=== PATIENT | female | born 2000 | race Two or more races ===

== ENCOUNTER 2022-12-13 16:10 | Emergency (ER) | payer MEDICAID, SELFPAY ==
--- NOTE | ~2022-12-13 | CT_ITS ---
EXAMINATION: CT HEAD WITHOUT CONTRAST CLINICAL INFORMATION: Head pain. COMPARISON: None available. TECHNIQUE: Contiguous axial imaging was performed from the skull base to vertex without intravenous administration of contrast. This CT examination was performed using dose optimization techniques as appropriate, variously including the following: *Automated exposure control. *Adjustment of mA and/or kV according to patient size (this includes techniques or standardized protocols for targeted exams where dose is matched to indication/reason for exam; i.e. extremities or head). *Use of iterative reconstruction technique. DLP: 581 mGy-cm FINDINGS: There is no evidence of acute intracranial hemorrhage or edematous territorial infarction. Blevins-white matter differentiation is preserved. There is no abnormal attenuation within the brain parenchyma. The ventricles are normal in morphology and size. No evidence for obstructive hydrocephalus. No abnormal mass effect or midline shift. The suprasellar cistern remains widely patent. Normal positioning of the cerebellar tonsils. No extra-axial fluid collections. No acute soft tissue or osseous abnormalities. Persistent metopic suture. Mild mucosal thickening of the paranasal sinuses. The mastoid air cells and middle ear cavities are clear. CT/CT head/brain wo IV con IMPRESSION: No evidence of acute intracranial hemorrhage or edematous territorial infarction.
[2022-12-13 16:17] VITALS: BP 109/83; PULSE 71; RESP 18; TEMP 36.4; O2SAT 100; BMI 31.6
--- NOTE | 2022-12-13 16:18 | ED.GENADULT ---
HPI - General Adult General Chief complaint: Headache Stated complaint: migraine Time Seen by Provider: 12/13/22 19:14 Related Data Previous Rx's Medication Instructions Recorded ibuprofen 400 mg tablet 400 mg PO Q6H PRN pain #20 tabs 12/13/22 ondansetron 4 mg disintegrating 4 mg PO TID PRN nausea and 12/13/22 tablet vomiting 5 days #10 tabs Allergies Allergy/AdvReac Type Severity Reaction Status Date / Time No Known Allergies Allergy Verified 12/13/22 16:17 [No Known Allergies*] [facility] Social History Social History Alcohol intake: never Substance Use Type: Marijuana Physical Exam ED Vital Signs: BMI result Body Mass Index 31.6 Course Course Course Narrative: 22-year-old female presents for evaluation of headache for last 5 days. Ports history of migraines. She states that she has never had any imaging of her brain. CT brain ordered. She has been taking Tylenol without any improvement in her symptoms Medications Administered Discontinued Medications Generic Name Dose Route Start Last Admin Trade Name Freq PRN Reason Stop Dose Admin Diphenhydramine HCl 25 mg 12/13/22 19:33 12/13/22 20:41 Diphenhydramine Hcl 50 Mg/Ml Vial IVPUSH 12/13/22 19:34 25 mg ONCE ONE Administration Sodium Chloride 1,000 mls @ 999 mls/hr 12/13/22 19:45 12/13/22 21:52 Ns IV 12/13/22 20:45 Infused .Q1H1M SIDNEY Infusion Ketorolac Tromethamine 15 mg 12/13/22 19:33 12/13/22 20:41 Ketorolac Tromethamine 15 Mg/Ml Vial IVPUSH 12/13/22 19:34 15 mg ONCE ONE Administration Prochlorperazine Edisylate 10 mg 12/13/22 19:33 12/13/22 20:41 Prochlorperazine Edisylate 10 Mg/2 Ml Vial IVPUSH 12/13/22 19:34 10 mg ONCE ONE Administration Medical Decision Making Lab Data Labs: Lab Results 12/13/22 Range/Units 21:38 Urine Test NEGATIVE (NEGATIVE) Discharge Plan Discharge Clinical Impression: Migraine Patient Disposition: Home, Self-Care Instructions: Migraine Headache (ED) Prescriptions: New ibuprofen 400 mg tablet 400 mg PO Q6H PRN (Reason: pain) Qty: 20 0RF ondansetron 4 mg tablet,disintegrating 4 mg PO TID PRN (Reason: nausea and vomiting) 5 Days Qty: 10 0RF Referrals: [facility] [Provider Group] - 12/15/22 Interventions: ED Discharge Assessment Last Done: 12/13/22 22:41 Discharge Date/Time: 12/13/22 22:41
--- NOTE | 2022-12-13 19:38 | ED_ITS ---
HPI - Headache General Chief Complaint: Headache Stated Complaint: migraine Time Seen by Provider: 12/13/22 19:14 History of Present Illness HPI Narrative: Patient is a 22-year-old female with a history of migraine headache. Presents today with having headache that is frontal in nature. Not associated with any focal weakness. No fever no chills. Headache similar to previous bouts of migraine. Patient questionably hit her head a few days ago. The headache was started just after that. Patient denies any diaphoresis. Does not think she is . She has a Norplant in place. No travel history. No fever no chills. No cough no congestion or upper respiratory symptoms. Related Data Previous Rx's Medication Instructions Recorded ibuprofen 400 mg tablet 400 mg PO Q6H PRN pain #20 tabs 12/13/22 ondansetron 4 mg disintegrating 4 mg PO TID PRN nausea and 12/13/22 tablet vomiting 5 days #10 tabs Allergies Allergy/AdvReac Type Severity Reaction Status Date / Time No Known Allergies Allergy Verified 12/13/22 16:17 [No Known Allergies*] Review of Systems Review of Systems: Positive headache Positive nausea Yes all other systems are reviewed and are negative [facility] Past Medical History Attestation statement: The following information was validated with the patient. Social History Social History Alcohol intake: never Smoked in Last 30 Days: Yes Use of substances other than those prescribed or required for medical reasons: Yes Substance Use Type: Marijuana Substance Use Frequency: Chronic Longstanding Advance Directives: No Advance Directives Information Provided: No Patient : No Physical Exam Vital Signs: Vital Signs: Last Vital Signs Temp 98.1 F 12/13/22 21:33 Pulse 85 12/13/22 21:33 Resp 18 12/13/22 21:33 BP 111/64 12/13/22 21:33 Pulse Ox 100 12/13/22 21:33 O2 Del Method Room Air 12/13/22 21:33 BMI result Body Mass Index 31.6 Appearance: Alert. Oriented X3. No acute distress. Eyes: Pupils equal, round and reactive to light. ENT: Pharynx normal. Neck: Normal inspection. Neck supple. No lymph nodes noted. No crepitus CVS: Normal heart rate and rhythm. Pulses normal. Normal S1 and S2 Respiratory: No respiratory distress. Breath sounds normal. No Wheezing. No rales Abdomen: Soft and nontender. No rigidity. No distention. good BS x4 Skin: Skin warm and dry. Normal skin color. Normal skin turgor. Extremities: No lower extremity edema. Neurovascular intact to all extremities. No Lacerations. No Rash Neuro: Oriented X 3. No motor deficit. No sensory deficit. Moving all extermities. No slurred speech Medications Administered Discontinued Medications Generic Name Dose Route Start Last Admin Trade Name Freq PRN Reason Stop Dose Admin Diphenhydramine HCl 25 mg 12/13/22 19:33 12/13/22 20:41 Diphenhydramine Hcl 50 Mg/Ml Vial IVPUSH 12/13/22 19:34 25 mg ONCE ONE Administration Sodium Chloride 1,000 mls @ 999 mls/hr 12/13/22 19:45 12/13/22 20:41 Ns IV 12/13/22 20:45 999 mls/hr .Q1H1M SIDNEY Administration Ketorolac Tromethamine 15 mg 12/13/22 19:33 12/13/22 20:41 Ketorolac Tromethamine 15 Mg/Ml Vial IVPUSH 12/13/22 19:34 15 mg ONCE ONE Administration Prochlorperazine Edisylate 10 mg 12/13/22 19:33 12/13/22 20:41 Prochlorperazine Edisylate 10 Mg/2 Ml Vial IVPUSH 12/13/22 19:34 10 mg ONCE ONE Administration Medical Decision Making Medical Decision Making [facility] Narrative: Patient's symptoms suggestive of migraine headache. History of similar bouts in the past. Patient history not consistent with intracranial bleeding. Not consistent with meningitis. Neurologically intact. Will discharge patient home as patient's symptom improved with migraine cocktail including Compazine, Benadryl, NSAIDs. IV fluids given hydration. Currently in stable condition. Differential Diagnosis Differential Diagnoses: The differential diagnosis associated with the pre sentation includes Intracranial bleed, migraine, meningitis, tension headache Lab Data [facility] Lab Attestation statement: I reviewed the patient's lab results. Social Determinants Patient?s care significantly limited by Social Determinants of Health including: Inadequate housing and Low income Discharge Plan Discharge Clinical Impression: Migraine Patient Disposition: Home, Self-Care Instructions: Migraine Headache (ED) Prescriptions: New ibuprofen 400 mg tablet 400 mg PO Q6H PRN (Reason: pain) Qty: 20 0RF ondansetron 4 mg tablet,disintegrating 4 mg PO TID PRN (Reason: nausea and vomiting) 5 Days Qty: 10 0RF Referrals: [facility] [Provider Group] - 12/15/22
[2022-12-13 20:11] VITALS: BP 115/72; PULSE 72; RESP 18; TEMP 36.8; O2SAT 98
[2022-12-13] MEDS: Prochlorperazine Edisylate 10 MG/2 ML VIAL IVPUSH (20:41)
[2022-12-13] MEDS: diphenhydrAMINE HCL 50 MG/ML VIAL 25 MG IVPUSH (20:41)
[2022-12-13] MEDS: 0.9 % Sodium Chloride 1,000 ML 999 ML IV (20:41)
[2022-12-13] MEDS: Ketorolac Tromethamine 15 MG/ML VIAL IVPUSH (20:41)
[2022-12-13 21:33] VITALS: BP 111/64; PULSE 85; RESP 18; TEMP 36.7; O2SAT 100
[2022-12-13 21:49] LABS: UPreg QC Valid YES; Urine Pregnancy NEGATIVE (NEGATIVE)
== END 2022-12-13 22:41 | disposition home or self-care (01) ==
PROVIDERS: Physician Assistant; Emergency Provider Emergency Medicine Emergency Medical Services
DX: G43.909 Migraine, unspecified, not intractable, without status migrainosus (principal)
CPT/HCPCS: 70450; 81025; 96361; 96374; 96375; 99284; 99285; J1200; J1885

== ENCOUNTER 2022-12-14 12:27 | Outpatient (REF) | payer MEDICAID, SELFPAY ==
[2022-12-14 16:07] LABS: MANUAL DIFF FLAG NO
[2022-12-14 16:19] LABS: Basophils Percent Auto 0.5 % (0-2); Eosinophils Absolute Auto 0.2 X10*3/uL (0.0-0.4); Eosinophils Percent Auto 2.9 % (0-4); Hematocrit 40.8 % (37.0-47.0); Hemoglobin 13.4 g/dl (12.0-16.0); Imm Gran Abs Auto 0.01 X10*3/uL (0.00-0.03); Imm Gran Pct Auto 0.1 % (0.0-0.4); Lymphocytes Absolute Auto 2.3 X10*3/uL (1.2-4.9); Lymphocytes Percent Auto 27.6 % (20-40); Mean Corpuscular HGB Conc 32.8 g/dl (31.0-35.0); Mean Corpuscular Volume 88.3 fL (80.0-98.0); Mean Platelet Volume 10.9 fL (9.4-12.3); Monocytes Absolute Auto 0.6 X10*3/uL (0.1-1.2); Monocytes Percent Auto 7.5 % (2-11); Neutrophils Absolute Auto 5.1 x10*3/uL (2.0-8.3); Neutrophils Percent Auto 61.4 % (45-73); Platelet Count 312 X10*3/uL (160-400); Red Blood Count 4.62 X10*6/uL (4.20-5.50); Red Cell Distribution Width 13.7 % (11.0-16.0); White Blood Count 8.3 X10*3/uL (4.8-10.8)
[2022-12-14 16:29] LABS: Estimated Average Glucose 91 mg/dL; Hemoglobin A1c % 4.8 %
[2022-12-14 17:12] LABS: Alanine Aminotransferase 10 U/L (0-31); Albumin Level 3.7 g/dL (3.5-5.0); Alkaline Phosphatase 80 U/L (39-117); Anion Gap 11 (12-20); Aspartate Amino Transferase 17 U/L (5-31); Bilirubin Total 0.4 mg/dL (0.0-1.0); Blood Urea Nitrogen 7 mg/dL (9-16); Calcium 8.8 mg/dL (8.4-10.2); Carbon Dioxide 24 mmol/L (22-29); Chloride 110 mmol/L (96-108); Cholesterol 138 mg/dL; Estimated Glomerular Filt Rate > 60; Glucose Random 75 mg/dL (60-115); HDL Cholesterol 43 mg/dL; Iron 113 mcg/dL (30-160); LDL Cholesterol Calculated 80 mg/dl; Percent Iron Saturation 45 % (15-50); Potassium 3.9 mmol/L (3.3-5.1); Sodium 141 mmol/L (135-145); Total Iron Binding Capacity 253 mcg/dL (228-428); Total Protein 6.3 g/dL (6.5-8.0); Triglycerides 77 mg/dL; Unsaturated Iron Binding 140 ug/dL
[2022-12-14 17:13] LABS: Ferritin 49 ng/mL (10-122); TSH reflex Free T4 0.25 uIU/mL (0.32-4.0)
[2022-12-15 08:49] LABS: HBS Num1 0.42 mIU/mL (0-7.99); HBc Num1 0.12 S/CO (0.00-0.79); HBsAGNum1 0.37 S/CO (0.00-0.99); HIV AB/AG Nonreactive (Nonreactive); HIV Num 1 0.05 S/CO (0.00-0.99); Hepatitis A Antibody IgM 0.17 Index (0-0.79); Hepatitis B Core Antibody Nonreactive (Nonreactive); Hepatitis B Surface Antigen Negative (Negative); ~HepC Num1 0.06 S/CO (0.00-0.79); ~Hepatitis A Antibody IgM Nonreactive (Nonreactive); ~Hepatitis B Surface Antibody NONREACTIVE (Nonreactive); ~Hepatitis C Antibody Nonreactive (Nonreactive)
[2022-12-15 08:53] LABS: Syphilis Screen Nonreactive (Nonreactive)
== END 2022-12-14 12:28 | disposition home or self-care (01) ==
LOC: HO.HHCL 12:27
PROVIDERS: Visit Provider Registered Nurse
DX: Z00.00 Encounter for general adult medical examination without abnormal findings (principal); Z11.4 Encounter for screening for human immunodeficiency virus [HIV]; R42 Dizziness and giddiness
CPT/HCPCS: 36415; 80053; 80061; 82728; 83036; 83540; 84439; 84443; 85025; 86704; 86706; 86709; 86780; 86803; 87340; 87389

== ENCOUNTER 2023-01-31 19:43 | Outpatient (REF) | payer MEDICAID, SELFPAY ==
[2023-02-08 04:33] LABS: C. trachomatis RNA TMA NOT DETECTED (NOT DETECTED); N. gonorrhoeae RNA TMA NOT DETECTED (NOT DETECTED); Trichomonas (NAAT) NOT DETECTED (NOT DETECTED)
== END 2023-01-31 19:44 | disposition home or self-care (01) ==
LOC: HO.HHCLNP 19:43
PROVIDERS: Visit Provider Advanced Practice Midwife
DX: Z12.4 Encounter for screening for malignant neoplasm of cervix (principal); Z11.3 Encounter for screening for infections with a predominantly sexual mode of transmission
CPT/HCPCS: 36415; 87491; 87591; 87661; 88142

== ENCOUNTER 2023-03-29 05:00 | Emergency (ER) | payer MEDICAID, SELFPAY ==
--- NOTE | ~2023-03-29 | XR_ITS ---
EXAMINATION: XR ANKLE, LEFT CLINICAL INFORMATION: Pain and swelling. COMPARISON: None available. TECHNIQUE: AP, lateral, and mortise views of the left ankle. FINDINGS: No fracture. Alignment is anatomic. No erosions. Joint spaces are maintained. There is mild lateral soft tissue swelling. XR/XR ankle LT min 3V IMPRESSION: Mild lateral soft tissue swelling. No acute osseous abnormality.
[2023-03-29 05:35] VITALS: BP 118/65; PULSE 83; RESP 18; TEMP 36.7; O2SAT 97; BMI 29.1
[2023-03-29 07:05] VITALS: BP 105/62; PULSE 70; RESP 20; TEMP 36.5; O2SAT 98
--- NOTE | 2023-03-29 07:19 | ED_ITS ---
HPI - Extremity Problem General Chief complaint: Extremity Problem Stated complaint: Fall/ Ankle pain Time Seen by Provider: 03/29/23 06:43 Source: patient Mode of arrival: ambulatory Limitations: no limitations History of Present Illness HPI Narrative: 23-year-old female presents with small laceration to her right heel and left ankle pain status post slipping down a few steps, patient reports she was wearing socks she slipped, patient went in words than hours, immediately started experiencing left ankle pain. Also she noticed that she sustained a laceration from this injury unclear how. Not up-to-date on tetanus shot. She did not hit her head, lose consciousness, not on blood thinners. Denies any other injuries from this fall. Denies preceding symptoms to fall such as chest pain, shortness of breath and dizziness. At this time denies numbness, tingling, fevers, chills, chest pain, shortness of breath, nausea, vomiting, headache, vision changes, dizziness and weakness. Related Data Previous Rx's Medication Instructions Recorded ibuprofen 400 mg tablet 400 mg PO Q6H PRN pain #20 tabs 12/13/22 ondansetron 4 mg disintegrating 4 mg PO TID PRN nausea and 12/13/22 tablet vomiting 5 days #10 tabs ketorolac 10 mg tablet 10 mg PO TID PRN pain 5 days #15 03/29/23 tabs Allergies Allergy/AdvReac Type Severity Reaction Status Date / Time No Known Allergies Allergy Verified 12/13/22 16:17 [No Known Allergies*] Review of Systems Review of Systems: Constitutional : No Weight loss, No Fever, No Chills, No Fatigue, No Malaise ENT/Mouth : + sore throat, No Rhinorrhea Eyes: No Eye Pain, No Swelling, No Redness Cardiovascular : No Chest Pain, No SOB, No Dyspnea on Exertion, No Orthopnea, No Edema, No Palpitations Respiratory : No Cough, No Sputum, No Wheezing Gastrointestinal : No Nausea, No Vomiting, No Diarrhea, No Constipation, No abdominal Pain, No Hematochezia, No Melena Genitourinary : No Dysuria, No Urinary Frequency, No Hematuria, Musculoskeletal : No joint pain, No Myalgias, No Joint Swelling Skin : No Skin Lesions, No rash Neuro : No Weakness, No Numbness, No Dizziness, No Headache Psych : No Anxiety/Panic, No Depression All other systems reviewed and are negative Yes all other systems are reviewed and are negative [facility] Past Medical History Attestation statement: The following information was validated with the patient. Source: old records reviewed and nursing notes reviewed Social History Social History Alcohol intake: never Smoked in Last 30 Days: Yes Use of substances other than those prescribed or required for medical reasons: No Substance Use Type: Marijuana Advance Directives: No Advance Directives Information Provided: Yes Patient : No Physical Exam Vital Signs: Vital Signs: Last Vital Signs Temp 97.7 F 03/29/23 07:05 Pulse 70 03/29/23 07:05 Resp 20 03/29/23 07:05 BP 105/62 03/29/23 07:05 Pulse Ox 98 03/29/23 07:05 O2 Del Method Room Air 03/29/23 07:05 BMI result Body Mass Index 29.1 vss Appearance: Alert.? Oriented X3.? No acute distress.? Head: Normocephalic, atraumatic, no step-offs or deformities Eyes: Pupils equal, round and reactive to light.? Neck: Normal inspection.? Neck supple.? CVS: Normal heart rate and rhythm.? Pulses normal.? Respiratory: No respiratory distress.? Breath sounds normal.? Abdomen: Soft and nontender.? Skin: Skin warm and dry.? Normal skin color.? Normal skin turgor.? Extremities: No lower extremity edema.? No calf ttp. 5/5 strength to bilateral upper and lower extremities + TTP to lateral aspect of left ankle. 2+ DP,AT,PT pulses equal and b/l. Full ROM to b/l ankles slight discomfort w/ rom of L ankle. + small laceration to right heel, appears to be healing w/o FB visualized. Back: No midline tenderness, no C-spine tenderness, full range of motion, no CVA tenderness bilaterally Neuro: Oriented X 3.? No motor deficit.? No sensory deficit. CN 2-12 intact Course Reevaluation(s) Reevaluation #1: X-ray of left ankle with mild lateral soft tissue swelling. No acute osseous abnormality. Likely sprain or strain will give Aircast, crutches. Will give orthopedic follow-up. Toradol for pain. Educated patient on diagnosis and treatment plan, answered all question, patient verbalizes understanding. At this time patient will be discharged home, advised to return with new or worse angel symptoms. Educated on worrisome signs and symptoms and when to return. At this time I feel comfortable discharge home. Time: 07:26 Medications Administered Discontinued Medications Generic Name Dose Route Start Last Admin Trade Name Clarisse PRN Reason Stop Dose Admin Diphtheria/Tetanus/Acell Pertussis 0.5 ml 03/29/23 07:16 03/29/23 07:59 Diphth,Pertus(Acell),Tet Adult 0.5 Ml Syringe IM 03/29/23 07:17 0.5 ml .ONCE ONE Administration Ketorolac Tromethamine 30 mg 03/29/23 07:16 03/29/23 07:58 Ketorolac Tromethamine 15 Mg/Ml Vial IM 03/29/23 07:17 30 mg ONCE ONE Administration Medical Decision Making Medical Decision Making [facility] Narrative: 723 23-year-old female presents with right ankle laceration on left ankle pain status post rolling her ankle yesterday while slipping down a few steps. No other injury sustained no head strike or loss of consciousness. Not on blood thinner Physical exam significant for No lower extremity edema.? No calf ttp. 5/5 strength to bilateral upper and lower extremities + TTP to lateral aspect of left ankle. 2+ DP,AT,PT pulses equal and b/l. Full ROM to b/l ankles slight discomfort w/ rom of L ankle. + small laceration to right heel, appears to be healing w/o FB visualized. Likely sprain or strain. Unlikely fracture dislocation. Unlikely threat to limber neurovascular compromise. Likely simple laceration. No signs of foreign body visualized. Laceration will not require repair. Already in secondary healing Plan at this time will give a Boostrix shot as patients tetanus status is unknown. Will also obtain imaging to rule out fracture dislocation Differential Diagnosis Differential Diagnoses: The differential diagnosis associated with the presenta tion includes Likely sprain or strain. Unlikely fracture dislocation. Unlikely threat to limber neurovascular compromise. Likely simple laceration. No signs of foreign body visualized. Admission/Observation Consideration of admission/observation: Escalation of care including admission/observation considered Unlikely Independent Interpretation I performed an independent interpretation of an: Plain X-Ray Radiology Impression Discussion of test interpretation with radiology: I have reviewed the radiologist's reading. Prescription Management I considered prescription management with: Pain Medication Critical Care Time Critical Care Time Critical Care Time: No Discharge Plan Discharge Clinical Impression: Ankle sprain, Laceration of foot Patient Disposition: Home, Self-Care Instructions: Ankle Sprain (ED), Crutch Instructions (ED), Laceration (DC), R.I.C.E. Treatment (ED), Laceration Without Closure (ED) Additional Instructions: Take your medications as prescribed. If you were prescribed antibiotics today, it is important that you take your medication to their entirety, do not skip any doses, do not finish them early. Follow-up with your primary care provider this week. Follow-up with the orthopedic Return to the emergency department with new or worsening symptoms. Such as fevers, chills, chest pain, shortness of breath, nausea, vomiting, dizziness, headache, vision changes, lethargy In case of emergency call 911 Toradol has been sent to your pharmacy, you tolerated this well in the department. Please take this as prescribed do not take this with ibuprofen, or other NSAIDs, do not mix this with alcohol. Side effects of this medication including increased risk for bleeding and possible kidney injury. XR/XR ankle LT min 3V IMPRESSION: Mild lateral soft tissue swelling. No acute osseous abnormality. Prescriptions: New ketorolac 10 mg tablet 10 mg PO TID PRN (Reason: pain) 5 Days Qty: 15 0RF No Action ibuprofen 400 mg tablet 400 mg PO Q6H PRN (Reason: pain) Qty: 20 0RF ondansetron 4 mg tablet,disintegrating 4 mg PO TID PRN (Reason: nausea and vomiting) 5 Days Qty: 10 0RF Referrals: [facility] [place] [facility] [Provider Group] - 3 days Physician,Unknown J [Primary Care Provider] - 2 days Stand Alone Forms: Work/School Release Interventions: ED Discharge Assessment Last Done: 03/29/23 08:12 Discharge Date/Time: 03/29/23 08:13
[2023-03-29] MEDS: Ketorolac Tromethamine 15 MG/ML VIAL 30 MG IM (07:58)
[2023-03-29] MEDS: Diphth,Pertus(ACell),Tet Adult 0.5 ML SYRINGE IM (07:59)
--- NOTE | 2023-03-29 08:09 | PC.NURSE ---
assumed care of pt at 0700. pt a&o x4, pleasant, calm, and cooperative. pt reports 10/10 L ankle pain. pt medicated per jul. pt provided with aircast and crutches with training. pt able to tolerate crutches well. rr even/unlabored. call butler within pt reach.
== END 2023-03-29 08:13 | disposition home or self-care (01) ==
PROVIDERS: Emergency Provider Student in an Organized Health Care Education/Training Program
DX: S93.402A Sprain of unspecified ligament of left ankle, initial encounter (principal); S91.311A Laceration without foreign body, right foot, initial encounter; W10.8XXA Fall (on) (from) other stairs and steps, initial encounter; Y93.89 Activity, other specified; Y92.9 Unspecified place or not applicable; Y99.9 Unspecified external cause status
CPT/HCPCS: 73610; 90471; 90715; 96372; 99284; J1885

== ENCOUNTER 2023-04-27 05:01 | Emergency (ER) | payer MEDICAID, SELFPAY ==
[2023-04-27 05:16] VITALS: BP 131/84; PULSE 98; RESP 16; TEMP 36.6; O2SAT 97; BMI 13.0
--- NOTE | 2023-04-27 05:24 | ED.BACK ---
HPI - Back Pain/Injury General Chief Complaint: Abdominal Pain Stated Complaint: Back pain Time Seen by Provider: 04/27/23 05:16 Source: patient Mode of arrival: ambulatory Limitations: no limitations History of Present Illness HPI Narrative: 23 yo female who denies PMH states she works at [employer] and has to do repetitive lifting at her job though it is not heavy. She has had lower back pain x 2 weeks worse with bending and moving. She denies IVDA, fevers, blood thinners, b/b incontinence, saddle anesthesia or any other concerns. She tried tylenol with little relief. She is requesting a test to be sure. MD elicited complaint: back pain Pertinent past history: other (repetitive movements at work) Onset (ago): week(s) (2) Timing: intermittent Severity: mild Similar Symptoms Previously: No Quality: dull and aching Location: lumbar spine Radiation: none Exacerbating factors: movement Relieving factors: immobilization Context: bending Associated symptoms: denies other symptoms Treatments prior to arrival: acetaminophen Work related injury: Yes Related Data Previous Rx's Medication Instructions Recorded ibuprofen 400 mg tablet 400 mg PO Q6H PRN pain #20 tabs 12/13/22 ondansetron 4 mg disintegrating 4 mg PO TID PRN nausea and 12/13/22 tablet vomiting 5 days #10 tabs ketorolac 10 mg tablet 10 mg PO TID PRN pain 5 days #15 03/29/23 tabs cyclobenzaprine 10 mg tablet 10 mg PO TID PRN muscle spasm #20 04/27/23 tabs ibuprofen 600 mg tablet 600 mg PO Q6H PRN pain #30 tabs 04/27/23 lidocaine 5 % topical patch 1 patch topical DAILY #30 ea 04/27/23 Allergies Allergy/AdvReac Type Severity Reaction Status Date / Time No Known Allergies Allergy Verified 12/13/22 16:17 [No Known Allergies*] Review of Systems Review of Systems: Constitutional : No Weight loss, No Fever, No Chills, ENT/Mouth : No Hearing loss, No Ear Pain, No Nasal Congestion, No Sinus Pain, No Hoarseness, No sore throat, No Rhinorrhea, No Swallowing Difficulty Cardiovascular : No Chest Pain, No SOB Respiratory : No Cough, No Dyspnea Gastrointestinal : No Nausea, No Vomiting, No Diarrhea, No abdominal Pain, No Hematochezia, No Melena Genitourinary : No Dysuria, No Urinary Frequency, No Hematuria, No Urinary Incontinence, Musculoskeletal : positive back pain Skin : No Skin Lesions, No rash Neuro : No Weakness, No Numbness, No Paresthesias, no loss of bowel or bladder incontinence, no saddle anesthesia All other systems reviewed and are negative [facility] Past Medical History Source: old records reviewed Medical History No pertinent past medical history Social History Social History (Updated 04/27/23 @ 05:27 by Linda Allen DO) Alcohol intake: never Patient Tobacco Use Status: Tobacco use Unknown Substance Use Type: Marijuana Advance Directives: No Physical Exam Vital Signs: Vital Signs: Last Vital Signs Temp 97.9 F 04/27/23 05:16 Pulse 98 04/27/23 05:16 Resp 16 04/27/23 05:16 BP 131/84 04/27/23 05:16 Pulse Ox 97 04/27/23 05:16 O2 Del Method Room Air 04/27/23 05:16 BMI result Body Mass Index 13.0 Appearance: Alert. Oriented X3. No acute distress. Eyes: Pupils equal, round and reactive to light. ENT: Pharynx normal. Neck: Normal inspection. Neck supple. CVS: Normal heart rate and rhythm. Pulses normal. Respiratory: No respiratory distress. Breath sounds normal. Abdomen: Soft and non-tender. Back: ttp along bilateral lumbar paraspinal muscles reproduces pain Skin: Skin warm and dry. Normal skin color. Normal skin turgor. Extremities: No lower extremity edema. No calf ttp Neuro: Oriented X 3. No motor deficit. No sensory deficit. Medical Decision Making Medical Decision Making [facility] Narrative: 23 yo female with no sig PMH here with low back pain likely due to repetitive lifting from her job no red flags with b/b incontinence and no saddle anesthesia. No IVDA. Has no abdominal pain on exam. She is asking for test. Will obtain UA and UPT - once resulted will start on NSAIDs, flexeril and lidocaine patches for strain. Differential Diagnosis Differential Diagnoses: The differential diagnosis associated with the presentation includes low back strain, lumbar strain Lab Data [facility] Lab Attestation statement: I reviewed the patient's lab results. Labs: Lab Results 04/27/23 Range/Units 05:45 Urine Color Dark Yellow Urine Appearance Clear Urine pH 5.5 (5.0-9.0) Ur Specific [place] >= 1.030 H (1.005-1.025) Urine Protein Negative (Neg-Trace) mg/dL Urine Glucose (UA) Negative (Negative) mg/dL Urine Ketones Trace (Negative) mg/dL Urine Blood Negative (Negative) Urine Nitrite Negative (Negative) Ur Leukocyte Esterase Negative (Negative) Urine RBC 0-2 (0-2) /HPF Urine WBC 0-5 (0-5) /HPF Ur Squamous Epith Cells 6-10 (0-2) /HPF Urine Bacteria None Seen (None Seen) Hyaline Casts 0-2 (0-2) /LPF Urine Test NEGATIVE (NEGATIVE) Independent Historian Clinical information obtained from an independent historian. History obtained from or confirmed by: Spouse External Record Review External record reviewed: Inpatient record Prescription Management I considered prescription management with: Pain Medication and Other Discharge Plan Discharge Clinical Impression: Lumbar strain Qualifiers: Encounter type: initial encounter Qualified Code(s): S39.012A - Strain of muscle, fascia and tendon of lower back, initial encounter Patient Disposition: Home, Self-Care Instructions: Low Back Strain (ED) Additional Instructions: return for numbness, weakness, loss of control of bowel or bladder or any other concerns. test negative Prescriptions: New cyclobenzaprine 10 mg tablet 10 mg PO TID PRN (Reason: muscle spasm) Qty: 20 0RF lidocaine 5 % adhesive patch,medicated 1 patch topical DAILY Qty: 30 0RF Rx Instructions: leave on most painful area for up to 12 hrs ibuprofen 600 mg tablet 600 mg PO Q6H PRN (Reason: pain) Qty: 30 0RF No Action ibuprofen 400 mg tablet 400 mg PO Q6H PRN (Reason: pain) Qty: 20 0RF ondansetron 4 mg tablet,disintegrating 4 mg PO TID PRN (Reason: nausea and vomiting) 5 Days Qty: 10 0RF ketorolac 10 mg tablet 10 mg PO TID PRN (Reason: pain) 5 Days Qty: 15 0RF Stand Alone Forms: Work/School Release
[2023-04-27 05:51] LABS: Appearance Urine Clear; Color Urine Dark Yellow; Glucose Urine UA Negative (Negative); Leukocyte Esterase Urine Negative (Negative); Nitrite Urine Negative (Negative); PH 5.5 (5.0-9.0); Specific Gravity - Urine >= 1.030 (1.005-1.025); Urine Blood Negative (Negative); Urine Ketones Trace mg/dL (Negative); Urine Protein Negative (Neg-Trace)
[2023-04-27 05:52] LABS: UPreg QC Valid YES; Urine Pregnancy NEGATIVE (NEGATIVE)
[2023-04-27 05:56] LABS: Bacteria Urine None Seen (None Seen); Hyaline Casts Urine 0-2 /LPF (0-2); RBC Urine 0-2 /HPF (0-2); WBC Urine 0-5 /HPF (0-5)
[2023-04-27 06:17] VITALS: BP 105/57; PULSE 56; RESP 16; TEMP 37.1; O2SAT 98
--- NOTE | 2023-04-27 06:23 | PC.NURSE ---
Reviewed discharge instructions with pt. 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 No sign of distress upon discharge.
== END 2023-04-27 06:24 | disposition home or self-care (01) ==
PROVIDERS: Emergency Provider Emergency Medicine
DX: S39.012A Strain of muscle, fascia and tendon of lower back, initial encounter (principal); X50.0XXA Overexertion from strenuous movement or load, initial encounter; Y93.89 Activity, other specified; Y92.59 Other trade areas as the place of occurrence of the external cause; Y99.0 Civilian activity done for income or pay
CPT/HCPCS: 81001; 81025; 99283; 99284

== ENCOUNTER 2023-06-12 10:47 | Emergency (ER) | payer MEDICAID, SELFPAY ==
--- NOTE | ~2023-06-12 | XR_ITS ---
EXAMINATION: XR LUMBOSACRAL SPINE CLINICAL INFORMATION: Back pain COMPARISON: None available. TECHNIQUE: Three views of the lumbosacral spine. FINDINGS: The vertebral bodies and posterior elements are normal. The disc spaces are preserved and the vertebral alignment is normal. The paraspinal soft tissues are normal. XR/XR lumbar spine 2-3V IMPRESSION: Unremarkable examination.
--- NOTE | ~2023-06-12 | XR_ITS ---
EXAMINATION:XR thoracic spine 2V CLINICAL INFORMATION: Pain COMPARISON: None TECHNIQUE: Frontal and lateral views FINDINGS: 7 cervical vertebrae identified maintaining normal height and alignments.. Intervertebral disc spaces are preserved.. No prevertebral soft tissue swelling. Surrounding soft tissue and included lung apices are clear. Included adjacent lungs are clear. XR/XR thoracic spine 2V IMPRESSION: No significant osseous changes to explain patient's dorsal spine pain.
[2023-06-12 10:58] VITALS: BP 120/77; PULSE 97; RESP 16; TEMP 37; O2SAT 103; BMI 28.6
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
[2023-06-12 11:38] LABS: Appearance Urine Cloudy; Color Urine Dark Yellow; Glucose Urine UA Negative (Negative); Leukocyte Esterase Urine Negative (Negative); Nitrite Urine Negative (Negative); PH 5.5 (5.0-9.0); Specific Gravity - Urine >= 1.030 (1.005-1.025); Urine Blood Negative (Negative); Urine Ketones Trace mg/dL (Negative); Urine Protein Trace mg/dL (Neg-Trace)
[2023-06-12 12:23] LABS: MANUAL DIFF FLAG NO
[2023-06-12 12:24] LABS: Basophils Absolute Auto 0.1 X10*3/uL (0.0-0.2); Basophils Percent Auto 0.5 % (0-2); Eosinophils Absolute Auto 0.1 X10*3/uL (0.0-0.4); Eosinophils Percent Auto 0.9 % (0-4); Hematocrit 43.3 % (37.0-47.0); Hemoglobin 14.6 g/dl (12.0-16.0); Imm Gran Abs Auto 0.04 X10*3/uL (0.00-0.03); Imm Gran Pct Auto 0.4 % (0.0-0.4); Lymphocytes Absolute Auto 2.6 X10*3/uL (1.2-4.9); Lymphocytes Percent Auto 28.2 % (20-40); Mean Corpuscular HGB Conc 33.7 g/dl (31.0-35.0); Mean Corpuscular Hemoglobin 30.2 pg (27.0-33.0); Mean Corpuscular Volume 89.6 fL (80.0-98.0); Mean Platelet Volume 9.9 fL (9.4-12.3); Monocytes Absolute Auto 0.7 X10*3/uL (0.1-1.2); Neutrophils Absolute Auto 5.8 x10*3/uL (2.0-8.3); Platelet Count 321 X10*3/uL (160-400); Red Blood Count 4.83 X10*6/uL (4.20-5.50); Red Cell Distribution Width 14.6 % (11.0-16.0); White Blood Count 9.3 X10*3/uL (4.8-10.8)
[2023-06-12 12:32] LABS: UPreg QC Valid YES; Urine Pregnancy NEGATIVE (NEGATIVE)
[2023-06-12 12:35] LABS: Ethanol < 10 mg/dL
[2023-06-12 12:36] LABS: Alanine Aminotransferase 12 U/L (0-31); Albumin Level 4.6 g/dL (3.5-5.0); Alkaline Phosphatase 77 U/L (39-117); Anion Gap 11 (12-20); Aspartate Amino Transferase 17 U/L (5-31); Bilirubin Total 0.3 mg/dL (0.0-1.0); Blood Urea Nitrogen 6 mg/dL (9-16); COVID-19 Test Negative (Negative); Calcium 9.9 mg/dL (8.4-10.2); Carbon Dioxide 28 mmol/L (22-29); Chloride 107 mmol/L (96-108); Creatinine Clr Calc Pharmacy 92.7; Estimated Glomerular Filt Rate > 60; Glucose Random 95 mg/dL (60-115); IDNOW Serial# 16C4AD1C; Lipase 19 U/L (8-78); Magnesium 2.1 mg/dL (1.6-2.6); Potassium 4.3 mmol/L (3.3-5.1); Sodium 142 mmol/L (135-145); Total Protein 7.9 g/dL (6.5-8.0)
[2023-06-12 12:38] LABS: IDNOW Serial# 55D5AD1C; Influenza A Negative (Negative); Influenza B2 Negative (Negative)
[2023-06-12] MEDS: Lidocaine 4 % Patch ADH..PATCH 1 PATCH TRANSDERMA (12:54)
[2023-06-12] MEDS: Acetaminophen 325 MG TABLET 650 MG PO (12:54)
[2023-06-12] MEDS: Cyclobenzaprine HCl 5 MG TABLET PO (13:36)
--- NOTE | 2023-06-12 15:22 | PC.NURSE ---
patient appeared to have left without completing treatment. left note on bed saying they left and to call with any news . provider aware
== END 2023-06-12 15:28 | disposition left against medical advice (07) ==
PROVIDERS: Physician Assistant Medical; Emergency Provider Emergency Medicine
DX: M54.50 Low back pain, unspecified (principal); M54.6 Pain in thoracic spine; Z79.899 Other long term (current) drug therapy; Z11.52 Encounter for screening for COVID-19
CPT/HCPCS: 72070; 72100; 80053; 80307; 81003; 81025; 83690; 83735; 85025; 87502; 87635; 99283

== ENCOUNTER 2023-07-14 06:13 | Emergency (ER) | payer MEDICAID, SELFPAY ==
--- NOTE | 2023-07-14 | ECG_ITS ---
Test Reason : CP Blood Pressure : / mmHG Vent. Rate : 109 BPM Atrial Rate : 109 BPM P-R Int : 126 ms QRS Dur : 086 ms QT Int : 374 ms P-R-T Axes : 070 074 -05 degrees QTc Int : 503 ms Sinus tachycardia T wave abnormality, consider inferior ischemia Abnormal ECG No previous ECGs available Referred By: Generic ED Physician Electronically Signed By:YASMINE FERNÁNDEZ MD
--- NOTE | ~2023-07-14 | XR_ITS ---
EXAMINATION: XR CHEST CLINICAL INFORMATION: Chest pain COMPARISON: None available. TECHNIQUE: 2 views of the chest were obtained. FINDINGS: No significant abnormality is noted involving the heart, lungs, mediastinum, bony thorax or soft tissues. XR/XR chest 2V IMPRESSION: Unremarkable examination.
[2023-07-14 06:21] VITALS: BP 135/80; PULSE 114; RESP 18; TEMP 36.9; O2SAT 99; BMI 28.2
[2023-07-14 06:31] VITALS: PULSE 111
[2023-07-14 06:33] LABS: MANUAL DIFF FLAG NO
[2023-07-14 06:34] LABS: Basophils Percent Auto 0.3 % (0-2); Eosinophils Absolute Auto 0.2 X10*3/uL (0.0-0.4); Hematocrit 43.1 % (37.0-47.0); Hemoglobin 14.7 g/dl (12.0-16.0); Imm Gran Abs Auto 0.07 X10*3/uL (0.00-0.03); Imm Gran Pct Auto 0.5 % (0.0-0.4); Lymphocytes Absolute Auto 3.4 X10*3/uL (1.2-4.9); Lymphocytes Percent Auto 23.6 % (20-40); Mean Corpuscular HGB Conc 34.1 g/dl (31.0-35.0); Mean Corpuscular Hemoglobin 29.5 pg (27.0-33.0); Mean Corpuscular Volume 86.4 fL (80.0-98.0); Mean Platelet Volume 9.6 fL (9.4-12.3); Monocytes Absolute Auto 1.2 X10*3/uL (0.1-1.2); Monocytes Percent Auto 8.3 % (2-11); Neutrophils Absolute Auto 9.6 x10*3/uL (2.0-8.3); Neutrophils Percent Auto 66.3 % (45-73); Platelet Count 322 X10*3/uL (160-400); Red Blood Count 4.99 X10*6/uL (4.20-5.50); Red Cell Distribution Width 14.1 % (11.0-16.0); White Blood Count 14.4 X10*3/uL (4.8-10.8)
--- NOTE | 2023-07-14 06:34 | PC.NURSE ---
iv established labs drawn ekg viewed by ed provider. boyfriend at bedside. nad. resp even and unlabored. call butler within reach.
[2023-07-14 06:51] LABS: Anion Gap 14 (12-20); Blood Urea Nitrogen 10 mg/dL (9-16); Calcium 9.5 mg/dL (8.4-10.2); Carbon Dioxide 23 mmol/L (22-29); Chloride 107 mmol/L (96-108); Creatinine Clr Calc Pharmacy 89.8; Estimated Glomerular Filt Rate > 60; Glucose Random 105 mg/dL (60-115); Potassium 3.2 mmol/L (3.3-5.1); Sodium 141 mmol/L (135-145)
[2023-07-14 07:01] LABS: Troponin-I High Sensitivity < 2.7 ng/L (<3.5-17.0)
[2023-07-14 07:11] VITALS: BP 121/83; PULSE 114; RESP 20; TEMP 36.9; O2SAT 100
--- NOTE | 2023-07-14 07:30 | PC.NURSE ---
PT IS A/O X 4 NO SOB/JOSE ALEJANDRO NOTED PT C/O LEFT CHEST DISC RADIATING TO L SHOULDER AND INTERMITTENTLY PAIN FROM R MID/LOWER BACK PAIN/DISC. PROVIDER MLP (JOSELIN) AT BEDSIDE. PT/BOYFRIEND AWARE OF PLAN OF CARE.
--- NOTE | 2023-07-14 07:40 | ED_ITS ---
HPI - Chest Pain General Chief Complaint: Chest Pain Stated Complaint: chest pain, left side tingling, vomiting Time Seen by Provider: 07/14/23 06:38 Source: patient and family (significant other) Mode of arrival: ambulatory Limitations: no limitations History of Present Illness HPI narrative: 23 year old female with pmhx significant for eoth abuse presents to the ED today for evaluation of chest pain x36 hours. Admits to fluctuations in HR, anywhere from 50-120s beginning yesterday. This has never happened to her before. Additionally endorses morning sickness over the last 4 weeks however denies chance of . Denies OCP use. Currently has Nexplanon implant. Reports history of etoh abuse. Significant other at bedside states that she has cut down drinking exponentially and now only consumes a glass of vodka 1-2 x/week. Endorses marijuana use however denies other illicit substance use or IVDU. Denies history of withdrawal seizures or DT. States she has never been in withdrawal before. Denies AH/VH. Denies SI/HI. Denies fever, chills, sore throat, cough, hemoptysis, abdominal pain, flank pain, dysuria, hematuria, increased urinary frequency, vaginal discharge, calf pain/swelling. Related Data Previous Rx's Medication Instructions Recorded ibuprofen 400 mg tablet 400 mg PO Q6H PRN pain #20 tabs 12/13/22 ondansetron 4 mg disintegrating 4 mg PO TID PRN nausea and 12/13/22 tablet vomiting 5 days #10 tabs ketorolac 10 mg tablet 10 mg PO TID PRN pain 5 days #15 03/29/23 tabs cyclobenzaprine 10 mg tablet 10 mg PO TID PRN muscle spasm #20 04/27/23 tabs ibuprofen 600 mg tablet 600 mg PO Q6H PRN pain #30 tabs 04/27/23 lidocaine 5 % topical patch 1 patch topical DAILY #30 ea 04/27/23 lidocaine 5 % topical patch 1 patch topical DAILY #15 ea 06/12/23 (Lidoderm) ondansetron 4 mg disintegrating 4 mg PO DAILY PRN nausea and 06/12/23 tablet vomiting 5 days #20 tabs Allergies Allergy/AdvReac Type Severity Reaction Status Date / Time No Known Allergies Allergy Verified 07/14/23 06:21 [No Known Allergies*] Review of Systems 2 Review of Systems: Constitutional: No fever, chills, fatigue, night sweats, weight changes ENT/Mouth: No ear pain, hearing loss, nasal congestion, sinus pain, rhinorrhea, sore throat Eyes: No eye pain, swelling, redness, vision changes, discharge Cardio: +chest pain, +palpitations, No SHANKAR, orthopnea, peripheral edema Pulm: No SOB, cough, sputum, wheezing, dyspnea, hemoptysis GI: No nausea, vomiting, hematemesis, abdominal pain, diarrhea, constipation, hematochezia, melena : No irregular bleeding, dysuria, frequency, urgency, hesitancy, hematuria, flank pain, urinary flow changes, urinary incontinence or retention MSK: No back pain, neck pain, joint pain, myalgias Skin: No lesions, rashes Neuro: No weakness, +numbness, No paresthesias, LOC, dizziness, headache Psych: No anxiety/panic, depression, SI/HI, AH/VH All other systems reviewed and are negative. [facility] Past Medical History Attestation statement: The following information was validated with the patient. Source: old records reviewed and nursing notes reviewed Medical History No pertinent past medical history Social History Social History Alcohol intake: never Patient Tobacco Use Status: Tobacco use Unknown Smoked in Last 30 Days: Yes Use of substances other than those prescribed or required for medical reasons: Yes Substance Use Type: Marijuana Advance Directives: No Physical Exam 2 Vital Signs: Vital Signs: Last Vital Signs Temp 98.2 F 07/14/23 11:41 Pulse 95 07/14/23 11:41 Resp 21 H 07/14/23 11:41 BP 130/75 07/14/23 11:41 Pulse Ox 100 07/14/23 11:41 O2 Del Method Room Air 07/14/23 11:41 BMI result Body Mass Index 28.2 Course Course Course Narrative: 1002-- CBC with leukocytosis to 14.4 without left shift > likely secondary to recent vomiting. D-dimer negative > low suspicion for PE. She is hypokalemic to 3.2 with normal magnesium levels > will replete. Lactic WNL. Normal renal function. Normal lipase. Initial troponin undetectable. She is receiving IV fluids and pain medication. She has tested negative for COVID, flu, RSV. 1032-- Patient continues to be tachycardic and tachypneic. Urine negative for nitrites, trace leukocyte esterase, 6-10 squamous epithelial cells > given patient is asymptomatic, I suspect contamination and not true urinary tract infection. No concern for sepsis. > On initial interview, patient deceptive with answers regarding ETOH consumption. Her significant other at bedside states that she typically drinks up to a bottle of vodka week. The last time she drank was on Tuesday when she had an entire bottle of vodka. Patient verbalizes agreement with this. I have concern for acute alcohol withdrawal. Patient denies history of withdrawal or withdrawal seizures/DT however given deceptive answers earlier, I consider patient is poor historian. > On exam mildly tremulous. No tongue fasciculation or asterixis. > will obtain CIWA score. 1050-- RN informs me that CIWA score is 0. Awaiting repeat troponin and calcium levels. 1246--delta troponin flat > no concern for acute ACS or arrhythmia at this time. potassium levels repleted to 4.8 > no longer hypokalemic. Patient endorses symptom improvement with GI cocktail. > patient no longer tachycardic. I have discussed this case along with all investigations with my attending physician, Dr. Juan, who agrees with unremarkable work up. Advise to follow up with PCP out patient for repeat potassium levels. Discussed all workup results and disposition with patient. She is currently declining detox at this time. I educated her on signs /symptoms of alcohol withdrawal and advised her to return to the ED if she feels like she is withdrawing. I also provided her with outpatient detox information. Patient has remained stable throughout ED visit today. Discussed worrisome signs and symptoms and when to return to the ED. All questions answered at this time. Patient is agreeable with disposition and stable for discharge. Medications Administered Discontinued Medications Generic Name Dose Route Start Last Admin Trade Name Freq PRN Reason Stop Dose Admin Al Hydroxide/Mg Hydroxide 30 ml 07/14/23 08:36 07/14/23 09:21 Magnesium Hydrox/Alum Hydrox 30 Ml Oral.Susp PO 07/14/23 08:37 30 ml ONCE ONE Administration Belladonna Alkaloids/Phenobarbital 10 ml 07/14/23 08:36 07/14/23 09:21 Phenobarb/Hyoscy/Atropine/Scop 10 Ml Elixir PO 07/14/23 08:37 10 ml ONCE ONE Administration Potassium Chloride 10 meq in 100 mls @ 100 mls/hr 07/14/23 07:58 07/14/23 09:40 Potassium Chloride/H20 IV 07/14/23 08:57 Infused ONCE ONE Infusion Sodium Chloride 1,000 mls @ 999 mls/hr 07/14/23 08:00 07/14/23 10:23 Ns IV 07/14/23 09:00 Infused .Q1H1M SIDNEY Infusion Ondansetron HCl 4 mg 07/14/23 08:36 07/14/23 10:10 Ondansetron Hcl 4 Mg/2 Ml Vial IVPUSH 07/14/23 08:37 4 mg ONCE ONE Administration Potassium Chloride 40 meq 07/14/23 07:58 07/14/23 08:36 Potassium Chloride Packet 20 Meq Packet PO 07/14/23 07:59 40 meq ONCE ONE Administration Medical Decision Making Medical Decision Making [facility] Narrative: 23 year old female with pmhx significant for eoth abuse presents to the ED today for evaluation of chest pain x36 hours. Vital signs notable for tachycardia. Otherwise WNL. Afebrile. She is nontoxic-appearing and in no acute distress. On initial exam she is mildly tremulous. No asterixis or tongue fasciculations. Lungs are CTA bilaterally. No calf tenderness. Ambulating with steady gait. Clinical concern for arrhythmia, electrolyte abnormality, anemia, ETOH withdrawal, ETOH intoxication, viral syndrome, pneumonia, UTI. Lower supsicion for ACS, dissection, pulmonary embolism/DVT. Plan for labs, ekg, trop, dimer, cxr, and re-evaluation. Differential Diagnosis Differential Diagnoses: The differential diagnosis associated with the presentation includes As above. Admission/Observation Consideration of admission/observation: Escalation of care including admission/observation considered In this patient with acute chest pain and hypokalemia, admission was considered. Lab Data [facility] Lab Attestation statement: I reviewed the patient's lab results. As above. 07/14/23 06:29 07/14/23 10:19 Labs: Lab Results 07/14/23 07/14/23 07/14/23 Range/Units 06:29 07:49 09:23 WBC 14.4 H (4.8-10.8) X10*3/uL RBC 4.99 (4.20-5.50) X10*6/uL Hgb 14.7 (12.0-16.0) g/dl Hct 43.1 (37.0-47.0) % MCV 86.4 (80.0-98.0) fL MCH 29.5 (27.0-33.0) pg MCHC 34.1 (31.0-35.0) g/dl RDW 14.1 (11.0-16.0) % Plt Count 322 (160-400) X10*3/uL MPV 9.6 (9.4-12.3) fL Immature Gran % (Auto) 0.5 H (0.0-0.4) % Neut % (Auto) 66.3 (45-73) % Lymph % (Auto) 23.6 (20-40) % [place] % (Auto) 8.3 (2-11) % Eos % (Auto) 1.0 (0-4) % Baso % (Auto) 0.3 (0-2) % Lymph # (Auto) 3.4 (1.2-4.9) X10*3/uL [place] # (Auto) 1.2 (0.1-1.2) X10*3/uL Eos # (Auto) 0.2 (0.0-0.4) X10*3/uL Baso # (Auto) 0.0 (0.0-0.2) X10*3/uL Abs Immat Gran (auto) 0.07 H (0.00-0.03) X10*3/uL Absolute Neuts (auto) 9.6 H (2.0-8.3) x10*3/uL Absolute Nucleated RBC 0.000 (0.0-0.012) X10*3/uL Nucleated RBC % (auto) 0.0 (0.0-0.2) /100WBC PT 11.7 (11.1-13.3) SEC INR 1.0 (0.9-1.1) D-Dimer High Sensitivty < 150 NG/ML Sodium 141 (135-145) mmol/L Potassium 3.2 L D (3.3-5.1) mmol/L Chloride 107 (96-108) mmol/L Carbon Dioxide 23 (22-29) mmol/L Anion Gap 14 (12-20) BUN 10 (9-16) mg/dL Creatinine 0.85 (0.5-1.4) mg/dL Estim Creat Clear Calc 89.8 Estimated GFR > 60 Random Glucose 105 (60-115) mg/dL Lactic Acid 1.1 (0.5-2.0) mmol/L Calcium 9.5 (8.4-10.2) mg/dL Magnesium 2.0 (1.6-2.6) mg/dL Troponin I High Sens < 2.7 (<3.5-17.0) ng/L Lipase 13 (8-78) U/L Beta HCG, Quant mIU/mL Urine Color Urine Appearance Urine pH (5.0-9.0) Ur Specific Jachin (1.005-1.025) Urine Protein (Neg-Trace) mg/dL Urine Glucose (UA) (Negative) mg/dL Urine Ketones (Negative) mg/dL Urine Blood (Negative) Urine Nitrite (Negative) Ur Leukocyte Esterase (Negative) Urine RBC (0-2) /HPF Urine WBC (0-5) /HPF Ur Squamous Epith Cells (0-2) /HPF Urine Bacteria (None Seen) Hyaline Casts (0-2) /LPF Urine Test (NEGATIVE) Ethyl Alcohol < 10 mg/dL Influenza Type A (PCR) NEGATIVE (Negative) Influenza Type B (PCR) NEGATIVE (Negative) RSV RNA Qual (PCR) NEGATIVE (Negative) SARS-CoV-2 RNA (RT-PCR) NEGATIVE (Negative) 07/14/23 07/14/23 Range/Units 09:54 10:19 WBC (4.8-10.8) X10*3/uL RBC (4.20-5.50) X10*6/uL Hgb (12.0-16.0) g/dl Hct (37.0-47.0) % MCV (80.0-98.0) fL MCH (27.0-33.0) pg MCHC (31.0-35.0) g/dl RDW (11.0-16.0) % Plt Count (160-400) X10*3/uL MPV (9.4-12.3) fL Immature Gran % (Auto) (0.0-0.4) % Neut % (Auto) (45-73) % Lymph % (Auto) (20-40) % [place] % (Auto) (2-11) % Eos % (Auto) (0-4) % Baso % (Auto) (0-2) % Lymph # (Auto) (1.2-4.9) X10*3/uL [place] # (Auto) (0.1-1.2) X10*3/uL Eos # (Auto) (0.0-0.4) X10*3/uL Baso # (Auto) (0.0-0.2) X10*3/uL Abs Immat Gran (auto) (0.00-0.03) X10*3/uL Absolute Neuts (auto) (2.0-8.3) x10*3/uL Absolute Nucleated RBC (0.0-0.012) X10*3/uL Nucleated RBC % (auto) (0.0-0.2) /100WBC PT (11.1-13.3) SEC INR (0.9-1.1) D-Dimer High Sensitivty NG/ML Sodium (135-145) mmol/L Potassium 4.8 D (3.3-5.1) mmol/L Chloride (96-108) mmol/L Carbon Dioxide (22-29) mmol/L Anion Gap (12-20) BUN (9-16) mg/dL Creatinine (0.5-1.4) mg/dL Estim Creat Clear Calc Estimated GFR Random Glucose (60-115) mg/dL Lactic Acid (0.5-2.0) mmol/L Calcium (8.4-10.2) mg/dL Magnesium (1.6-2.6) mg/dL Troponin I High Sens < 2.7 (<3.5-17.0) ng/L Lipase (8-78) U/L Beta HCG, Quant < 2 mIU/mL Urine Color Yellow Urine Appearance Clear Urine pH 8.5 (5.0-9.0) Ur Specific Jachin 1.010 (1.005-1.025) Urine Protein Negative (Neg-Trace) mg/dL Urine Glucose (UA) Negative (Negative) mg/dL Urine Ketones Negative (Negative) mg/dL Urine Blood Trace H (Negative) Urine Nitrite Negative (Negative) Ur Leukocyte Esterase Trace H (Negative) Urine RBC 0-2 (0-2) /HPF Urine WBC 0-5 (0-5) /HPF Ur Squamous Epith Cells 6-10 (0-2) /HPF Urine Bacteria Trace (None Seen) Hyaline Casts 0-2 (0-2) /LPF Urine Test NEGATIVE (NEGATIVE) Ethyl Alcohol mg/dL Influenza Type A (PCR) (Negative) Influenza Type B (PCR) (Negative) RSV RNA Qual (PCR) (Negative) SARS-CoV-2 RNA (RT-PCR) (Negative) Independent Interpretation I performed an independent interpretation of an: EKG and Plain X-Ray Interpretation: EKG showing sinus tachycardia at a rate of 109 beats per minute, QT 374, no acute ischemic changes or ST elevations. No flattened T-wave or U waves. I have personally reviewed chest x-ray and agree with radiologist's interpretation. Radiology Impression Discussion of test interpretation with radiology: I have reviewed the radiologist's reading. Radiologist Impression: XR chest 2V IMPRESSION: Unremarkable examination. Independent Historian Clinical information obtained from an independent historian. History obtained from or confirmed by: Other (significant other) External Record Review External record reviewed: Inpatient record, Office record, Outpatient record, Prior outpatient labs, Prior outpatient radiology, Primary care record and Outside ED record Prescription Management I considered prescription management with: Pain Medication and Other (antiemetic) Chronic Conditions Patient?s care impacted by: Other (etoh dependence) Social Determinants Patient?s care significantly limited by Social Determinants of Health including: Alcoholism and drug addiction in family and Other Social Determinant of Health Critical Care Time Critical Care Time Critical Care Time: Yes Total Critical Care Time: 35 Attestation: Critical care time in the amount of 35 minutes has been provided to the patient in terms of direct patient care, frequent reevaluation, review and interpretation of medical data and results, and management of potentially life- threatening conditions. This is all outside of any medical procedures. Discharge Plan Discharge Clinical Impression: Hypokalemia Patient Disposition: Home, Self-Care Instructions: Chest Pain (ED) Additional Instructions: You were noted to have low potassium. This was repleted in the ED. You need to follow-up with primary care provider in 1 week to have these levels rechecked to make sure there staying within normal limits. Your labs do not show evidence of acute clot. Your urine was negative for infection and . Your cardiac enzyme was within normal limits. You tested negative for COVID, flu, RSV. Your chest x-ray was normal. There is no clear etiology for your chest pain. This may have been attributable to low potassium levels. You have been provided with a referral to a primary care doctor. Please call them to establish care. They will not call you. Please return to the ED for new or worsening symptoms. Stop drinking. This is harmful to your health. You were educated on signs of alcohol withdrawal. Alcohol withdrawal is very dangerous. If you began to exhibit these signs or feel as though you are in withdrawal, please return to the ED. In the case of an emergency, call 911. Prescriptions: No Action ibuprofen 400 mg tablet 400 mg PO Q6H PRN (Reason: pain) Qty: 20 0RF ondansetron 4 mg tablet,disintegrating 4 mg PO TID PRN (Reason: nausea and vomiting) 5 Days Qty: 10 0RF cyclobenzaprine 10 mg tablet 10 mg PO TID PRN (Reason: muscle spasm) Qty: 20 0RF lidocaine 5 % adhesive patch,medicated 1 patch topical DAILY Qty: 30 0RF Rx Instructions: leave on most painful area for up to 12 hrs ibuprofen 600 mg tablet 600 mg PO Q6H PRN (Reason: pain) Qty: 30 0RF ketorolac 10 mg tablet 10 mg PO TID PRN (Reason: pain) 5 Days Qty: 15 0RF lidocaine [Lidoderm] 5 % adhesive patch,medicated 1 patch topical DAILY Qty: 15 0RF Rx Instructions: leave on most painful area for up to 12 hrs ondansetron 4 mg tablet,disintegrating 4 mg PO DAILY PRN (Reason: nausea and vomiting) 5 Days Qty: 20 0RF Referrals: [facility] [place] Family Medicine [Provider Group] [facility] [place] Primary CareBrett [Provider Group] [facility] [place] Primary CareJanet [Provider Group] Stand Alone Forms: Work/School Release Interventions: ED Discharge Assessment Last Done: 07/14/23 13:04 Discharge Date/Time: 07/14/23 13:04
[2023-07-14 08:04] LABS: Prothrombin Time 11.7 SEC (11.1-13.3)
[2023-07-14 08:08] LABS: D Dimer High Sensitivity < 150 NG/ML
[2023-07-14 08:16] LABS: Ethanol < 10 mg/dL; Lipase 13 U/L (8-78)
[2023-07-14] MEDS: Potassium Chloride Packet 20 MEQ PACKET 40 MEQ PO (08:36)
[2023-07-14 08:37] LABS: Influenza A PCR NEGATIVE (Negative); Influenza B PCR NEGATIVE (Negative); Resp Syncy Virus RNA Qual PCR NEGATIVE (Negative); SARS COV2 PCR INHOUSE NEGATIVE (Negative)
[2023-07-14] MEDS: 0.9 % Sodium Chloride 1,000 ML 999 ML IV (08:38)
[2023-07-14] MEDS: Potassium Chloride/H20 10 MEQ/100 ML PIGGYBACK 100 MEQ IV (08:39)
[2023-07-14 08:47] VITALS: BP 120/79; PULSE 91; RESP 19; O2SAT 97
[2023-07-14] MEDS: Magnesium Hydrox/Alum Hydrox 30 ML ORAL.SUSP PO (09:21)
[2023-07-14] MEDS: PHENobarb/Hyoscy/Atropine/Scop 10 ML ELIXIR PO (09:21)
[2023-07-14 09:41] LABS: Lactic Acid 1.1 mmol/L (0.5-2.0)
[2023-07-14 10:01] LABS: Appearance Urine Clear; Color Urine Yellow; Glucose Urine UA Negative (Negative); Leukocyte Esterase Urine Trace (Negative); Nitrite Urine Negative (Negative); PH 8.5 (5.0-9.0); UMIC TRIGGER UACC YES; Urine Blood Trace (Negative); Urine Ketones Negative (Negative); Urine Protein Negative (Neg-Trace)
[2023-07-14 10:03] LABS: Bacteria Urine Trace (None Seen); Hyaline Casts Urine 0-2 /LPF (0-2); RBC Urine 0-2 /HPF (0-2); WBC Urine 0-5 /HPF (0-5)
[2023-07-14] MEDS: ondansetron HCL 4 MG/2 ML VIAL IVPUSH (10:10)
[2023-07-14 10:14] VITALS: BP 131/87; PULSE 103; RESP 23; TEMP 36.7; O2SAT 100
[2023-07-14 11:08] LABS: Troponin-I High Sensitivity < 2.7 ng/L (<3.5-17.0)
[2023-07-14 11:23] LABS: UPreg QC Valid YES; Urine Pregnancy NEGATIVE (NEGATIVE)
[2023-07-14 11:41] VITALS: BP 130/75; PULSE 95; RESP 21; TEMP 36.8; O2SAT 100
[2023-07-14 12:44] LABS: Potassium 4.8 mmol/L (3.3-5.1)
[2023-07-14 12:55] LABS: HCG Quantitative < 2 mIU/mL
== END 2023-07-14 13:04 | disposition home or self-care (01) ==
PROVIDERS: Physician Assistant Medical; Emergency Provider Emergency Medicine
DX: R07.89 Other chest pain (principal); E87.6 Hypokalemia; R00.0 Tachycardia, unspecified; R11.2 Nausea with vomiting, unspecified; Z11.52 Encounter for screening for COVID-19; Z79.899 Other long term (current) drug therapy; Z20.828 Contact with and (suspected) exposure to other viral communicable diseases
CPT/HCPCS: 0241U; 36415; 71046; 80048; 80307; 81001; 81003; 81025; 83605; 83690; 83735; 84132; 84484; 84702; 85025; 85379; 85610; 93005; 96365; 96375; 99285; J2405; J3480

== ENCOUNTER → 2023-07-14 06:21 | Outpatient (BNV) | payer MEDICAID, SELFPAY | PROVIDERS: Emergency Provider Emergency Medicine; Visit Provider Internal Medicine Cardiovascular Disease | DX: R94.31 Abnormal electrocardiogram [ECG] [EKG] (principal) | CPT/HCPCS: 93010 ==

== ENCOUNTER 2023-07-15 03:53 | Emergency (ER) | payer MEDICAID, SELFPAY ==
--- NOTE | 2023-07-15 | ECG_ITS ---
Test Reason : CHEST PAIN Blood Pressure : / mmHG Vent. Rate : 105 BPM Atrial Rate : 105 BPM P-R Int : 132 ms QRS Dur : 082 ms QT Int : 378 ms P-R-T Axes : 077 073 004 degrees QTc Int : 499 ms Sinus tachycardia Nonspecific T wave abnormality Abnormal ECG When compared with ECG of 14-JUL-2023 06:21, No significant change was found Referred By: Generic ED Physician Electronically Signed By:YASMINE FERNÁNDEZ MD
[2023-07-15 04:04] VITALS: BP 137/94; PULSE 110; RESP 20; TEMP 36.6; O2SAT 98; BMI 28.3
[2023-07-15 04:19] VITALS: PULSE 100
--- NOTE | 2023-07-15 04:24 | ED_ITS ---
HPI - Chest Pain General Chief Complaint: Chest Pain Stated Complaint: chest pain, dizzy, confusion, seen yesterday, Time Seen by Provider: 07/15/23 04:22 Source: patient and other (Boyfriend) Mode of arrival: ambulatory Limitations: no limitations History of Present Illness HPI narrative: Patient comes to the emergency room complaining of chest pain since yesterday. However, the patient was discharged a few hours ago. Patient had a thorough workup, 2 sets of troponins, unchanged EKGs, Cardiology consult. The patient's boyfriend states that the reason that they returned to the hospital is because he noted that the patient walked outside of the room, went upstairs in the house into a room and started talking. Patient's boyfriend initially thought that the patient was talking to the boyfriend's mother. However no one was in the room. Also, the boyfriend states that the patient has been talking to him in Slovenian, and the patient is well aware that the boyfriend does not speak Slovenian. Related Data Home Medications Medication Instructions Recorded Confirmed No Known Home Meds 07/15/23 07/15/23 Allergies Allergy/AdvReac Type Severity Reaction Status Date / Time No Known Allergies Allergy Verified 07/14/23 06:21 [No Known Allergies*] Review of Systems Review of Systems: Constitutional : No Weight loss, No Fever, No Chills, No Night Sweats, No Fatigue, No Malaise ENT/Mouth : No Hearing loss, No Ear Pain, No Nasal Congestion, No Sinus Pain, No Hoarseness, No sore throat, No Rhinorrhea, No Swallowing Difficulty Eyes: No Eye Pain, No Swelling, No Redness, No Foreign Body, No Discharge, No Vision Changes Cardiovascular : No Chest Pain, No SOB, No Dyspnea on Exertion, No Orthopnea, No Edema, No Palpitations Respiratory : No Cough, No Sputum, No Wheezing, No Smoke Exposure, No Dyspnea Gastrointestinal : No Nausea, No Vomiting, No Diarrhea, No Constipation, No abdominal Pain, No Hematochezia, No Melena Genitourinary : no irregular bleeding, No Dysuria, No Urinary Frequency, No Hematuria, No Urinary Incontinence, No Urgency, No Flank Pain, No Urinary Flow Changes, No Hesitancy Musculoskeletal : No joint pain, No Myalgias, No Joint Swelling Skin : No Skin Lesions, No rash Neuro : No Weakness, No Numbness, No Paresthesias, No Loss of Consciousness, No Dizziness, No Headache Psych : No Anxiety/Panic, No Depression, No SI/HI/AH/VH, No Social Issues, complaining of confusion Heme/Lymph: No Bruising, No Bleeding,No Lymphadenopathy Endocrine : No Polyuria, No Polydipsia, No Temperature Intolerance PMF Past Medical History Medical History No pertinent past medical history Social History Social History Alcohol intake: never Patient Tobacco Use Status: Tobacco use Unknown Smoked in Last 30 Days: Yes Use of substances other than those prescribed or required for medical reasons: Yes Substance Use Type: Marijuana Patient : No Physical Exam Vital Signs: Vital Signs: Last Vital Signs Temp 98 F 07/15/23 04:04 Pulse 110 H 07/15/23 04:04 Resp 20 07/15/23 04:04 BP 137/94 H 07/15/23 04:04 Pulse Ox 98 07/15/23 04:04 O2 Del Method Room Air 07/15/23 04:04 BMI result Body Mass Index 28.3 Const: Other: Appearance: Alert. Oriented X3. No acute distress. Eyes: Pupils equal, round and reactive to light. ENT: Pharynx normal. Neck: Normal inspection. Neck supple. No lymph nodes noted. No crepitus CVS: Normal heart rate and rhythm. Pulses normal. Normal S1 and S2 Respiratory: No respiratory distress. Breath sounds normal. No Wheezing. No rales Abdomen: Soft and nontender. No rigidity. No distention. Skin: Skin warm and dry. Normal skin color. Normal skin turgor. Extremities: No lower extremity edema. No Lacerations. No Rash Neuro: Oriented X 3. No motor deficit. No sensory deficit. Moving all extremities. No slurred speech. CN 2 through 12 grossly intact Psych: calm, cooperative, normal affect Medical Decision Making Medical Decision Making MDM Narrative: -I reviewed the patient's labs from previous visit a few hours ago -patient was concerned that she may have RSV testing. -patient has no headache, normal range of motion of the neck, no stiffness, no fever , meningitis is not suspected -patient has no history of mental health. I discussed with the patient and her boyfriend that there is no were medical workup that we can offer. However, we can offer her a Behavioral Health consult due to this new bizarre behavior. Both agreeable with plan. -patient is not SI or HI, patient is not on a Section 12 -care team consult pending -physician observation started at 04:25 -I was informed by the patient's nurse that the patient was being taken to the Behavioral Health pot. She was informed that the boyfriend is not allowed to stay with her in the pot. Patient decided to go home and she will follow up with behavioral health Differential Diagnosis Differential Diagnoses: The differential diagnosis associated with the presentation includes (Psychosis, schizophrenia, drug abuse) Admission/Observation Consideration of admission/observation: Escalation of care including admission/observation considered (Patient is under physician observation waiting to be seen by the care team) Discharge Plan Discharge Clinical Impression: Hallucinations Patient Disposition: Home, Self-Care Instructions: Altered Mental Status (ED) Additional Instructions: Please follow-up with your primary care physician tomorrow. If you have any worsening or new symptoms, please return to the emergency room or call 911 Prescriptions: No Action No Known Home Meds
--- NOTE | 2023-07-15 04:43 | PC.NURSE ---
Spoke with pt and her boyfriend. Boyfriend was concerned about pt's dizziness and confusion, and that pt has been hearing voices and thinking that her boyfriend is speaking to her when he is not. Boyfriend has been speaking for the pt. When pt denied that she had been seeing or hearing things, boyfriend insistently told her she definitely heard voices in the other room. Boyfriend stated at 3 in the morning, pt was awake and trying to talk to him as if he was his mother. Dr Higgins cleared pt for psych pod but since pt is not SI or HI, she can leave if she wants to. I discussed the plan of sending pt to the pod but pt and her boyfriend decided that she will go to see [facility] in the morning, as boyfriend did not want pt to be alone. Dr Higgins is aware. Okay for discharge
== END 2023-07-15 05:12 | disposition home or self-care (01) ==
PROVIDERS: Emergency Provider Emergency Medicine
DX: R44.3 Hallucinations, unspecified (principal); R07.9 Chest pain, unspecified
CPT/HCPCS: 93005; 99283; 99284

== ENCOUNTER → 2023-07-15 04:01 | Outpatient (BNV) | payer MEDICAID, SELFPAY | PROVIDERS: Emergency Provider Emergency Medicine; Visit Provider Internal Medicine Cardiovascular Disease | DX: R94.31 Abnormal electrocardiogram [ECG] [EKG] (principal) | CPT/HCPCS: 93010 ==

== ENCOUNTER 2023-07-28 15:37 | Outpatient (REF) | payer MEDICAID, SELFPAY ==
[2023-07-29 11:25] LABS: D Dimer High Sensitivity < 150 NG/ML
== END 2023-07-28 15:38 | disposition home or self-care (01) ==
LOC: HO.HHCL 15:37
PROVIDERS: Visit Provider Emergency Medicine
DX: R07.9 Chest pain, unspecified (principal)
CPT/HCPCS: 36415; 85379

== ENCOUNTER 2023-10-25 09:20 | Outpatient (REF) | payer MEDICAID, SELFPAY ==
[2023-10-25 12:58] LABS: TSH reflex Free T4 0.36 uIU/mL (0.32-4.0)
[2023-10-26 18:13] LABS: Thyroglobulin Antibodies <1 IU/mL (< or = 1)
== END 2023-10-25 09:21 | disposition home or self-care (01) ==
LOC: HO.HHCL 09:20
PROVIDERS: Visit Provider Nurse Practitioner Primary Care
DX: R79.89 Other specified abnormal findings of blood chemistry (principal)
CPT/HCPCS: 36415; 84443; 86800

== ENCOUNTER 2023-12-26 12:09 | Outpatient (REF) | payer MEDICAID, SELFPAY ==
[2023-12-27 15:54] LABS: H Pylori Breath Test Negative (Negative)
== END 2023-12-26 12:10 | disposition home or self-care (01) ==
LOC: HO.HHCLNP 12:09
PROVIDERS: Visit Provider Nurse Practitioner Primary Care
DX: K29.50 Unspecified chronic gastritis without bleeding (principal)
CPT/HCPCS: 83013

== ENCOUNTER 2024-07-16 13:38 | Emergency (ER) | payer MEDICAID, SELFPAY ==
[2024-07-16 14:23] VITALS: BP 123/73; PULSE 80; RESP 16; TEMP 36.4; O2SAT 98
--- NOTE | 2024-07-16 14:30 | ED_ITS ---
HPI - General Adult General Chief complaint: Nausea/Vomiting/Diarrhea Stated complaint: vomiting Related Data Home Medications ?Medication ?Instructions ?Recorded ?Confirmed No Known Home Meds 07/15/23 07/15/23 Allergies Allergy/AdvReac Type Severity Reaction Status Date / Time No Known Allergies Allergy Verified 07/16/24 14:25 [No Known Allergies*] [facility] Past Medical History Medical History No pertinent past medical history Social History Social History Alcohol intake: never Patient Tobacco Use Status: Tobacco use Unknown Substance Use Type: Marijuana Advance Directives: No Advance Directives Information Provided: No Physical Exam ED Vital Signs: Vital Signs - 24 hr 07/16/24 14:23 Temperature 97.5 F Pulse Rate 80 Respiratory Rate 16 Blood Pressure 123/73 Pulse Oximetry 98 Oxygen Delivery Method Room Air BMI result Body Mass Index 0.4 Course Course Course Narrative: This is a Rapid Medical Examination (RME) performed by Christel Edmond PA-C in triage. Full HPI, ROS, assessment and treatment plan per primary provider in the Main ED. 24 yo female here for eval of N/V intermittently x6 weeks. seen at [facility] and prescribed zofran. no improvement in symptoms. admits to daily use of marijuana. no abd pain. Plan: labs, viral swabs Reevaluation(s) Reevaluation #1: Patient left the emergency department before myself or any of the other clinicians could review or explain physical exam findings, test results, need or lack there of for additional testing, treatment options, or a treatment plan. Medical Decision Making Lab Data 07/16/24 14:49 07/16/24 14:49 Labs: Lab Results 07/16/24 07/16/24 Range/Units 14:47 14:49 WBC 9.8 (4.8-10.8) X10*3/uL RBC 4.93 (4.20-5.50) X10*6/uL Hgb 14.0 (12.0-16.0) g/dl Hct 41.2 (37.0-47.0) % MCV 83.6 (80.0-98.0) fL MCH 28.4 (27.0-33.0) pg MCHC 34.0 (31.0-35.0) g/dl RDW 14.1 (11.0-16.0) % Plt Count 296 (160-400) X10*3/uL MPV 10.2 (9.4-12.3) fL Immature Gran % (Auto) 0.3 (0.0-0.4) % Neut % (Auto) 58.5 (45-73) % Lymph % (Auto) 31.2 (20-40) % Cross % (Auto) 8.1 (2-11) % Eos % (Auto) 1.4 (0-4) % Baso % (Auto) 0.5 (0-2) % Lymph # (Auto) 3.0 (1.2-4.9) X10*3/uL Cross # (Auto) 0.8 (0.1-1.2) X10*3/uL Eos # (Auto) 0.1 (0.0-0.4) X10*3/uL Baso # (Auto) 0.1 (0.0-0.2) X10*3/uL Abs Immat Gran (auto) 0.03 (0.00-0.03) X10*3/uL Absolute Neuts (auto) 5.7 (2.0-8.3) x10*3/uL Absolute Nucleated RBC 0.000 (0.0-0.012) X10*3/uL Nucleated RBC % (auto) 0.0 (0.0-0.2) /100WBC Sodium 141 (135-145) mmol/L Potassium 3.7 D (3.3-5.1) mmol/L Chloride 108 (96-108) mmol/L Carbon Dioxide 27 (22-29) mmol/L Anion Gap 10 L (12-20) BUN 8 L (9-16) mg/dL Creatinine 0.80 (0.5-1.4) mg/dL Estim Creat Clear Calc 144.2 Estimated GFR > 60 Random Glucose 77 (60-115) mg/dL Calcium 9.5 (8.4-10.2) mg/dL Magnesium 2.3 (1.6-2.6) mg/dL Total Bilirubin 0.4 (0.0-1.0) mg/dL AST 24 (5-31) U/L ALT 25 (0-31) U/L Alkaline Phosphatase 104 (39-117) U/L Total Protein 7.6 (6.5-8.0) g/dL Albumin 4.3 (3.5-5.0) g/dL Lipase 16 (8-78) U/L Influenza Type A (PCR) NEGATIVE (Negative) Influenza Type B (PCR) NEGATIVE (Negative) RSV RNA Qual (PCR) NEGATIVE (Negative) SARS-CoV-2 RNA (RT-PCR) NEGATIVE (Negative) Discharge Plan Discharge Clinical Impression: Vomiting Patient Disposition: Left W/O Completing Treatment Prescriptions: No Action No Known Home Meds Discharge Date/Time: 07/16/24 17:05
[2024-07-16 14:54] LABS: MANUAL DIFF FLAG NO
[2024-07-16 14:55] LABS: Basophils Absolute Auto 0.1 X10*3/uL (0.0-0.2); Basophils Percent Auto 0.5 % (0-2); Eosinophils Absolute Auto 0.1 X10*3/uL (0.0-0.4); Eosinophils Percent Auto 1.4 % (0-4); Hematocrit 41.2 % (37.0-47.0); Imm Gran Abs Auto 0.03 X10*3/uL (0.00-0.03); Imm Gran Pct Auto 0.3 % (0.0-0.4); Lymphocytes Percent Auto 31.2 % (20-40); Mean Corpuscular Hemoglobin 28.4 pg (27.0-33.0); Mean Corpuscular Volume 83.6 fL (80.0-98.0); Mean Platelet Volume 10.2 fL (9.4-12.3); Monocytes Absolute Auto 0.8 X10*3/uL (0.1-1.2); Monocytes Percent Auto 8.1 % (2-11); Neutrophils Absolute Auto 5.7 x10*3/uL (2.0-8.3); Neutrophils Percent Auto 58.5 % (45-73); Platelet Count 296 X10*3/uL (160-400); Red Blood Count 4.93 X10*6/uL (4.20-5.50); Red Cell Distribution Width 14.1 % (11.0-16.0); White Blood Count 9.8 X10*3/uL (4.8-10.8)
[2024-07-16 15:20] LABS: Alanine Aminotransferase 25 U/L (0-31); Albumin Level 4.3 g/dL (3.5-5.0); Alkaline Phosphatase 104 U/L (39-117); Anion Gap 10 (12-20); Aspartate Amino Transferase 24 U/L (5-31); Bilirubin Total 0.4 mg/dL (0.0-1.0); Blood Urea Nitrogen 8 mg/dL (9-16); Calcium 9.5 mg/dL (8.4-10.2); Carbon Dioxide 27 mmol/L (22-29); Chloride 108 mmol/L (96-108); Creatinine Clr Calc Pharmacy 144.2; Estimated Glomerular Filt Rate > 60; Glucose Random 77 mg/dL (60-115); Lipase 16 U/L (8-78); Magnesium 2.3 mg/dL (1.6-2.6); Potassium 3.7 mmol/L (3.3-5.1); Sodium 141 mmol/L (135-145); Total Protein 7.6 g/dL (6.5-8.0)
[2024-07-16 15:44] LABS: Influenza A PCR NEGATIVE (Negative); Influenza B PCR NEGATIVE (Negative); Resp Syncy Virus RNA Qual PCR NEGATIVE (Negative); SARS COV2 PCR INHOUSE NEGATIVE (Negative)
--- OUTSIDE RECORDS SUMMARY | 2024-07-16 17:56 | XMS_ITS | Clinical Summary ---
Author Organization [facility] Address [address] [place] [address] Phone Care Team Providers Care Greaser Operator Name Role Phone Marion Coates NP Primary Care Provider [phone] Allergies No known active allergies Medications methocarbamoL (ROBAXIN) 500 mg tablet Take 1 tablet (500 mg total) by mouth 2 (two) times a day for 10 days. 20 tablet 05/23/2024 Active Active Problems No known active problems Encounters Date Type Department Care Team Description 05/23/2024 12:58 PM EST - 05/23/2024 2:57 PM EST Emergency [facility] Emergency [address] [place] [address] Costochondritis (Primary Dx) Discharge Disposition: Home or Self Care from Last 3 Months Social History Tobacco Use Types Packs/Day Years Used Date Smoking Tobacco: Never Assessed Comments Unknown Sex and Gender Information Value Date Recorded Sex Assigned at Female 05/23/2024 12:32 PM EST Legal Sex Female 1:32 PM EDT Gender Identity Female 05/23/2024 12:32 PM EST Sexual Orientation Straight 05/23/2024 12 :32 PM EST Obstetrics History Last Filed Vital Signs Vital Sign Reading Time Taken Comments Blood Pressure 108/73 05/23/2024 11:38 AM EST Pulse 94 05/23/2024 11:38 AM EST Temperature 36.6 ??C (97.9 ??F) 05/23/2024 11:[address] Respiratory Rate 18 05/23/2024 11:38 AM EST Oxygen Saturation 97% 05/23/2024 11:38 AM EST Inhaled Oxygen Concentration - - Weight 76.2 kg (168 lb) 05/23/2024 11:36 AM EST Height 154.9 cm (5' 1 ) 05/23/2024 11:36 AM EST Body Mass Index 31.74 05/23/2024 11:36 AM EST Plan of Treatment Health Maintenance Due Date Last Done Comments Pneumococcal Vaccine: Pediatrics (0 to 5 Years) and At-Risk Patients (6 to 64 Years) (1 of 1 - PPSV23) 2005 05/23/2000, 01/22/2000 Cervical Cancer Screening: Pap Smear 01/25/2020 HIV Screening 12/23/2023 Hepatitis C Screening 12/23/2023 Social Influencers of Health Screening 12/23/2023 COVID-19 Vaccine ( season) 2024 Influenza Vaccine (#1) 2024 07/13/2016, 2010 Depression Screening 12/25/2024 12/26/2023 Cholesterol Screening (Lipid Panel) 12/15/2027 12/14/2022 DTaP,Tdap,and Td Vaccines (9 - Td or Tdap) 03/29/2033 03/29/2023, 01/06/2023, 10/25/2014, Additional history exists HIB Vaccines Completed 05/23/2000, 05/1999, 1999, Additional history exists Hepatitis B Vaccines Completed 05/23/2000, 01/22/2000, 1999 IPV Vaccines Completed 02/04/2003, 05/2000, 1999, Additional history exists MMR Vaccines Completed 02/04/2003, 01/22/2000 Varicella Vaccines Completed 02/02/2010, 01/22/2000 Hepatitis A Vaccines Completed 04/09/2014, 04/08/20 11 HPV Vaccines Completed 08/07/2014, 03/23, 04/08/2011 Meningococcal ACWY Vaccine Completed 07/13/2016, Meningococcal B Vacine Aged Out No lo nger eligible based on patient's age to complete this topic RSV Immunization Patients Under 20 months Aged Out No longer eligible based on patient's age to complete this topic Procedures Procedure Name Priority Date/Time Associated Diagnosis Comments XR CHEST 2 VIEWS STAT 05/23/2024 12:1 6 PM EST CBC WITH AUTO DIFFERENTIAL STAT 05/23/2024 12:05 PM EST B-TYPE NATRIURETIC PEPTIDE STAT 05/23/2024 12:05 PM EST MAGNESIUM STAT 05/23/2024 12:05 PM EST LIPASE STAT 05/23/2024 12:05 PM EST COMPREHENSIVE METABOLIC PANEL STAT 05/23/2024 12:05 PM EST CBC AND DIFFERENTIAL STAT 05/23/2024 12:05 PM EST TROPONIN I HIGH SENSITIVITY STAT 05/23/2024 12:05 PM EST ECG 12-LEAD STAT 05/23/2024 12:01 PM EST ECG ANNOTATED 05/23/2024 from Last 3 Months Results * XR Chest 2 Views (05/23/2024 12:16 PM EST) Anatomical Region Laterality Modality Body Radiographic Pauline ging 05/23/2024 12:3 4 PM EST Impressions 05/23/2024 12:39 PM EST Unremarkable chest exam -------- FINAL REPORT -------- Dictated By: Sal Sheth Dictated Date: 05/23/2024 12:34 ET Assigned Physician: Sal Sheth Reviewed and Electronically Signed By: Sal Sheth Signed Date: 05/23/2024 12:39 ET Workstation ID: [id number] Transcribed By: Self Edit Transcribed Date: 05/23/2024 12:34 ET Narrative 05/23/2024 12:39 PM EST EXAMINATION: Chest 2 views. CLINICAL INDICATION: Chest pain for 3 weeks. Marker. COMPARISON: None. FINDINGS: The lungs are well-expanded and clear of acute process. The heart size and pulmonary vascularity is normal. No gross bony abnormality seen. Procedure Note Sal Sheth MD - 05/23/2024 EXAMINATION: Chest 2 views. CLINICAL INDICATION: Chest pain for 3 weeks. Marker. COMPARISON: None. FINDINGS: The lungs are well-expanded and clear of acute process. Theheart size and pulmonary vascularity is normal. No gross bony abnormalityseen. IMPRESSION: Unremarkable chest exam -------- FINAL REPORT -------- Dictated By: Sal Sheth Dictated Date: 05/23/2024 12:34 ET Assigned Physician: Sal Sheth Reviewed and Electronically Signed By: Sal Sheth Signed Date: 05/23/2024 12:39 ET Workstation ID: [id number] Transcribed By: Self Edit Transcribed Date: 05/23/2024 12:34 ET us Dk Obrien DO IMG XR PROCEDURES Final Res ult * Troponin I high sensitivity (05/23/2024 12:05 PM EST) [facility] High Sensitivity Troponin I <3 <=54 ng/L LAB CHEMISTRY METHOD 05/23/2024 1:47 PM EST [facility] Blood Venous blood specimen / Unknown Venipuncture / Unknown 05/23/2024 12:05 PM EST 05/23/2024 1:06 PM EST Narrative [facility] - 05/23/2024 1:47 PM EST High levels of biotin in samples may falsely decrease hsTroponin values. ??Use caution when interpreting hsTroponin results in patients taking biotin who exhibit renal impairment (eGFR <60) or in patients taking more than 20 mg/day of biotin. us Dk Obrien DO LAB BLOOD ORDERABLES Final Result [facility] [address] [place] [address], [place] [phone] * (ABNORMAL) CBC auto differential (05/23/2024 12:05 PM EST) [facility] WBC 8.4 4.8 - 10.8 K/mcL LAB HEMETOLOGY METHOD 05/23/2024 1:25 PM [facility] RBC 5.00(H) 3.80 - 4.80 M/mcL LAB HEMETOLOGY METHOD 05/23/2024 1:25 PM [facility] Hemoglobin 14.0 11.5 - 16.0 g/dL LAB HEMETOLOGY METHOD 05/23/2024 1:25 PM [facility] Hematocrit 42.4 35.0 - 47.0 % LAB HEMETOLOGY METHOD 05/23/2024 1:25 PM [facility] MCV 85.7 79.0 - 98.0 FL LAB HEMETOLOGY METHOD 05/23/2024 1:25 PM [facility] MCH 28.3 27.0 - 32.0 pcg LAB HEMETOLOGY METHOD 05/23/2024 1:25 PM [facility] MCHC 33.0 32.0 - 37.0 g/dL LAB HEMETOLOGY METHOD 05/23/2024 1:25 PM [facility] RDW 14.0 11.0 - 15.0 % LAB HEMETOLOGY METHOD 05/23/2024 1:25 PM [facility] Platelets 325 130 - 400 K/mcL LAB HEMETOLOGY METHOD 05/23/2024 1:25 PM [facility] MPV 10.7 7.0 - 11.0 FL LAB HEMETOLOGY METHOD 05/23/2024 1:25 PM [facility] NRBC 0.0 <1.0 % LAB HEMETOLOGY METHOD 05/23/2024 1:25 PM [facility] NRBC Absolute 0.00 <0.10 K/mcL LAB HEMETOLOGY METHOD 05/23/2024 1:25 PM [facility] Neutrophils Relative 52.5 % LAB HEMETOLOGY METHOD 05/23/2024 1:25 PM [facility] Lymphocytes Relative 36.3 % LAB HEMETOLOGY METHOD 05/23/2024 1:25 PM [facility] Monocytes Relative 8.6 % LAB HEMETOLOGY METHOD 05/23/2024 1:25 PM [facility] Eosinophils Relative 1.6 % LAB HEMETOLOGY METHOD 05/23/2024 1:25 PM [facility] Basophils Relative 0.6 % LAB HEMETOLOGY METHOD 05/23/2024 1:25 PM [facility] Immature Granulocytes Relative 0.4 % LAB HEMETOLOGY METHOD 05/23/2024 1:25 PM [facility] Neutrophils Absolute 4.40 1.50 - 7.00 K/mcL LAB HEMETOLOGY METHOD 05/23/2024 1:25 PM [facility] Lymphocytes Absolute 3.04 1.00 - 5.00 K/mcL LAB HEMETOLOGY METHOD 05/23/2024 1:25 PM [facility] Monocytes Absolute 0.72 0.20 - 1.00 K/mcL LAB HEMETOLOGY METHOD 05/23/2024 1:25 PM [facility] Eosinophils Absolute 0.13 0.00 - 0.50 K/mcL LAB HEMETOLOGY METHOD 05/23/2024 1:25 PM [facility] Basophils Absolute 0.05 0.00 - 0.20 K/mcL LAB HEMETOLOGY METHOD 05/23/2024 1:25 PM [facility] Immature Granulocytes Absolute 0.03 0.00 - 0.03 K/mcL LAB HEMETOLOGY METHOD 05/23/2024 1:25 PM [facility] Blood Venous blood specimen / Unknown Venipuncture / Unknown 05/23/2024 12:05 PM EST 05/23/2024 1:06 PM EST Dk C Cauchon DO LAB BLOOD ORDERABLES Final Result Performing Organization Address [facility] Co de Phone Number [facility] [address] [place] [address], * B-type natriuretic peptide (05/23/2024 12:05 PM EST) BNP 4 <=100 pcg/mL LAB CHEMISTRY METHOD 05/23/2024 1:54 PM EST [facility] Blood Venous blood specimen / Unknown Venipuncture / Unknown 05/23/2024 12:05 PM EST 05/23/2024 1:06 PM EST us Dk Obrien DO LAB BLOOD ORDERABLES Final Result Performing Organization Address [facility] de Phone Number [facility] [address] [place] [address], * Magnesium (05/23/2024 12:05 PM EST) [facility] Magnesium 2.0 1.9 - 2.6 mg/dL LAB CHEMISTRY METHOD 05/23/2024 1:41 PM EST [facility] Blood Venous blood specimen / Unknown Venipuncture / Unknown 05/23/2024 12:05 PM EST 05/23/2024 1:06 PM EST us Dk Obrien DO LAB BLOOD ORDERABLES Final Result Performing Organization Address [facility]/ZIP Co de Phone Number [facility] [address] [place] [address], [place] [phone] * Lipase (05/23/2024 12:05 PM EST) Lipase 20 13 - 75 unit/L LAB CHEMISTRY METHOD 05/23/2024 1:41 PM EST [facility] Blood Venous blood specimen / Unknown Venipuncture / Unknown 05/23/2024 12:05 PM EST 05/23/2024 1:06 PM EST us Dk Obrien DO LAB BLOOD ORDERABLES Final Result [facility] [address] [place] [address], [place] [phone] * (ABNORMAL) Comprehensive metabolic panel (05/23/2024 12:05 PM EST) Sodium 137 133 - 145 mmol/L LAB CHEMISTRY METHOD 05/23/2024 1:44 PM [facility] Potassium 4.5 3.5 - 5.5 mmol/L LAB CHEMISTRY METHOD 05/23/2024 1:44 PM [facility] Chloride 108 96 - 110 mmol/L LAB CHEMISTRY METHOD 05/23/2024 1:44 PM [facility] CO2 26 21 - 32 mmol/L LAB CHEMISTRY METHOD 05/23/2024 1:44 PM [facility] Anion Gap 3 3 - 11 LAB CHEMISTRY METHOD 05/23/2024 1:44 PM [facility] Glucose 70 70 - 100 mg/dL LAB CHEMISTRY METHOD 05/23/2024 1:44 PM [facility] BUN 9 5 - 25 mg/dL LAB CHEMISTRY METHOD 05/23/2024 1:44 PM [facility] Creatinine 0.82 0.50 - 1.10 mg/dL LAB CHEMISTRY METHOD 05/23/2024 1:44 PM [facility] eGFR 102 >=60 mL/min/1. 73m2 LAB CHEMISTRY METHOD 05/23/2024 1:44 PM [facility] Comment:Calculation based on the??Chronic Kidney Disease Epidemiology Collaboration (CKD-EPI) equation refit??without adjustment for race. BUN/Creatinine Ratio 11.0 LAB CHEMISTRY METHOD 05/23/2024 1:44 PM [facility] Calcium 8.9 8.5 - 10.5 mg/dL LAB CHEMISTRY METHOD 05/23/2024 1:44 PM [facility] AST (SGOT) 20 10 - 42 unit/L LAB CHEMISTRY METHOD 05/23/2024 1:44 PM [facility] ALT (SGPT) 28 10 - 60 unit/L LAB CHEMISTRY METHOD 05/23/2024 1:44 PM [facility] Alkaline Phosphatase 125(H) 42 - 121 unit/L LAB CHEMISTRY METHOD 05/23/2024 1:44 PM [facility] Total Protein 6.9 6.0 - 8.0 g/dL LAB CHEMISTRY METHOD 05/23/2024 1:44 PM [facility] Albumin 3.8 3.2 - 5.0 g/dL LAB CHEMISTRY METHOD 05/23/2024 1:44 PM [facility] Total Bilirubin 0.3 0.0 - 1.4 mg/dL LAB CHEMISTRY METHOD 05/23/2024 1:44 PM [facility] Blood Venous blood specimen / Unknown Venipuncture / Unknown 05/23/2024 12:05 PM EST 05/23/2024 1:06 PM EST Dk Obrien DO LAB BLOOD ORDERABLES Final Result [facility] [address] [place] [address], * ECG 12 lead (05/23/2024 12:01 PM EST) Ventricular Rate ECG 67 BPM GEMUSE Atrial Rate 67 BPM GEMUSE P-R Interval 128 ms GEMUSE QRS Duration 82 ms GEMUSE Q-T Interval 384 ms GEMUSE QTc 405 ms GEMUSE P Wave [place] 59 degrees GEMUSE R [place] 71 degrees GEMUSE T [place] 38 degrees GEMUSE ECG Interpretation Normal sinus rhythm with sinus arrhythmia Normal ECG No previous ECGs available Confirmed by BYRON SILVERIO ([id number]) on 05/24/2024 5:05:35 PM GEMUSE 05/23/2024 12:0 1 PM EST 05/24/2024 5:05 PM EST Dk Obrien DO ECG ORDERABLES Final Resul t GEMUSE * ECG-Annotated (05/23/2024) Provider Onbase MD ECG ORDERABLES Final Result from Last 3 Months Insurance MEDICAID - [place] Care Teams Greaser Operator Relationship Specialty Start Date End Date Marion Coates NP [address] [place] [phone] PCP - General 05/23/24
--- OUTSIDE RECORDS SUMMARY | 2024-07-16 17:57 | XMS_ITS | Encounter Summary ---
Author Organization [facility] Address [address] [place] [address] Care Team Providers Care Contract Manager Name Role Phone Marion Coates Primary Care Provider [phone] Encounter Details Date Type Department Care Team (Late st Contact Info) Description 07/16/2024 Orders Only GENERIC EXTERNAL DATA DEPARTMENT Provider, Generic External Data Social History Tobacco Use Types Packs/Day Years Used Date Smoking Tobacco: Every Day Cigarettes 0.5 1.1 Started: 2023 Smokeless Tobacco: Never Alcohol Use Standard Drinks/Week Comments Not Currently 0 (1 standard drink = 0.6 oz pur e alcohol) rarely Depression Answer Date Recorded Patient Health Questionnaire-9 Score 26 12/26/2023 Patient Health Questionnaire-9 Score 26 12/26/2023 Last PHQ-9: Questionnaire Data Not on file 0 12/26/2023 Housing Stability Answer Date Recorded What is your housing situation today? I have veto francis 03/22/[address] you li ve. Do you have problems with any of the following? None of the above 03/22/2023 Food Insecurity Answer Date Recorded Within the past 12 months, y ou worried that your food would run out before you got money to buy more: Never True 03/22/2023 Within the past 12 months,th e food you bought just didn't last and you didn't have enough money to get more: Never True Transportation Answer Date Recorded In the past 12 months, has l ack of transportation kept you from medical appts, meetings, work or from getting things needed for daily living? No 03/22/2023 Utilities Answer Date Recorded In the past 12 months, has t he electric, gas, oil or water company threatened to shut off services in your home? No 03/22/2023 Depression Answer Date Recorded Patient Health Questionnaire-2 Score 6 12/26/2023 Comments No Sex and Gender Information Value Date Recorded Sex Assigned at Female 06/29/2022 9:46 AM EST Legal Sex Female 9:43 AM EST Gender Identity Female 06/29/2022 9:46 AM EST Sexual Orientation Don't know 06/29/2022 9: 48 AM EST documented as of this encounter Plan of Treatment Not on file documented as of this encounter Procedures Procedure Name Priority Date/Time Associated Diagnosis Comments CBC WITH AUTO DIFFERENTIAL Routine 07/16/2024 2:49 PM EST MAGNESIUM Routine 07/16/2024 2:49 PM EST LIPASE Routine 07/16/2024 2:49 PM EST COMPREHENSIVE METABOLIC PANEL Routine 07/16/2024 2:49 PM EST SARS COV2/INFLUENZA A/B AND RSV RNA QL NAAT Routine 07/16/2024 2:47 PM EST documented in this encounter Results * Lipase (07/16/2024 2:49 PM EST) Lipase 16 8 - 78 U/L [facility] 07/16/2024 2:49 PM EST 07/16/2024 2:52 PM EST us Generic External Data Provider LAB BLOOD ORDERAB LES Final Result Performing Organization Address [facility] Co de Phone Number [facility] [address] [place] [phone] * Magnesium (07/16/2024 2:49 PM EST) Magnesium 2.3 1.6 - 2.6 mg/dL [facility] 07/16/2024 2:49 PM EST 07/16/2024 2:52 PM EST Generic External Data Provider LAB BLOOD ORDERAB LES Final Result Performing Organization Address [facility]/ZIP Co de Phone Number [facility] [address] [place] [phone] * (ABNORMAL) Comprehensive Metabolic Panel (07/16/2024 2:49 PM EST) Sodium 141 135 - 145 mmol/L [facility] Potassium 3.7 3.3 - 5.1 mmol/L [facility] Chloride 108 96 - 108 mmol/L [facility] Carbon Dioxide 27 22 - 29 mmol/L [facility] Anion Gap 10(L) 12 - 20 [facility] Urea Nitrogen (BUN) 8(L) 9 - 16 mg/dL [facility] Creatinine, Serum 0.80 0.5 - 1.4 mg/dL [facility] Creatinine Clr Calc Pharmacy 144.2 [facility] Comment:Provided height and weight: 1554.48 cm,85 kg.eGFR (calculated from the MDRD study equation) and eCrCl(calculated from the Cockcroft-Gault equation) are based ondifferent parameters and may not yield comparable results.If eCrCl result is absurd, please check patient'sheight/weight. Estimated Glomerular Filt Rate >60 [facility] Comment:Chronic Kidney Disea se: Estimated GFR < 60 mL/min/1.01s1Rhshtj Kidney Disease: Estimated GFR < 15 mL/min/1.73m2 Glucose 77 60 - 115 mg/dL [facility] Calcium 9.5 8.4 - 10.2 mg/dL [facility] Bilirubin, Total 0.4 0.0 - 1.0 mg/dL [facility] Aspartate Amino Transferase 24 5 - 31 U/L [facility] Alanine Aminotransferase 25 0 - 31 U/L [facility] Total Protein 7.6 6.5 - 8.0 g/dL [facility] Albumin Level 4.3 3.5 - 5.0 g/dL [facility] Alkaline Phosphatase 104 39 - 117 U/L [facility] 07/16/2024 2:49 PM EST 07/16/2024 2:52 PM EST us Generic External Data Provider LAB BLOOD ORDERAB LES Final Result [facility] [address], [place] [phone] * CBC auto differential (07/16/2024 2:49 PM EST) White Blood Count 9.8 4.8 - 10.8 X10*3/uL [facility] Red Blood Count 4.93 4.20 - 5.50 X10*6/uL [facility] Hemoglobin 14.0 12.0 - 16.0 g/dl [facility] Hematocrit 41.2 37.0 - 47.0 % [facility] Mean Corpuscular Volume 83.6 80.0 - 98.0 fL [facility] Mean Corpuscular Hemoglobin 28.4 27.0 - 33.0 pg [facility] Mean Corpuscular HGB Conc 34.0 31.0 - 35.0 g/dl [facility] Red Cell Distribution Width 14.1 11.0 - 16.0 % [facility] Platelet Count 296 160 - 400 X10*3/uL [facility] Mean Platelet Volume 10.2 9.4 - 12.3 fL [facility] Neutrophils Percent Auto 58.5 45 - 73 % [facility] Imm Gran Pct Auto 0.3 0.0 - 0.4 % [facility] Lymphocytes Percent Auto 31.2 20 - 40 % [facility] Monocytes Percent Auto 8.1 2 - 11 % [facility] Eosinophils Percent Auto 1.4 0 - 4 % [facility] Basophils Percent Auto 0.5 0 - 2 % [facility] NRBC Pct Auto 0.0 0.0 - 0.2 /100WBC [facility] Neutrophils Absolute Auto 5.7 2.0 - 8.3 x10*3/uL [facility] Imm Gran Abs Auto 0.03 0.00 - 0.03 X10*3/uL [facility] Lymphocytes Absolute Auto 3.0 1.2 - 4.9 X10*3/uL [facility] Monocytes Absolute Auto 0.8 0.1 - 1.2 X10*3/uL [facility] Eosinophils Absolute Auto 0.1 0.0 - 0.4 X10*3/uL [facility] Basophils Absolute Auto 0.1 0.0 - 0.2 X10*3/uL [facility] NRBC Abs Auto 0.000 0.0 - 0.012 X10*3/uL [facility] 07/16/2024 2:49 PM EST 07/16/2024 2:52 PM EST us Generic External Data Provider LAB BLOOD ORDERAB LES Final Result Performing Organization Address [facility]/ZIP Co de Phone Number [facility] [address] [place] [phone] * SARS-CoV-2 RNA, Influenza A/B, and RSV RNA, Ql NAAT (07/16/2024 2:47 PM EST) Influenza A PCR NEGATIVE Negative [facility] Influenza B PCR NEGATIVE Negative [facility] Resp Syncy Virus RNA Qual PCR NEGATIVE Negative [facility] SARS COV2 PCR NEGATIVE Negative [facility] Comment:All test results mus t be correlated with clinical findings.Negative results do not preclude SARS-CoV2, influenza Avirus, influenza B virus and/or RSV infectionand should not be used as the sole basis for treatment orother patient management decisions. Negative results must becombined with clinical observations, patient history, andepidemiological information.This test has not been evaluated for monitoring treatment ofinfection.This test has been authorized by the FDA under an EmergencyUse Authorization (EUA) for use by authorized laboratories.Testing performed on the [employer] GeneXpert utilizingreal-time RT-PCR.All SARS CoV2 and positive influenza A/B results arereported to [facility]. 07/16/2024 2:47 PM EST 07/16/2024 2:52 PM EST us Generic External Data Provider LAB MICROBIOLOGY - GENERAL ORDERABLES Final Result Performing Organization Address [facility]/ZIP Co de Phone Number [facility] [address] [place] [phone] documented in this encounter Visit Diagnoses Not on filedocumented in this encounter Additional Health Concerns Assessment Noted Time PHQ-9 Depression Total Score: 26 024 3:24 PM EDT documented as of this encounter Care Teams Contract Manager Relationship Specialty Start Date End Date Marion Coates ANP [address] [place] [address] PCP - General Family Medicine 01/06/23 documented as of this encounter
--- OUTSIDE RECORDS SUMMARY | 2024-07-16 17:57 | XMS_ITS | Clinical Summary ---
Author Organization [employer] Address [address] [facility] [address] [place] [address] Care Team Providers Care Sexual Assault Counsellor Name Role Phone Marion Coates Primary Care Provider [phone] Allergies No known active allergies Medications * This document contains information received from the source organization and may not represent a complete record from that organization. Spacer/Aero-Hold ing Chambers (OptiChamber Jazlyn) misc 1 each every 4 (four) hours if needed (asthma). 1 each 4 Active albuterol (2.5 MG/3ML) 0.083% nebulizer solution Take 3 mL (2.5 mg) by nebulization every 6 (six) hours if needed for wheezing. 75 mL 11 4 025 Active lidocaine (Lidoderm) 5 % patch PLACE 1 PATCH TOPICALLY DAILY LEAVE ON MOST PAINFUL AREA FOR UP TO 12 HRS 4 Active OLANZapine (ZyPREXA) 10 MG tablet Take 1 tablet by mouth at bedtime. 4 Active amitriptyline (Elavil) 10 MG tabletIndication s:Intractable migraine with aura without status migrainosus Take 1 tablet (10 mg) by mouth at bedtime. 30 tablet 2 4 Active SUMAtriptan (Imitrex) 25 MG tabletIndication s:Intractable migraine with aura without status migrainosus Take 1 tablet (25 mg) by mouth 1 (one) time if needed for migraine for up to 9 doses. May repeat dose once in 2 hours if no relief. Do not exceed 2 doses in 24 hours. 9 tablet 4 Active omeprazole (PriLOSEC) [address] capsuleIndicatio ns:Chronic gastritis without bleeding, unspecified gastritis type Take 1 capsule (20 mg) by mouth before breakfast and before evening meal. Do not crush or chew. 60 capsule 2 4 Active albuterol 108 (90 Base) MCG/ACT inhalerIndicatio ns:Wheezing 2 puffs every 4-6 hours prn SOB or wheezing. If using regularly more than twice/wk, call clinic 18 g 1 4 Active senna-docusate sodium (Senokot-S) 8.6-50 MG tabletIndication s:Constipation, unspecified constipation type 1-2 tabs once daily as needed for constipation 60 tablet 1 4 Active Active Problems Problem Noted Date Diagnosed Date Irregular menses 10/04/2023 Assessment & Plan (10/04/2023 1:48 PM EDT): -POCT hcg negative today -patient has nexplanon in place since 12/2022 -assured patient that this is a normal occurrence with nexplanon implant -provided option to switch method if bothered by the lack of menses Back pain 10/04/2023 Assessment & Plan (10/04/2023 1:49 PM EDT): -follow-up with PCP Mild intermittent asthma with acute exacerbation 07/28/2023 Suicidal ideation 01/06/2023 Cannabis use disorder 01/06/2023 Migraine with aura 06/30/2022 Assessment & Plan (08/18/2023 3:42 PM EDT): Would likely benefit from prophylactic med if headache frequency increases, otherwise deserves a trial of abortive therapies such as triptans Followup up with PCP Assessment & Plan (03/24/2023 11:00 AM EDT): I advise to avoid migraine triggers like red wine, chocolate, cheese, strong perfumes I will start patient on amitriptyline 10mg at bed time Patient reports she never got sumatriptan prescription I will renew it today F/u with PCP 2-3 weeks televisit Severe episode of recurrent major depressive disorder, with psychotic features 06/30/2022 Assessment & Plan (01/07/2023 8:48 AM EDT): Assessment: ?? Patient with anhedonia, depressed mood, sleep disturbance, lack of motivation, poor appetite, difficulties with focus, low self-esteem, auditory and visual hallucinations, self-harming behaviors, and passive SI with plan but no intent. Presentation in the context of complex trauma. Patient will benefit from OP therapy referral. She was provided with [facility] information and was highly encouraged to utilize service. ?? At this time Evonne Ladd meets criteria for Visit Diagnoses: Problem List Items Addressed This Visit ? Other ?? Severe episode of recurrent major depressive disorder, with psychotic features (CMS/HCC) ?? Anxiety ?? Suicidal ideation ?? Cannabis use disorder ?? Patient ready to address current needs Yes ?? Strengths include motivation to seek help for BH needs ?? PLAN: 1. Follow up with C: Not recommended for follow-up 2. Patient goal is to improve mental health and decrease SI 3. Behavioral Recommendations a. Patient will utilize [facility] or [facility], if symptoms worsen b. Patient will engage in OP therapy once established c. Patient may reach out to [facility] during next PCP visit or as needed Anxiety 06/30/2022 Insomnia 06/30/2022 Tobacco dependence 06/30/2022 Encounters Date Type Department Care Team Description 07/16/2024 Orders Only GENERIC EXTERNAL DATA DEPARTMENT Provider, Generic External Data from Last 3 Months Immunizations Name Administration Dates Next Due DTP 10/21/2000, 0,1999,03/23 DTaP / HiB / IPV 05/23/2000, 0,1999,03/23 HPV, Quadrivalent 08/07/2014,04/09/2014,04/08/20 11 Hep A, ped/adol, 2 dose 04/09/2014,04/08/2011 Hep B, Adolescent or Pediatric 05/23/2000,1999,1999 IPV 02/04/2003, 0,1999,03/23 Influenza, IIV3, injectable 04/08/2011 Influenza, seasonal, injecta ble, preservative free 07/13/2016 MMR 02/04/2003,01/22/2000 Meningococcal MCV4P ACYW-135 07/13/2016,04/08/20 11 Pneumococcal Conjugate PCV 7 05/23/2000,01/22/20 00 Td (adult), 5 Lf tetanus tox oid, preservative free, adsorbed 10/25/2014 Tdap 03/29/2023,01/06/2023,02/02/2010 Varicella 02/02/2010,01/22/2000 Family History Medical History Relation Name Comments Thyroid cancer Father's Sister 1 Breast cancer Father's Sister 2 Thyroid cancer Paternal Cousin Colon cancer Paternal Grandfather Thyroid cancer Paternal Grandmother Relation Name Status Comments Father's Sister 1 Father's Sister 2 Paternal Cousin Other Paternal Grandfather Paternal Grandmother Social History Tobacco Use Types Packs/Day Years Used Date Smoking Tobacco: Every Day Cigarettes 0.5 1.1 Started: 2023 Smokeless Tobacco: Never Tobacco Cessation:Ready to Q uit: Not Asked; Counseling Given: Not Answered Alcohol Use Standard Drinks/Week Comments Not Currently 0 (1 standard drink = 0.6 oz pur e alcohol) rarely Depression Answer Date Recorded Patient Health Questionnaire-9 Score 26 12/26/2023 Patient Health Questionnaire-9 Score 26 12/26/2023 Last PHQ-9: Questionnaire Data Not on file 0 12/26/2023 Housing Stability Answer Date Recorded What is your housing situation today? I have vetolilli francis 03/22/[address] you [...] Don't know 06/29/2022 9: 48 AM EST Last Filed Vital Signs Vital Sign Reading Time Taken Comments Blood Pressure 117/75 12/26/2023 3:19 PM EDT Pulse 94 12/26/2023 3:19 PM EDT Temperature 36.1 ??C (97 ??F) 12/26/2023 3:19 PM EDT Respiratory Rate 18 12/26/2023 3:19 PM EDT Oxygen Saturation 99% 12/26/2023 3:19 PM EDT Inhaled Oxygen Concentration - - Weight 85.5 kg (188 lb 9.6 oz) 12/26/2023 3:19 P M EDT Height 154.9 cm (5' 1 ) 12/26/2023 3:19 PM EDT Body Mass Index 35.64 12/26/2023 3:19 PM EDT Plan of Treatment Health Maintenance Due Date Last Done Comments Alcohol/Substance Use Screening 2011 Pneumococcal Vaccine: Pediatrics (0 to 5 Years) and At-Risk Patients (6 to 49) Years) (1 of 2 - PCV) 2018 05/23/2000, 01/22/2000 SDOH Screening 01/07/2024 01/06/2023 COVID-19 Vaccine ( - season) 2024 Influenza Vaccine (#1) 2024 07/13/2016, 2010 Depression Monitoring (PHQ-9) 06/27/2024 12/26/2023, 12/26/2023 Family Planning (PISQ) 10/03/2024 10/04/2023 Depression Screening 12/25/2024 12/26/2023, 12/26/19 24 Tobacco Screening 01/23/2025 2024 Pap Smear 01/31/2026 01/31/2023, 01/31/2023 Lipid Panel 12/15/2027 12/14/2022 DTaP/Tdap/Td Vaccines (9 - Td or Tdap) 03/29/2033 03/29/2023, 01/06/2023, 10/25/2014, Additional history exists Zoster Vaccines (1 of 2) 2049 RSV Patients and Patients Aged 60 years or older (1 - 1-dose 75+ series) 2074 HIB Vaccines Completed 05/23/2000, 05/1999, 1999, Additional history exists Hepatitis B Vaccines Completed 05/23/2000, 01/22/2000, 1999 IPV Vaccines Completed 02/04/2003, 05/2000, 1999, Additional history exists Hepatitis A Vaccines Completed 04/09/2014, 04/08/20 11 HPV Vaccines Completed 08/07/2014, 03/23, 04/08/2011 Meningococcal Vaccine Completed 07/13/2016, 011 HIV Screening Completed 12/14/2022 Hepatitis C Screening Completed 12/14/2022 RSV under 20 months Aged Out No longe r eligible based on patient's age to complete this topic Rotavirus Vaccines Aged Out No longer eligible based on patient's age to complete this topic Procedures Procedure Name Priority Date/Time Associated Diagnosis Comments LIPASE Routine 07/16/2024 2:49 PM EST MAGNESIUM Routine 07/16/2024 2:49 PM EST COMPREHENSIVE METABOLIC PANEL Routine 07/16/2024 2:49 PM EST CBC WITH AUTO DIFFERENTIAL Routine 07/16/2024 2:49 PM EST SARS COV2/INFLUENZA A/B AND RSV RNA QL NAAT Routine 07/16/2024 2:47 PM EST IMAGE-GUIDED PAP W/AGE BASED SCR,W/CT/NG/TRICH Routine 01/31/2023 9:46 AM EDT Cervical cancer screening Encntr screen for infections w sexl mode of transmiss HEPATITIS PANEL, GENERAL Routine 12/14/2022 12:31 PM EDT Health care maintenance HIV ANTIBODY/ANTIGEN ([facility]) Routine 12/14/2022 12:31 PM EDT LIPID PANEL, STANDARD Routine 12/14/2022 12:31 PM EDT Health care maintenance from Last 3 Months or Most Recently Relevant to Health Maintenance Results * CBC auto differential (07/16/2024 2:49 PM EST) White Blood Count 9.8 4.8 - 10.8 X10*3/uL [facility] Red Blood Count 4.93 4.20 - 5.50 X10*6/uL [facility] Hemoglobin 14.0 12.0 - 16.0 g/dl [facility] Hematocrit 41.2 37.0 - 47.0 % [facility] Mean Corpuscular Volume 83.6 80.0 - 98.0 fL [facility] Mean Corpuscular Hemoglobin 28.4 27.0 - 33.0 pg [facility] Mean Corpuscular HGB Conc 34.0 31.0 - 35.0 g/dl [facility] Red Cell Distribution Width 14.1 11.0 - 16.0 % [facility] Platelet Count 296 160 - 400 X10*3/uL [facility] Mean Platelet Volume 10.2 9.4 - 12.3 fL [facility] Neutrophils Percent Auto 58.5 45 - 73 % [facility] Imm Gran Pct Auto 0.3 0.0 - 0.4 % [facility] Lymphocytes Percent Auto 31.2 20 - 40 % [facility] Monocytes Percent Auto 8.1 2 - 11 % [facility] Eosinophils Percent Auto 1.4 0 - 4 % [facility] Basophils Percent Auto 0.5 0 - 2 % [facility] NRBC Pct Auto 0.0 0.0 - 0.2 /100WBC [facility] Neutrophils Absolute Auto 5.7 2.0 - 8.3 x10*3/uL [facility] Imm Gran Abs Auto 0.03 0.00 - 0.03 X10*3/uL [facility] Lymphocytes Absolute Auto 3.0 1.2 - 4.9 X10*3/uL [facility] Monocytes Absolute Auto 0.8 0.1 - 1.2 X10*3/uL [facility] Eosinophils Absolute Auto 0.1 0.0 - 0.4 X10*3/uL [facility] Basophils Absolute Auto 0.1 0.0 - 0.2 X10*3/uL [facility] NRBC Abs Auto 0.000 0.0 - 0.012 X10*3/uL [facility] 07/16/2024 2:49 PM EST 07/16/2024 2:52 PM EST Generic External Data Provider LAB BLOOD ORDERAB LES Final Result Performing Organization Address [facility] Co de Phone Number [facility] [address] [place] [phone] * Magnesium (07/16/2024 2:49 PM EST) Pathologist [facility] Magnesium 2.3 1.6 - 2.6 mg/dL [facility] 07/16/2024 2:49 PM EST 07/16/2024 2:52 PM EST Generic External Data Provider LAB BLOOD ORDERAB LES Final Result Performing Organization Address [facility] Co de Phone Number [facility] [address] [place] [phone] * Lipase (07/16/2024 2:49 PM EST) Pathologist [facility] Lipase 16 8 - 78 U/L [facility] 07/16/2024 2:49 PM EST 07/16/2024 2:52 PM EST Generic External Data Provider LAB BLOOD ORDERAB LES Final Result Performing Organization Address [facility] Co de Phone Number [facility] [address] [place] [phone] * (ABNORMAL) Comprehensive Metabolic Panel (07/16/2024 2:49 PM EST) Pathologist [facility] Sodium 141 135 - 145 mmol/L [facility] Potassium 3.7 3.3 - 5.1 mmol/L [facility] Chloride 108 96 - 108 mmol/L [facility] Carbon Dioxide 27 22 - 29 mmol/L [facility] Anion Gap 10(L) 12 - 20 [facility] Urea Nitrogen (BUN) 8(L) 9 - 16 mg/dL [facility] Creatinine, Serum 0.80 0.5 - 1.4 mg/dL [facility] Creatinine Clr Calc Pharmacy 144.2 [facility] Comment:Provided height and weight: 1554.48 cm,85 kg.eGFR (calculated from the MDRD study equation) and eCrCl(calculated from the Cockcroft-Gault equation) are based ondifferent parameters and may not yield comparable results.If eCrCl result is absurd, please check patient'sheight/weight. Estimated Glomerular Filt Rate >60 [facility] Comment:Chronic Kidney Disea se: Estimated GFR < 60 mL/min/[id number] Kidney Disease: Estimated GFR < 15 mL/min/1.73m2 Glucose 77 60 - 115 mg/dL [facility] Calcium 9.5 8.4 - 10.2 mg/dL [facility] Bilirubin, Total 0.4 0.0 - 1.0 mg/dL [facility] Aspartate Amino Transferase 24 5 - 31 U/L [facility] Alanine Aminotransferase 25 0 - 31 U/L [facility] Total Protein 7.6 6.5 - 8.0 g/dL [facility] Albumin Level 4.3 3.5 - 5.0 g/dL [facility] Alkaline Phosphatase 104 39 - 117 U/L [facility] 07/16/2024 2:49 PM EST 07/16/2024 2:52 PM EST us Generic External Data Provider LAB BLOOD ORDERAB LES Final Result [facility] [address] [place] [address] [phone] * SARS-CoV-2 RNA, Influenza A/B, and RSV RNA, Ql NAAT (07/16/2024 2:47 PM EST) Influenza A PCR NEGATIVE Negative [facility] Influenza B PCR NEGATIVE Negative [facility] Resp Syncy Virus RNA Qual PCR NEGATIVE Negative [facility] SARS COV2 PCR NEGATIVE Negative [facility] Comment:All test results mus t [...] use by authorized laboratories.Testing performed on the [employer] GeneXpert utilizingreal-time RT-PCR.All SARS CoV2 and positive influenza A/B results arereported to [facility]. 07/16/2024 2:47 PM EST 07/16/2024 2:52 PM EST us Generic External Data Provider LAB MICROBIOLOGY - GENERAL ORDERABLES Final Result [facility] [address] [place] [phone] * Image-Guided Pap with Age-Based Screening??with CT/NG,??Trichomonas (01/31/2023 9:46 AM EDT) Trichomonas (NAAT) NOT DETECTED NOT DETECTED [facility] Comment:The analytical perfo rmance characteristics of thisassay have been determined by [employer]. Themodifications have not been cleared or approved bythe FDA. This assay has been validated pursuant to theCLIA regulations and is used for clinical purposes.For additional information, please refer [email or web address]/faq/Trichomonastma(This link is being provided for information/educational purposes only.)THIS TEST WAS PERFORMED AT:[facility] [address] [phone] SANDOVAL MD CTNG Ref Lab NOT DETECTED NOT DETECTED [facility] NG Ref Lab NOT DETECTED NOT DETECTED [facility] 01/31/2023 9:46 AM EDT 02/01/2023 8:40 AM EDT us Vero Nieves CNM LAB CYTOLOGY ORDERABLES F inal Result Performing Organization Address [facility]/ZIP Co de Phone Number [facility] [address] [place] [phone] * HIV Ab/Ag (TINY REBOLLEDO) (12/14/2022 12:31 PM EDT) [facility] HIV AB/AG Nonreactive Nonreactive [facility] Comment:HIV-1 p24 Ag and/or HIV-1/HIV-2 Ab not detected.A test result that is nonreactive does not exclude thepossibility of exposure to or infection with HIV-1 and/orHIV-2. Nonreactive results in this assay for individualswith prior exposure to HIV-1 and/or HIV-2 may be due toantigen and antibody levels that are below the limit ofdetection of this assay.The [employer]ader HIV Ag/Ab Combo assay result andsupplemental assay results should be interpreted inconjunction with the patient's clinical presentation,history and other laboratory results. If the results areinconsistent with clinical evidence, additional testing issuggested to confirm the result. 12/14/2022 12:3 1 PM EDT 12/14/2022 4:02 PM EDT us Venessa Poe SYNOPTIC METEOROLOGIST LAB BLOOD ORDERABLES Final Result Performing Organization Address [facility] Co de Phone Number [facility] [address] [place] [address] [phone] * Hepatitis Panel, General (12/14/2022 12:31 PM EDT) Pathologist [facility] Hepatitis A IgM Nonreactive Nonreactive [facility] Comment:IgM antibodies to QUEEN V not detected; does not exclude earlyacute or recovered HAV infection. ~Hepatitis B Surface Antibody NONREACTIVE Nonreactive [facility] Comment:Nonreactive: < 8.00 mIU/mL Hepatitis B Core Antibody Nonreactive Nonreactive [facility] Hepatitis C Antibody Nonreactive Nonreactive [facility] Comment:Antibodies to HCV no t detected; does not exclude early acuteHCV infection. Hepatitis B Surface Ag Negative Negative [facility] Blood 12/14/2022 12:3 1 PM EDT 12/14/2022 4:02 PM EDT us Venessa Poe SYNOPTIC METEOROLOGIST LAB BLOOD ORDERABLES Final Result [facility] [address] [place] [phone] * Lipid Panel, Standard (12/14/2022 12:31 PM EDT) Triglycerides 77 mg/dL [facility] Comment:Desirable Triglyceri de: less than 150 mg/dLBorderline High Triglyceride 150-199 mg/dLHigh Triglyceride: 200-499 mg/dLVery High Triglyceride: greater than or equal to 5OO mg/dL Cholesterol 138 mg/dL [facility] Comment:Desirable Cholestero l: less than 200 mg/dLBorderline High Cholesterol: 200-239 mg/dLHigh Cholesterol: greater than 239 mg/dL LDL Cholesterol Calculated 80 mg/dl [facility] Comment:Desirable LDL: less than 100 mg/dLNear Optimal/Above Optimal LDL: 110- 129 mg/dLBorderline High LDL: 130-159 mg/dLHigh LDL: 160-189 mg/dLVery High LDL: greater than or equal to 190 mg/dL HDL Cholesterol 43 mg/dL [facility] Comment:Desirable HDL: great er than 40 mg/dL Note: This HDL assay may give artificially low results in patients with liver disease. Blood Venous blood specimen / Unknown 12/14/2022 12:31 PM EDT 12/14/2022 4:02 PM EDT Venessa Poe SYNOPTIC METEOROLOGIST LAB BLOOD ORDERABLES Final Result [facility] [address] [place] [phone] from Last 3 Months or Most Recently Relevant to Health Maintenance Insurance [facility] C3 HSN FULL Care Teams Sexual Assault Counsellor Relationship Specialty Start Date End Date Marion Coates ANP [address] [place] [phone] PCP - General Family Medicine 01/06/23
== END 2024-07-16 17:05 | disposition left against medical advice (07) ==
PROVIDERS: Physician Assistant Medical; Emergency Provider Emergency Medicine; PCP Nurse Practitioner Primary Care
DX: R11.2 Nausea with vomiting, unspecified (principal); Z03.818 Encounter for observation for suspected exposure to other biological agents ruled out; Z79.899 Other long term (current) drug therapy
CPT/HCPCS: 0241U; 80053; 83690; 83735; 85025; 99281; 99283

== ENCOUNTER 2024-12-03 11:40 | Emergency (ER) | payer MEDICAID, SELFPAY ==
[2024-12-03] VITALS (9 sets, daily range): BP systolic 99–125; BP diastolic 57–74; PULSE 61–83; RESP 16–20; TEMP 36–36.9; O2SAT 96–97; BMI 28.7
--- NOTE | ~2024-12-03 | CT_ITS ---
EXAMINATION: CT ABDOMEN AND PELVIS WITH CONTRAST CLINICAL INFORMATION: Left upper quadrant pain, emesis, constipation DLP: 551 mGY*cm COMPARISON: None available. TECHNIQUE: Multidetector volumetric images were obtained from the superior aspect of the liver through the pubic symphysis following administration 85 mL of Omnipaque 350 intravenous contrast. Sagittal and coronal reformatted images were obtained on the technologist's workstation. Oral contrast: No This CT examination was performed using dose optimization techniques as appropriate, variously including the following: *Automated exposure control *Adjustment of mA and/or kV according to patient size (this includes techniques or standardized protocols for targeted exams where dose is matched to indication/reason for exam; i.e. extremities or head) *Use of iterative reconstruction technique FINDINGS: LUNG BASES: The visualized lung bases are unremarkable. LIVER, GALLBLADDER, AND BILIARY TREE: The liver is normal in size, shape, and attenuation. No focal hepatic lesion or biliary ductal dilatation is present. The gallbladder is unremarkable with no evidence of radiopaque gallstones, gallbladder wall thickening, or obvious pericholecystic inflammatory changes. PANCREAS: Unremarkable. SPLEEN: Unremarkable. ADRENAL GLANDS: There is a 4 x 8 mm left gland nodule that is too small to characterize. Right adrenal gland is unremarkable. KIDNEYS AND URETERS: The kidneys are normal in size, shape, and attenuation. No hydronephrosis, hydroureter, or calculi seen. No perinephric stranding. BLADDER: Unremarkable. GASTROINTESTINAL TRACT: The small and large bowel are unremarkable. The appendix is unremarkable. ABDOMINAL WALL: No significant hernia is appreciated. LYMPH NODES: Normal. VASCULAR: Unremarkable. PELVIC VISCERA: Simple right ovarian cyst measures 3.1 cm long axis and it requires no further follow-up. Left ovary is unremarkable. Uterus is unremarkable OSSEOUS STRUCTURES: Unremarkable. CT/CT abdomen pelvis w IV con IMPRESSION: Essentially unremarkable examination. There is an indeterminate small left adrenal nodule, likely an adenoma, measuring 4 x 8 mm. Given the small size and if there is no prior history of malignancy, it is probably benign, consider 12 month follow-up adrenal CT. If there is a history of malignancy, consider short interval follow-up CT adrenal within 3 months Fleischner guidelines were followed. Electronically signed by: Richi Mo MD 12/03/2024 04:48 PM EDT
--- NOTE | ~2024-12-03 | XR_ITS ---
EXAMINATION: XR ABDOMEN KUB CLINICAL INDICATION: ?constipation COMPARISON: None available. TECHNIQUE: AP view of the abdomen. FINDINGS: Gas throughout nondilated intestine. Questionable wall thickening in the splenic colonic flexure. No air-fluid levels. No gross pneumatosis intestinalis. No calcifications overlapping the kidney shadows. Osseous structures are intact. No metallic or radiopaque foreign body. XR/XR KUB IMPRESSION: No intestinal obstruction pattern. Colitis cannot be excluded.. Electronically signed by: Felton Roman MD 12/03/2024 12:26 PM EDT
--- NOTE | 2024-12-03 12:46 | ED.ABDPAIN ---
HPI - Abdominal Pain General Chief Complaint: Abdominal Pain Stated Complaint: vomiting Time Seen by Provider: 12/03/24 15:16 Source: patient, RN notes reviewed and old records reviewed Mode of arrival: ambulatory Limitations: no limitations History of Present Illness ED Provider: Nacho HPI narrative: Patient is a 24 y/o female with pmhx of migraine, gastritis, polycythemia, and smoking (tobacco and cannabis)? who appears older than stated age presents to the ED with chronic constipation, chronic vomiting, and syncopal feelings. Pt reports she feels like she is going to faint any time she is active; this is a daily occurrence. Pt reports she has not been able to ?keep food down for 6 months?. Every time she tries to eat she vomits 10-15 minutes after. Pt is only able to keep lemon water and milk down. She has chronic constipation not relieved with miralax or colace. She has been taking potassium supplements after being seen at [facility] a week and a half ago and being told her potassium was low.? No fever, chills, recent sickness, no new exposures to food. Has not seen GI for symptoms. Related Data Previous Rx's ?Medication ?Instructions ?Recorded ondansetron 4 mg disintegrating 4 mg PO Q8H PRN nausea and 12/03/24 tablet vomiting #10 tabs potassium chloride 10 mEq 20 meq (2 x 10 mEq) PO DAILY #4 12/03/24 tablet,extended release (Klor-Con) tabs Allergies Allergy/AdvReac Type Severity Reaction Status Date / Time No Known Allergies (No Known Allergy Verified 12/03/24 11:50 Allergies*) Review of Systems Review of Systems As per HPI Yes all other systems are reviewed and are negative Constitutional: Reports as per HPI [facility] Past Medical History Medical History No pertinent past medical history Social History Social History Alcohol intake: never Patient Tobacco Use Status: Tobacco use Unknown Smoked in Last 30 Days: Yes Use of substances other than those prescribed or required for medical reasons: Yes Substance Use Type: Marijuana Advance Directives: No Advance Directives Information Provided: Yes Do you have a plan to hurt others: No Plan Patient : No Physical Exam ED Vital Signs: Vital Signs - 24 hr 07/14/25 11:48 12/03/24 15:27 12/03/24 17:24 Temperature 96.8 F 97.8 F 98.4 F Pulse Rate 79 64 61 Respiratory Rate 16 16 20 Blood Pressure 99/65 114/74 125/63 Pulse Oximetry 97 97 97 Oxygen Delivery Method Room Air Room Air Room Air 12/03/24 18:33 12/03/24 20:40 12/03/24 20:41 Temperature 98.4 F Pulse Rate 61 81 83 Respiratory Rate 20 Blood Pressure 125/63 111/57 L 106/68 Pulse Oximetry 97 Oxygen Delivery Method Room Air 12/03/24 20:44 12/03/24 20:46 Temperature 98.5 F Pulse Rate 81 82 Respiratory Rate 17 Blood Pressure 111/69 111/69 Pulse Oximetry 96 Oxygen Delivery Method Room Air BMI result Body Mass Index 28.7 Vital signs have been reviewed and appear to be correct. Blood pressure normal. Heart rate normal. Respiratory rate normal. Temperature normal. Oxygen saturation normal. Const General: cooperative, healthy appearing and no acute distress Orientation/consciousness: oriented to person, oriented to place, oriented to time and patient oriented x3 Limitations: no limitations HENMT Head: Yes normocephalic and Yes atraumatic Ears: external ears normal General nose exam: Normal external nose present Face and sinus: Yes face symmetric Mouth: oropharynx normal and moist mucous membranes Throat: Yes uvula midline Eyes Pupils: Equal, round and reactive pupils present Neck Neck: Yes normal visual inspection and Yes supple Resp Effort & Inspection: normal respiratory effort and able to speak in complete sentences Auscultation: clear to auscultation bilaterally Cardio Rate: regular rate Rhythm: regular rhythm Heart sounds: S1 normal heart sound present and S2 normal heart sound present GI Palpation (GI): Soft to palpation and Tenderness to palpation present (GI) in the LUQ Auscultation: normoactive bowel sounds General: Yes no CVA tenderness Back/Spine/Pelvis Back: no CVA tenderness Skin General skin exam: elasticity normal and turgor normal Neuro General: oriented to person, oriented to place, oriented to time, patient oriented x3, moves all extremities, no focal motor deficits and CN's II-XI intact bilaterally Cranial nerves: Yes Equal, round and reactive pupils present Cognition (Neuro): normal cognition Extrem General: Yes full ROM, Yes no pedal edema and Yes no calf tenderness Psych Mental Status: mental status grossly normal Affect: normal affect Thought process: Normal thought process present Course Course Course Narrative: This is a Rapid Medical Examination (RME) performed by Christel Edmond PA-C in triage. Full HPI, ROS, assessment and treatment plan per primary provider in the Main ED. Hx: 24 yo F here for eval of abd pain, N/V. Unable to tolerate p.o.. Reports constipation. Using [id number] laxatives without improvement. Unsure of last bowel movement. Plan: Labs, UA, KUB. Reevaluation(s) Reevaluation #1: Josephine Browning NP 12/03/2024 21:13 Completed supplemental potassium IV and orally. Repeat potassium 3.0. I have sent additional potassium supplementation to the pharmacy for potassium chloride 20 mEq daily for the next 2 days and advised outpatient follow-up with PCP. All questions answered. Stable for discharge. Reports feeling much improved, no further abdominal pain nausea or vomiting. Tolerating oral intake. Medical Decision Making Medical Decision Making [facility] Narrative: Patient is a 24 y/o female with pmhx of migraine, gastritis, polycythemia, and smoking (tobacco and cannabis)? who presents to the ED with chronic constipation, chronic vomiting, and syncopal feelings. On exam patient is awake, A+Ox3, VS WNL, afebrile, normal neurological exam without focal deficits, physical exam findings as above. Given reported symptoms and physical exam findings, initial differential includes but is not limited to constipation, obstruction, IBD. Labs notable for hypokalemia, normal magnesium, no leukocytosis, normal transaminases, no evidence of LEIA. KUB notable for no obstruction pattent, colitis cannot be excluded. CT A/P is without acute abnormalities. My interpretation is in agreement with the radiologist's interpretation. She reports improvement in symptoms after medications given in the ED. Will plan for discharge with referral to GI if repeat BMP shows normal K+. Patient signed out to SHEREE Burton pending repeat labs. Prescription for zofran sent to pharmacy. Differential Diagnosis Differential Diagnoses: The differential diagnosis associated with the presentation includes As per [facility] Admission/Observation Consideration of admission/observation: Escalation of care including admission/observation considered Patient would have been admitted to the hospital had their clinical presentation warranted hospital admission. Lab Data [facility] Lab Attestation statement: I reviewed the patient's lab results. as per mdm 12/03/24 14:13 12/03/24 20:07 Labs: Lab Results 12/03/24 12/03/24 12/03/24 Range/Units 14:13 14:27 20:07 WBC 10.5 (4.8-10.8) X10*3/uL RBC 4.95 (4.20-5.50) X10*6/uL Hgb 14.6 (12.0-16.0) g/dl Hct 40.1 (37.0-47.0) % MCV 81.0 (80.0-98.0) fL MCH 29.5 (27.0-33.0) pg MCHC 36.4 H (31.0-35.0) g/dl RDW 13.5 (11.0-16.0) % Plt Count 282 (160-400) X10*3/uL MPV 11.0 (9.4-12.3) fL Immature Gran % (Auto) 0.4 (0.0-0.4) % Neut % (Auto) 65.0 (45-73) % Lymph % (Auto) 25.9 (20-40) % [place] % (Auto) 7.3 (2-11) % Eos % (Auto) 0.9 (0-4) % Baso % (Auto) 0.5 (0-2) % Lymph # (Auto) 2.7 (1.2-4.9) X10*3/uL [place] # (Auto) 0.8 (0.1-1.2) X10*3/uL Eos # (Auto) 0.1 (0.0-0.4) X10*3/uL Baso # (Auto) 0.1 (0.0-0.2) X10*3/uL Abs Immat Gran (auto) 0.04 H (0.00-0.03) X10*3/uL Absolute Neuts (auto) 6.8 (2.0-8.3) x10*3/uL Absolute Nucleated RBC 0.000 (0.0-0.012) X10*3/uL Nucleated RBC % (auto) 0.0 (0.0-0.2) /100WBC Sodium 138 141 (135-145) mmol/L Potassium 2.7 L* D 3.0 L (3.3-5.1) mmol/L Chloride 97 108 (96-108) mmol/L Carbon Dioxide 32 H 27 (22-29) mmol/L Anion Gap 12 9 L (12-20) BUN 9 6 L (9-16) mg/dL Creatinine 0.89 0.71 (0.5-1.4) mg/dL Estim Creat Clear Calc 85.8 107.5 Estimated GFR > 60 > 60 Random Glucose 125 H 118 H (60-115) mg/dL Calcium 9.5 7.9 L D (8.4-10.2) mg/dL Magnesium 2.0 (1.6-2.6) mg/dL Total Bilirubin 0.4 (0.0-1.0) mg/dL AST 24 (5-31) U/L ALT 20 (0-31) U/L Alkaline Phosphatase 81 (39-117) U/L Total Protein 7.3 (6.5-8.0) g/dL Albumin 4.6 (3.5-5.0) g/dL Lipase 20 (8-78) U/L Beta HCG, Quant < 2 mIU/mL Urine Color Yellow Urine Appearance Clear Urine pH 6.5 (5.0-9.0) Ur Specific [place] 1.015 (1.005-1.025) Urine Protein Negative (Neg-Trace) mg/dL Urine Glucose (UA) Negative (Negative) mg/dL Urine Ketones Negative (Negative) mg/dL Urine Blood Negative (Negative) Urine Nitrite Negative (Negative) Ur Leukocyte Esterase Negative (Negative) Independent Interpretation I performed an independent interpretation of an: Plain X-Ray and CT Scan Interpretation: No evidence of obstruction on KUB, colitis cannot be excluded. No acute abnormalities on CT A/P Radiology Impression Discussion of test interpretation with radiology: I have reviewed the radiologist's reading. Radiologist Impression: XR/XR KUB IMPRESSION: No intestinal obstruction pattern. Colitis cannot be excluded.. CT/CT abdomen pelvis w IV con IMPRESSION: Essentially unremarkable examination. There is an indeterminate small left adrenal nodule, likely an adenoma, measuring 4 x 8 mm. Given the small size and if there is no prior history of malignancy, it is probably benign, consider 12 month follow-up adrenal CT. If there is a history of malignancy, consider short interval follow-up CT adrenal within 3 months Fleischner guidelines were followed. Independent Historian Clinical information obtained from an independent historian. History obtained from or confirmed by: Spouse External Record Review External record reviewed: Inpatient record, Office record and Outpatient record Prescription Management I considered prescription management with: Other Medications Administered Discontinued Medications Generic Name Dose Route Start Last Admin Trade Name Freq PRN Reason Stop Dose Admin Diphenhydramine HCl 25 mg 12/03/24 15:32 12/03/24 16:30 Diphenhydramine Hcl 50 Mg/Ml Vial IVPUSH 12/03/24 15:33 25 mg ONCE ONE Administration Magnesium Sulfate 2 gm in 50 mls @ 25 mls/hr 12/03/24 15:17 12/03/24 18:47 Magnesium Sulfate/H2o IV 12/03/24 17:16 Infused ONCE ONE Infusion Sodium Chloride 1,000 mls @ 999 mls/hr 12/03/24 15:45 12/03/24 18:51 Ns IV 12/03/24 16:45 Infused .Q1H1M SIDNEY Infusion Potassium Chloride 10 meq in 100 mls @ 100 mls/hr 12/03/24 16:00 12/03/24 20:56 Potassium Chloride/H20 IV 12/03/24 19:59 Infused Q1H SIDNEY Infusion Iohexol 100 ml 12/03/24 16:17 12/03/24 16:18 Iohexol 350 Mg/Ml 100 Ml Infus..Btl IV 12/03/24 16:18 85 ml ONCE ONE Administration Ketorolac Tromethamine 15 mg 12/03/24 15:36 12/03/24 16:30 Ketorolac Tromethamine 15 Mg/Ml Vial IVPUSH 12/03/24 15:37 15 mg ONCE ONE Administration Metoclopramide HCl 10 mg 12/03/24 15:32 12/03/24 16:30 Metoclopramide Hcl 10 Mg/2 Ml Vial IVPUSH 12/03/24 15:33 10 mg ONCE ONE Administration Potassium Chloride 20 meq 12/03/24 15:46 12/03/24 16:37 Potassium Chloride Er 20 Meq Tab.Er.Prt PO 12/03/24 15:47 20 meq ONCE ONE Administration Discharge Plan Discharge Clinical Impression: Nausea & vomiting, Hypokalemia Abdominal pain Qualifiers: Abdominal location: generalized Qualified Code(s): R10.84 - Generalized abdominal pain Patient Disposition: Home, Self-Care Instructions: Hypokalemia (ED), Abdominal Pain (ED) Additional Instructions: You have been evaluated in the emergency department today for abdominal pain, nausea and vomiting. Your evaluation did not show evidence of medical conditions requiring emergent intervention at this time. Please schedule an appointment with your primary care physician. You are also being referred to gastroenterology for further evaluation of your symptoms. Return to the emergency department if you experience worsening or uncontrolled pain, fevers 100.4? F or greater, recurrent vomiting, inability to tolerate food or fluids by mouth, bloody stools or vomit, black or tarry stools, or any other concerning symptoms. Follow up with your PCP regarding the finding of a small adrenal nodule. Take supplemental potassium 20 mEq daily for the next 2 days. Have your primary care provider follow-up regarding your potassium level within the next [address]/CT abdomen pelvis w IV con IMPRESSION: Essentially unremarkable examination. There is an indeterminate small left adrenal nodule, likely an adenoma, measuring 4 x 8 mm. Given the small size and if there is no prior history of malignancy, it is probably benign, consider 12 month follow-up adrenal CT. If there is a history of malignancy, consider short interval follow-up CT adrenal within 3 months Fleischner guidelines were followed. Prescriptions: New ondansetron 4 mg tablet,disintegrating 4 mg PO Q8H PRN (Reason: nausea and vomiting) Qty: 10 0RF potassium chloride [Klor-Con 10] 10 mEq tablet extended release 20 meq PO DAILY Qty: 4 0RF Referrals: [facility] [Provider Group, Gastroenterology] Referral Note: Symptoms x months Clinical Impression: Nausea & vomiting Stand Alone Forms: Work/School Release Print Language: Estonian
[2024-12-03 14:18] LABS: MANUAL DIFF FLAG NO
[2024-12-03 14:22] LABS: Hematocrit 40.1 % (37.0-47.0); Hemoglobin 14.6 g/dl (12.0-16.0); Imm Gran Abs Auto 0.04 X10*3/uL (0.00-0.03); Imm Gran Pct Auto 0.4 % (0.0-0.4); Lymphocytes Absolute Auto 2.7 X10*3/uL (1.2-4.9); Mean Corpuscular HGB Conc 36.4 g/dl (31.0-35.0); Mean Corpuscular Hemoglobin 29.5 pg (27.0-33.0); Mean Corpuscular Volume 81.0 fL (80.0-98.0); NRBC Abs Auto 0.000 X10*3/uL (0.0-0.012); NRBC Pct Auto 0.0 /100WBC (0.0-0.2); Platelet Count 282 X10*3/uL (160-400); Red Blood Count 4.95 X10*6/uL (4.20-5.50); White Blood Count 10.5 X10*3/uL (4.8-10.8)
[2024-12-03 14:42] LABS: Appearance Urine Clear; Glucose Urine UA Negative (Negative); PH 6.5 (5.0-9.0); Specific Gravity - Urine 1.015 (1.005-1.025)
[2024-12-03 14:56] LABS: Alanine Aminotransferase 20 U/L (0-31); Albumin Level 4.6 g/dL (3.5-5.0); Alkaline Phosphatase 81 U/L (39-117); Anion Gap 12 (12-20); Aspartate Amino Transferase 24 U/L (5-31); Blood Urea Nitrogen 9 mg/dL (9-16); Calcium 9.5 mg/dL (8.4-10.2); Carbon Dioxide 32 mmol/L (22-29); Chloride 97 mmol/L (96-108); Creatinine Clr Calc Pharmacy 85.8; Estimated Glomerular Filt Rate > 60; Lipase 20 U/L (8-78); Potassium 2.7 mmol/L (3.3-5.1); Sodium 138 mmol/L (135-145); Total Protein 7.3 g/dL (6.5-8.0)
--- NOTE | 2024-12-03 15:01 | ECG_ITS ---
Test Reason : Hypokalemia Blood Pressure : */* mmHG Vent. Rate : 71 BPM Atrial Rate : 71 BPM P-R Int : 132 ms QRS Dur : 88 ms QT Int : 410 ms P-R-T Axes : 39 59 14 degrees QTcB Int : 445 ms Normal sinus rhythm with sinus arrhythmia Normal ECG When compared with ECG of 15-Jul-2023 04:01, QT has shortened Referred By: Neli Edmond Electronically Signed By: PAUL HENRY
--- NOTE | 2024-12-03 15:33 | PC.NURSE ---
Patient presents to ED c/o abdominal pain rated 4/10. Symptoms have been persisitant for about 3 weeks. Patient experiencing n/v no blood noted. Patient unable to keep food down, unintensional weight loss of about 12 pounds. Hx gastritis and migraines. Patient c/o blurred vision denies injury eyes PERRLA. KUB = no intestinal obstruction. EKG = NSR with arrhythmia VSS and up to date. Provider in to see patient.
[2024-12-03 15:37] LABS: Magnesium 2.0 mg/dL (1.6-2.6)
[2024-12-03] MEDS: iohexoL 350 MG/ML 100 ML INFUS..BTL IV (16:18)
[2024-12-03] MEDS: Magnesium Sulfate/H2O 2 GM/50 ML PIGGYBACK IV (16:28)
[2024-12-03] MEDS: Potassium Chloride/H20 10 MEQ/100 ML PIGGYBACK 100 MEQ IV ×4 (16:28→19:50)
[2024-12-03] MEDS: Potassium Chloride ER 20 MEQ TAB.ER.PRT PO (16:37)
--- OUTSIDE RECORDS SUMMARY | 2024-12-03 16:55 | XMS_ITS | Clinical Summary ---
Author Organization [facility] Address [address] [place] [address] Phone Care Team Providers Care Risk Assessment Consultant Name Role Phone Marion Coates NP Primary Care Provider [phone] Allergies No known active allergies Medications methocarbamoL (ROBAXIN) 500 mg tablet Take 1 tablet (500 mg total) by mouth 2 (two) times a day for 10 days. 20 tablet 05/23/2024 Active Active Problems Problem Noted Date Diagnosed Date Cannabis hyperemesis syndrom e concurrent with and due to cannabis abuse (CMS/[facility] V24, [facility] V28) 10/31/2024 Encounters Date Type Department Care Team Description 10/31/2024 2:34 PM EDT - 10/31/2024 9:41 PM EDT Hospital Encounter [facility] Emergency [address] [place] [address] Socrates Oakley MD Flores, Carlos M, MD Intractable nausea and vomiting (Primary Dx); Hypokalemia; Dehydration Discharge Disposition: Left Against Medical Advice from Last 3 Months Social History Tobacco [...] Sign Reading Time Taken Comments Blood Pressure 112/78 10/31/2024 3:12 PM EDT Pulse 63 10/31/2024 3:12 PM EDT Temperature 36.3 C (97.4 F) 10/31/2024 3:12 PM EDT Respiratory Rate 18 10/31/2024 3:12 PM EDT Oxygen Saturation 96% 10/31/2024 3:12 PM EDT Inhaled Oxygen Concentration - - Weight 76.2 kg (168 lb) 10/31/2024 11:23 AM EDT Height 160 cm (5' 3 ) 10/31/2024 11:23 AM EDT Body Mass Index 29.76 10/31/2024 11:23 AM EDT Plan of Treatment Health Maintenance Due Date Last Done Comments Pneumococcal Vaccine: Pediatrics (0 to 5 Years) and At-Risk Patients (6 to 49 Years) (1 of 1 - PPSV23) 2005 05/23/2000, 01/22/2000 Cervical Cancer Screening: Pap Smear 01/25/2020 HIV Screening 12/23/2023 Hepatitis C Screening 12/23/2023 Social Influencers of Health Screening 12/23/2023 COVID-19 Vaccine ( season) 2024 Depression Screening 12/25/2024 12/26/2023 Influenza Vaccine (#1) 2025 07/13/2016, 2010 Cholesterol Screening (Lipid Panel) 12/15/2027 12/14/2022 DTaP,Tdap,and [...] Meningococcal ACWY Vaccine Completed 07/13/2016, Meningococcal B Vaccine Aged Out No l onger eligible based on patient's age to complete this topic RSV Immunization Patients Under 20 months Aged Out No longer eligible based on patient's age to complete this topic Procedures Procedure Name Priority Date/Time Associated Diagnosis Comments ECG ANNOTATED 11/02/2024 CT ABDOMEN PELVIS W CONTRAST STAT 10/31/2024 5:[address] HEAD WO CONTRAST STAT 10/31/2024 5 :06 PM EDT ECG 12-LEAD STAT 10/31/2024 4:24 PM EDT POC , URINE DIAGNOSTIC STAT 10/31/2024 4:12 PM EDT DRUG ABUSE SCREEN 8A PANEL, URINE STAT 10/31/2024 4:08 PM EDT BLEVINS URINE CULTURE TUBE STAT 10/31/2024 3:00 PM EDT URINALYSIS WITH REFLEX MICROSCOPIC AND CULTURE STAT 10/31/2024 3:00 PM EDT URINALYSIS WITH REFLEX MICROSCOPIC AND CULTURE STAT 10/31/2024 3:00 PM EDT CULTURE URINE STAT 10/31/2024 3:00 PM EDT CBC WITH AUTO DIFFERENTIAL STAT 10/31/2024 11:34 AM EDT MAGNESIUM STAT 10/31/2024 11:34 AM EDT COMPREHENSIVE METABOLIC PANEL STAT 10/31/2024 11:34 AM EDT CBC AND DIFFERENTIAL STAT 10/31/2024 11:34 AM EDT from Last 3 Months Results * ECG-Annotated (11/02/2024) us Provider Onbase MD ECG ORDERABLES Final Result * CT Abdomen Pelvis w Contrast (10/31/2024 5:06 PM EDT) Anatomical Region Laterality Modality Body Computed Tomogra phy 10/31/2024 5:27 PM EDT Impressions 10/31/2024 5:27 PM EDT 1. No acute process. 2. Byoq-kgyptgp-upon-right ovarian cysts. This document has been electronically signed by: Christiane Bernal MD on 10/31/2024 17:27:44 Narrative 10/31/2024 5:27 PM EDT INDICATION: Abdominal pain, acute, nonlocalized CT abdomen and pelvis with contrast Comparison: None Findings: The lung bases are clear. The gallbladder and solid organs are within normal limits. No renal stones. No bowel obstruction, pneumoperitoneum, or pneumatosis. 46 mm left and 25 mm right ovarian cysts are present. Normal appendix. The bones are intact. Procedure Note Christiane Bernal MD - 10/31/2024 INDICATION: Abdominal pain, acute, nonlocalized CT abdomen and pelvis with contrast Comparison: None Findings: The lung bases are clear. The gallbladder and solid organs are within normal limits. No renal stones. No bowel obstruction, pneumoperitoneum, or pneumatosis. 46 mm left and 25 mm right ovarian cysts are present. Normal appendix. The bones are intact. IMPRESSION: 1. No acute process. 2. Zvac-uoiotvq-gcwe-right ovarian cysts. This document has been electronically signed by: Christiane Bernal MD on 10/31/2024 17:27:44 [facility] Ozzy Oakley MD IM CT PROCEDURES Final Result * CT Head wo Contrast (10/31/2024 5:06 PM EDT) Anatomical Region Laterality Modality Head and Neck Computed Tomogra phy 10/31/2024 5:22 PM EDT Impressions 10/31/2024 5:22 PM EDT 1. No acute intracranial findings. This document has been electronically signed by: Christiane Bernal MD on 10/31/2024 17:22:00 Narrative 10/31/2024 5:22 PM EDT INDICATION: Headache, classic migraine CT head without contrast Comparison: None Findings: No intra-axial mass, midline shift, hydrocephalus, or acute hemorrhage. No significant atrophy-like change or white matter disease. The visualized paranasal sinuses and mastoid air cells are normal. The orbits are unremarkable. No skull fracture. Procedure Note Christiane Bernal MD - 10/31/2024 INDICATION: Headache, classic migraine CT head without contrast Comparison: None Findings: No intra-axial mass, midline shift, hydrocephalus, or acute hemorrhage. No significant atrophy-like change or white matter disease. The visualized paranasal sinuses and mastoid air cells are normal. The orbits are unremarkable. No skull fracture. IMPRESSION: 1. No acute intracranial findings. This document has been electronically signed by: Christiane Bernal MD on 10/31/2024 17:22:00 Socrates B Adin [place] IMG CT PROCEDURES Final Result * ECG 12 lead (10/31/2024 4:24 PM EDT) Ventricular Rate ECG 64 BPM GEMUSE Atrial Rate 64 BPM GEMUSE P-R Interval 120 ms GEMUSE QRS Duration 88 ms GEMUSE Q-T Interval 482 ms GEMUSE QTc 497 ms GEMUSE P Wave Emory 76 degrees GEMUSE R Emory 67 degrees GEMUSE T Emory 19 degrees GEMUSE ECG Interpretation Normal sinus rhythm T wave abnormality, consider anterior ischemia Prolongation of QT interval Abnormal ECG When compared with ECG of 23-MAY-2024 12:01, Minimal criteria for Inferior infarct are now Present QT has lengthened Confirmed by Abdirahman FINK JOHN ([id number]) on 10/31/2024 9:25:44 PM GEMUSE 10/31/2024 4:24 PM EDT 10/31/2024 9:25 PM EDT Socratesnicole Oakley MD ECG ORDERABLES Final Result GEMUSE * POC , urine manually resulted (10/31/2024 4:12 PM EDT) HCG, Ur POC Negative Negative POC hCG Int QC Pass? Yes Yes Urine Urine specimen obtained by clean catch procedure / Unknown 10/31/2024 4:12 PM EDT us Colt Norris MD POINT OF CARE TEST ENTER/EDIT O RDERABLES Final Result * (ABNORMAL) Drug abuse screen 8a panel, urine (10/31/2024 4:08 PM EDT) Amphetamine Screen, Ur Negative Negative LAB CHEMISTRY METHOD 5 5:32 PM EDT [facility] Comment:Certain OTC medicati ons containing ephedrine, phenylephrine, pseudoephedrine and phenylpropanolamine can cause false positive results. Barbiturate Screen, Ur Negative Negative LAB CHEMISTRY METHOD 5 5:32 PM EDT [facility] Benzodiazepine Screen, Ur Negative Negative LAB CHEMISTRY METHOD 5 5:32 PM EDT [facility] Cocaine Screen, Ur Negative Negative LAB CHEMISTRY METHOD 5 5:32 PM EDT [facility] Opiate Screen, Ur Negative Negative LAB CHEMISTRY METHOD 5 5:32 PM EDT [facility] Cannabinoid (THC) Screen, Ur Positive(A ) Negative LAB CHEMISTRY METHOD 5 5:32 PM EDT [facility] Comment:Specimens from patie nts taking pantoprazole sodium (Protonix) have been shown to produce false positive results. Oxycodone Screen, Ur Negative Negative LAB CHEMISTRY METHOD 5 5:32 PM EDT [facility] Fentanyl, Ur Negative Negative LAB CHEMISTRY METHOD 5 5:32 PM EDT [facility] Urine Urine specimen obtained by clean catch procedure / Unknown Non-blood Collection / Unknown 10/31/2024 4:08 PM EDT 10/31/2024 4:30 PM EDT Narrative [facility] - 10/31/2024 5:32 PM EDT Assay cutoffs: Amphetamines 1000 ng/mL Barbiturates 200 ng/mL Benzodiazepines 200 ng/mL Cocaine 300 ng/mL Fentanyl 1 ng/mL Opiates 300 ng/mL Oxycodone 100 ng/mL THC 50 ng/mL Semi-quantitative assay for screening purposes only. Unconfirmed screening result should not be used for non-medical purposes. *ALTERNATE METHOD CONFIRMATION DONE UPON REQUEST ONLY* us Socrates B Adin [place] LAB URINE ORDERABLES Final Resu lt [facility] [address] [place] [address], [place] [phone] * (ABNORMAL) Urinalysis with reflex microscopic and culture (10/31/2024 3:00 PM EDT) Specific [place] Urine 1.033(H) 1.003 - 1.030 LAB URINALYSIS - AUTOMATED METHOD 10/31/2024 3:45 PM [facility] pH, Urine 5.5 5.0 - 8.0 pH LAB URINALYSIS - AUTOMATED METHOD 10/31/2024 3:45 PM [facility] Leukocytes, Urine Trace(A) Negative LAB URINALYSIS - AUTOMATED METHOD 10/31/2024 3:45 PM [facility] Nitrite, Urine Negative Negative LAB URINALYSIS - AUTOMATED METHOD 10/31/2024 3:45 PM [facility] Protein, Urine 30(A) <=Trace mg/dL LAB URINALYSIS - AUTOMATED METHOD 10/31/2024 3:45 PM [facility] Glucose, Urine Negative Negative mg/dL LAB URINALYSIS - AUTOMATED METHOD 10/31/2024 3:45 PM [facility] Ketones, Urine 15(A) Negative mg/dL LAB URINALYSIS - AUTOMATED METHOD 10/31/2024 3:45 PM [facility] Urobilinogen , Urine 1.0 0.2 - 1.0 mg/dL LAB URINALYSIS - AUTOMATED METHOD 10/31/2024 3:45 PM EDT [facility] Bilirubin, Urine Negative Negative LAB URINALYSIS - AUTOMATED METHOD 10/31/2024 3:45 PM EDT [facility] Blood, Urine Moderate(A) Negative LAB URINALYSIS - AUTOMATED METHOD 10/31/2024 3:45 PM EDT [facility] RBC, Urine 66.6(H) 0 - 4 /HPF LAB URINALYSIS - AUTOMATED METHOD 10/31/2024 3:45 PM EDT [facility] WBC, Urine 4.2(H) 0 - 4 /HPF LAB URINALYSIS - AUTOMATED METHOD 10/31/2024 3:45 PM EDT [facility] Squamous Epithelial, Urine 90(H) 0 - 60 /LPF LAB URINALYSIS - AUTOMATED METHOD 10/31/2024 3:[facility] Bacteria, Urine Negative Negative /HPF LAB URINALYSIS - AUTOMATED METHOD 10/31/2024 3:45 PM [facility] Hyaline Casts, Urine 11.2(H) 0 - 3 /LPF LAB URINALYSIS - AUTOMATED METHOD 10/31/2024 3:45 PM EDT [facility] Urine Urine specimen obtained by clean catch procedure / Unknown Non-blood Collection / Unknown 10/31/2024 3:00 PM EDT 10/31/2024 3:25 PM EDT us Colt Norris MD LAB URINE ORDERABLES Final Resu lt [facility] [address] [place] [address], * Blevins urine culture tube (10/31/2024 3:00 PM EDT) Extra Tube Hold for add-ons. 10/31/2024 5:01 PM EDT [facility] Comment:Auto resulted. Urine Urine specimen obtained by clean catch procedure / Unknown Non-blood Collection / Unknown 10/31/2024 3:00 PM EDT 10/31/2024 3:25 PM EDT us Colt Norris MD LAB URINE ORDERABLES Final Resu lt Performing Organization Address [facility]/ZIP Co de Phone Number [facility] [address] [place] [address], [place] [phone] * Culture urine (10/31/2024 3:00 PM EDT) Culture, Urine 50,000-99,000 CFU/mL Mixed urogenital renny, no uropathogens present. Suggest repeat specimen if clinically indicated. 11/01/2024 8:37 AM EDT [facility] Urine Urine specimen obtained by clean catch procedure / Unknown Non-blood Collection / Unknown 10/31/2024 3:00 PM EDT 10/31/2024 3:45 PM EDT us Colt Norris MD LAB MICROBIOLOGY - GENERAL ORDE RABLES Final Result Performing Organization Address [facility] Co de Phone Number [facility] [address] [place] [address], [place] [phone] * (ABNORMAL) CBC auto differential (10/31/2024 11:34 AM EDT) WBC 9.4 4.8 - 10.8 K/[facility] HEMETOLOGY METHOD 10/31/2024 11:57 AM EDT [facility] RBC 5.50(H) 3.80 - 4.80 M/[facility] LAB HEMETOLOGY METHOD 10/31/2024 11:57 AM EDT [facility] Hemoglobin 15.8 11.5 - 16.0 g/dL LAB HEMETOLOGY METHOD 10/31/2024 11:57 AM EDT [facility] Hematocrit 45.0 35.0 - 47.0 % LAB HEMETOLOGY METHOD 10/31/2024 11:57 AM [facility] MCV 81.4 79.0 - 98.0 FL LAB HEMETOLOGY METHOD 10/31/2024 11:57 AM [facility] MCH 28.6 27.0 - 32.0 pcg LAB HEMETOLOGY METHOD 10/31/2024 11:57 AM [facility] MCHC 35.1 32.0 - 37.0 g/dL LAB HEMETOLOGY METHOD 10/31/2024 11:57 AM [facility] RDW 12.9 11.0 - 15.0 % LAB HEMETOLOGY METHOD 10/31/2024 11:57 AM [facility] Platelets 293 130 - 400 K/mcL LAB HEMETOLOGY METHOD 10/31/2024 11:57 AM [facility] MPV 11.4(H) 7.0 - 11.0 FL LAB HEMETOLOGY METHOD 10/31/2024 11:57 AM [facility] NRBC 0.0 <1.0 % LAB HEMETOLOGY METHOD 10/31/2024 11:57 AM [facility] NRBC Absolute 0.00 <0.10 K/mcL LAB HEMETOLOGY METHOD 10/31/2024 11:57 AM [facility] Neutrophils Relative 59.1 % LAB HEMETOLOGY METHOD 10/31/2024 11:57 AM [facility] Lymphocytes Relative 29.9 % LAB HEMETOLOGY METHOD 10/31/2024 11:57 AM [facility] Monocytes Relative 9.3 % LAB HEMETOLOGY METHOD 10/31/2024 11:57 AM [facility] Eosinophils Relative 1.0 % LAB HEMETOLOGY METHOD 10/31/2024 11:57 AM [facility] Basophils Relative 0.4 % LAB HEMETOLOGY METHOD 10/31/2024 11:57 AM EDT [facility] Immature Granulocytes Relative 0.3 % LAB HEMETOLOGY METHOD 10/31/2024 11:57 AM EDT [facility] Neutrophils Absolute 5.57 1.50 - 7.00 K/mcL LAB HEMETOLOGY METHOD 10/31/2024 11:57 AM EDT [facility] Lymphocytes Absolute 2.82 1.00 - 5.00 K/mcL LAB HEMETOLOGY METHOD 10/31/2024 11:57 AM EDT [facility] Monocytes Absolute 0.88 0.20 - 1.00 K/mcL LAB HEMETOLOGY METHOD 10/31/2024 11:57 AM EDT [facility] Eosinophils Absolute 0.09 0.00 - 0.50 K/mcL LAB HEMETOLOGY METHOD 10/31/2024 11:57 AM EDT [facility] Basophils Absolute 0.04 0.00 - 0.20 K/mcL LAB HEMETOLOGY METHOD 10/31/2024 11:57 AM EDT [facility] Immature Granulocytes Absolute 0.03 0.00 - 0.03 K/mcL LAB HEMETOLOGY METHOD 10/31/2024 11:57 AM EDT [facility] Blood Venous blood specimen / Unknown Venipuncture / Unknown 10/31/2024 11:34 AM EDT 10/31/2024 11:49 AM EDT us Colt Norris MD LAB BLOOD ORDERABLES Final Resu lt [facility] [address] [place] [address], * Magnesium (10/31/2024 11:34 AM EDT) Magnesium 2.3 1.9 - 2.6 mg/dL LAB CHEMISTRY METHOD 10/31/2024 12:29 PM [facility] Blood Venous blood specimen / Unknown Venipuncture / Unknown 10/31/2024 11:34 AM EDT 10/31/2024 11:49 AM EDT us Colt Norris MD LAB BLOOD ORDERABLES Final Resu lt [facility] [address] [place] [address], * (ABNORMAL) Comprehensive metabolic panel (10/31/2024 11:34 AM EDT) Sodium 135 133 - 145 mmol/L LAB CHEMISTRY METHOD 10/31/2024 1:02 PM [facility] Potassium 2.8(LL) 3.5 - 5.5 mmol/L LAB CHEMISTRY METHOD 10/31/2024 1:02 PM [facility] Chloride 91(L) 96 - 110 mmol/L LAB CHEMISTRY METHOD 10/31/2024 1:02 PM [facility] CO2 35(H) 21 - 32 mmol/L LAB CHEMISTRY METHOD 10/31/2024 1:02 PM [facility] Anion Gap 9 3 - 11 LAB CHEMISTRY METHOD 10/31/2024 1:02 PM [facility] Glucose 119(H) 70 - 100 mg/dL LAB CHEMISTRY METHOD 10/31/2024 1:02 PM [facility] BUN 11 5 - 25 mg/dL LAB CHEMISTRY METHOD 10/31/2024 1:02 PM [facility] Creatinine 1.14(H) 0.50 - 1.10 mg/dL LAB CHEMISTRY METHOD 10/31/2024 1:02 PM [facility] eGFR 69 >=60 mL/min/1. 73m2 LAB CHEMISTRY METHOD 10/31/2024 1:02 PM [facility] Comment:Calculation based on the Chronic Kidney Disease Epidemiology Collaboration (CKD-EPI) equation refit without adjustment for race. BUN/Creatinine Ratio 9.6 LAB CHEMISTRY METHOD 10/31/2024 1:02 PM [facility] Calcium 9.8 8.5 - 10.5 mg/dL LAB CHEMISTRY METHOD 10/31/2024 1:02 PM [facility] AST (SGOT) 29 10 - 42 unit/L LAB CHEMISTRY METHOD 10/31/2024 1:02 PM [facility] ALT (SGPT) 36 10 - 60 unit/L LAB CHEMISTRY METHOD 10/31/2024 1:02 PM [facility] Alkaline Phosphatase 113 42 - 121 unit/L LAB CHEMISTRY METHOD 10/31/2024 1:02 PM [facility] Total Protein 8.0 6.0 - 8.0 g/dL LAB CHEMISTRY METHOD 10/31/2024 1:02 PM [facility] Albumin 4.5 3.2 - 5.0 g/dL LAB CHEMISTRY METHOD 10/31/2024 1:02 PM [facility] Total Bilirubin 0.8 0.0 - 1.4 mg/dL LAB CHEMISTRY METHOD 10/31/2024 1:02 PM [facility] Blood Venous blood specimen / Unknown Venipuncture / Unknown 10/31/2024 11:34 AM EDT 10/31/2024 11:49 AM EDT us Colt Norris MD LAB BLOOD ORDERABLES Final Resu lt [facility] [address] [place] [address], from Last 3 Months Insurance MEDICAID - [place] Advance Directives * Full Code - Default (Latest Code Status on File) Date Activated Date Inactivated Comments 10/31/2024 6:39 PM 10/31/2024 11:46 PM This is ord er is used when code status has not been discussed with the patient, or code status is otherwise unknown/unconfirmed To update the patient's code status, place a code status order. Do not modify or discontinue any currently active code status orders. Care Teams Risk Assessment Consultant Relationship Specialty Start Date End Date Marion Coates NP [address] [place] [phone] PCP - General 05/23/24
--- NOTE | 2024-12-03 17:35 | PC.NURSE ---
PAtient potassium 2.7 Patient currently receiving bag 2 of 4 and received PO potassium. PAtient denies pain at this time. VSS and up to date
--- NOTE | 2024-12-03 19:19 | PC.NURSE ---
This RN assumed pt care @ 1900. Pt a&ox4, no signs of distress. Pts family at bedside Plan of care ongoing.
--- NOTE | 2024-12-03 20:01 | PC.NURSE ---
Pt medicated per jul Pt denies pain aside from IV placed in left hand. Pt requested and 2nd IV line in left hand removed Pts family at bedside Plan of care ongoing.
[2024-12-03 20:28] LABS: Anion Gap 9 (12-20); Blood Urea Nitrogen 6 mg/dL (9-16); Calcium 7.9 mg/dL (8.4-10.2); Carbon Dioxide 27 mmol/L (22-29); Chloride 108 mmol/L (96-108); Creatinine Clr Calc Pharmacy 107.5; Estimated Glomerular Filt Rate > 60; Potassium 3.0 mmol/L (3.3-5.1); Sodium 141 mmol/L (135-145)
== END 2024-12-03 21:21 | disposition home or self-care (01) ==
PROVIDERS: Nurse Practitioner Family; Physician Assistant Medical; Emergency Provider Emergency Medicine; PCP Nurse Practitioner Primary Care
DX: R10.12 Left upper quadrant pain (principal); R11.2 Nausea with vomiting, unspecified; E87.6 Hypokalemia; K59.00 Constipation, unspecified; R55 Syncope and collapse
CPT/HCPCS: 36415; 74018; 74177; 80048; 80053; 81003; 83690; 83735; 84702; 85025; 93005; 96365; 96366; 96367; 96375; 99285; J1200; J1885; J2765; J3475; J3480; Q9967

== ENCOUNTER → 2024-12-03 12:00 | Outpatient (BNV) | payer MEDICAID, SELFPAY | PROVIDERS: PCP Nurse Practitioner Primary Care; Visit Provider Radiology Diagnostic Radiology | DX: K59.00 Constipation, unspecified (principal); R11.10 Vomiting, unspecified; R55 Syncope and collapse | CPT/HCPCS: 74018; 74177 ==

== ENCOUNTER → 2024-12-03 15:01 | Outpatient (BNV) | payer MEDICAID, SELFPAY | PROVIDERS: Emergency Provider Emergency Medicine; PCP Nurse Practitioner Primary Care; Visit Provider Internal Medicine | DX: E87.6 Hypokalemia (principal) | CPT/HCPCS: 93010 ==

== ENCOUNTER 2024-12-05 08:56 | Outpatient (REF) | payer MEDICAID, SELFPAY ==
--- OUTSIDE RECORDS SUMMARY | 2024-12-05 09:10 | XMS_ITS | Encounter Summary ---
Author Organization [employer] Address [address] [facility] [address] [place] [address] Care Team Providers Care Prefinish Operator Name Role Phone Marion Coates Primary Care Provider [phone] Regan Dallas RN Unavailable [phone] Mable Kim Unavailable Reason for Visit * Reason Onset Date Comments ER Follow-up 12/04/2024 Encounter Details Date Type Department Care Team ([facility] st Contact Info) Description 12/04/2024 Telephone [facility] [address] [place], [place] [id number] Marion Coates ANP [address] [place], [place] [phone] ER Follow-up Social History Tobacco Use Types Packs/Day Years Used Date Smoking Tobacco: Every Day Cigarettes 0.5 1.5 Started: 2023 Smokeless Tobacco: Never Alcohol Use Standard Drinks/Week Comments Not Currently 0 (1 standard drink = 0.6 oz pur e alcohol) rarely Depression Answer Date Recorded Patient Health Questionnaire-9 Score 27 12/04/2024 Patient Health Questionnaire-9 Score 27 12/04/2024 Last PHQ-9: Questionnaire Data Not on file 0 12/04/2024 Housing Stability Answer Date Recorded What is your housing situation today? I have veto francis 08/17/[address] you li ve. Do you have problems with any of the following? None of the above 08/17/2024 Food Insecurity Answer Date Recorded Within the past 12 months, y ou worried that your food would run out before you got money to buy more: Never True 08/17/2024 Within the past 12 months,th e food you bought just didn't last and you didn't have enough money to get more: Never True Transportation Answer Date Recorded In the past 12 months, has l ack of transportation kept you from medical appts, meetings, work or from getting things needed for daily living? No 08/17/2024 Utilities Answer Date Recorded In the past 12 months, has t he electric, gas, oil or water company threatened to shut off services in your home? No 08/17/2024 Depression Answer Date Recorded Patient Health Questionnaire-2 Score 6 12/04/2024 Internet Access Answer Date Recorded Internet Access Q1 Yes 08/17/2024 Internet Access Q2 Not on file 08/17/2024 Comments No Sex and Gender Information Value Date Recorded Sex Assigned at Female 06/29/2022 9:46 AM EST Legal Sex Female 9:43 AM EST Gender Identity Female 06/29/2022 9:46 AM EST Sexual Orientation Don't know 06/29/2022 9: 48 AM EST documented as of this encounter Functional Status * Over the past 2 weeks, how often have you been bothered by any of the following problems? Question Answer Date of Assessment Author Patient Health Questionnaire -2 Score 6 12/04/2024 10:13 AM Aletha Otoole [place] * Little interest or pleasure in doing things Answer Date of Assessment Author Nearly every day 12/04/2024 10:13 AM lAetha Otoole MA * Feeling down, depressed, or hopeless Answer Date of Assessment Author Nearly every day 12/04/2024 10:13 AM Aletha Otoole MA * Trouble falling or staying asleep, or sleeping too much Answer Date of Assessment Author Nearly every day 12/04/2024 10:13 AM Aletha Otoole MA * Feeling tired or having little energy Answer Date of Assessment Author Nearly every day 12/04/2024 10:13 AM Aletha Otoole MA * Poor appetite or overeating Answer Date of Assessment Author Nearly every day 12/04/2024 10:13 AM Aletha Otoole MA * Feeling bad about yourself - or that you are a failure or have let yourself or your family down Answer Date of Assessment Author Nearly every day 12/04/2024 10:13 AM Aletha Otoole MA * Trouble concentrating on things, such as reading the newspaper or watching television Answer Date of Assessment Author Nearly every day 12/04/2024 10:13 AM Aletha Otoole MA * Moving or speaking so slowly that other people could have noticed? Or the opposite - being so fidgety or restless that you have been moving around a lot more than usual. Answer Date of Assessment Author Nearly every day 12/04/2024 10:13 AM Aletha Otoole MA * Thoughts that you would be better off or hurting yourself in some way Answer Date of Assessment Author Nearly every day 12/04/2024 10:13 AM Aletha Otoole MA * Patient Health Questionnaire-9 Score Answer Date of Assessment Author 12/04/2024 10:13 AM Aletha Otoole MA * How difficult have these problems made it for you to do your work, take care of things at home, or get along with other people? Answer Date of Assessment Author Not difficult at all 12/04/2024 10:13 AM Aletha Bah MA * Over the last 2 weeks, how often have you been bothered by any of the following problems? Question Answer Date of Assessment Author Feeling nervous, anxious, or on edge 3 12/04/2024 10:14 AM Aletha Otoole MA Not being able to stop or co ntrol worrying 3 12/04/2024 10:14 AM Aletha Otoole MA Worrying too much about diff erent things 12/04/2024 10:14 AM Aletha Otoole MA Trouble relaxing 3 12/04/2024 10:14 AM Aletha Otoole MA Being so restless that it is hard to sit still 3 12/04/2024 10:14 AM Aletha Otoole MA Becoming easily annoyed or irritable 3 12/04/2024 10:14 AM Aletha Otoole MA Feeling afraid as if somethi ng awful might happen 12/04/2024 10:14 AM Aletha Otoole MA BERNA-7 Total Score 21 12/04/2024 10:14 AM EDT Aletha Rutherford MA documented as of this encounter Miscellaneous Notes * Telephone Encounter - Josephine Carl RN - 12/04/2024 11:42 AM EDT Pt saw Dr Wagner today for sick on site ED follow up. * Telephone Encounter - Josephine Carl RN - 12/04/2024 11:42 AM EDT ----- Message from Nurse Daneila Vallecillo sent at 12/04/2024 9:43 AM EDT ----- Regarding: [employer] TE[employer]ICIAN TELEHEALTH FOLLOW UP Transition of Care Note Evonne Ladd is going through a recent transition of care. Emergency Room Visit Date: 12/03/2024 @ 3:55pm Facility: [facility] Diagnosis: vomiting Disposition: Discharged home Discharge summary in the chart: No Please contact for a telehealth RN visit documented in this encounter Plan of Treatment Upcoming Encounters Date Type Department Care Team (Late st Contact Info) Description 12/20/2024 11:30 AM EDT Office Visit [facility] [address] [place] [address] Marion Coates ANP [address] [place] [address] documented as of this encounter Visit Diagnoses Not on filedocumented in this encounter Additional Health Concerns Assessment Noted Time PHQ-9 Depression Total Score: 27 025 10:13 AM EDT documented as of this encounter Care Teams Prefinish Operator Relationship Specialty Start Date End Date Marion Coates ANP [address] [place] [address] PCP - General Family Medicine 01/06/23 Regan Dallas RN [address] [place] [id number] Registered Nurse Family Medicine 12/03/24 Mable Kim 12/03/24 documented as of this encounter
--- OUTSIDE RECORDS SUMMARY | 2024-12-05 09:10 | XMS_ITS | Clinical Summary ---
Author Organization [facility] Address [address] [place] [address] Phone Care Team Providers Care Securities And Real Estate Director Name Role Phone Marion Coates NP Primary Care Provider [phone] Allergies No known active allergies Medications methocarbamoL (ROBAXIN) 500 mg tablet Take 1 tablet (500 mg total) by mouth 2 (two) times a day for 10 days. 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 No acute process. 2. Wnsv-afxehhl-byng-right ovarian cysts. This document has been electronically [...] intact. IMPRESSION: 1. No acute process. 2. Dbvl-kbsrmso-djar-right ovarian cysts. This document has been electronically signed by: Christiane Bernal MD on 10/31/2024 17:27:44 [facility] Ozzy Oakley MD IM CT PROCEDURES Final [...] GEMUSE QTc 497 ms GEMUSE P Wave Rochelle 76 degrees GEMUSE R Rochelle 67 degrees GEMUSE T Rochelle 19 degrees GEMUSE ECG Interpretation Normal sinus [...] LAB CHEMISTRY METHOD 5 5:32 PM EDT [facility] Comment:Certain OTC medicati ons containing ephedrine, phenylephrine, pseudoephedrine and phenylpropanolamine can cause false positive results. Barbiturate Screen, Ur Negative Negative LAB CHEMISTRY METHOD 5 5:32 PM EDT [facility] Benzodiazepine Screen, Ur Negative Negative LAB CHEMISTRY METHOD 5 5:32 PM EDT [facility] Cocaine Screen, Ur Negative Negative LAB CHEMISTRY METHOD 5 5:32 PM EDT [facility] Opiate Screen, Ur Negative Negative LAB CHEMISTRY METHOD 5 5:32 PM EDT [facility] Cannabinoid (THC) Screen, Ur Positive(A ) Negative LAB CHEMISTRY METHOD 5 5:32 PM EDT [facility] Comment:Specimens from patie nts taking pantoprazole sodium (Protonix) have been shown to produce false positive results. Oxycodone Screen, Ur Negative Negative LAB CHEMISTRY METHOD 5 5:32 PM EDT [facility] Fentanyl, Ur Negative Negative LAB CHEMISTRY METHOD 5 5:32 PM EDT [facility] Urine Urine specimen obtained by clean catch procedure / Unknown Non-blood Collection / Unknown 10/31/2024 4:08 PM EDT 10/31/2024 4:30 PM EDT Narrative [facility] - 10/31/2024 5:32 PM EDT Assay [...] ISRAEL LAB URINE ORDERABLES Final Resu lt [facility] [address] [place] [address], [place] [phone] * (ABNORMAL) Urinalysis with reflex microscopic and culture (10/31/2024 3:00 PM EDT) Specific [place] Urine 1.033(H) 1.003 - 1.030 LAB URINALYSIS - AUTOMATED METHOD 10/31/2024 3:[address] [facility] pH, Urine 5.5 5.0 - 8.0 pH LAB URINALYSIS - AUTOMATED METHOD 10/31/2024 3:[address] [facility] Leukocytes, Urine Trace(A) Negative LAB URINALYSIS - AUTOMATED METHOD 10/31/2024 3:[address] [facility] Nitrite, Urine Negative Negative LAB URINALYSIS - AUTOMATED METHOD 10/31/2024 3:[address] [facility] Protein, Urine 30(A) <=Trace mg/dL LAB URINALYSIS - AUTOMATED METHOD 10/31/2024 3:[address] [facility] Glucose, Urine Negative Negative mg/dL LAB URINALYSIS - AUTOMATED METHOD 10/31/2024 3:[address] [facility] Ketones, Urine 15(A) Negative mg/dL LAB URINALYSIS - AUTOMATED METHOD 10/31/2024 3:[address] [facility] Urobilinogen , Urine 1.0 0.2 - 1.0 mg/dL LAB URINALYSIS - AUTOMATED METHOD 10/31/2024 3:45 PM EDT [facility] Bilirubin, Urine Negative Negative LAB URINALYSIS - AUTOMATED METHOD 10/31/2024 3:45 PM EDT [facility] Blood, Urine Moderate(A) Negative LAB URINALYSIS - AUTOMATED METHOD 10/31/2024 3:45 PM EDT [facility] RBC, Urine 66.6(H) 0 - 4 /HPF LAB URINALYSIS - AUTOMATED METHOD 10/31/2024 3:45 PM EDT [facility] WBC, Urine 4.2(H) 0 - 4 /HPF LAB URINALYSIS - AUTOMATED METHOD 10/31/2024 3:45 PM EDT [facility] Squamous Epithelial, Urine 90(H) 0 - 60 /LPF LAB URINALYSIS - AUTOMATED METHOD [facility]2024 [facility] Bacteria, Urine Negative Negative /HPF LAB URINALYSIS - AUTOMATED METHOD 10/31/2024 3:[address] [facility] Hyaline Casts, Urine 11.2(H) 0 - 3 /LPF LAB URINALYSIS - AUTOMATED METHOD 10/31/2024 3:45 PM EDT [facility] Urine Urine specimen obtained by clean catch procedure / Unknown Non-blood Collection / Unknown 10/31/2024 3:00 PM EDT 10/31/2024 3:25 PM EDT us Colt Norris MD LAB URINE ORDERABLES Final Resu lt [facility] [address] [place] [address], * [place]ins urine culture tube (10/31/2024 3:00 PM EDT) Extra Tube Hold for add-ons. 10/31/2024 5:01 PM EDT [facility] Comment:Auto resulted. Urine Urine specimen obtained by clean catch procedure / Unknown Non-blood Collection / Unknown 10/31/2024 3:00 PM EDT 10/31/2024 3:25 PM EDT us Colt Norris MD LAB URINE ORDERABLES Final Resu lt Performing Organization Address [facility]/ZIP Co de Phone Number [facility] [address] [place] [address], [place] [phone] * Culture urine (10/31/2024 3:00 PM EDT) Culture, Urine 50,000-99,000 CFU/mL Mixed urogenital renny, no uropathogens present. Suggest repeat specimen if clinically indicated. 11/01/2024 8:37 AM EDT [facility] Urine Urine specimen obtained by clean catch procedure / Unknown Non-blood Collection / Unknown 10/31/2024 3:00 PM EDT 10/31/2024 3:45 PM EDT us Colt oNrris MD LAB MICROBIOLOGY - GENERAL ORDE RABLES Final Result Performing Organization Address [facility] Co de Phone Number [facility] [address] [place] [address], [place] [phone] * (ABNORMAL) CBC auto differential (10/31/2024 11:34 AM EDT) WBC 9.4 4.8 - 10.8 K/[facility] LAB HEMETOLOGY METHOD 10/31/2024 11:57 AM EDT [facility] RBC 5.50(H) 3.80 - 4.80 M/[facility] LAB HEMETOLOGY METHOD 10/31/2024 11:57 AM EDT [facility] Hemoglobin 15.8 11.5 - 16.0 g/dL LAB HEMETOLOGY METHOD 10/31/2024 11:57 AM EDT [facility] Hematocrit 45.0 35.0 - 47.0 % LAB HEMETOLOGY METHOD 10/31/2024 11:[address] [facility] MCV 81.4 79.0 - 98.0 FL LAB HEMETOLOGY METHOD 10/31/2024 11:[address] [facility] MCH 28.6 27.0 - 32.0 pcg LAB HEMETOLOGY METHOD 10/31/2024 11:[address] [facility] MCHC 35.1 32.0 - 37.0 g/dL LAB HEMETOLOGY METHOD 10/31/2024 11:[address] [facility] RDW 12.9 11.0 - 15.0 % LAB HEMETOLOGY METHOD 10/31/2024 11:[address] [facility] Platelets 293 130 - 400 K/mcL LAB HEMETOLOGY METHOD 10/31/2024 11:[address] [facility] MPV 11.4(H) 7.0 - 11.0 FL LAB HEMETOLOGY METHOD 10/31/2024 11:[address] [facility] NRBC 0.0 <1.0 % LAB HEMETOLOGY METHOD 10/31/2024 11:[address] [facility] NRBC Absolute 0.00 <0.10 K/mcL LAB HEMETOLOGY METHOD 10/31/2024 11:[address] [facility] Neutrophils Relative 59.1 % LAB HEMETOLOGY METHOD 10/31/2024 11:[address] [facility] Lymphocytes Relative 29.9 % LAB HEMETOLOGY METHOD 10/31/2024 11:[address] [facility] Monocytes Relative 9.3 % LAB HEMETOLOGY METHOD 10/31/2024 11:[address] [facility] Eosinophils Relative 1.0 % LAB HEMETOLOGY METHOD 10/31/2024 11:[address] [facility] Basophils Relative 0.4 % LAB HEMETOLOGY METHOD 10/31/2024 11:57 AM EDT [facility] Immature Granulocytes Relative 0.3 % LAB HEMETOLOGY METHOD 10/31/2024 11:57 AM EDT [facility] Neutrophils Absolute 5.57 1.50 - 7.00 K/mcL LAB HEMETOLOGY METHOD 10/31/2024 11:57 AM EDT [facility] Lymphocytes Absolute 2.82 1.00 - 5.00 K/mcL LAB HEMETOLOGY METHOD 10/31/2024 11:57 AM EDT [facility] Monocytes Absolute 0.88 0.20 - 1.00 K/mcL LAB HEMETOLOGY METHOD 10/31/2024 11:57 AM EDT [facility] Eosinophils Absolute 0.09 0.00 - 0.50 K/mcL LAB HEMETOLOGY METHOD 10/31/2024 11:57 AM EDT [facility] Basophils Absolute 0.04 0.00 - 0.20 K/mcL LAB HEMETOLOGY METHOD 10/31/2024 11:57 AM EDT [facility] Immature Granulocytes Absolute 0.03 0.00 - 0.03 K/mcL LAB HEMETOLOGY METHOD 10/31/2024 11:57 AM EDT [facility] Blood Venous blood specimen / Unknown Venipuncture / Unknown 10/31/2024 11:34 AM EDT 10/31/2024 11:49 AM EDT us Colt Norris MD LAB BLOOD ORDERABLES Final Resu lt [facility] [address] [place] [address], * Magnesium (10/31/2024 11:34 AM EDT) Magnesium 2.3 1.9 - 2.6 mg/dL LAB CHEMISTRY METHOD 10/31/2024 12:[address] [facility] Blood Venous blood specimen / Unknown Venipuncture / Unknown 10/31/2024 11:34 AM EDT 10/31/2024 11:49 AM EDT us Colt Norris MD LAB BLOOD ORDERABLES Final Resu lt [facility] [address] [place] [address], * (ABNORMAL) Comprehensive metabolic panel (10/31/2024 11:34 AM EDT) Sodium 135 133 - 145 mmol/L LAB CHEMISTRY METHOD 10/31/2024 1:[address] [facility] Potassium 2.8(LL) 3.5 - 5.5 mmol/L LAB CHEMISTRY METHOD 10/31/2024 1:[address] [facility] Chloride 91(L) 96 - 110 mmol/L LAB CHEMISTRY METHOD 10/31/2024 1:[address] [facility] CO2 35(H) 21 - 32 mmol/L LAB CHEMISTRY METHOD 10/31/2024 1:[address] [facility] Anion Gap 9 3 - 11 LAB CHEMISTRY METHOD 10/31/2024 1:[address] [facility] Glucose 119(H) 70 - 100 mg/dL LAB CHEMISTRY METHOD 10/31/2024 1:[address] [facility] BUN 11 5 - 25 mg/dL LAB CHEMISTRY METHOD 10/31/2024 1:[address] [facility] Creatinine 1.14(H) 0.50 - 1.10 mg/dL LAB CHEMISTRY METHOD 10/31/2024 1:[address] [facility] eGFR 69 >=60 mL/min/1. 73m2 LAB CHEMISTRY METHOD 10/31/2024 1:[address] [facility] Comment:Calculation based on the Chronic Kidney Disease Epidemiology Collaboration (CKD-EPI) equation refit without adjustment for race. BUN/Creatinine Ratio 9.6 LAB CHEMISTRY METHOD 10/31/2024 1:[address] [facility] Calcium 9.8 8.5 - 10.5 mg/dL LAB CHEMISTRY METHOD 10/31/2024 1:[address] [facility] AST (SGOT) 29 10 - 42 unit/L LAB CHEMISTRY METHOD 10/31/2024 1:[address] [facility] ALT (SGPT) 36 10 - 60 unit/L LAB CHEMISTRY METHOD 10/31/2024 1:[address] [facility] Alkaline Phosphatase 113 42 - 121 unit/L LAB CHEMISTRY METHOD 10/31/2024 1:[address] [facility] Total Protein 8.0 6.0 - 8.0 g/dL LAB CHEMISTRY METHOD 10/31/2024 1:[address] [facility] Albumin 4.5 3.2 - 5.0 g/dL LAB CHEMISTRY METHOD 10/31/2024 1:[address] [facility] Total Bilirubin 0.8 0.0 - 1.4 mg/dL LAB CHEMISTRY METHOD 10/31/2024 1:[address] [facility] Blood Venous blood specimen / Unknown Venipuncture / Unknown 10/31/2024 11:34 AM EDT 10/31/2024 11:49 AM EDT us Colt Norris MD LAB BLOOD ORDERABLES Final Resu lt [facility] [address] [place] [address], from Last 3 Months Insurance MEDICAID - [place] Advance Directives * Full Code - Default [...] currently active code status orders. Care Teams Securities And Real Estate Director Relationship Specialty Start Date End Date Marion Coates NP [address] [place] [phone] PCP - General 05/23/24
[2024-12-05 11:17] LABS: Hematocrit 37.5 % (37.0-47.0); Hemoglobin 13.3 g/dl (12.0-16.0); Mean Corpuscular HGB Conc 35.5 g/dl (31.0-35.0); Mean Corpuscular Hemoglobin 29.4 pg (27.0-33.0); Mean Corpuscular Volume 82.8 fL (80.0-98.0); NRBC Abs Auto 0.000 X10*3/uL (0.0-0.012); NRBC Pct Auto 0.0 /100WBC (0.0-0.2); Platelet Count 270 X10*3/uL (160-400); Red Blood Count 4.53 X10*6/uL (4.20-5.50); White Blood Count 8.7 X10*3/uL (4.8-10.8)
[2024-12-05 11:24] LABS: Hemoglobin A1C 108.6985 umol/L; Total Hemoglobin (HGBA1C) 3511.7489 umol/L
[2024-12-05 11:48] LABS: Alanine Aminotransferase 15 U/L (0-31); Albumin Level 4.0 g/dL (3.5-5.0); Alkaline Phosphatase 65 U/L (39-117); Anion Gap 9 (12-20); Aspartate Amino Transferase 24 U/L (5-31); Blood Urea Nitrogen 5 mg/dL (9-16); Calcium 8.9 mg/dL (8.4-10.2); Carbon Dioxide 24 mmol/L (22-29); Chloride 112 mmol/L (96-108); Estimated Glomerular Filt Rate > 60; Magnesium 2.0 mg/dL (1.6-2.6); Potassium 3.6 mmol/L (3.3-5.1); Sodium 141 mmol/L (135-145); Total Protein 6.2 g/dL (6.5-8.0)
[2024-12-05 12:14] LABS: HBsAGNum1 0.37 S/CO (0.00-0.99); HIV Num 1 0.07 S/CO (0.00-0.99); Hepatitis B Surface Antigen Negative (Negative); ~HepC Num1 0.11 S/CO (0.00-0.79); ~Hepatitis C Antibody Nonreactive (Nonreactive)
[2024-12-05 12:19] LABS: Syphilis Screen Nonreactive (Nonreactive)
[2024-12-05 12:41] LABS: Free T4 (Free Thyroxine) 1.04 ng/dL (0.71-1.85)
[2024-12-10 14:34] LABS: Plasma Renin Activity 0.37 ng/mL/h (0.25-5.82)
== END 2024-12-05 08:57 | disposition home or self-care (01) ==
LOC: HO.HHCL 08:56
PROVIDERS: PCP Nurse Practitioner Primary Care; Visit Provider Student in an Organized Health Care Education/Training Program
DX: E87.6 Hypokalemia (principal)
CPT/HCPCS: 36415; 80053; 82088; 82533; 83036; 83735; 84439; 84443; 85027; 86780; 86803; 87340; 87389

== ENCOUNTER 2024-12-24 09:21 | Outpatient (REF) | payer MEDICAID, SELFPAY ==
--- OUTSIDE RECORDS SUMMARY | 2024-12-24 09:49 | XMS_ITS | Clinical Summary ---
Author Organization [facility] Address [address] [place] [address] Phone Care Team Providers Care Mud Worker Name Role Phone Marion Coates NP Primary Care Provider [phone] Allergies No known active allergies Medications methocarbamoL (ROBAXIN) 500 mg tablet Take 1 tablet (500 mg total) by mouth 2 (two) times a day for 10 days. 20 tablet 05/23/2024 Active Active Problems Problem Noted Date Diagnosed Date Cannabis hyperemesis syndrom e concurrent with and due to cannabis abuse (CMS/[facility] V24, [facility] V28) 10/31/2024 Encounters Date Type Department Care Team Description 10/31/2024 2:34 PM EDT - 10/31/2024 9:41 PM EDT Hospital Encounter [facility] Emergency [address] [place] [address] Socrates Oakley MD Flores, Carlos [...] Influencers of Health Screening 12/23/2023 COVID-19 Vaccine () 01/22/2024 Depression Screening 05/23/2024 Influenza Vaccine (#1) 2025 07/13/2016, 2010 Cholesterol [...] PM EDT 1. No acute process. 2. Tkvo-begfwuk-fjnd-right ovarian cysts. This document has been electronically [...] intact. IMPRESSION: 1. No acute process. 2. Zksc-rjqyenw-xslz-right ovarian cysts. This document has been electronically signed by: Christiane Bernal MD on 10/31/2024 17:27:44 [facility] Ozzy Oakley MD [facility] CT PROCEDURES Final Result * CT Head [...] Christiane Bernal MD on 10/31/2024 17:22:00 Socrates Ozzy Oakley MD IMG CT PROCEDURES Final Result * ECG 12 lead (10/31/2024 4:24 PM EDT) Ventricular Rate ECG 64 BPM GEMUSE Atrial Rate 64 BPM GEMUSE P-R Interval 120 ms GEMUSE QRS Duration 88 ms GEMUSE Q-T Interval 482 ms GEMUSE QTc 497 ms GEMUSE P Wave [place] 76 degrees GEMUSE R [place] 67 degrees GEMUSE T [place] 19 degrees GEMUSE ECG Interpretation Normal sinus [...] LAB CHEMISTRY METHOD 5 5:32 PM EDT [facility] Comment:Certain OTC medicati ons containing ephedrine, phenylephrine, pseudoephedrine and phenylpropanolamine can cause false positive results. Barbiturate Screen, Ur Negative Negative LAB CHEMISTRY METHOD 5 5:32 PM EDT [facility] Benzodiazepine Screen, Ur Negative Negative LAB CHEMISTRY METHOD 5 5:32 PM EDT [facility] Cocaine Screen, Ur Negative Negative LAB CHEMISTRY METHOD 5 5:32 PM EDT [facility] Opiate Screen, Ur Negative Negative LAB CHEMISTRY METHOD 5 5:32 PM T [facility] Cannabinoid (THC) Screen, Ur Positive(A ) Negative LAB CHEMISTRY METHOD 5 5:32 PM T [facility] Comment:Specimens from patie nts taking pantoprazole sodium (Protonix) have been shown to produce false positive results. Oxycodone Screen, Ur Negative Negative LAB CHEMISTRY METHOD 5 5:32 PM EDT [facility] Fentanyl, Ur Negative Negative LAB CHEMISTRY METHOD 5 5:32 PM T [facility] Urine Urine specimen obtained by clean catch procedure / Unknown Non-blood Collection / Unknown 10/31/2024 4:08 PM EDT 10/31/2024 4:30 PM EDT Narrative [facility] - 10/31/2024 5:32 PM EDT [...] ISRAEL LAB URINE ORDERABLES Final Resu lt [facility] [address] [place] [address], [place] [phone] * (ABNORMAL) Urinalysis with reflex microscopic and culture (10/31/2024 3:00 PM EDT) Specific [place] Urine 1.033(H) 1.003 - 1.030 LAB URINALYSIS - AUTOMATED METHOD 10/31/2024 3:45 PM EDT [facility] pH, Urine 5.5 5.0 - 8.0 pH LAB URINALYSIS - AUTOMATED METHOD 10/31/2024 3:45 PM EDT [facility] Leukocytes, Urine Trace(A) Negative LAB URINALYSIS - AUTOMATED METHOD 10/31/2024 3:45 PM EDT [facility] Nitrite, Urine Negative Negative LAB URINALYSIS - AUTOMATED METHOD 10/31/2024 3:45 PM EDT [facility] Protein, Urine 30(A) <=Trace mg/dL LAB URINALYSIS - AUTOMATED METHOD 10/31/2024 3:45 PM EDT [facility] Glucose, Urine Negative Negative mg/dL LAB URINALYSIS - AUTOMATED METHOD 10/31/2024 3:45 PM EDT [facility] Ketones, Urine 15(A) Negative mg/dL LAB URINALYSIS - AUTOMATED METHOD [facility]24 [facility] Urobilinogen , Urine 1.0 0.2 - 1.0 mg/dL LAB URINALYSIS - AUTOMATED METHOD 10/31/2024 3:45 PM EDT [facility] Bilirubin, Urine Negative Negative LAB URINALYSIS - AUTOMATED METHOD 10/31/2024 3:45 PM EDT [facility] Blood, Urine Moderate(A) Negative LAB URINALYSIS - AUTOMATED METHOD 10/31/2024 3:45 PM EDT [facility] RBC, Urine 66.6(H) 0 - 4 /HPF LAB URINALYSIS - AUTOMATED METHOD 10/31/2024 3:45 PM EDT [facility] WBC, Urine 4.2(H) 0 - 4 /HPF LAB URINALYSIS - AUTOMATED METHOD 10/31/2024 3:45 PM EDT [facility] Squamous Epithelial, Urine 90(H) 0 - 60 /LPF LAB URINALYSIS - AUTOMATED METHOD 10/31/2024 3:45 PM [facility] Bacteria, Urine Negative Negative /HPF LAB URINALYSIS - AUTOMATED METHOD 10/31/2024 3:45 PM [facility] Hyaline Casts, Urine 11.2(H) 0 - 3 /LPF LAB URINALYSIS - AUTOMATED METHOD 10/31/2024 3:45 PM [facility] Urine Urine specimen obtained by clean catch procedure / Unknown Non-blood Collection / Unknown 10/31/2024 3:00 PM EDT 10/31/2024 3:25 PM EDT us Colt Norris MD LAB URINE ORDERABLES Final Resu lt [facility] [address] [place] [address], * Blevins urine culture tube (10/31/2024 3:00 PM EDT) Extra Tube Hold for add-ons. 10/31/2024 5:01 PM EDT [facility] Comment:Auto resulted. Urine Urine specimen obtained by clean catch procedure / Unknown Non-blood Collection / Unknown 10/31/2024 3:00 PM EDT 10/31/2024 3:25 PM EDT us Colt Norris MD LAB URINE ORDERABLES Final Resu lt Performing Organization Address [facility]/ZIP Co de Phone Number [facility] [address] [place] [address], [place] [phone] * Culture urine (10/31/2024 3:00 PM EDT) Pathologist [facility] Culture, Urine 50,000-99,000 CFU/mL Mixed urogenital renny, no uropathogens present. Suggest repeat specimen if clinically indicated. 11/01/2024 8:37 AM EDT [facility] Urine Urine specimen obtained by clean catch procedure / Unknown Non-blood Collection / Unknown 10/31/2024 3:00 PM EDT 10/31/2024 3:45 PM EDT us Colt Norris MD LAB MICROBIOLOGY - GENERAL ORDE RABLES Final Result Performing Organization Address [facility]/ZIP Co de Phone Number [facility] [address] [place] [address], [place] [phone] * (ABNORMAL) CBC auto differential (10/31/2024 11:34 AM EDT) WBC 9.4 4.8 - 10.8 K/mcL LAB HEMETOLOGY METHOD 10/31/2024 11:57 AM EDT [facility] RBC 5.50(H) 3.80 - 4.80 M/mcL LAB HEMETOLOGY METHOD 10/31/2024 11:57 AM EDT [facility] Hemoglobin 15.8 11.5 - 16.0 g/dL LAB HEMETOLOGY METHOD 10/31/2024 11:57 AM EDT [facility] Hematocrit 45.0 35.0 - 47.0 % LAB HEMETOLOGY METHOD 10/31/2024 11:57 AM [facility] MCV 81.4 79.0 - 98.0 FL LAB HEMETOLOGY METHOD 10/31/2024 11:57 AM [facility] MCH 28.6 27.0 - 32.0 pcg LAB HEMETOLOGY METHOD 10/31/2024 11:57 AM [facility] MCHC 35.1 32.0 - 37.0 g/dL LAB HEMETOLOGY METHOD 10/31/2024 11:57 AM [facility] RDW 12.9 11.0 - 15.0 % LAB HEMETOLOGY METHOD 10/31/2024 11:57 AM [facility] Platelets 293 130 - 400 K/mcL LAB HEMETOLOGY METHOD 10/31/2024 11:57 AM [facility] MPV 11.4(H) 7.0 - 11.0 FL LAB HEMETOLOGY METHOD 10/31/2024 11:57 AM [facility] NRBC 0.0 <1.0 % LAB HEMETOLOGY METHOD 10/31/2024 11:57 AM [facility] NRBC Absolute 0.00 <0.10 K/mcL LAB HEMETOLOGY METHOD 10/31/2024 11:57 AM [facility] Neutrophils Relative 59.1 % LAB HEMETOLOGY METHOD 10/31/2024 11:57 AM [facility] Lymphocytes Relative 29.9 % LAB HEMETOLOGY METHOD 10/31/2024 11:57 AM [facility] Monocytes Relative 9.3 % LAB HEMETOLOGY METHOD 10/31/2024 11:57 AM [facility] Eosinophils Relative 1.0 % LAB HEMETOLOGY METHOD 10/31/2024 11:57 AM [facility] Basophils Relative 0.4 % LAB HEMETOLOGY METHOD 10/31/2024 11:57 AM EDT [facility] Immature Granulocytes Relative 0.3 % LAB HEMETOLOGY METHOD 10/31/2024 11:57 AM EDT [facility] Neutrophils Absolute 5.57 1.50 - 7.00 K/mcL LAB HEMETOLOGY METHOD 10/31/2024 11:57 AM EDT [facility] Lymphocytes Absolute 2.82 1.00 - 5.00 K/mcL LAB HEMETOLOGY METHOD 10/31/2024 11:57 AM EDT [facility] Monocytes Absolute 0.88 0.20 - 1.00 K/mcL LAB HEMETOLOGY METHOD 10/31/2024 11:57 AM EDT [facility] Eosinophils Absolute 0.09 0.00 - 0.50 K/mcL LAB HEMETOLOGY METHOD 10/31/2024 11:57 AM EDT [facility] Basophils Absolute 0.04 0.00 - 0.20 K/mcL LAB HEMETOLOGY METHOD 10/31/2024 11:57 AM EDT [facility] Immature Granulocytes Absolute 0.03 0.00 - 0.03 K/mcL LAB HEMETOLOGY METHOD 10/31/2024 11:57 [facility] Blood Venous blood specimen / Unknown Venipuncture / Unknown 10/31/2024 11:34 AM EDT 10/31/2024 11:49 AM EDT us Colt Norris MD LAB BLOOD ORDERABLES Final Resu lt [facility] [address] [place] [address], * Magnesium (10/31/2024 11:34 AM EDT) Magnesium 2.3 1.9 - 2.6 mg/dL LAB CHEMISTRY METHOD 10/31/2024 12:29 PM [facility] Blood Venous blood specimen / Unknown Venipuncture / Unknown 10/31/2024 11:34 AM EDT 10/31/2024 11:49 AM EDT us Colt Norris MD LAB BLOOD ORDERABLES Final Resu lt [facility] [address] [place] [address], * (ABNORMAL) Comprehensive metabolic panel (10/31/2024 11:34 AM EDT) Sodium 135 133 - 145 mmol/L LAB CHEMISTRY METHOD 10/31/2024 1:02 PM [facility] Potassium 2.8(LL) 3.5 - 5.5 mmol/L LAB CHEMISTRY METHOD 10/31/2024 1:02 PM [facility] Chloride 91(L) 96 - 110 mmol/L LAB CHEMISTRY METHOD 10/31/2024 1:02 PM [facility] CO2 35(H) 21 - 32 mmol/L LAB CHEMISTRY METHOD 10/31/2024 1:02 PM [facility] Anion Gap 9 3 - 11 LAB CHEMISTRY METHOD 10/31/2024 1:02 PM [facility] Glucose 119(H) 70 - 100 mg/dL LAB CHEMISTRY METHOD 10/31/2024 1:02 PM [facility] BUN 11 5 - 25 mg/dL LAB CHEMISTRY METHOD 10/31/2024 1:02 PM [facility] Creatinine 1.14(H) 0.50 - 1.10 mg/dL LAB CHEMISTRY METHOD 10/31/2024 1:02 PM [facility] eGFR 69 >=60 mL/min/1. 73m2 LAB CHEMISTRY METHOD 10/31/2024 1:02 PM [facility] Comment:Calculation based on the Chronic Kidney Disease Epidemiology Collaboration (CKD-EPI) equation refit without adjustment for race. BUN/Creatinine Ratio 9.6 LAB CHEMISTRY METHOD 10/31/2024 1:02 PM [facility] Calcium 9.8 8.5 - 10.5 mg/dL LAB CHEMISTRY METHOD 10/31/2024 1:02 PM [facility] AST (SGOT) 29 10 - 42 unit/L LAB CHEMISTRY METHOD 10/31/2024 1:02 PM [facility] ALT (SGPT) 36 10 - 60 unit/L LAB CHEMISTRY METHOD 10/31/2024 1:02 PM [facility] Alkaline Phosphatase 113 42 - 121 unit/L LAB CHEMISTRY METHOD 10/31/2024 1:02 PM [facility] Total Protein 8.0 6.0 - 8.0 g/dL LAB CHEMISTRY METHOD 10/31/2024 1:02 PM [facility] Albumin 4.5 3.2 - 5.0 g/dL LAB CHEMISTRY METHOD 10/31/2024 1:02 PM [facility] Total Bilirubin 0.8 0.0 - 1.4 mg/dL LAB CHEMISTRY METHOD 10/31/2024 1:02 PM [facility] Blood Venous blood specimen / Unknown Venipuncture / Unknown 10/31/2024 11:34 AM EDT 10/31/2024 11:49 AM EDT us Colt Norris MD LAB BLOOD ORDERABLES Final Resu lt [facility] [address] [place] [address], [place] [phone] from Last 3 Months Insurance MEDICAID - [place] Advance Directives * Full Code - Default [...] currently active code status orders. Care Teams Mud Worker Relationship Specialty Start Date End Date Marion Coates NP [address] [place] [phone] PCP - General 05/23/24
--- OUTSIDE RECORDS SUMMARY | 2024-12-24 09:49 | XMS_ITS ---
Author Organization [employer] Address [address] [place] [address] Care Team Providers Care Bow Making Machine Operator Name Role Phone Marion Coates Primary Care Provider [phone] Regan Dallas RN Unavailable [phone] Mable Kim Unavailable CHW Complex Status:Outreach In Progress (Enrolling) Start date:12/03/2024 Enrollment reason:ADT Feed Overview ADT-[facility] ED 11/30/24 . Please outreach for enrollment. Case Team Name Relationship Phone Mable Kim(Responsible Staff) [phone] Continued Care and Services Coordination
[2024-12-24 11:39] LABS: Appearance Urine Clear; Glucose Urine UA Negative (Negative); PH 8.0 (5.0-9.0); Specific Gravity - Urine 1.020 (1.005-1.025)
[2024-12-24 12:00] LABS: Anion Gap 9 (12-20); Blood Urea Nitrogen 9 mg/dL (9-16); Calcium 9.1 mg/dL (8.4-10.2); Carbon Dioxide 28 mmol/L (22-29); Chloride 111 mmol/L (96-108); Estimated Glomerular Filt Rate > 60; Potassium 4.1 mmol/L (3.3-5.1); Sodium 144 mmol/L (135-145)
[2024-12-24 13:03] LABS: CT PCR Urine NOT DETECTED (Not Detect.); NG PCR Urine NOT DETECTED (Not Detect.)
== END 2024-12-24 09:22 | disposition home or self-care (01) ==
LOC: HO.HHCL 09:21
PROVIDERS: PCP Nurse Practitioner Primary Care; Visit Provider Nurse Practitioner Primary Care
DX: Z11.8 Encounter for screening for other infectious and parasitic diseases (principal); Z11.3 Encounter for screening for infections with a predominantly sexual mode of transmission; N92.6 Irregular menstruation, unspecified; E87.6 Hypokalemia; R39.9 Unspecified symptoms and signs involving the genitourinary system; R79.89 Other specified abnormal findings of blood chemistry
CPT/HCPCS: 36415; 80048; 81001; 84443; 86376; 87491; 87591

== ENCOUNTER 2025-01-29 12:52 | Outpatient (AMB) | payer MEDICAID, SELFPAY ==
--- NOTE | 2025-01-29 12:53 | A.OFFVIS_ITS ---
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 Concerns for adrenal insufficiency left adrenal gland nodule In November 2024 patient was noted to have hypokalemia, and she has been complaining of ongoing nausea, vomiting, abdominal pain. CT abdomen November 2024 showed 0.4 X 0.8 cm left adrenal gland nodule, no further characterization done. right adrenal gland per report was unremarkable. Labs 12/05/2024 showed 09:00 cortisol of 7 mcg/dL. Renin activity 0.37, aldosterone 2. Potassium was 3.6 on the sample. Nausea and vomiting since 1 year. last episode of vomiting today Reports stress. Intermittent abd pain epigastric, burning and sharp, self resolves . Waiting for GI referral Per patient lost 30 lbs over last year. Reports lightheadedness, everyday , after waking up, started december 2024 reports chronic migraines no history of high BP, DM no fractures denies hirsutism,severe acne, denies any hx of proximal muscle weakness, easy bruisability ,no abdominal striae -Denies skin infection or hyperpigmentation. no recent vertebra or fragility fracture -No truncal obesity,facial plethora or recent mood change. has hx of depressio and anxiety - no episodic palpitaions, pallor, abdominal pain, diaphoresis . no recent history of head trauma no steroid use smokes 2 cigarettes / day since 17 years of age smokes marijuana daily at night No other drug use Alcohol use: 4 months ago last drink, none recently Abnormal TSH Labs from 12/05/2024 showed a TSH of low 0.21, with normal free T4 of 1.04, labs repeated 12/24/2024 showed normal TSH of 0.35 with a undetectable TPO antibodies. reports constipation, low energy Patient currently denies heat or cold intolerance, hair loss, palpitation, anxiety, mood changes, changes in appearance of eyes or vision changes, tremors, increased diaphoresis or dry skin. ? Patient denies any difficulty swallowing, pain on swallowing or voice changes or difficulty breathing. Patient denies any history of childhood neck radiation. Denies having ever used lithium, amiodarone or biotin supplements. Reports family history of thyroid cancer in paternal grandmother. Works at [employer] Lives with boyfriend pharmacy : [facility] Physical exam General: sitting comfortably in no acute distress HEENT: normocephalic/atraumatic, Neck: supple, symmetrical, no thyromegaly , no dorsocervical or supraclavicular fat pads Cardiac: normal heart sounds Pulm: normal breath sounds B/L, no added breath sounds Abd: not distended, no tenderness, no purple striae, does have vitiligo patches on the abdomen Extremities: no edema, no signs of myxedema Neuro: AAO x3, Speech: normal, no facial droop, moving all 4 extremities PFSH Medical History (Updated 01/29/25 @ 13:31 by Ghislaine Rehman MD) Low TSH level Adrenal incidentaloma No pertinent past medical history Surgical History (Updated 01/29/25 @ 13:01 by MINDY Maza) Hx of eye surgery Family History (Updated 01/29/25 @ 13:03 by MINDY Maza) Father No problems noted. Paternal Grandmother Thyroid cancer Hx of thyroidectomy HTN (hypertension) Paternal Grandfather History of diabetes mellitus Cancer, colon Heart disease HTN (hypertension) Social History Alcohol intake: never Patient Tobacco Use Status: Tobacco use Unknown Substance Use Type: Marijuana Physical Exam Vital Signs: Last Vital Signs Pulse 100 01/29/25 12:58 BP 100/60 01/29/25 12:58 Pulse Ox 98 01/29/25 12:58 Oxygen Delivery Method Room Air 01/29/25 12:58 BMI result Body Mass Index 29.2 Assessment & Plan Assessment & Plan (1) Adrenal incidentaloma: Code(s): E27.8 - Other specified disorders of adrenal gland Category: Medical Plan: 25-year-old female who was referred to me for evaluation for concerns of adrenal insufficiency. This is because of her ongoing symptoms of nausea, vomiting, and that she was hypokalemic and November 2024. However at that time she was having vomiting episodes, likely the hypokalemia was related to that. She is pending a GI referral for further evaluation of her GI symptoms. She has lost 30 lb per patient in the past year since her symptoms have been happening. Her symptoms are nonspecific, even though she does have the weight loss, some intermittent lightheadedness, nausea and vomiting, she has never had any steroid use in the past, no opioid use, but we will check her a.m. cortisol, acth, DHEA-S levels. She does have history of vitiligo so we should keep autoimmune polyglandular syndrome in mind if she does get diagnosed with adrenal insufficiency. CT scan from November 2024 also reported a left adrenal gland nodule 0.4 X 0.8 cm, indeterminate,. She had blood work done in November 2024 which showed renin activity of 0.37, however aldosterone was also low at 2. No concern for primary hyperaldosteronism. The hypokalemia was likely in the setting of nausea and vomiting previously. She does not have any history of high blood pressure. We will check plasma metanephrine and normetanephrine levels, though the lesion is less than 1 cm, unlikely to be a pheochromocytoma. Based on her baseline cortisol acth levels, and whether we are more concerned about adrenal insufficiency versus hypercortisolism evaluation in adrenal incidentaloma, we will see you if we have to proceed with cosyntropin stimulation test versus dexamethasone suppression test. She does not have any cushingoid features though, no facial plethora, no skin thinning, no easy bruising, no proximal muscle weakness., no abdominal striae. no diabetes mellitus, no hypertension, no history of fragility fracture, For her adrenal gland nodule, she would need repeat CT scan in 1 year from the last 1 which would be November 2025. Plan: -plan to repeat CT adrenal November 2025 -ordered plasma metanephrine, normetanephrine, baseline ACTH, cortisol, DHEA-S levels to be done, we will reach out with the results -follow up in 8 weeks (2) Low TSH level: Code(s): R79.89 - Other specified abnormal findings of blood chemistry Category: Medical Plan: 25-year-old female with a paternal grandmother with a history of thyroid cancer, with the 1 abnormal TSH level from November 2024 when TSH was 0.21 with normal free T4 1.04. Labs repeated December 2024 showed normal TSH of 0.35, normal free T4. At this point we will just repeat labs. TPO antibodies were undetectable. Likely when she has a labs done in November 2024 she was acutely sick which can result in low TSH levels. Plan: -ordered TSH and free T4 Plan I spent 45 minutes in reviewing the record, seeing the patient and documenting in the medical record. Orders: Orders 2 Adrenocorticotropic Hormone Today E27.8 - Other specified disorders of adrenal gland, R79.89 - Other specified abnormal findings of blood chemistry Cortisol Random Today E27.8 - Other specified disorders of adrenal gland, R79.89 - Other specified abnormal findings of blood chemistry Thyroid Stimulating Hormone Today E27.8 - Other specified disorders of adrenal gland, R79.89 - Other specified abnormal findings of blood chemistry DHEA Sulfate Today E27.8 - Other specified disorders of adrenal gland, R79.89 - Other specified abnormal findings of blood chemistry Metanephrines, Plasma Today E27.8 - Other specified disorders of adrenal gland, R79.89 - Other specified abnormal findings of blood chemistry Free T4 (Free Thyroxine) Today E27.8 - Other specified disorders of adrenal gland, R79.89 - Other specified abnormal findings of blood chemistry Medications: Discontinued 2 ondansetron Discontinued Reason: Patient Completed Course 4 mg PO Q8H PRN 10 tabs 0RF nausea and vomiting potassium chloride ER (Klor-Con) Discontinued Reason: Patient Completed Course 20 mEq (2 x 10 mEq) PO DAILY 4 tabs 0RF Coding Level of Care Code New Pt Level 4 (87136) Diagnoses Adrenal incidentaloma E27.8 Low TSH level R79.89 Time Spent (min) 45
[2025-01-29 12:58] VITALS: BP 100/60; PULSE 100; O2SAT 98; BMI 29.2
--- OUTSIDE RECORDS SUMMARY | 2025-01-29 15:13 | XMS_ITS ---
Author Organization [employer] [facility] Address [address] [place] [address] Care Team Providers Care Laborer/Grade Check Name Role Phone Marion Coates Primary Care Provider [phone] Regan Dallas RN Unavailable [phone] Mable Kim Unavailable CM Complex Status:Outreach In Progress (Enrolling) Start date:12/03/2024 Enrollment reason:ADT Feed Overview ADT-[facility] ED 11/30/24 Case Team Name Relationship Phone Regan Dallas RN(Responsible Staff) Registered Nurse [phone] Continued Care and Services Coordination
--- OUTSIDE RECORDS SUMMARY | 2025-01-29 15:13 | XMS_ITS | Encounter Summary ---
Author Organization [employer] Address [address] [place] [address] Care Team Providers Care Install Technician Name Role Phone Marion Coates KHADRA Primary Care Provider [phone] Regan Dallas RN Unavailable [phone] Mable Kim Unavailable Encounter Details Date Type Department Care Team (Latest Contact Info) Description 12/05/2024 Results Follow-Up [facility] [address] [place] [address] [phone] Deedee Batres MD [address] [place] [address] Cortisol Random, Comprehensive Metabolic Panel, Magnesium, Additional followed-up results: 8 Social History Tobacco Use Types Packs/Day Years Used Date Smoking Tobacco: Every Day Cigarettes 0.5 1.7 Started: 2023 Smokeless Tobacco: Never Alcohol Use [...] AM EST documented as of this encounter Miscellaneous Notes * Result Encounter Note - Deedee Arnold MD - 12/10/2024 3:23 PM EDT Please advise pt to make sure to follow up w PCP at upcoming apt ,hormone test was normal but if ongoing symptoms and abnormalities may need to be referred to [facility]. Pt to f w her PCP Thanks * Result Encounter Note - Deedee Arnold MD - 12/05/2024 1:49 PM EDT TSH low w normal T4-pt will f w PCP -will need to be monitor ,currently K wnl, labs wnl, Cortisol wnl Pd aldosterone ,renin ratio are pending -will inform pt when all results are back documented in this encounter Plan of Treatment Upcoming Encounters Date Type Department Care Team (Late st Contact Info) Description 02/28/2025 1:30 PM EDT Office Visit [facility] [address] [place] [address] Marion Coates ANP [address] [place], [place] [phone] documented as of this encounter Visit Diagnoses Not on filedocumented in this encounter Additional Health Concerns Assessment Noted Time PHQ-9 Depression Total Score: 27 025 10:13 AM EDT documented as of this encounter Care Teams Install Technician Relationship Specialty Start Date End Date Marion Coates ANP [address] [place] [address] PCP - General Family Medicine 01/06/23 Regan Dallas, AIME [address] [place] [id number] Registered Nurse Family Medicine 12/03/24 Mable Kim 12/03/24 documented as of this encounter
--- OUTSIDE RECORDS SUMMARY | 2025-01-29 15:13 | XMS_ITS ---
Author Organization [employer] Address [address] [facility] [address] [place] [address] Care Team Providers Care Golf Ball Cover Treater Name Role Phone Marion Coates Primary Care Provider [phone] Regan Dallas RN Unavailable [phone] Mable Kim Unavailable [facility] Complex Status:Outreach In Progress (Enrolling) Start date:12/03/2024 Enrollment reason:ADT Feed Overview [facility] ED 11/30/24 . Please outreach for enrollment. Case Team Name Relationship Phone Mable Kim(Responsible Staff) [phone] Continued Care and Services Coordination
--- OUTSIDE RECORDS SUMMARY | 2025-01-29 15:14 | XMS_ITS | Encounter Summary ---
Author Organization [employer] Address [address] [facility] [address] [place] [address] Care Team Providers Care Mgmt Consultant Name Role Phone Marion Coates Primary Care Provider [phone] Regan Dallas RN Unavailable [phone] Mable Kim Unavailable Encounter Details Date Type Department Care Team (Late st Contact Info) Description 12/24/2024 Results Follow-Up [facility] [address] [place], [place] [phone] Marion Coates ANP [address] [place] [address] Basic Metabolic Panel, TSH W/Reflex to FT4, Thyroid Peroxidase Antibodies Social History Tobacco Use Types Packs/Day Years Used Date Smoking Tobacco: Former Cigarettes 0.5 1.7 S tarted: 2023 Smokeless Tobacco: Never Alcohol Use Standard [...] as of this encounter Plan of Treatment Upcoming Encounters Date Type Department Care Team (Late st Contact Info) Description 02/28/2025 1:30 PM EDT Office Visit [facility] [address] [place] [address] Marion Coates ANP [address] [place] [address] documented as of this encounter Visit Diagnoses Not on filedocumented in this encounter Additional Health Concerns Assessment Noted Time PHQ-9 Depression Total Score: 27 025 10:13 AM EDT documented as of this encounter Care Teams Mgmt Consultant Relationship Specialty Start Date End Date Marion Coates ANP [address] [place] [address] PCP - General Family Medicine 01/06/23 Regan Dallas, AIME [address] [place] [address] Registered Nurse Family Medicine 12/03/24 Mable Kim 12/03/24 documented as of this encounter
--- OUTSIDE RECORDS SUMMARY | 2025-01-29 15:14 | XMS_ITS | Clinical Summary ---
Author Organization [facility] Address [address] [place] [address] Phone Care Team Providers Care Professional Application Designer Name Role Phone Marion Coates NP Primary Care Provider [phone] Allergies No known active allergies Medications methocarbamoL (ROBAXIN) 500 mg tablet Take 1 tablet (500 mg total) by mouth 2 (two) times a day for 10 days. 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 No acute process. 2. Jghr-wpeemjn-aovl-right ovarian cysts. This document has been electronically [...] intact. IMPRESSION: 1. No acute process. 2. Srwm-wazqcby-xubf-right ovarian cysts. This document has been electronically signed by: Christiane Bernal MD on 10/31/2024 17:27:44 [facility] Ozzy Oakley MD [facility] CT PROCEDURES Final Result * CT Head [...] GEMUSE QTc 497 ms GEMUSE P Wave [place] 76 degrees GEMUSE R [place] 67 degrees GEMUSE T [place] 19 degrees GEMUSE ECG Interpretation Normal sinus [...] LAB CHEMISTRY METHOD 5 5:32 PM EDT [facility] Comment:Certain OTC medicati ons containing ephedrine, phenylephrine, pseudoephedrine and phenylpropanolamine can cause false positive results. Barbiturate Screen, Ur Negative Negative LAB CHEMISTRY METHOD 5 5:32 PM EDT [facility] Benzodiazepine Screen, Ur Negative Negative LAB CHEMISTRY METHOD 5 5:32 PM EDT [facility] Cocaine Screen, Ur Negative Negative LAB CHEMISTRY METHOD 5 5:32 PM EDT [facility] Opiate Screen, Ur Negative Negative LAB CHEMISTRY METHOD 5 5:32 PM T [facility] Cannabinoid (THC) Screen, Ur Positive(A ) Negative LAB CHEMISTRY METHOD 5 5:32 PM T [facility] Comment:Specimens from patie nts taking pantoprazole sodium (Protonix) have been shown to produce false positive results. Oxycodone Screen, Ur Negative Negative LAB CHEMISTRY METHOD 5 5:32 PM EDT [facility] Fentanyl, Ur Negative Negative LAB CHEMISTRY METHOD 5 5:32 PM T [facility] Urine Urine specimen obtained by clean catch procedure / Unknown Non-blood Collection / Unknown 10/31/2024 4:08 PM EDT 10/31/2024 4:30 PM EDT Narrative [facility] - 10/31/2024 5:32 PM EDT [...] ISRAEL LAB URINE ORDERABLES Final Resu lt [facility] [address] [place] [address], [place] [phone] * (ABNORMAL) Urinalysis with reflex microscopic and culture (10/31/2024 3:00 PM EDT) Specific [place] Urine 1.033(H) 1.003 - 1.030 LAB URINALYSIS - AUTOMATED METHOD 10/31/2024 3:45 PM EDT [facility] pH, Urine 5.5 5.0 - 8.0 pH LAB URINALYSIS - AUTOMATED METHOD 10/31/2024 3:45 PM EDT [facility] Leukocytes, Urine Trace(A) Negative LAB URINALYSIS - AUTOMATED METHOD 10/31/2024 3:45 PM EDT [facility] Nitrite, Urine Negative Negative LAB URINALYSIS - AUTOMATED METHOD 10/31/2024 3:45 PM EDT [facility] Protein, Urine 30(A) <=Trace mg/dL LAB URINALYSIS - AUTOMATED METHOD 10/31/2024 3:45 PM EDT [facility] Glucose, Urine Negative Negative mg/dL LAB URINALYSIS - AUTOMATED METHOD 10/31/2024 3:45 PM EDT [facility] Ketones, Urine 15(A) Negative mg/dL LAB [facility]INALYSIS - AUTOMATED METHOD [facility] U[facility] , Urine 1.0 0.2 - 1.0 mg/dL LAB URINALYSIS - AUTOMATED METHOD 10/31/2024 3:45 PM EDT [facility] Bilirubin, Urine Negative Negative LAB URINALYSIS - AUTOMATED METHOD 10/31/2024 3:45 PM EDT [facility] Blood, Urine Moderate(A) Negative LAB URINALYSIS - AUTOMATED METHOD 10/31/2024 3:45 PM EDT [facility] RBC, Urine 66.6(H) 0 - 4 /HPF LAB URINALYSIS - AUTOMATED METHOD 10/31/2024 3:45 PM EDT [facility] WBC, Urine 4.2(H) 0 - 4 /HPF LAB URINALYSIS - AUTOMATED METHOD 10/31/2024 3:45 PM EDT [facility] Squamous Epithelial, Urine 90(H) 0 - 60 /LPF LAB URINALYSIS - AUTOMATED METHOD 10/31/2024 3:45 PM [facility] Bacteria, Urine Negative Negative /HPF LAB URINALYSIS - AUTOMATED METHOD 10/31/2024 3:45 PM [facility] Hyaline Casts, Urine 11.2(H) 0 - 3 /LPF LAB URINALYSIS - AUTOMATED METHOD 10/31/2024 3:45 PM [facility] Urine Urine specimen obtained by clean catch procedure / Unknown Non-blood Collection / Unknown 10/31/2024 3:00 PM EDT 10/31/2024 3:25 PM EDT us Colt Norris MD LAB URINE ORDERABLES Final Resu lt [facility] [address] [place] [address], * Blevins urine culture tube (10/31/2024 3:00 PM EDT) Extra Tube Hold for add-ons. 10/31/2024 5:01 PM EDT [facility] Comment:Auto resulted. Urine Urine specimen obtained by clean catch procedure / Unknown Non-blood Collection / Unknown 10/31/2024 3:00 PM EDT 10/31/2024 3:25 PM EDT us Colt Norris MD LAB URINE ORDERABLES Final Resu lt Performing Organization Address [facility]/ZIP Co de Phone Number [facility] [address] [place] [address], [place] [phone] * Culture urine (10/31/2024 3:00 PM EDT) Pathologist [facility] Culture, Urine 50,000-99,000 CFU/mL Mixed urogenital renny, no uropathogens present. Suggest repeat specimen if clinically indicated. 11/01/2024 8:37 AM EDT [facility] Urine Urine specimen obtained by clean catch procedure / Unknown Non-blood Collection / Unknown 10/31/2024 3:00 PM EDT 10/31/2024 3:45 PM EDT us Colt Norris MD LAB MICROBIOLOGY - GENERAL ORDE RABLES Final Result Performing Organization Address [facility]/ZIP Co de Phone Number [facility] [address] [place] [address], [place] [phone] * (ABNORMAL) CBC auto differential (10/31/2024 11:34 AM EDT) WBC 9.4 4.8 - 10.8 K/mcL LAB HEMETOLOGY METHOD 10/31/2024 11:57 AM EDT [facility] RBC 5.50(H) 3.80 - 4.80 M/mcL LAB HEMETOLOGY METHOD 10/31/2024 11:57 AM EDT [facility] Hemoglobin 15.8 11.5 - 16.0 g/dL LAB HEMETOLOGY METHOD 10/31/2024 11:57 AM EDT [facility] Hematocrit 45.0 35.0 - 47.0 % LAB HEMETOLOGY METHOD 10/31/2024 11:57 AM [facility] MCV 81.4 79.0 - 98.0 FL LAB HEMETOLOGY METHOD 10/31/2024 11:57 AM [facility] MCH 28.6 27.0 - 32.0 pcg LAB HEMETOLOGY METHOD 10/31/2024 11:57 AM [facility] MCHC 35.1 32.0 - 37.0 g/dL LAB HEMETOLOGY METHOD 10/31/2024 11:57 AM [facility] RDW 12.9 11.0 - 15.0 % LAB HEMETOLOGY METHOD 10/31/2024 11:57 AM [facility] Platelets 293 130 - 400 K/mcL LAB HEMETOLOGY METHOD 10/31/2024 11:57 AM [facility] MPV 11.4(H) 7.0 - 11.0 FL LAB HEMETOLOGY METHOD 10/31/2024 11:57 AM [facility] NRBC 0.0 <1.0 % LAB HEMETOLOGY METHOD 10/31/2024 11:57 AM [facility] NRBC Absolute 0.00 <0.10 K/mcL LAB HEMETOLOGY METHOD 10/31/2024 11:57 AM [facility] Neutrophils Relative 59.1 % LAB HEMETOLOGY METHOD 10/31/2024 11:57 AM [facility] Lymphocytes Relative 29.9 % LAB HEMETOLOGY METHOD 10/31/2024 11:57 AM [facility] Monocytes Relative 9.3 % LAB HEMETOLOGY METHOD 10/31/2024 11:57 AM [facility] Eosinophils Relative 1.0 % LAB HEMETOLOGY METHOD 10/31/2024 11:57 AM [facility] Basophils Relative 0.4 % LAB HEMETOLOGY METHOD 10/31/2024 11:57 AM EDT [facility] Immature Granulocytes Relative 0.3 % LAB HEMETOLOGY METHOD 10/31/2024 11:57 AM EDT [facility] Neutrophils Absolute 5.57 1.50 - 7.00 K/mcL LAB HEMETOLOGY METHOD 10/31/2024 11:57 AM EDT [facility] Lymphocytes Absolute 2.82 1.00 - 5.00 K/mcL LAB HEMETOLOGY METHOD 10/31/2024 11:57 AM EDT [facility] Monocytes Absolute 0.88 0.20 - 1.00 K/mcL LAB HEMETOLOGY METHOD 10/31/2024 11:57 AM EDT [facility] Eosinophils Absolute 0.09 0.00 - 0.50 K/mcL LAB HEMETOLOGY METHOD 10/31/2024 11:57 AM EDT [facility] Basophils Absolute 0.04 0.00 - 0.20 K/mcL LAB HEMETOLOGY METHOD 10/31/2024 11:57 AM EDT [facility] Immature Granulocytes Absolute 0.03 0.00 - 0.03 K/mcL LAB HEMETOLOGY METHOD [facility]24 [facility] Blood Venous blood specimen / Unknown Venipuncture / Unknown 10/31/2024 11:34 AM EDT 10/31/2024 11:49 AM EDT us Colt Norris MD LAB BLOOD ORDERABLES Final Resu lt [facility] [address] [place] [address], * Magnesium (10/31/2024 11:34 AM EDT) Magnesium 2.3 1.9 - 2.6 mg/dL LAB CHEMISTRY METHOD 10/31/2024 12:29 PM [facility] Blood Venous blood specimen / Unknown Venipuncture / Unknown 10/31/2024 11:34 AM EDT 10/31/2024 11:49 AM EDT us Colt Norris MD LAB BLOOD ORDERABLES Final Resu lt [facility] [address] [place] [address], * (ABNORMAL) Comprehensive metabolic panel (10/31/2024 11:34 AM EDT) Sodium 135 133 - 145 mmol/L LAB CHEMISTRY METHOD 10/31/2024 1:02 PM [facility] Potassium 2.8(LL) 3.5 - 5.5 mmol/L LAB CHEMISTRY METHOD 10/31/2024 1:02 PM [facility] Chloride 91(L) 96 - 110 mmol/L LAB CHEMISTRY METHOD 10/31/2024 1:02 PM [facility] CO2 35(H) 21 - 32 mmol/L LAB CHEMISTRY METHOD 10/31/2024 1:02 PM [facility] Anion Gap 9 3 - 11 LAB CHEMISTRY METHOD 10/31/2024 1:02 PM [facility] Glucose 119(H) 70 - 100 mg/dL LAB CHEMISTRY METHOD 10/31/2024 1:02 PM [facility] BUN 11 5 - 25 mg/dL LAB CHEMISTRY METHOD 10/31/2024 1:02 PM [facility] Creatinine 1.14(H) 0.50 - 1.10 mg/dL LAB CHEMISTRY METHOD 10/31/2024 1:02 PM [facility] eGFR 69 >=60 mL/min/1. 73m2 LAB CHEMISTRY METHOD 10/31/2024 1:02 PM [facility] Comment:Calculation based on the Chronic Kidney Disease Epidemiology Collaboration (CKD-EPI) equation refit without adjustment for race. BUN/Creatinine Ratio 9.6 LAB CHEMISTRY METHOD 10/31/2024 1:02 PM [facility] Calcium 9.8 8.5 - 10.5 mg/dL LAB CHEMISTRY METHOD 10/31/2024 1:02 PM [facility] AST (SGOT) 29 10 - 42 unit/L LAB CHEMISTRY METHOD 10/31/2024 1:02 PM [facility] ALT (SGPT) 36 10 - 60 unit/L LAB CHEMISTRY METHOD 10/31/2024 1:02 PM [facility] Alkaline Phosphatase 113 42 - 121 unit/L LAB CHEMISTRY METHOD 10/31/2024 1:02 PM [facility] Total Protein 8.0 6.0 - 8.0 g/dL LAB CHEMISTRY METHOD 10/31/2024 1:02 PM [facility] Albumin 4.5 3.2 - 5.0 g/dL LAB CHEMISTRY METHOD 10/31/2024 1:02 PM [facility] Total Bilirubin 0.8 0.0 - 1.4 mg/dL LAB CHEMISTRY METHOD 10/31/2024 1:02 PM [facility] Blood Venous blood specimen / Unknown Venipuncture / Unknown 10/31/2024 11:34 AM EDT 10/31/2024 11:49 AM EDT us Colt Norris MD LAB BLOOD ORDERABLES Final Resu lt [facility] [address] [place] [address], [place] [phone] from Last 3 Months Insurance MEDICAID - [...] currently active code status orders. Care Teams Professional Application Designer Relationship Specialty Start Date End Date Marion Coates NP [address] [place] [phone] PCP - General 05/23/24
--- OUTSIDE RECORDS SUMMARY | 2025-01-29 15:14 | XMS_ITS | Clinical Summary ---
Author Organization [employer] Address [address] [facility] [address] [place] [address] Care Team Providers Care Terra Cotta Mason Name Role Phone Dayton Harris KHADRA Primary Care Provider [phone] Regan Dallas RN Unavailable [phone] Mable Kim Unavailable Allergies No known active allergies Medications * [...] needed for wheezing. 75 mL 11 4 Active Additional Information Patient not taking.Reported on 12/04/2024 lidocaine (Lidoderm) 5 % patch PLACE 1 PATCH TOPICALLY DAILY LEAVE ON MOST PAINFUL AREA FOR UP TO 12 HRS 4 Active SUMAtriptan (Imitrex) 25 MG tabletIndication s:Intractable migraine with aura without status migrainosus Take 1 tablet (25 mg) by mouth 1 (one) time if needed for migraine for up to 9 doses. May repeat dose once in 2 hours if no relief. Do not exceed 2 doses in 24 hours. 9 tablet 4 Active senna-docusate sodium (Senokot-S) 8.6-50 MG tabletIndication s:Constipation, unspecified constipation type 1-2 tabs once daily as needed for constipation 60 tablet 1 4 Active albuterol 108 (90 Base) MCG/ACT inhalerIndicatio ns:Wheezing 2 puffs every 4-6 hours prn SOB or wheezing. If using regularly more than twice/wk, call clinic 18 g 1 5 Active omeprazole (PriLOSEC) [address] capsuleShengicakwameo ns:Chronic gastritis without bleeding, unspecified gastritis type Take 1 capsule (20 mg) by mouth before breakfast and before evening meal. Do not crush or chew. 60 capsule 2 5 025 Active OLANZapine (ZyPREXA) 10 MG tabletIndication s:Severe episode of recurrent major depressive disorder, with psychotic features (CMS/HCC) Take 1 tablet (10 mg) by mouth at bedtime. 30 tablet 1 5 Active Active Problems Problem Noted Date Diagnosed Date Class 1 obesity 12/04/2024 BERNA (generalized anxiety disorder) 12/04/2024 Assessment & Plan (12/04/2024 1:30 PM EDT): During IBH Consult Evonne presenting with depressed mood, Tearful, crying spells , hopelessness, irritable mood, loss of interests/pleasure , sense of isolation/loneliness , isolating, change in appetite or weight reduce appetite, changes in sleep difficulty falling asleep, worthlessness, inappropriate/excessive guilt , difficulty concentrating, indecisiveness and excessive worry/anxiety, difficulty controlling worry, anxiety/worry associated to restlessness and/or feeling keyed-up/On edge , easily fatigued , difficulty concentrating and/or mind going blank , irritability, muscle tension , and sleep disturbance difficulty falling asleep, Fear , and sense of dread ; for a period of 18+ mo, for most or all symptoms in the context of unable to identify significant stressors. Pt with on-going hx of mental health challenges since youth. Today, she presented with hopelessness, severe anxiety, severe lack of motivation to do anything, anhedonia and low energy. Pt reported having hallucinations visual and auditory. Denied any SI/HI thoughts. Currently sees a therapist from [facility] and has no psychiatry services. She used to enjoy life in the past. Her favorite activities were playing sports and taking long walks. Pt feels frustrated due to having his grandfather severe ill and not being able to be with him. Anticipatory grief 12/04/2024 Nausea & vomiting 12/04/2024 Assessment & Plan (12/04/2024 10:41 PM EDT): -12/03/2024 k+ 3 <--2.7<-- 3.7 AG 9 ,Cr, LFTs wnl, Ca+ 7.9,UA wnl,preg test neg ,lipase wnl, CBC wnl -CT abdomen pelvis w IV con 12/04/2024 The liver is normal in size, shape, and attenuation. No focal hepatic lesion or biliary ductal dilatation is present. The gallbladder is unremarkable with no evidence of radiopaque gallstones, gallbladder wall thickening, or obvious pericholecystic inflammatory changes. There is a 4 x 8 mm left gland nodule that is too small to characterize. Right adrenal gland is unremarkable. Simple right ovarian cyst measures 3.1 cm long axis and it requires no further follow-up. Left ovary is unremarkable. Uterus is unremarkable There is an indeterminate small left adrenal nodule, likely an adenoma, measuring 4 x 8 mm. Given the small size and if there is no prior history of malignancy, it is probably benign, consider 12 month follow-up adrenal CT. If there is a history of malignancy, consider short interval follow-up CT adrenal within 3 months -KUB 12/04/2204 No intestinal obstruction pattern. Colitis cannot be excluded. -12/2023 h P UBT neg Pt 's presentation is relevant for ongoing chronic N/V/abd pain , hypokalemia, weakness reported as well , noted on exam vitiligo and reported episode of hypotension Joey's disease is in the differential except that in this disorder hyperkalemia is expected but given rest of clinical findings can be explained for abnormal hormonal deficiency will evaluate for it ,also w indeterminate small left adrenal nodule in recent CT scan , likely an adenoma, measuring 4 x 8 mm will also tx for symptoms and w PPIs as for possible gastritis w chronic nausea and vomit Cyclic vomit syndrome seems less likely given pt reports only small amount of use of marijuana mainly at night but still a possibility -Will do aldosterone,cortisol am ,chem,cbc,STI, TSH,mag -explain pt to do test early in am -Zofran PRN and start PPIs -start K+20 MEq daily for 14 days -Hydration advised -explained pt to change carefully from positions -F w PCP in 2 weeks -will need to have chem monitored then to f potassium level -if abnormal hormonal results will need referral to [facility] -Change position slowly -Explained to use albuterol for asthma carefully given this may drive to decrease even further her potassium-states rarely use and request refill today -if above workup is negative will need to f w PCP and consider GI referral Weight loss 12/04/2024 Vitiligo 12/04/2024 Irregular menses 10/04/2023 Assessment & Plan (10/04/2023 [...] with psychotic features 06/30/2022 Assessment & Plan (12/04/2024 10:32 PM EDT): Depression PHQ9 24, BERNA 24, Denies SI -pt already follows w therapist -has apt today -BH evaluated today and pt agreed for psychiatrist evaluation Assessment & Plan (12/04/2024 1:30 PM EDT): During IBH Consult Evonne presenting with depressed mood, Tearful, crying spells , hopelessness, irritable mood, loss of interests/pleasure , sense of isolation/loneliness , isolating, change in appetite or weight reduce appetite, changes in sleep difficulty falling asleep, worthlessness, inappropriate/excessive guilt , difficulty concentrating, indecisiveness and excessive worry/anxiety, difficulty controlling worry, anxiety/worry associated to restlessness and/or feeling keyed-up/On edge , easily fatigued , difficulty concentrating and/or mind going blank , irritability, muscle tension , and sleep disturbance difficulty falling asleep, Fear , and sense of dread ; for a period of 18+ mo, for most or all symptoms in the context of unable to identify significant stressors. Pt with on-going hx of mental health challenges since youth. Today, she presented with hopelessness, severe anxiety, severe lack of motivation to do anything, anhedonia and low energy. Pt reported having hallucinations visual and auditory. Denied any SI/HI thoughts. Currently sees a therapist from [facility] and has no psychiatry services. She used to enjoy life in the past. Her favorite activities were playing sports and taking long walks. Pt feels frustrated due to having his grandfather severe ill and not being able to be with him. Assessment & Plan (01/07/2023 8:48 AM EDT): Assessment: Patient with anhedonia, depressed mood, sleep disturbance, lack of motivation, poor appetite, difficulties with focus, low self-esteem, auditory and visual hallucinations, self-harming behaviors, and passive SI with plan but no intent. Presentation in the context of complex trauma. Patient will benefit from OP therapy referral. She was provided with [facility] information and was highly encouraged to utilize service. At this time Evonne Ladd meets criteria for Visit Diagnoses: Problem List Items Addressed This Visit Other Severe episode of recurrent major depressive disorder, with psychotic features (CMS/HCC) Anxiety Suicidal ideation Cannabis use disorder Patient ready to address current needs Yes Strengths include motivation to seek help for BH needs PLAN: 1. Follow up with [facility]: Not recommended for follow-up 2. Patient goal is to improve mental health and decrease SI 3. Behavioral Recommendations a. Patient will utilize [facility] or [facility]IC, if symptoms worsen b. Patient will engage in OP therapy once established c. Patient may reach out to [facility] during next PCP visit or as needed Anxiety 06/30/2022 Insomnia 06/30/2022 Tobacco dependence 06/30/2022 Encounters * This document contains information received from the source organization and may not represent a complete record from that organization. Date Type Department Care Team Description 01/16/2025 Telephone [facility] [place] [address] Na Clifford RN Referral; Lab Orders 12/24/2024 Results Follow-Up [facility] [place] [address] Dayton Harris ANP Basic Metabolic Panel, TSH W/Reflex to FT4, Thyroid Peroxidase Antibodies 12/20/2024 11:30 AM EDT Office Visit [facility] [place] [address] Dayton Harris ANP Hypokalemia (Primary Dx); Abnormal TSH; Palpitations; Heat intolerance; Severe episode of recurrent major depressive disorder, with psychotic features (CMS/HCC); Irregular menses; Urinary symptom or sign; Nausea and vomiting, unspecified vomiting type; Vitiligo 12/20/2024 Telephone [facility] [place] [address] Dayton Harris ANP 12/20/2024 Telephone [facility] [place] [address] Dayton Harris ANP 12/20/2024 Travel 12/19/2024 Telephone [facility] [place] [address] Dayton Harris ANP chart prep 12/18/2024 Telephone [facility] [place] [address] Dayton Harris ANP Insurance 12/10/2024 Patient Outreach [facility] [place] [address] Dayton Harris ANP 12/07/2024 Patient Outreach [facility] [place] [address] Dayton Harris ANP Care Coordination (CM/CHW outreach) 12/05/2024 Results Follow-Up [facility] [place] [address] Deedee Batres MD Cortisol Random, Comprehensive Metabolic Panel, Magnesium, Additional followed-up results: 8 12/05/2024 Orders Only [facility] [place] [address] Deedee Batres MD 12/04/2024 10:00 AM EDT Office Visit [address] [address] Deedee Batres MD Hypokalemia (Primary Dx); Wheezing; Chronic gastritis without bleeding, unspecified gastritis type; BERNA (generalized anxiety disorder); Severe episode of recurrent major depressive disorder, with psychotic features (CMS/HCC); Nausea and vomiting, unspecified vomiting type; Weight loss; Vitiligo 12/04/2024 Patient Outreach [address] [address] Dayton Harris ANP 12/04/[address] [address] Dayton Harris ANP ER Follow-up 12/04/2024 Patient Outreach [address] [address] Dayton Harris ANP Care Coordination (CM/CHW outreach) 12/04/2024 Travel 12/03/[address] [address] Deedee Batres MD chart prep 12/03/2024 Orders Only [facility] External Provider, [facility] 12/03/2024 Patient Outreach [address] [address] Dayton Harris ANP Care Coordination (Chw chart review) 12/03/[address] [address] Dayton Harris ANP Nurse Triage 12/03/2024 Patient Outreach [address] [address] Dayton Harris ANP Care Management (C3CM- chart review) 12/03/2024 Patient Outreach [address] [address] Dayton Harris ANP 11/05/2024 Telephone [facility] [address] [place] [phone] Dayton Harris ANP ER Follow-up from Last 3 Months Immunizations Immunization Administration Dates Next Due DTP 10/21/2000, 0,1999,03/23 DTaP / HiB / IPV 05/23/2000, 0,1999,03/23 HPV, Quadrivalent 08/07/2014,04/09/2014,04/08/20 11 Hep A, ped/adol, 2 dose 04/09/2014,04/08/2011 Hep B, Adolescent or Pediatric 05/23/2000,1999,1999 IPV 02/04/2003, 0,1999,03/23 Influenza, IIV3, injectable 04/08/2011 Influenza, seasonal, injecta ble, preservative free 07/13/2016 MMR 02/04/2003,01/22/2000 Meningococcal MCV4P ACYW-135 07/13/2016,04/08/20 11 Pneumococcal Conjugate PCV 20 12/20/2024 Pneumococcal Conjugate PCV 7 05/23/2000,01/22/20 00 Td [...] Sign Reading Time Taken Comments Blood Pressure 111/67 12/20/2024 11:47 AM EDT Pulse 76 12/20/2024 11:47 AM EDT Temperature 36.3 C (97.3 F) 12/04/2024 10:12 AM EDT Respiratory Rate 16 12/20/2024 11:47 AM EDT Oxygen Saturation 99% 12/04/2024 10:12 AM EDT Inhaled Oxygen Concentration - - Weight 71.2 kg (157 lb) 12/20/2024 11:47 AM EDT Height 154.9 cm (5' 1 ) 12/20/2024 11:47 AM EDT Body Mass Index 29.66 12/20/2024 11:47 AM EDT Plan of Treatment Upcoming Encounters Date Type Department Care Team ([facility] st Contact Info) Description 02/28/2025 1:30 PM EDT Office Visit [facility] [address], [place] [phone] Dayton Harris ANP [address] [place] [address] Health Maintenance Due Date Last Done Comments Family Planning (PISQ) 2014 COVID-19 Vaccine ( season) 2025 Influenza Vaccine (#1) 2025 07/13/2016, 2010 Depression Monitoring 06/06/2025 12/04/2024, 025 SDOH Screening 08/17/2025 08/17/2024 Alcohol/Substance Use Screening 12/04/2025 12/04/2024 Disability Screening 12/04/2025 12/04/2024 Tobacco Screening 12/20/2025 12/20/2024 Pap Smear 01/31/2026 01/31/2023, 01/31/2023 DTaP/Tdap/Td Vaccines (9 - Td or Tdap) [...] Vaccine Completed 07/13/2016, 011 HIV Screening Completed 12/05/2024, 12/14/2022 Hepatitis C Screening Completed 12/05/2024, 023 Pneumococcal Vaccine: Pediatrics (0 to 5 Years) and At-Risk Patients (6 to 49) Years Completed 12/20/2024, 05/23/2000, 01/22/2000 Meningococcal B Vaccine Aged Out No l onger eligible based on patient's age to complete this topic RSV under 20 months Aged Out No longe r eligible based on patient's age to complete this topic Rotavirus Vaccines Aged Out No longer eligible based on patient's age to complete this topic Procedures Procedure Name Priority Date/Time Associated Diagnosis Comments URINALYSIS, COMPLETE, WITH REFLEX TO CULTURE Routine 12/24/2024 9:27 AM EDT Urinary symptom or sign CHLAMYDIA/TRICHOMONAS/ NEISSERIA GONORRHOEAE, PCR, URINE Routine 12/24/2024 9:27 AM EDT Irregular menses Urinary symptom or sign THYROID PEROXIDASE ANTIBODIES Routine 12/24/2024 9:27 AM EDT Abnormal TSH TSH W/REFLEX TO FT4 Routine 12/24/2024 9 :27 AM EDT Abnormal TSH BASIC METABOLIC PANEL Routine 12/24/2024 9:27 AM EDT Hypokalemia T4, FREE Routine 12/05/2024 8:59 AM EDT TSH W/REFLEX TO FT4 Routine 12/05/2024 8 :59 AM EDT Hypokalemia SYPHILIS SCREEN Routine 12/05/2024 8:59 AM EDT Hypokalemia HIV 1/2 ANTIGEN/ANTIBODY, FOURTH GENERATION W/RFL Routine 12/05/2024 8:59 AM EDT Hypokalemia HEPATITIS C AB W/REFL TO HCV RNA, QN, PCR Routine 12/05/2024 8:59 AM EDT Hypokalemia HEPATITIS B SURFACE ANTIGEN, EIA Routine 12/05/2024 8:59 AM EDT Hypokalemia HEMOGLOBIN A1C Routine 12/05/2024 8:59 AM EDT Hypokalemia CBC Routine 12/05/2024 8:59 AM EDT Hypokalemia MAGNESIUM Routine 12/05/2024 8:59 AM EDT Hypokalemia COMPREHENSIVE METABOLIC PANEL Routine 12/05/2024 8:59 AM EDT Hypokalemia CORTISOL RANDOM Routine 12/05/2024 8:59 AM EDT Hypokalemia ALDOSTERONE/PLASMA RENIN ACTIVITY RATIO, LC/MS/MS Routine 12/05/2024 8:59 AM EDT Hypokalemia BASIC METABOLIC PANEL Routine 12/03/2024 8:[address] ABDOMEN PELVIS W CONTRAST Routine 12/03/2024 4:02 PM EDT URINALYSIS WITH REFLEX MICROSCOPIC Routine 12/03/2024 2:27 PM EDT HCG, TOTAL, QN Routine 12/03/2024 2:13 PM EDT LIPASE Routine 12/03/2024 2:13 PM EDT COMPREHENSIVE METABOLIC PANEL Routine 12/03/2024 2:13 PM EDT CBC WITH AUTO DIFFERENTIAL Routine 12/03/2024 2:13 PM EDT XR KUB AND UPRIGHT 2 VIEWS Routine 12/03/2024 12:00 PM EDT IMAGE-GUIDED PAP W/AGE BASED SCR,W/CT/NG/TRICH Routine 01/31/2023 9:46 AM EDT Cervical cancer screening Encntr screen for infections w sexl mode of transmiss from Last 3 Months or Most Recently Relevant to Health Maintenance Results * Chlamydia/N. Gonorrhoeae, PCR, Urine (12/24/2024 9:27 AM EDT) CT PCR, Urine NOT DETECTED Not Detect. [facility] Comment:A not detected test result does not exclude the possibilityof infection because test results can be affected byimproper specimen collection, concurrent antibiotic therapy,or the number of organisms in the specimen which may bebelow the sensitivity of the test. As with many diagnostictests, results from the Xpert CT/NG assay should beinterpreted in conjunction with other laboratory andclinical data available to the clinician.The Xpert CT/NG assay should not be used for the evaluationof suspected sexual abuse or for other medico-legalindications. Additional testing is recommended in anycircumstance when false positive or false negative resultscould lead to adverse medical, social or psychologicalconsequences. NG PCR, Urine NOT DETECTED Not Detect. [facility] Comment:A not detected test result does not exclude the possibilityof infection because test results can be affected byimproper specimen collection, concurrent antibiotic therapy,or the number of organisms in the specimen which may bebelow the sensitivity of the test. As with many diagnostictests, results from the Xpert CT/NG assay should beinterpreted in conjunction with other laboratory andclinical data available to the clinician.The Xpert CT/NG assay should not be used for the evaluationof suspected sexual abuse or for other medico-legalindications. Additional testing is recommended in anycircumstance when false positive or false negative resultscould lead to adverse medical, social or psychologicalconsequences. Urine (Urine, Random) 12/24/2024 9:27 AM EDT 12/24/2024 11:22 AM EDT [facility] URINE ORDERABLES Final Resul t [facility] [address] [place] [phone] * Urinalysis, Complete, with Reflex to Culture (12/24/2024 9:27 AM EDT) Color Urine Yellow [facility] Appearance Urine Clear [facility] PH 8.0 5.0 - 9.0 [facility] Glucose Urine UA Negative Negative mg/dL [facility] Urine Blood Negative Negative [facility] Specific [place] - Urine 1.020 1.005 - 1.025 [facility] Urine Protein Negative Neg-Trace mg/dL [facility] Urine Ketones Trace Negative mg/dL [facility] Nitrite Urine Negative Negative [facility] Leukocyte Esterase Urine Negative Negative [facility] RBC Urine 0-2 0 - 2 /HPF [facility] Urine WBC 0-5 0 - 5 /HPF [facility] Urine Squamous Epithelial Cell 3-5 0 - 2 /HPF [facility] Urine Bacteria None Seen None Seen [facility] Hyaline Casts, Urine 0-2 0 - 2 /LPF [facility] Urine 12/24/2024 9:27 AM EDT 12/24/2024 11:22 AM EDT Narrative [facility] - 12/24/2024 11:46 AM EDT Urine, Clean Catch Dayton Harris ANP LAB URINE ORDERABLES Final Resul t Performing Organization Address [facility]/ZIP Co de Phone Number [facility] [address] [place] [phone] * TSH W/Reflex to FT4 (12/24/2024 9:27 AM EDT) Only the most recent of2 resultswithin the time period is included. TSH reflex Free T4 0.35 0.32 - 4.0 uIU/mL [facility] Blood Venous blood specimen / Unknown 12/24/2024 9:27 AM EDT 12/24/2024 11:16 AM EDT Dayton Harris ANP LAB BLOOD ORDERABLES Final Resul t Performing Organization Address City/[facility]/ZIP Co de Phone Number [facility] [address] [place] [address] [phone] * Thyroid Peroxidase Antibodies (12/24/2024 9:27 AM EDT) Thyroid Peroxidase Antibodies <1 <9 IU/mL [facility] Comment:THIS TEST WAS PERFOR MED AT:[facility] [place] [id number] SANDOVAL MD Blood Venous blood specimen / Unknown 12/24/2024 9:27 AM EDT 12/24/2024 11:16 AM EDT Datyon aHrris ANP LAB BLOOD ORDERABLES Final Resul t [facility] [address] [place] [phone] * (ABNORMAL) Basic Metabolic Panel (12/24/2024 9:27 AM EDT) Only the most recent of2 resultswithin the time period is included. Pathologist [facility] Sodium 144 135 - 145 mmol/L [facility] Potassium 4.1 3.3 - 5.1 mmol/L [facility] Chloride 111(H) 96 - 108 mmol/L [facility] Carbon Dioxide 28 22 - 29 mmol/L [facility] Anion Gap 9(L) 12 - 20 [facility] Urea Nitrogen (BUN) 9 9 - 16 mg/dL [facility] Creatinine, Serum 0.78 0.5 - 1.4 mg/dL [facility] Estimated Glomerular Filt Rate >60 [facility] Comment:Chronic Kidney Disea se: Estimated GFR < 60 mL/min/1.75p3Ehozib Kidney Disease: Estimated GFR < 15 mL/min/1.73m2 Glucose 66 60 - 115 mg/dL [facility] Calcium 9.1 8.4 - 10.2 mg/dL [facility] Blood Venous blood specimen / Unknown 12/24/2024 9:27 AM EDT 12/24/2024 11:16 AM EDT Dayton Harris ANP LAB BLOOD ORDERABLES Final Resul t Performing Organization Address [facility] Co de Phone Number [facility] [address] [place] [phone] * Cortisol Random (12/05/2024 8:59 AM EDT) [facility] Cortisol Random 7.0 ug/dL [facility] Comment:Reference Range*: Be fore 10 am 6.2-19.4 ug/dL After 5 pm 2.3-11.9 ug/dL*Please interpret above results accordingly.This test was performed using the [employer] chemiluminescentmethod. Values obtained from different assay methods cannotbe used interchangeably.Patients receiving fludrocortisone, prednisolone orprednisone may show artificially elevated cortisol valuesdue to cross-reactivity. 12/05/2024 8:59 AM EDT 12/05/2024 11:14 AM EDT Deedee Arnold MD LAB BLOOD ORDERAB LES Final Result Performing Organization Address [facility] Co de Phone Number [facility] [address] [place] [phone] * Syphilis Screen (12/05/2024 8:59 AM EDT) [facility] Syphilis Screen Nonreactive Nonreactive [facility] Blood 12/05/2024 8:59 AM EDT 12/05/2024 11:09 AM EDT Deedee Arnold MD LAB BLOOD ORDERAB LES Final Result Performing Organization Address [facility] Co de Phone Number [facility] [address] [place] [phone] * Aldosterone/Plasma Renin Activity Ratio, LC/MS/MS (12/05/2024 8:59 AM EDT) [facility] Aldosterone 2 see note ng/dL [facility] Comment:Unable to flag abnor mal result(s), please refer to reference range(s) below:Adult Reference Ranges for Aldosterone, LC/MS/MS: Upright 8:00 - 10:00 am < or = 28 ng/dL Upright 4:00 - 6:00 pm < or = 21 ng/dL Supine 8:00 - 10:00 am 3 - 16 ng/dLTHIS TEST WAS PERFORMED AT:[employer] [id number] [place] [phone] BRENNAN MD,PHD Plasma Renin Activity 0.37 0.25 - 5.82 ng/mL/h [facility] Aldosterone/Renin Ratio 5.4 0.9 - 28.9 Ratio [facility] Comment:This test was develo ped and its analytical performancecharacteristics have been determined by [employer] [place], [place]. It hasnot been cleared or approved by the U.S. Food and DrugAdministration. This assay has been validated pursuantto the CLIA regulations and is used for clinicalpurposes.THIS TEST WAS PERFORMED AT:[employer] [id number] [place], [place] [id number] BRENNAN MD,PHD Blood Venous blood specimen / Unknown 12/05/2024 8:59 AM EDT 12/05/2024 11:09 AM EDT us Deedee Arnold MD LAB BLOOD ORDERAB LES Final Result [facility] [address] [place] [phone] * Hepatitis C Antibody with Reflex to HCV, RNA, Quantitative, Real-Time PCR (12/05/2024 8:59 AM EDT) Hepatitis C Antibody Nonreactive Nonreactive [facility] Comment:Antibodies to HCV no t detected; does not exclude early acuteHCV infection. Blood Venous blood specimen / Unknown 12/05/2024 8:59 AM EDT 12/05/2024 11:09 AM EDT us Deedee Arnold MD LAB BLOOD ORDERAB LES Final Result Performing Organization Address City/[facility]/ZIP Co de Phone Number [facility] [address] [place] [phone] * Hepatitis B surface antigen, EIA (12/05/2024 8:59 AM EDT) Hepatitis B Surface Ag Negative Negative [facility] Blood Venous blood specimen / Unknown 12/05/2024 8:59 AM EDT 12/05/2024 11:09 AM EDT Deedee Arnold MD LAB BLOOD ORDERAB LES Final Result Performing Organization Address [facility] de Phone Number [facility] [address] [place] [phone] * HIV-1/2 Antigen and Antibodies, Fourth Generation, with Reflexes (12/05/2024 8:59 AM EDT) Pathologist [facility] HIV AB/AG Nonreactive Nonreactive [facility] Comment:HIV-1 p24 Ag and/or HIV-1/HIV-2 Ab not detected.A test result that is nonreactive does not exclude thepossibility of exposure to or infection with HIV-1 and/orHIV-2. Nonreactive results in this assay for individualswith prior exposure to HIV-1 and/or HIV-2 may be due toantigen and antibody levels that are below the limit ofdetection of this assay.The Scaled AgileniAdvasense HIV Ag/Ab Combo assay result andsupplemental assay results should be interpreted inconjunction with the patient's clinical presentation,history and other laboratory results. If the results areinconsistent with clinical evidence, additional testing issuggested to confirm the result. Blood Venous blood specimen / Unknown 12/05/2024 8:59 AM EDT 12/05/2024 11:09 AM EDT Deedee Arnold MD LAB BLOOD ORDERAB LES Final Result Performing Organization Address City/[facility] Co de Phone Number [facility] [address] [place] [phone] * (ABNORMAL) CBC (12/05/2024 8:59 AM EDT) Pathologist [facility] White Blood Count 8.7 4.8 - 10.8 X10*3/uL [facility] Red Blood Count 4.53 4.20 - 5.50 X10*6/uL [facility] Hemoglobin 13.3 12.0 - 16.0 g/dl [facility] Hematocrit 37.5 37.0 - 47.0 % [facility] Mean Corpuscular Volume 82.8 80.0 - 98.0 fL [facility] Mean Corpuscular Hemoglobin 29.4 27.0 - 33.0 pg [facility] Mean Corpuscular HGB Conc 35.5(H) 31.0 - 35.0 g/dl [facility] Red Cell Distribution Width 14.1 11.0 - 16.0 % [facility] Platelet Count 270 160 - 400 X10*3/uL [facility] Mean Platelet Volume 11.5 9.4 - 12.3 fL [facility] NRBC Pct Auto 0.0 0.0 - 0.2 /100WBC [facility] NRBC Abs Auto 0.000 0.0 - 0.012 X10*3/uL [facility] Blood Venous blood specimen / Unknown 12/05/2024 8:59 AM EDT 12/05/2024 11:09 AM EDT us Deedee Arnold MD LAB BLOOD ORDERAB LES Final Result [facility] [address] [place] [phone] * T4, Free (12/05/2024 8:59 AM EDT) Free T4 (Free Thyroxine) 1.04 0.71 - 1.85 ng/dL [facility] 12/05/2024 8:59 AM EDT 12/05/2024 11:09 AM EDT Deedee Arnold MD LAB BLOOD ORDERAB LES Final Result Performing Organization Address [facility] Co de Phone Number [facility] [address] [place] [phone] * Magnesium (12/05/2024 8:59 AM EDT) Magnesium 2.0 1.6 - 2.6 mg/dL [facility] Blood Venous blood specimen / Unknown 12/05/2024 8:59 AM EDT 12/05/2024 11:09 AM EDT Deedee Arnold MD LAB BLOOD ORDERAB LES Final Result Performing Organization Address [facility] de Phone Number [facility] [address] [place] [phone] * Hemoglobin A1c (12/05/2024 8:59 AM EDT) Hemoglobin A1c 5.0 <6.0 % [facility] Comment:Hemoglobin A1C Refer ence Range Adults: 4.8 - 6.0 % Non diabetic: < 6.0 % Goal: < 7.0 %Additional Action Suggested: > 8.0 %Note: Hemoglobin A1c results are invalid for patients with abnormal amounts of HbF. Blood transfusions may impact the HbA1c concentration in the patient sample. Estimated Average Glucose 97 mg/dL [facility] Comment:eAG = Estimated ave rage glucose which is %A1C expressed asaverage glucose, using the formula of the I0O-EzfaabrDiggvjh Glucose study (ADAG), Diabetes Care, Vol.31,#8,2007 Blood Venous blood specimen / Unknown 12/05/2024 8:59 AM EDT 12/05/2024 11:09 AM EDT Deedee Arnold MD LAB BLOOD ORDERAB LES Final Result [facility] [address] [place] [phone] * (ABNORMAL) Comprehensive Metabolic Panel (12/05/2024 8:59 AM EDT) Only the most recent of2 resultswithin the time period is included. Sodium 141 135 - 145 mmol/L [facility] Potassium 3.6 3.3 - 5.1 mmol/L [facility] Chloride 112(H) 96 - 108 mmol/L [facility] Carbon Dioxide 24 22 - 29 mmol/L [facility] Anion Gap 9(L) 12 - 20 [facility] Urea Nitrogen (BUN) 5(L) 9 - 16 mg/dL [facility] Creatinine, Serum 0.68 0.5 - 1.4 mg/dL [facility] Estimated Glomerular Filt Rate >60 [facility] Comment:Chronic Kidney Disea se: Estimated GFR < 60 mL/min/1.74p9Qiuqce Kidney Disease: Estimated GFR < 15 mL/min/1.73m2 Glucose 86 60 - 115 mg/dL [facility] Calcium 8.9 8.4 - 10.2 mg/dL [facility] Bilirubin, Total 0.3 0.0 - 1.0 mg/dL [facility] Aspartate Amino Transferase 24 5 - 31 U/L [facility] Alanine Aminotransferase 15 0 - 31 U/L [facility] Total Protein 6.2(L) 6.5 - 8.0 g/dL [facility] Albumin Level 4.0 3.5 - 5.0 g/dL [facility] Alkaline Phosphatase 65 39 - 117 U/L [facility] Blood Venous blood specimen / Unknown 12/05/2024 8:59 AM EDT 12/05/2024 11:09 AM EDT us Deedee Arnold MD LAB BLOOD ORDERAB LES Final Result [facility] [address] [place] [phone] * CT Abdomen Pelvis w/ Contrast (12/03/2024 4:02 PM EDT) Anatomical Region Laterality Modality Body, Pelvis, Abdomen Computed T omography 12/03/2024 4:02 PM EDT Narrative 12/03/2024 4:51 PM EDT [address] [address] [address] Scan Report Signed Patient: Evonne Ladd MR#: [id number] [birth year] : 2000 Acct:[id number] Age/Sex: 24 / F ADM Date: 12/03/24 Loc: HO.ED Attending Dr: Ordering Physician: Maria Eugenia Griffith NP Date of Service: 12/03/24 Procedure(s): CT abdomen pelvis w IV con Accession Number(s): [id number] cc: DAYTON HARRIS REFRIGERATING ENGINEER HEAD; Maria Eugenia Griffith NP Report Number: [id number]: Total DLP = 551.00 mGy-cm EXAMINATION: CT ABDOMEN AND PELVIS WITH CONTRAST CLINICAL INFORMATION: Left upper quadrant pain, emesis, constipation DLP: 551 mGY*cm COMPARISON: None available. TECHNIQUE: Multidetector volumetric images were obtained from the superior aspect of the liver through the pubic symphysis following administration 85 mL of Omnipaque 350 intravenous contrast. Sagittal and coronal reformatted images were obtained on the technologist's workstation. Oral contrast: No This CT examination was performed using dose optimization techniques as appropriate, variously including the following: *Automated exposure control *Adjustment of mA and/or kV according to patient size (this includes techniques or standardized protocols for targeted exams where dose is matched to indication/reason for exam; i.e. extremities or head) *Use of iterative reconstruction technique FINDINGS: LUNG BASES: The visualized lung bases are unremarkable. LIVER, GALLBLADDER, AND BILIARY TREE: The liver is normal in size, shape, and attenuation. No focal hepatic lesion or biliary ductal dilatation is present. The gallbladder is unremarkable with no evidence of radiopaque gallstones, gallbladder wall thickening, or obvious pericholecystic inflammatory changes. PANCREAS: Unremarkable. SPLEEN: Unremarkable. ADRENAL GLANDS: There is a 4 x 8 mm left gland nodule that is too small to characterize. Right adrenal gland is unremarkable. KIDNEYS AND URETERS: The kidneys are normal in size, shape, and attenuation. No hydronephrosis, hydroureter, or calculi seen. No perinephric stranding. BLADDER: Unremarkable. GASTROINTESTINAL TRACT: The small and large bowel are unremarkable. The appendix is unremarkable. ABDOMINAL WALL: No significant hernia is appreciated. LYMPH NODES: Normal. VASCULAR: Unremarkable. PELVIC VISCERA: Simple right ovarian cyst measures 3.1 cm long axis and it requires no further follow-up. Left ovary is unremarkable. Uterus is unremarkable OSSEOUS STRUCTURES: Unremarkable. CT/CT abdomen pelvis w IV con IMPRESSION: Essentially unremarkable examination. There is an indeterminate small left adrenal nodule, likely an adenoma, measuring 4 x 8 mm. Given the small size and if there is no prior history of malignancy, it is probably benign, consider 12 month follow-up adrenal CT. If there is a history of malignancy, consider short interval follow-up CT adrenal within 3 months Fleischner guidelines were followed. Electronically signed by: Richi Mo MD 12/03/2024 04:48 PM EDT Dictated By: Richi Mo MD Signed By: <Electronically signed by Richi Mo MD in OV> 12/03/24 1648 DD/ 1602 TD/TT: 12/03/24 1636 Mail Officer: Procedure Note Donotuseinterpreter, Image - 12/03/[address] [address] [address] Scan Report Signed Patient: Young Ladd#: [id number] [birth year] : 2000Acct:[id number] Age/Sex: 24 / FADM Date: 12/03/24 Loc: .ED Attending Dr: Ordering Physician: Maria Eugenia Griffith NP Date of Service: 12/03/24 Procedure(s): CT abdomen pelvis w IV con Accession Number(s): [id number] cc: DAYTON HARRIS REFRIGERATING ENGINEER HEAD; Maria Eugenia Griffith NP Report Number: [id number]: Total DLP = 551.00 mGy-cm EXAMINATION: CT ABDOMEN AND PELVIS WITH CONTRAST CLINICAL INFORMATION: Left upper quadrant pain, emesis, constipation DLP: 551 mGY*cm COMPARISON: None available. TECHNIQUE: Multidetector volumetric images were obtained from the superior aspect of the liver through the pubic symphysis following administration 85 mL of Omnipaque 350 intravenous contrast. Sagittal and coronal reformatted images were obtained on the technologist's workstation. Oral contrast: No This CT examination was performed using dose optimization techniques as appropriate, variously including the following: *Automated exposure control *Adjustment of mA and/or kV according to patient size (this includes techniques or standardized protocols for targeted exams where dose is matched to indication/reason for exam; i.e. extremities or head) *Use of iterative reconstruction technique FINDINGS: LUNG BASES: The visualized lung bases are unremarkable. LIVER, GALLBLADDER, AND BILIARY TREE: The liver is normal in size, shape, and attenuation. No focal hepatic lesion or biliary ductal dilatation is present. The gallbladder is unremarkable with no evidence of radiopaque gallstones, gallbladder wall thickening, or obvious pericholecystic inflammatory changes. PANCREAS: Unremarkable. SPLEEN: Unremarkable. ADRENAL GLANDS: There is a 4 x 8 mm left gland nodule that is too small to characterize. Right adrenal gland is unremarkable. KIDNEYS AND URETERS: The kidneys are normal in size, shape, and attenuation. No hydronephrosis, hydroureter, or calculi seen. No perinephric stranding. BLADDER: Unremarkable. GASTROINTESTINAL TRACT: The small and large bowel are unremarkable. The appendix is unremarkable. ABDOMINAL WALL: No significant hernia is appreciated. LYMPH NODES: Normal. VASCULAR: Unremarkable. PELVIC VISCERA: Simple right ovarian cyst measures 3.1 cm long axis and it requires no further follow-up. Left ovary is unremarkable. Uterus is unremarkable OSSEOUS STRUCTURES: Unremarkable. CT/CT abdomen pelvis w IV con IMPRESSION: Essentially unremarkable examination. There is an indeterminate small left adrenal nodule, likely an adenoma, measuring 4 x 8 mm. Given the small size and if there is no prior history of malignancy, it is probably benign, consider 12 month follow-up adrenal CT. If there is a history of malignancy, consider short interval follow-up CT adrenal within 3 months Fleischner guidelines were followed. Electronically signed by: Richi Mo MD 12/03/2024 04:48 PM EDT RP Dictated By: Richi Mo MD Signed By: <Electronically signed by Richi Mo MD in OV> 12/03/24 1648 DD/ 1602 TD/TT: 12/03/24 1636 Mail Officer: [facility] External Provider IMG CT PROCEDURES Final Result * Urinalysis w/reflex microscopic (12/03/2024 2:27 PM EDT) Color Urine Yellow [facility] Appearance Urine Clear [facility] PH 6.5 5.0 - 9.0 [facility] Glucose Urine UA Negative Negative mg/dL [facility] Urine Blood Negative Negative [facility] Specific [place] - Urine 1.015 1.005 - 1.025 [facility] Urine Protein Negative Neg-Trace mg/dL [facility] Urine Ketones Negative Negative mg/dL [facility] Nitrite Urine Negative Negative [facility] Leukocyte Esterase Urine Negative Negative [facility] 12/03/2024 2:27 PM EDT 12/03/2024 2:37 PM EDT Narrative [facility] - 12/03/2024 2:42 PM EDT [id number], Clean Catch Generic External Data Provider LAB URINE ORDERAB LES Final Result [facility] [address] [place] [phone] * (ABNORMAL) CBC auto differential (12/03/2024 2:13 PM EDT) White Blood Count 10.5 4.8 - 10.8 X10*3/uL [facility] Red Blood Count 4.95 4.20 - 5.50 X10*6/uL [facility] Hemoglobin 14.6 12.0 - 16.0 g/dl [facility] Hematocrit 40.1 37.0 - 47.0 % [facility] Mean Corpuscular Volume 81.0 80.0 - 98.0 fL [facility] Mean Corpuscular Hemoglobin 29.5 27.0 - 33.0 pg [facility] Mean Corpuscular HGB Conc 36.4(H) 31.0 - 35.0 g/dl [facility] Red Cell Distribution Width 13.5 11.0 - 16.0 % [facility] Platelet Count 282 160 - 400 X10*3/uL [facility] Mean Platelet Volume 11.0 9.4 - 12.3 fL [facility] Neutrophils Percent Auto 65.0 45 - 73 % [facility] Imm Gran Pct Auto 0.4 0.0 - 0.4 % [facility] Lymphocytes Percent Auto 25.9 20 - 40 % [facility] Monocytes Percent Auto 7.3 2 - 11 % [facility] Eosinophils Percent Auto 0.9 0 - 4 % [facility] Basophils Percent Auto 0.5 0 - 2 % [facility] NRBC Pct Auto 0.0 0.0 - 0.2 /100WBC [facility] Neutrophils Absolute Auto 6.8 2.0 - 8.3 x10*3/uL [facility] Imm Gran Abs Auto 0.04(H) 0.00 - 0.03 X10*3/uL [facility] Lymphocytes Absolute Auto 2.7 1.2 - 4.9 X10*3/uL [facility] Monocytes Absolute Auto 0.8 0.1 - 1.2 X10*3/uL [facility] Eosinophils Absolute Auto 0.1 0.0 - 0.4 X10*3/uL [facility] Basophils Absolute Auto 0.1 0.0 - 0.2 X10*3/uL [facility] NRBC Abs Auto 0.000 0.0 - 0.012 X10*3/uL [facility] 12/03/2024 2:13 PM EDT 12/03/2024 2:17 PM EDT us Generic External Data Provider LAB BLOOD ORDERAB LES Final Result Performing Organization Address City/[facility]/ZIP Co de Phone Number [facility] [address] [place] [phone] * hCG, Total, Quantitative (12/03/2024 2:13 PM EDT) HCG Quantitative <2 mIU/mL [facility] Comment:Weeks post LMP Appro ximate hCG(Last Menstrual Period) Range (mIU/ml)3 - 4 weeks 9 - 1304 - 5 weeks 75 - 2,6005 - 6 weeks 850 - 20,8006 - 7 weeks 4000 - 100,2007 - 12 weeks 11,500 - 289,02849 - 16 weeks 18,300 - 137,10434 - 29 weeks (2nd trimester) 1,400 - 53,44870 - 41 weeks (3rd trimester) 940 - 60,000The Rodriguez B- hCG assay is used for the early detection ofpregnancy; it cannot be used to diagnose any conditionunrelated to . If a B-hCG level is not supportedby the clinical evidence, results should be confirmed by analternative method (qualitative urine hCG, for example). 12/03/2024 2:13 PM EDT 12/03/2024 2:17 PM EDT Generic External Data Provider LAB BLOOD ORDERAB LES Final Result Performing Organization Address [facility]/ZIP Co de Phone Number [facility] [address] [place] [phone] * Lipase (12/03/2024 2:13 PM EDT) Lipase 20 8 - 78 U/L [facility] 12/03/2024 2:13 PM EDT 12/03/2024 2:17 PM EDT Generic External Data Provider LAB BLOOD ORDERAB LES Final Result Performing Organization Address City/[facility]/ZIP Co de Phone Number [facility] [address] [place] [phone] * XR KUB and Upright 2 Views (12/03/2024 12:00 PM EDT) Anatomical Region Laterality Modality Radiographic Pauline ging 12/03/2024 12:0 0 PM EDT Narrative 12/03/2024 12:28 PM EDT [address] [address] XRay Report Signed Patient: Evonne Ladd MR#: [id number] [birth year] : 2000 Acct:[id number] Age/Sex: 24 / F ADM Date: 12/03/24 Loc: HO.ED Attending Dr: Ordering Physician: Generic ED Physician Date of Service: 12/03/24 Procedure(s): XR KUB Accession Number(s): [id number] cc: Generic ED Physician; DAYTON HARRIS NP EXAMINATION: XR ABDOMEN KUB CLINICAL INDICATION: ?constipation COMPARISON: None available. TECHNIQUE: AP view of the abdomen. FINDINGS: Gas throughout nondilated intestine. Questionable wall thickening in the splenic colonic flexure. No air-fluid levels. No gross pneumatosis intestinalis. No calcifications overlapping the kidney shadows. Osseous structures are intact. No metallic or radiopaque foreign body. XR/XR KUB IMPRESSION: No intestinal obstruction pattern. Colitis cannot be excluded.. Electronically signed by: Felton Roman MD 12/03/2024 12:26 PM EDT Dictated By: Felton Felix MD Signed By: <Electronically signed by Felton Clifford MD in OV> 12/03/24 1226 DD/ 1200 TD/TT: 12/03/24 1207 Mail Officer: Procedure Note Donotuseinterpreter, Image - 12/03/[address] [address] XRay Report Signed Patient: Shawn LaddR#: [id number] 29 : 2000Acct:[id number] Age/Sex: 24 / FADM Date: 12/03/24 Loc: HO.ED Attending Dr: Ordering Physician: Generic ED Physician Date of Service: 12/03/24 Procedure(s): XR KUB Accession Number(s): [id number] cc: Generic ED Physician; DAYTON HARRIS NP EXAMINATION: XR ABDOMEN KUB CLINICAL INDICATION: ?constipation COMPARISON: None available. TECHNIQUE: AP view of the abdomen. FINDINGS: Gas throughout nondilated intestine. Questionable wall thickening in the splenic colonic flexure. No air-fluid levels. No gross pneumatosis intestinalis. No calcifications overlapping the kidney shadows. Osseous structures are intact. No metallic or radiopaque foreign body. XR/XR KUB IMPRESSION: No intestinal obstruction pattern. Colitis cannot be excluded.. Electronically signed by: Felton Roman MD 12/03/2024 12:26 PM EDT RP Dictated By: Felton Felix MD Signed By: <Electronically signed by Felton Clifford MDin OV> 12/03/24 1226 DD/ 1200 TD/TT: 12/03/24 1207 Mail Officer: [facility] External Provider IMG XR PROCEDURES Final Result * Image-Guided Pap with Age-Based Screening??with CT/NG,??Trichomonas (01/31/2023 9:46 AM EDT) Trichomonas (NAAT) NOT DETECTED NOT DETECTED [facility] Comment:The analytical perfo rmance characteristics of thisassay have been determined by [employer]. Themodifications have not been cleared or approved bythe FDA. This assay has been validated pursuant to theCLIA regulations and is used for clinical purposes.For additional information, please refer tohttp://education.[employer]/faq/Trichomonastma(This link is being provided for information/educational purposes only.)THIS TEST WAS PERFORMED AT:[facility] [place] [phone] SANDOVAL MD CTNG Ref Lab NOT DETECTED NOT DETECTED [facility] NG Ref Lab NOT DETECTED NOT DETECTED [facility] 01/31/2023 9:46 AM EDT 02/01/2023 8:40 AM EDT Vero Lizbeth CNM LAB CYTOLOGY ORDERABLES F inal Result [facility] [address] [place] [phone] from Last 3 Months or Most Recently Relevant to Health Maintenance Insurance [facility] C3 Care Teams [place] Mason Relationship Specialty Start Date End Date Dayton Harris ANP [address] [place] [address] PCP - General Family Medicine 01/06/23 Regan Dallas, AIME [address] [place] [phone] Registered Nurse Family Medicine 12/03/24 Mable Kim 12/03/24
== END 2025-01-29 13:42 | disposition home or self-care (01) ==
LOC: HO.ENCR 12:52
PROVIDERS: PCP Nurse Practitioner Primary Care; Visit Provider Student in an Organized Health Care Education/Training Program
DX: E27.8 Other specified disorders of adrenal gland (principal); R79.89 Other specified abnormal findings of blood chemistry
CPT/HCPCS: 99204

== ENCOUNTER → 2025-01-29 12:52 | Outpatient (BNVA) | payer MEDICAID, SELFPAY | PROVIDERS: PCP Nurse Practitioner Primary Care; Visit Provider Student in an Organized Health Care Education/Training Program | DX: E27.8 Other specified disorders of adrenal gland (principal); R79.89 Other specified abnormal findings of blood chemistry; R42 Dizziness and giddiness; R11.2 Nausea with vomiting, unspecified; F17.210 Nicotine dependence, cigarettes, uncomplicated; K59.00 Constipation, unspecified | CPT/HCPCS: 99202 ==

== ENCOUNTER 2025-01-30 09:16 | Outpatient (REF) | payer MEDICAID, SELFPAY ==
[2025-01-30 10:24] LABS: Free T4 (Free Thyroxine) 0.96 ng/dL (0.71-1.85); Thyroid Stimulating Hormone 0.18 uIU/mL (0.32-4.0)
--- OUTSIDE RECORDS SUMMARY | 2025-01-30 11:01 | XMS_ITS ---
Author Organization [employer] Address [address] [place] [address] Care Team Providers Care Seasonal Delivery Driver Name Role Phone Marion Coates Primary Care Provider [phone] Regan Dallas RN Unavailable [phone] Mable Kim Unavailable CHW Complex Status:Outreach In Progress (Enrolling) Start date:12/03/2024 Enrollment reason:ADT Feed Overview ADT-[facility] ED 11/30/24 . Please outreach for enrollment. Case Team Name Relationship Phone Mable Kim(Responsible Staff) [phone] Continued Care and Services Coordination
--- OUTSIDE RECORDS SUMMARY | 2025-01-30 11:02 | XMS_ITS ---
Author Organization [employer] [facility] Address [address] [facility] [address] [place] [address] Care Team Providers Care Workforce Management Coordinator Name Role Phone Marion Coates Primary Care Provider [phone] Regan Dallas RN Unavailable [phone] Mable Kim Unavailable CM Complex Status:Outreach In Progress (Enrolling) Start date:12/03/2024 Enrollment reason:ADT Feed Overview ADT-[facility] ED 11/30/24 Case Team Name Relationship Phone Regan Dallas RN(Responsible Staff) Registered Nurse [phone] Continued Care and Services Coordination
--- OUTSIDE RECORDS SUMMARY | 2025-01-30 11:02 | XMS_ITS | Clinical Summary ---
Author Organization [employer] Address [address] [facility] [address] [place] [address] Care Team Providers Care Order Dispatcher Name Role Phone Dayton Harris KHADRA Primary Care Provider [phone] Regan Dallas RN Unavailable [phone] Mable Kim Unavailable Allergies No known [...] SI/HI thoughts. Currently sees a therapist from [facility] and has no psychiatry services. She used [...] exam vitiligo and reported episode of hypotension Yadkin's disease is in the differential except that [...] abnormal hormonal results will need referral to [employer] -Change position slowly -Explained to use albuterol [...] SI/HI thoughts. Currently sees a therapist from [facility] and has no psychiatry services. She used [...] OP therapy referral. She was provided with [facility] information and was highly encouraged to utilize service. At this time Evonne Ladd meets criteria for Visit Diagnoses: Problem List Items Addressed This Visit Other Severe episode of recurrent major depressive disorder, with psychotic features (CMS/HCC) Anxiety Suicidal ideation Cannabis use disorder Patient ready to address current needs Yes Strengths include motivation to seek help for BH needs PLAN: 1. Follow up with [facility] [place]: Not recommended for follow-up 2. Patient goal [...] Type Department Care Team Description 01/16/2025 Telephone [facility] [place] [address] Na Clifford RN Referral; Lab Orders 12/24/2024 Results Follow-Up [facility] [place] [address] Dayton Harris ANP Basic Metabolic Panel, TSH W/Reflex to FT4, Thyroid Peroxidase Antibodies 12/20/2024 11:30 AM EDT Office Visit [facility] [place] [address] Dayton Harris ANP Hypokalemia (Primary Dx); Abnormal TSH; Palpitations; Heat intolerance; Severe episode of recurrent major depressive disorder, with psychotic features (CMS/HCC); Irregular menses; Urinary symptom or sign; Nausea and vomiting, unspecified vomiting type; Vitiligo 12/20/2024 Telephone [facility] [place] [address] Dayton Harris ANP 12/20/2024 Telephone [facility] [place] [address] Dayton Harris ANP 12/20/2024 Travel 12/19/2024 Telephone [facility] [place] [address] Dayton Harris ANP chart prep 12/18/2024 Telephone [facility] [place] [address] Dayton Harris ANP Insurance 12/10/2024 Patient Outreach [facility] [place] [address] Dayton Harris ANP 12/07/2024 Patient Outreach [facility] [place] [address] Dayton Harris ANP Care Coordination (CM/CHW outreach) 12/05/2024 Results Follow-Up [facility] [place] [address] Deedee Batres MD Cortisol Random, Comprehensive Metabolic Panel, Magnesium, Additional followed-up results: 8 12/05/2024 Orders Only [facility] [place] [address] Deedee Batres MD 12/04/2024 10:00 AM EDT Office Visit [address] [address] Deedee Batres MD Hypokalemia (Primary Dx); Wheezing; Chronic gastritis without bleeding, unspecified gastritis type; BERNA (generalized anxiety disorder); Severe episode of recurrent major depressive disorder, with psychotic features (CMS/HCC); Nausea and vomiting, unspecified vomiting type; Weight loss; Vitiligo 12/04/2024 Patient Outreach [address] [address] Dayton Harris ANP 12/04/[address] [address] Dayton Harris ANP ER Follow-up 12/04/2024 Patient Outreach [address] [address] Dayton Harris ANP Care Coordination (CM/CHW outreach) 12/04/2024 Travel 12/03/[address] [address] Deedee Batres MD chart prep 12/03/2024 Orders Only [facility] External Provider, [facility] 12/03/2024 Patient Outreach [address] [address] Dayton Harris ANP Care Coordination (Chw chart review) 12/03/[address] [address] Dayton Harris ANP Nurse Triage 12/03/2024 Patient Outreach [address] [address] Dayton Harris ANP Care Management (C3CM- chart review) 12/03/2024 Patient Outreach [address] [address] Dayton Harris ANP 11/05/2024 Telephone [facility] [address] [place] [address] Dayton Harris ANP ER Follow-up from Last [...] Upcoming Encounters Date Type Department Care Team ([facility] st Contact Info) Description 02/28/2025 1:30 PM EDT Office Visit [facility] [address], [place] [phone] Dayton Harris ANP [address] [place] [address] Health Maintenance Due Date Last Done Comments [...] CT PCR, Urine NOT DETECTED Not Detect. [facility] Comment:A not detected test result does [...] NG PCR, Urine NOT DETECTED Not Detect. [facility] Comment:A not detected test result does [...] 9:27 AM EDT 12/24/2024 11:22 AM EDT [facility] LAB URINE ORDERABLES Final Resul t [facility] [address] [place] [phone] * Urinalysis, Complete, with Reflex to Culture (12/24/2024 9:27 AM EDT) Color Urine Yellow [facility] Appearance Urine Clear [facility] PH 8.0 5.0 - 9.0 [facility] Glucose Urine UA Negative Negative mg/dL [facility] Urine Blood Negative Negative [facility] Specific Omar - Urine 1.020 1.005 - 1.025 [facility] Urine Protein Negative Neg-Trace mg/dL [facility] Urine Ketones Trace Negative mg/dL [facility] Nitrite Urine Negative Negative [facility] Leukocyte Esterase Urine Negative Negative [facility] RBC Urine 0-2 0 - 2 /HPF [facility] Urine WBC 0-5 0 - 5 /HPF [facility] Urine Squamous Epithelial Cell 3-5 0 - 2 /HPF [facility] Urine Bacteria None Seen None Seen [facility] Hyaline Casts, Urine 0-2 0 - 2 /LPF [facility] Urine 12/24/2024 9:27 AM EDT 12/24/2024 11:22 AM EDT Narrative [facility] - 12/24/2024 11:46 AM EDT Urine, Clean Catch Dayton Harris ANP LAB URINE ORDERABLES Final Resul t Performing Organization Address [facility]/ZIP Co de Phone Number [facility] [address] [place] [address] [phone] * TSH W/Reflex to FT4 (12/24/2024 9:27 AM EDT) Only the most recent of2 resultswithin the time period is included. TSH reflex Free T4 0.35 0.32 - 4.0 uIU/mL [facility] Blood Venous blood specimen / Unknown 12/24/2024 9:27 AM EDT 12/24/2024 11:16 AM EDT Dayton Harris ANP LAB BLOOD ORDERABLES Final Resul t Performing Organization Address City/[facility]/ZIP Co de Phone Number [facility] [address] [place] [address] [phone] * Thyroid Peroxidase Antibodies (12/24/2024 9:27 AM EDT) Thyroid Peroxidase Antibodies <1 <9 IU/mL [facility] Comment:THIS TEST WAS PERFOR MED AT:[address] [place] [phone] SANDOVAL MD Blood Venous blood specimen / Unknown 12/24/2024 9:27 AM EDT 12/24/2024 11:16 AM EDT Dayton Harris ANP LAB BLOOD ORDERABLES Final Resul t [facility] [address] [place] [phone] * (ABNORMAL) Basic Metabolic Panel (12/24/2024 9:27 AM EDT) Only the most recent of2 resultswithin the time period is included. Pathologist [facility] Sodium 144 135 - 145 mmol/L [facility] Potassium 4.1 3.3 - 5.1 mmol/L [facility] Chloride 111(H) 96 - 108 mmol/L [facility] Carbon Dioxide 28 22 - 29 mmol/L [facility] Anion Gap 9(L) 12 - 20 [facility] Urea Nitrogen (BUN) 9 9 - 16 mg/dL [facility] Creatinine, Serum 0.78 0.5 - 1.4 mg/dL [facility] Estimated Glomerular Filt Rate >60 [facility] Comment:Chronic Kidney Disea se: Estimated GFR < 60 mL/min/1.09o5Hezxhd Kidney Disease: Estimated GFR < 15 mL/min/1.73m2 Glucose 66 60 - 115 mg/dL [facility] Calcium 9.1 8.4 - 10.2 mg/dL [facility] Blood Venous blood specimen / Unknown 12/24/2024 9:27 AM EDT 12/24/2024 11:16 AM EDT Dayton Harris ANP LAB BLOOD ORDERABLES Final Resul t Performing Organization Address [facility] Co de Phone Number [facility] [address] [place] [phone] * Cortisol Random (12/05/2024 8:59 AM EDT) [facility] Cortisol Random 7.0 ug/dL [facility] Comment:Reference Range*: Be fore 10 am 6.2-19.4 ug/dL After 5 pm 2.3-11.9 ug/dL*Please interpret above results accordingly.This test was performed using the [employer] chemiluminescentmethod. Values obtained from different assay methods cannotbe used interchangeably.Patients receiving fludrocortisone, prednisolone orprednisone may show artificially elevated cortisol valuesdue to cross-reactivity. 12/05/2024 8:59 AM EDT 12/05/2024 11:14 AM EDT Deedee Arnold MD LAB BLOOD ORDERAB LES Final Result Performing Organization Address [facility] Co de Phone Number [facility] [address] [place] [phone] * Syphilis Screen (12/05/2024 8:59 AM EDT) [facility] Syphilis Screen Nonreactive Nonreactive [facility] Blood 12/05/2024 8:59 AM EDT 12/05/2024 11:09 AM EDT Deedee Arnold MD LAB BLOOD ORDERAB LES Final Result Performing Organization Address [facility] Co de Phone Number [facility] [address] [place] [phone] * Aldosterone/Plasma Renin Activity Ratio, LC/MS/MS (12/05/2024 8:59 AM EDT) [facility] Aldosterone 2 see note ng/dL [facility] Comment:Unable to flag abnor mal result(s), please refer to reference range(s) below:Adult Reference Ranges for Aldosterone, LC/MS/MS: Upright 8:00 - 10:00 am < or = 28 ng/dL Upright 4:00 - 6:00 pm < or = 21 ng/dL Supine 8:00 - 10:00 am 3 - 16 ng/dLTHIS TEST WAS PERFORMED AT:[employer] [id number] [place] [id number] BRENNAN MD,PHD Plasma Renin Activity 0.37 0.25 - 5.82 ng/mL/h [facility] Aldosterone/Renin Ratio 5.4 0.9 - 28.9 Ratio [facility] Comment:This test was develo ped and its analytical performancecharacteristics have been determined by [employer] [place], [place]. It hasnot been cleared or approved by the U.S. Food and DrugAdministration. This assay has been validated pursuantto the CLIA regulations and is used for clinicalpurposes.THIS TEST WAS PERFORMED AT:[employer] [id number] [place] [address]RAHOUSMYEMI BRENNAN MD,PHD Blood Venous blood specimen / Unknown 12/05/2024 8:59 AM EDT 12/05/2024 11:09 AM EDT us Deedee Arnold MD LAB BLOOD ORDERAB LES Final Result [facility] [address] [place] [phone] * Hepatitis C Antibody with Reflex to HCV, RNA, Quantitative, Real-Time PCR (12/05/2024 8:59 AM EDT) Hepatitis C Antibody Nonreactive Nonreactive [facility] Comment:Antibodies to HCV no t detected; does not exclude early acuteHCV infection. Blood Venous blood specimen / Unknown 12/05/2024 8:59 AM EDT 12/05/2024 11:09 AM EDT us Deedee Arnold MD LAB BLOOD ORDERAB LES Final Result Performing Organization Address City/[facility]/ZIP Co de Phone Number [facility] [address] [place] [phone] * Hepatitis B surface antigen, EIA (12/05/2024 8:59 AM EDT) Hepatitis B Surface Ag Negative Negative [facility] Blood Venous blood specimen / Unknown 12/05/2024 8:59 AM EDT 12/05/2024 11:09 AM EDT Deedee Arnold MD LAB BLOOD ORDERAB LES Final Result Performing Organization Address [facility] de Phone Number [facility] [address] [place] [phone] * HIV-1/2 Antigen and Antibodies, Fourth Generation, with Reflexes (12/05/2024 8:59 AM EDT) Pathologist [facility] HIV AB/AG Nonreactive Nonreactive [facility] Comment:HIV-1 p24 Ag and/or HIV-1/HIV-2 Ab not detected.A test result that is nonreactive does not exclude thepossibility of exposure to or infection with HIV-1 and/orHIV-2. Nonreactive results in this assay for individualswith prior exposure to HIV-1 and/or HIV-2 may be due toantigen and antibody levels that are below the limit ofdetection of this assay.The [employer] It - Smartphone RFID HIV Ag/Ab Combo assay result andsupplemental assay results should be interpreted inconjunction with the patient's clinical presentation,history and other laboratory results. If the results areinconsistent with clinical evidence, additional testing issuggested to confirm the result. Blood Venous blood specimen / Unknown 12/05/2024 8:59 AM EDT 12/05/2024 11:09 AM EDT Deedee Arnold MD LAB BLOOD ORDERAB LES Final Result Performing Organization Address City/[facility] Co de Phone Number [facility] [address] [place] [phone] * (ABNORMAL) CBC (12/05/2024 8:59 AM EDT) Pathologist [facility] White Blood Count 8.7 4.8 - 10.8 X10*3/uL [facility] Red Blood Count 4.53 4.20 - 5.50 X10*6/uL [facility] Hemoglobin 13.3 12.0 - 16.0 g/dl [facility] Hematocrit 37.5 37.0 - 47.0 % [facility] Mean Corpuscular Volume 82.8 80.0 - 98.0 fL [facility] Mean Corpuscular Hemoglobin 29.4 27.0 - 33.0 pg [facility] Mean Corpuscular HGB Conc 35.5(H) 31.0 - 35.0 g/dl [facility] Red Cell Distribution Width 14.1 11.0 - 16.0 % [facility] Platelet Count 270 160 - 400 X10*3/uL [facility] Mean Platelet Volume 11.5 9.4 - 12.3 fL [facility] NRBC Pct Auto 0.0 0.0 - 0.2 /100WBC [facility] NRBC Abs Auto 0.000 0.0 - 0.012 X10*3/uL [facility] Blood Venous blood specimen / Unknown 12/05/2024 8:59 AM EDT 12/05/2024 11:09 AM EDT us Deedee Arnold MD LAB BLOOD ORDERAB LES Final Result [facility] [address] [place] [phone] * T4, Free (12/05/2024 8:59 AM EDT) Free T4 (Free Thyroxine) 1.04 0.71 - 1.85 ng/dL [facility] 12/05/2024 8:59 AM EDT 12/05/2024 11:09 AM EDT Deedee Arnold MD LAB BLOOD ORDERAB LES Final Result Performing Organization Address [facility] Co de Phone Number [facility] [address] [place] [phone] * Magnesium (12/05/2024 8:59 AM EDT) Magnesium 2.0 1.6 - 2.6 mg/dL [facility] Blood Venous blood specimen / Unknown 12/05/2024 8:59 AM EDT 12/05/2024 11:09 AM EDT Deedee Arnold MD LAB BLOOD ORDERAB LES Final Result Performing Organization Address [facility] de Phone Number [facility] [address] [place] [phone] * Hemoglobin A1c (12/05/2024 8:59 AM EDT) Hemoglobin A1c 5.0 <6.0 % [facility] Comment:Hemoglobin A1C Refer ence Range Adults: 4.8 - 6.0 % Non diabetic: < 6.0 % Goal: < 7.0 %Additional Action Suggested: > 8.0 %Note: Hemoglobin A1c results are invalid for patients with abnormal amounts of HbF. Blood transfusions may impact the HbA1c concentration in the patient sample. Estimated Average Glucose 97 mg/dL [facility] Comment:eAG = Estimated ave rage glucose which is %A1C expressed asaverage glucose, using the formula of the Q0B-TazxhcaJteasec Glucose study (ADAG), Diabetes Care, Vol.31,#8,2007 Blood Venous blood specimen / Unknown 12/05/2024 8:59 AM EDT 12/05/2024 11:09 AM EDT Deedee Arnold MD LAB BLOOD ORDERAB LES Final Result [facility] [address] [place] [phone] * (ABNORMAL) Comprehensive Metabolic Panel (12/05/2024 8:59 AM EDT) Only the most recent of2 resultswithin the time period is included. Sodium 141 135 - 145 mmol/L [facility] Potassium 3.6 3.3 - 5.1 mmol/L [facility] Chloride 112(H) 96 - 108 mmol/L [facility] Carbon Dioxide 24 22 - 29 mmol/L [facility] Anion Gap 9(L) 12 - 20 [facility] Urea Nitrogen (BUN) 5(L) 9 - 16 mg/dL [facility] Creatinine, Serum 0.68 0.5 - 1.4 mg/dL [facility] Estimated Glomerular Filt Rate >60 [facility] Comment:Chronic Kidney Disea se: Estimated GFR < 60 mL/min/1.44c1Ieoopa Kidney Disease: Estimated GFR < 15 mL/min/1.73m2 Glucose 86 60 - 115 mg/dL [facility] Calcium 8.9 8.4 - 10.2 mg/dL [facility] Bilirubin, Total 0.3 0.0 - 1.0 mg/dL [facility] Aspartate Amino Transferase 24 5 - 31 U/L [facility] Alanine Aminotransferase 15 0 - 31 U/L [facility] Total Protein 6.2(L) 6.5 - 8.0 g/dL [facility] Albumin Level 4.0 3.5 - 5.0 g/dL [facility] Alkaline Phosphatase 65 39 - 117 U/L [facility] Blood Venous blood specimen / Unknown 12/05/2024 8:59 AM EDT 12/05/2024 11:09 AM EDT us Deedee Arnold MD LAB BLOOD ORDERAB LES Final Result [facility] [address] [place] [phone] * CT Abdomen Pelvis w/ Contrast (12/03/2024 4:02 PM EDT) Anatomical Region Laterality Modality Body, Pelvis, Abdomen Computed T omography 12/03/2024 4:02 PM EDT Narrative 12/03/2024 4:51 PM EDT [address] [address] [address] Scan Report Signed Patient: Evonne Ladd MR#: [id number] 29 : 2000 Acct:[id number] Age/Sex: 24 / F ADM Date: 12/03/24 Loc: HO.ED Attending Dr: Ordering Physician: Maria Eugenia Griffith NP Date of Service: 12/03/24 Procedure(s): CT abdomen pelvis w IV con Accession Number(s): [id number] cc: DAYTON HARRIS GEAR MACHINE OPERATOR GENERAL; Maria Eugenia Griffith NP Report Number: [id number]: Total DLP = 551.00 mGy-cm EXAMINATION: CT [...] 12/03/24 1648 DD/ 1602 TD/TT: 12/03/24 1636 Freight Associate: Procedure Note Donotuseinterpreter, Image - 12/03/[address] [address] [address] Scan Report Signed Patient: Young Ladd#: [id number] [birth year] : 2000Acct:[id number] Age/Sex: 24 / FADM Date: 12/03/24 Loc: .ED Attending Dr: Ordering Physician: Maria Eugenia Griffith NP Date of Service: 12/03/24 Procedure(s): CT abdomen pelvis w IV con Accession Number(s): [id number] cc: DAYTON HARRIS GEAR MACHINE OPERATOR GENERAL; Maria Eugenia Griffith NP Report Number: [id number]: Total DLP = 551.00 mGy-cm EXAMINATION: CT [...] 12/03/24 1648 DD/ 1602 TD/TT: 12/03/24 1636 Freight Associate: [facility] External Provider IMG CT PROCEDURES Final Result * Urinalysis w/reflex microscopic (12/03/2024 2:27 PM EDT) Color Urine Yellow [facility] Appearance Urine Clear [facility] PH 6.5 5.0 - 9.0 [facility] Glucose Urine UA Negative Negative mg/dL [facility] Urine Blood Negative Negative [facility] Specific Omar - Urine 1.015 1.005 - 1.025 [facility] Urine Protein Negative Neg-Trace mg/dL [facility] Urine Ketones Negative Negative mg/dL [facility] Nitrite Urine Negative Negative [facility] Leukocyte Esterase Urine Negative Negative [facility] 12/03/2024 2:27 PM EDT 12/03/2024 2:37 PM EDT Narrative [facility] - 12/03/2024 2:42 PM EDT [id number], Clean Catch Generic External Data Provider LAB URINE ORDERAB LES Final Result [facility] [address] [place] [phone] * (ABNORMAL) CBC auto differential (12/03/2024 2:13 PM EDT) White Blood Count 10.5 4.8 - 10.8 X10*3/uL [facility] Red Blood Count 4.95 4.20 - 5.50 X10*6/uL [facility] Hemoglobin 14.6 12.0 - 16.0 g/dl [facility] Hematocrit 40.1 37.0 - 47.0 % [facility] Mean Corpuscular Volume 81.0 80.0 - 98.0 fL [facility] Mean Corpuscular Hemoglobin 29.5 27.0 - 33.0 pg [facility] Mean Corpuscular HGB Conc 36.4(H) 31.0 - 35.0 g/dl [facility] Red Cell Distribution Width 13.5 11.0 - 16.0 % [facility] Platelet Count 282 160 - 400 X10*3/uL [facility] Mean Platelet Volume 11.0 9.4 - 12.3 fL [facility] Neutrophils Percent Auto 65.0 45 - 73 % [facility] Imm Gran Pct Auto 0.4 0.0 - 0.4 % [facility] Lymphocytes Percent Auto 25.9 20 - 40 % [facility] Monocytes Percent Auto 7.3 2 - 11 % [facility] Eosinophils Percent Auto 0.9 0 - 4 % [facility] Basophils Percent Auto 0.5 0 - 2 % [facility] NRBC Pct Auto 0.0 0.0 - 0.2 /100WBC [facility] Neutrophils Absolute Auto 6.8 2.0 - 8.3 x10*3/uL [facility] Imm Gran Abs Auto 0.04(H) 0.00 - 0.03 X10*3/uL [facility] Lymphocytes Absolute Auto 2.7 1.2 - 4.9 X10*3/uL [facility] Monocytes Absolute Auto 0.8 0.1 - 1.2 X10*3/uL [facility] Eosinophils Absolute Auto 0.1 0.0 - 0.4 X10*3/uL [facility] Basophils Absolute Auto 0.1 0.0 - 0.2 X10*3/uL [facility] NRBC Abs Auto 0.000 0.0 - 0.012 X10*3/uL [facility] 12/03/2024 2:13 PM EDT 12/03/2024 2:17 PM EDT us Generic External Data Provider LAB BLOOD ORDERAB LES Final Result Performing Organization Address City/[facility]/ZIP Co de Phone Number [facility] [address] [place] [phone] * hCG, Total, Quantitative (12/03/2024 2:13 PM EDT) HCG Quantitative <2 mIU/mL [facility] Comment:Weeks post LMP Appro ximate hCG(Last Menstrual Period) Range (mIU/ml)3 - 4 weeks 9 - 1304 - 5 weeks 75 - 2,6005 - 6 weeks 850 - 20,8006 - 7 weeks 4000 - 100,2007 - 12 weeks 11,500 - 289,98227 - 16 weeks 18,300 - 137,84175 - 29 weeks (2nd trimester) 1,400 - 53,11586 - 41 weeks (3rd trimester) 940 - [...] ORDERAB LES Final Result Performing Organization Address [facility]/ZIP Co de Phone Number [facility] [address] [place] [phone] * Lipase (12/03/2024 2:13 PM EDT) Lipase 20 8 - 78 U/L [facility] 12/03/2024 2:13 PM EDT 12/03/2024 2:17 PM EDT Generic External Data Provider LAB BLOOD ORDERAB LES Final Result Performing Organization Address City/[facility]/ZIP Co de Phone Number [facility] [address] [place] [phone] * XR KUB and Upright 2 Views (12/03/2024 12:00 PM EDT) Anatomical Region Laterality Modality Radiographic Pauline ging 12/03/2024 12:0 0 PM EDT Narrative 12/03/2024 12:28 PM EDT [address] [address] XRay Report Signed Patient: Evonne Ladd MR#: [id number] 29 : 2000 Acct:[id number] Age/Sex: 24 / F ADM Date: 12/03/24 Loc: HO.ED Attending Dr: Ordering Physician: Generic ED Physician Date of Service: 12/03/24 Procedure(s): XR KUB Accession Number(s): [id number] cc: Generic ED Physician; DAYTON HARRIS NP [...] 12/03/24 1226 DD/ 1200 TD/TT: 12/03/24 1207 Freight Associate: Procedure Note Donotuseinterpreter, Image - 12/03/[address] [address] XRay Report Signed Patient: Shawn LaddR#: [id number] 28 : 2000Acct:[id number] Age/Sex: 24 / FADM Date: 12/03/24 Loc: HO.ED Attending Dr: Ordering Physician: Generic ED Physician Date of Service: 12/03/24 Procedure(s): XR KUB Accession Number(s): [id number] cc: Generic ED Physician; DAYTON HARRIS NP [...] 12/03/24 1226 DD/ 1200 TD/TT: 12/03/24 1207 Freight Associate: [facility] External Provider IMG XR PROCEDURES Final Result * Image-Guided Pap with Age-Based Screening??with CT/NG,??Trichomonas (01/31/2023 9:46 AM EDT) Trichomonas (NAAT) NOT DETECTED NOT DETECTED [facility] Comment:The analytical perfo rmance characteristics of thisassay have been determined by [email or web address]. Themodifications have not been cleared or approved bythe FDA. This assay has been validated pursuant to theCLIA regulations and is used for clinical purposes.For additional information, please refer tohttp://education.Helicomm/faq/Trichomonastma(This link is being provided for information/educational purposes only.)THIS TEST WAS PERFORMED AT:[facility] [place] [id number] SANDOVAL MD CTNG Ref Lab NOT DETECTED NOT DETECTED [facility] NG Ref Lab NOT DETECTED NOT DETECTED [facility] 01/31/2023 9:46 AM EDT 02/01/2023 8:40 AM EDT Vero Lizbeth CNM LAB CYTOLOGY ORDERABLES F inal Result [facility] [address] [place] [address] [phone] from Last 3 Months or Most Recently Relevant to Health Maintenance Insurance [facility] C3 Care Teams Order Dispatcher Relationship Specialty Start Date End Date Dayton Harris ANP [address] [place] [address] PCP - General Family Medicine 01/06/23 Regan Dallas, AIME [address] [place] [phone] Registered Nurse Family Medicine 12/03/24 Mable Kim 12/03/24
--- OUTSIDE RECORDS SUMMARY | 2025-01-30 11:02 | XMS_ITS | Encounter Summary ---
Author Organization [employer] Address [address] [facility] 7t [place] [address] Care Team Providers Care Publishing Editor Name Role Phone Marion Coates KHADRA Primary Care Provider [phone] Regan Dallas RN Unavailable [phone] Mable Kim Unavailable Encounter Details Date Type Department Care Team (Latest Contact Info) Description 12/05/2024 Results Follow-Up [facility] MEDICINE [address] [place] [address] [phone] Deedee Batres MD [address] [place] [address] Cortisol Random, Comprehensive Metabolic Panel, Magnesium, Additional [...] abnormalities may need to be referred to Food Production Machine Operator. Pt to f w her PCP Thanks [...] Description 02/28/2025 1:30 PM EDT Office Visit [facility] [address] [place] [address] Marion Coates ANP [address] [place], [place] [phone] documented as of this encounter Visit Diagnoses Not on filedocumented in this encounter Additional Health Concerns Assessment Noted Time PHQ-9 Depression Total Score: 27 025 10:13 AM EDT documented as of this encounter Care Teams Publishing Editor Relationship Specialty Start Date End Date Marion Coates ANP [address] [place] [address] PCP - General Family Medicine 01/06/23 Regan Dallas, AIME [address] [place] [phone] Registered Nurse Family Medicine 12/03/24 Mable Kim 12/03/24 documented as of this encounter
--- OUTSIDE RECORDS SUMMARY | 2025-01-30 11:02 | XMS_ITS | Clinical Summary ---
Author Organization [facility] Address [address] [place] [address] Phone Care Team Providers Care Clinical Information Systems Director Name Role Phone Marion Coates NP Primary Care Provider [phone] Allergies No known active allergies Medications methocarbamoL (ROBAXIN) 500 mg tablet Take 1 tablet (500 mg total) by mouth 2 (two) times a day for 10 days. 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 No acute process. 2. Kvjm-azmyhnc-tetb-right ovarian cysts. This document has been electronically [...] intact. IMPRESSION: 1. No acute process. 2. Xsxn-mwwphsk-hyfy-right ovarian cysts. This document has been electronically signed by: Christiane Bernal MD on 10/31/2024 17:27:44 [facility] Ozzy Oakley MD [facility] CT PROCEDURES Final Result * CT Head [...] GEMUSE QTc 497 ms GEMUSE P Wave [place] 76 degrees GEMUSE R [place] 67 degrees GEMUSE T [place] 19 degrees GEMUSE ECG Interpretation Normal sinus [...] LAB CHEMISTRY METHOD 5 5:32 PM EDT [facility] Comment:Certain OTC medicati ons containing ephedrine, phenylephrine, pseudoephedrine and phenylpropanolamine can cause false positive results. Barbiturate Screen, Ur Negative Negative LAB CHEMISTRY METHOD 5 5:32 PM EDT [facility] Benzodiazepine Screen, Ur Negative Negative LAB CHEMISTRY METHOD 5 5:32 PM EDT [facility] Cocaine Screen, Ur Negative Negative LAB CHEMISTRY METHOD 5 5:32 PM EDT [facility] Opiate Screen, Ur Negative Negative LAB CHEMISTRY METHOD 5 5:32 PM T [facility] Cannabinoid (THC) Screen, Ur Positive(A ) Negative LAB CHEMISTRY METHOD 5 5:32 PM T [facility] Comment:Specimens from patie nts taking pantoprazole sodium (Protonix) have been shown to produce false positive results. Oxycodone Screen, Ur Negative Negative LAB CHEMISTRY METHOD 5 5:32 PM EDT [facility] Fentanyl, Ur Negative Negative LAB CHEMISTRY METHOD 5 5:32 PM T [facility] Urine Urine specimen obtained by clean catch procedure / Unknown Non-blood Collection / Unknown 10/31/2024 4:08 PM EDT 10/31/2024 4:30 PM EDT Narrative [facility] - 10/31/2024 5:32 PM [...] ISRAEL LAB URINE ORDERABLES Final Resu lt [facility] [address] [place] [address], [place] [phone] * (ABNORMAL) Urinalysis with reflex microscopic and culture (10/31/2024 3:00 PM EDT) Specific [place] Urine 1.033(H) 1.003 - 1.030 LAB URINALYSIS - AUTOMATED METHOD 10/31/2024 3:45 PM EDT [facility] pH, Urine 5.5 5.0 - 8.0 pH LAB URINALYSIS - AUTOMATED METHOD 10/31/2024 3:45 PM EDT [facility] Leukocytes, Urine Trace(A) Negative LAB URINALYSIS - AUTOMATED METHOD 10/31/2024 3:45 PM EDT [facility] Nitrite, Urine Negative Negative LAB URINALYSIS - AUTOMATED METHOD 10/31/2024 3:45 PM EDT [facility] Protein, Urine 30(A) <=Trace mg/dL LAB URINALYSIS - AUTOMATED METHOD 10/31/2024 3:45 PM EDT [facility] Glucose, Urine Negative Negative mg/dL LAB URINALYSIS - AUTOMATED METHOD 10/31/2024 3:45 PM EDT [facility] Ketones, Urine 15(A) Negative mg/dL LAB URINALYSIS - AUTOMATED METHOD [facility] Urobilinogen , Urine 1.0 0.2 - 1.0 mg/dL LAB URINALYSIS - AUTOMATED METHOD 10/31/2024 3:45 PM EDT [facility] Bilirubin, Urine Negative Negative LAB URINALYSIS - AUTOMATED METHOD 10/31/2024 3:45 PM EDT [facility] Blood, Urine Moderate(A) Negative LAB URINALYSIS - AUTOMATED METHOD 10/31/2024 3:45 PM EDT [facility] RBC, Urine 66.6(H) 0 - 4 /HPF LAB URINALYSIS - AUTOMATED METHOD 10/31/2024 3:45 PM EDT [facility] WBC, Urine 4.2(H) 0 - 4 /HPF LAB URINALYSIS - AUTOMATED METHOD 10/31/2024 3:45 PM EDT [facility] Squamous Epithelial, Urine 90(H) 0 - 60 /LPF LAB URINALYSIS - AUTOMATED METHOD 10/31/2024 3:45 PM [facility] Bacteria, Urine Negative Negative /HPF LAB URINALYSIS - AUTOMATED METHOD 10/31/2024 3:45 PM [facility] Hyaline Casts, Urine 11.2(H) 0 - 3 /LPF LAB URINALYSIS - AUTOMATED METHOD 10/31/2024 3:45 PM [facility] Urine Urine specimen obtained by clean catch procedure / Unknown Non-blood Collection / Unknown 10/31/2024 3:00 PM EDT 10/31/2024 3:25 PM EDT us Colt Norris MD LAB URINE ORDERABLES Final Resu lt [facility] [address] [place] [address], * Blevins urine culture tube (10/31/2024 3:00 PM EDT) Extra Tube Hold for add-ons. 10/31/2024 5:01 PM EDT [facility] Comment:Auto resulted. Urine Urine specimen obtained by clean catch procedure / Unknown Non-blood Collection / Unknown 10/31/2024 3:00 PM EDT 10/31/2024 3:25 PM EDT us Colt Norris MD LAB URINE ORDERABLES Final Resu lt Performing Organization Address [facility]/ZIP Co de Phone Number [facility] [address] [place] [address], [place] [phone] * Culture urine (10/31/2024 3:00 PM EDT) Pathologist [facility] Culture, Urine 50,000-99,000 CFU/mL Mixed urogenital renny, no uropathogens present. Suggest repeat specimen if clinically indicated. 11/01/2024 8:37 AM EDT [facility] Urine Urine specimen obtained by clean catch procedure / Unknown Non-blood Collection / Unknown 10/31/2024 3:00 PM EDT 10/31/2024 3:45 PM EDT us Colt Norris MD LAB MICROBIOLOGY - GENERAL ORDE RABLES Final Result Performing Organization Address [facility]/ZIP Co de Phone Number [facility] [address] [place] [address], [place] [phone] * (ABNORMAL) CBC auto differential (10/31/2024 11:34 AM EDT) WBC 9.4 4.8 - 10.8 K/mcL LAB HEMETOLOGY METHOD 10/31/2024 11:57 AM EDT [facility] RBC 5.50(H) 3.80 - 4.80 M/mcL LAB HEMETOLOGY METHOD 10/31/2024 11:57 AM EDT [facility] Hemoglobin 15.8 11.5 - 16.0 g/dL LAB HEMETOLOGY METHOD 10/31/2024 11:57 AM EDT [facility] Hematocrit 45.0 35.0 - 47.0 % LAB HEMETOLOGY METHOD 10/31/2024 11:57 AM [facility] MCV 81.4 79.0 - 98.0 FL LAB HEMETOLOGY METHOD 10/31/2024 11:57 AM [facility] MCH 28.6 27.0 - 32.0 pcg LAB HEMETOLOGY METHOD 10/31/2024 11:57 AM [facility] MCHC 35.1 32.0 - 37.0 g/dL LAB HEMETOLOGY METHOD 10/31/2024 11:57 AM [facility] RDW 12.9 11.0 - 15.0 % LAB HEMETOLOGY METHOD 10/31/2024 11:57 AM [facility] Platelets 293 130 - 400 K/mcL LAB HEMETOLOGY METHOD 10/31/2024 11:57 AM [facility] MPV 11.4(H) 7.0 - 11.0 FL LAB HEMETOLOGY METHOD 10/31/2024 11:57 AM [facility] NRBC 0.0 <1.0 % LAB HEMETOLOGY METHOD 10/31/2024 11:57 AM [facility] NRBC Absolute 0.00 <0.10 K/mcL LAB HEMETOLOGY METHOD 10/31/2024 11:57 AM [facility] Neutrophils Relative 59.1 % LAB HEMETOLOGY METHOD 10/31/2024 11:57 AM [facility] Lymphocytes Relative 29.9 % LAB HEMETOLOGY METHOD 10/31/2024 11:57 AM [facility] Monocytes Relative 9.3 % LAB HEMETOLOGY METHOD 10/31/2024 11:57 AM [facility] Eosinophils Relative 1.0 % LAB HEMETOLOGY METHOD 10/31/2024 11:57 AM [facility] Basophils Relative 0.4 % LAB HEMETOLOGY METHOD 10/31/2024 11:57 AM EDT [facility] Immature Granulocytes Relative 0.3 % LAB HEMETOLOGY METHOD 10/31/2024 11:57 AM EDT [facility] Neutrophils Absolute 5.57 1.50 - 7.00 K/mcL LAB HEMETOLOGY METHOD 10/31/2024 11:57 AM EDT [facility] Lymphocytes Absolute 2.82 1.00 - 5.00 K/mcL LAB HEMETOLOGY METHOD 10/31/2024 11:57 AM EDT [facility] Monocytes Absolute 0.88 0.20 - 1.00 K/mcL LAB HEMETOLOGY METHOD 10/31/2024 11:57 AM EDT [facility] Eosinophils Absolute 0.09 0.00 - 0.50 K/mcL LAB HEMETOLOGY METHOD 10/31/2024 11:57 AM EDT [facility] Basophils Absolute 0.04 0.00 - 0.20 K/mcL LAB HEMETOLOGY METHOD 10/31/2024 11:57 AM EDT [facility] Immature Granulocytes Absolute 0.03 0.00 - 0.03 K/mcL LAB HEMETOLOGY METHOD 10/31/2024 [facility] Blood Venous blood specimen / Unknown Venipuncture / Unknown 10/31/2024 11:34 AM EDT 10/31/2024 11:49 AM EDT us Colt Norris MD LAB BLOOD ORDERABLES Final Resu lt [facility] [address] [place] [address], * Magnesium (10/31/2024 11:34 AM EDT) Magnesium 2.3 1.9 - 2.6 mg/dL LAB CHEMISTRY METHOD 10/31/2024 12:29 PM [facility] Blood Venous blood specimen / Unknown Venipuncture / Unknown 10/31/2024 11:34 AM EDT 10/31/2024 11:49 AM EDT us Colt Norris MD LAB BLOOD ORDERABLES Final Resu lt [facility] [address] [place] [address], * (ABNORMAL) Comprehensive metabolic panel (10/31/2024 11:34 AM EDT) Sodium 135 133 - 145 mmol/L LAB CHEMISTRY METHOD 10/31/2024 1:02 PM [facility] Potassium 2.8(LL) 3.5 - 5.5 mmol/L LAB CHEMISTRY METHOD 10/31/2024 1:02 PM [facility] Chloride 91(L) 96 - 110 mmol/L LAB CHEMISTRY METHOD 10/31/2024 1:02 PM [facility] CO2 35(H) 21 - 32 mmol/L LAB CHEMISTRY METHOD 10/31/2024 1:02 PM [facility] Anion Gap 9 3 - 11 LAB CHEMISTRY METHOD 10/31/2024 1:02 PM [facility] Glucose 119(H) 70 - 100 mg/dL LAB CHEMISTRY METHOD 10/31/2024 1:02 PM [facility] BUN 11 5 - 25 mg/dL LAB CHEMISTRY METHOD 10/31/2024 1:02 PM [facility] Creatinine 1.14(H) 0.50 - 1.10 mg/dL LAB CHEMISTRY METHOD 10/31/2024 1:02 PM [facility] eGFR 69 >=60 mL/min/1. 73m2 LAB CHEMISTRY METHOD 10/31/2024 1:02 PM [facility] Comment:Calculation based on the Chronic Kidney Disease Epidemiology Collaboration (CKD-EPI) equation refit without adjustment for race. BUN/Creatinine Ratio 9.6 LAB CHEMISTRY METHOD 10/31/2024 1:02 PM [facility] Calcium 9.8 8.5 - 10.5 mg/dL LAB CHEMISTRY METHOD 10/31/2024 1:02 PM [facility] AST (SGOT) 29 10 - 42 unit/L LAB CHEMISTRY METHOD 10/31/2024 1:02 PM [facility] ALT (SGPT) 36 10 - 60 unit/L LAB CHEMISTRY METHOD 10/31/2024 1:02 PM [facility] Alkaline Phosphatase 113 42 - 121 unit/L LAB CHEMISTRY METHOD 10/31/2024 1:02 PM [facility] Total Protein 8.0 6.0 - 8.0 g/dL LAB CHEMISTRY METHOD 10/31/2024 1:02 PM [facility] Albumin 4.5 3.2 - 5.0 g/dL LAB CHEMISTRY METHOD 10/31/2024 1:02 PM [facility] Total Bilirubin 0.8 0.0 - 1.4 mg/dL LAB CHEMISTRY METHOD 10/31/2024 1:02 PM [facility] Blood Venous blood specimen / Unknown Venipuncture / Unknown 10/31/2024 11:34 AM EDT 10/31/2024 11:49 AM EDT us Colt Norris MD LAB BLOOD ORDERABLES Final Resu lt [facility] [address] [place] [address], [place] [phone] from Last 3 Months Insurance MEDICAID - [...] currently active code status orders. Care Teams Clinical Information Systems Director Relationship Specialty Start Date End Date Marion Coates NP [address] [place] [phone] PCP - General 05/23/24
--- OUTSIDE RECORDS SUMMARY | 2025-01-30 11:02 | XMS_ITS | Encounter Summary ---
Author Organization [employer] Address [address] [facility] 7t [place] [address] Care Team Providers Care Syrup Machine Laborer Name Role Phone Marion Coates Primary Care Provider [phone] Rgean Dallas RN Unavailable [phone] Mable Kim Unavailable Encounter Details Date Type Department Care Team (Late st Contact Info) Description 12/24/2024 Results Follow-Up [facility] MEDICINE [address] [place], [place] [phone] Marion Coates ANP [address] [place] [address] Basic Metabolic Panel, TSH W/Reflex to FT4, [...] Description 02/28/2025 1:30 PM EDT Office Visit [facility] [address] [place] [address] Marion Coates ANP [address] [place] [address] documented as of this encounter Visit Diagnoses Not on filedocumented in this encounter Additional Health Concerns Assessment Noted Time PHQ-9 Depression Total Score: 27 025 10:13 AM EDT documented as of this encounter Care Teams Syrup Machine Laborer Relationship Specialty Start Date End Date Marion Coates ANP [address] [place] [address] PCP - General Family Medicine 01/06/23 Regan Dallas, AIME [address] [place] [address] Registered Nurse Family Medicine 12/03/24 Mable Kim 12/03/24 documented as of this encounter
[2025-02-05 13:23] LABS: Metanephrine, Free 42 pg/mL (<=57); Normetanephrines, Free 88 pg/mL (<=148); Total Metanephrine, Free 130 pg/mL (<=205)
== END 2025-01-30 09:17 | disposition home or self-care (01) ==
LOC: HO.10HDL 09:16
PROVIDERS: Visit Provider Student in an Organized Health Care Education/Training Program
DX: E27.8 Other specified disorders of adrenal gland (principal); R79.89 Other specified abnormal findings of blood chemistry
CPT/HCPCS: 36415; 82024; 82533; 82627; 83835; 84439; 84443

== ENCOUNTER 2025-02-07 18:32 | Emergency (ER) | payer MEDICAID, SELFPAY ==
--- OUTSIDE RECORDS SUMMARY | 2025-02-07 19:10 | XMS_ITS ---
Author Organization [employer] [facility] Address [address] [facility] 7t [place] [address] Care Team Providers Care Technical Applications Specialist Name Role Phone Marion Coates Primary Care Provider [phone] Regan Dallas RN Unavailable [phone] Mable Kim Unavailable CM Complex Status:Outreach In Progress (Enrolling) Start date:12/03/2024 Enrollment reason:ADT Feed Overview ADT-[facility] ED 11/30/24 Case Team Name Relationship Phone Regan Dallas RN(Responsible Staff) Registered Nurse [phone] Continued Care and Services Coordination
--- OUTSIDE RECORDS SUMMARY | 2025-02-07 19:10 | XMS_ITS ---
Author Organization [employer] Address [address] [facility] 7t [place] [address] Care Team Providers Care Texture Artist Name Role Phone Marion Coates Primary Care Provider [phone] Regan Dallas RN Unavailable [phone] Mable Kim Unavailable CHW Complex Status:Outreach In Progress (Enrolling) Start date:12/03/2024 Enrollment reason:ADT Feed Overview ADT-[facility] 11/30/24 . Please outreach for enrollment. Case Team Name Relationship Phone Mable Kim(Responsible Staff) [phone] Continued Care and Services Coordination
--- OUTSIDE RECORDS SUMMARY | 2025-02-07 19:11 | XMS_ITS | Encounter Summary ---
Author Organization [employer] Address 75 [facility] 7t [place] [address] Care Team Providers Care Horticultural Technical Officer Name Role Phone Marion Coates Primary Care Provider [phone] Regan Dallas RN Unavailable [phone] Mable Kim Unavailable Encounter Details Date Type Department Care Team (Late st Contact Info) Description 12/24/2024 Results Follow-Up [facility] [address] [place], [place] [phone] Marion Coates ANP [address] [place] [address] Basic Metabolic Panel, TSH W/Reflex to FT4, [...] Description 02/28/2025 1:30 PM EDT Office Visit [facility] [address] [place] [address] Marion Coates ANP [address] [place] [address] documented as of this encounter Visit Diagnoses Not on filedocumented in this encounter Additional Health Concerns Assessment Noted Time PHQ-9 Depression Total Score: 27 025 10:13 AM EDT documented as of this encounter Care Teams Horticultural Technical Officer Relationship Specialty Start Date End Date Marion Coates ANP [address] [place] [address] PCP - General Family Medicine 01/06/23 Regna Dallas, AIME [address] [place] [address] Registered Nurse Family Medicine 12/03/24 Mable Kim 12/03/24 documented as of this encounter
--- OUTSIDE RECORDS SUMMARY | 2025-02-07 19:11 | XMS_ITS | Encounter Summary ---
Author Organization [employer] Address [address] [facility] 7t [place] [address] Care Team Providers Care Venue Manager Name Role Phone Marion Coates KHADRA Primary Care Provider [phone] Regan Dallas RN Unavailable [phone] Mable Kim Unavailable Encounter Details Date Type Department Care Team (Latest Contact Info) Description 12/05/2024 Results Follow-Up [facility] [address] [place] [phone] Deedee Batres MD [address] [place] [address] Cortisol Random, Comprehensive Metabolic Panel, Magnesium, Additional [...] abnormalities may need to be referred to Architectural Technician. Pt to f w her PCP Thanks [...] Description 02/28/2025 1:30 PM EDT Office Visit [facility] [address] [place] [address] Marion Coates ANP [address] [place], [place] [phone] documented as of this encounter Visit Diagnoses Not on filedocumented in this encounter Additional Health Concerns Assessment Noted Time PHQ-9 Depression Total Score: 27 025 10:13 AM EDT documented as of this encounter Care Teams Venue Manager Relationship Specialty Start Date End Date Marion Coates ANP [address] [place] [address] PCP - General Family Medicine 01/06/23 Regan Dallas, AIME [address] [place] [address] Registered Nurse Family Medicine 12/03/24 Mable Kim 12/03/24 documented as of this encounter
--- OUTSIDE RECORDS SUMMARY | 2025-02-07 19:11 | XMS_ITS | Clinical Summary ---
Author Organization [employer] Address [address] [facility] [address] [place] [address] Care Team Providers Care Bar Machine Operator Multiple Spindle Name Role Phone Dayton Harris KHADRA Primary Care Provider [phone] Regan Dallas RN Unavailable [phone] Mable Kim Unavailable Allergies No known [...] SI/HI thoughts. Currently sees a therapist from [facility] and has no psychiatry services. [...] exam vitiligo and reported episode of hypotension Cherokee's disease is in the differential except that [...] abnormal hormonal results will need referral to Aircraft Communicator -Change position slowly -Explained to use albuterol [...] SI/HI thoughts. Currently sees a therapist from [facility] and has no psychiatry services. [...] OP therapy referral. She was provided with [facility] information and was highly encouraged [...] PLAN: 1. Follow up with [facility]: Not recommended for follow-up 2. Patient [...] Type Department Care Team Description 01/16/2025 Telephone [facility] [place] [address] Na Clifford RN Referral; Lab Orders 12/24/2024 Results Follow-Up [facility] [place] [address] Dayton Harris ANP Basic Metabolic Panel, TSH W/Reflex to FT4, Thyroid Peroxidase Antibodies 12/20/2024 11:30 AM EDT Office Visit [facility] [place] [address] Dayton Harris ANP Hypokalemia (Primary Dx); Abnormal TSH; Palpitations; Heat intolerance; Severe episode of recurrent major depressive disorder, with psychotic features (CMS/HCC); Irregular menses; Urinary symptom or sign; Nausea and vomiting, unspecified vomiting type; Vitiligo 12/20/2024 Telephone [facility] [place] [address] Dayton Harris ANP 12/20/2024 Telephone [facility] [place] [address] Dayton Harris ANP 12/20/2024 Travel 12/19/2024 Telephone [facility] [place] [address] Dayton Harris ANP chart prep 12/18/2024 Telephone [facility] [place] [address] Dyaton Harris ANP Insurance 12/10/2024 Patient Outreach [facility] [place] [address] Dayton Harris ANP 12/07/2024 Patient Outreach [facility] [place] [address] Dayton Harris ANP Care Coordination (CM/CHW outreach) 12/05/2024 Results Follow-Up [facility] [place] [address] Deedee Batres MD Cortisol Random, Comprehensive Metabolic Panel, Magnesium, Additional followed-up results: 8 12/05/2024 Orders Only [facility] [place] [address] Deedee Batres MD 12/04/2024 10:00 AM EDT Office Visit [address] [address] Deedee Batres MD Hypokalemia (Primary Dx); Wheezing; Chronic gastritis without bleeding, unspecified gastritis type; BERNA (generalized anxiety disorder); Severe episode of recurrent major depressive disorder, with psychotic features (CMS/HCC); Nausea and vomiting, unspecified vomiting type; Weight loss; Vitiligo 12/04/2024 Patient Outreach [address] [address] Dayton Harris ANP 12/04/[address] [address] Dayton Harris ANP ER Follow-up 12/04/2024 Patient Outreach [address] [address] Dayton Harris ANP Care Coordination (CM/CHW outreach) 12/04/2024 Travel 12/03/[address] [address] Deedee Batres MD chart prep 12/03/2024 Orders Only [facility] External Provider, [facility] 12/03/2024 Patient Outreach [address] [address] Dayton Harris ANP Care Coordination (Chw chart review) 12/03/[address] [address] Dayton Harris ANP Nurse Triage 12/03/2024 Patient Outreach [address] [address] Dayton Harris ANP Care Management (C3CM- chart review) 12/03/2024 Patient Outreach [address] [address] Dayton Harris ANP from Last 3 Months Immunizations Immunization Administration [...] Description 02/28/2025 1:30 PM EDT Office Visit [facility] [address] [place] [address] Dayton Harris, ANP [address] [place] [address] Health Maintenance Due Date Last Done Comments [...] CT PCR, Urine NOT DETECTED Not Detect. [facility] Comment:A not detected test result does [...] NG PCR, Urine NOT DETECTED Not Detect. [facility] Comment:A not detected test result does [...] 9:27 AM EDT 12/24/2024 11:22 AM EDT [facility] LAB URINE ORDERABLES Final Resul t [facility] [address] [place] [address] [phone] * Urinalysis, Complete, with Reflex to Culture (12/24/2024 9:27 AM EDT) Color Urine Yellow [facility] Appearance Urine Clear [facility] PH 8.0 5.0 - 9.0 [facility] Glucose Urine UA Negative Negative mg/dL [facility] Urine Blood Negative Negative [facility] Specific Realitos - Urine 1.020 1.005 - 1.025 [facility] Urine Protein Negative Neg-Trace mg/dL [facility] Urine Ketones Trace Negative mg/dL [facility] Nitrite Urine Negative Negative [facility] Leukocyte Esterase Urine Negative Negative [facility] RBC Urine 0-2 0 - 2 /HPF [facility] Urine WBC 0-5 0 - 5 /HPF [facility] Urine Squamous Epithelial Cell 3-5 0 - 2 /HPF [facility] Urine Bacteria None Seen None Seen [facility] Hyaline Casts, Urine 0-2 0 - 2 /LPF [facility] Urine 12/24/2024 9:27 AM EDT 12/24/2024 11:22 AM EDT Narrative [facility] - 12/24/2024 11:46 AM EDT Urine, Clean Catch Dayton Harris [facility] LAB URINE ORDERABLES Final Resul t Performing Organization Address [facility] de Phone Number [facility] [address] [place] [phone] * TSH W/Reflex to FT4 (12/24/2024 9:27 AM EDT) Only the most recent of2 resultswithin the time period is included. TSH reflex Free T4 0.35 0.32 - 4.0 uIU/mL [facility] Blood Venous blood specimen / Unknown 12/24/2024 9:27 AM EDT 12/24/2024 11:16 AM EDT Dayton Harris [facility] LAB BLOOD ORDERABLES Final Resul t Performing Organization Address [facility] de Phone Number [facility] [address] [place] [phone] * Thyroid Peroxidase Antibodies (12/24/2024 9:27 AM EDT) Thyroid Peroxidase Antibodies <1 <9 IU/mL [facility] Comment:THIS TEST WAS PERFOR MED AT:[facility] [place] [phone] SANDOVAL MD Blood Venous blood specimen / Unknown 12/24/2024 9:27 AM EDT 12/24/2024 11:16 AM EDT Dayton Harris ANP LAB BLOOD ORDERABLES Final Resul t Performing Organization Address [facility] de Phone Number [facility] [address] [place] [phone] * (ABNORMAL) Basic Metabolic Panel (12/24/2024 9:27 AM EDT) Only the most recent of2 resultswithin the time period is included. Sodium 144 135 - 145 mmol/L [facility] Potassium 4.1 3.3 - 5.1 mmol/L [facility] Chloride 111(H) 96 - 108 mmol/L [facility] Carbon Dioxide 28 22 - 29 mmol/L [facility] Anion Gap 9(L) 12 - 20 [facility] Urea Nitrogen (BUN) 9 9 - 16 mg/dL [facility] Creatinine, Serum 0.78 0.5 - 1.4 mg/dL [facility] Estimated Glomerular Filt Rate >60 [facility] Comment:Chronic Kidney Disea se: Estimated GFR < 60 mL/min/1.10e4Lnaozl Kidney Disease: Estimated GFR < 15 mL/min/1.73m2 Glucose 66 60 - 115 mg/dL [facility] Calcium 9.1 8.4 - 10.2 mg/dL [facility] Blood Venous blood specimen / Unknown 12/24/2024 9:27 AM EDT 12/24/2024 11:16 AM EDT Dayton Harris ANP LAB BLOOD ORDERABLES Final Resul t Performing Organization Address [facility]/ZIP Co de Phone Number [facility] [address] [place] [phone] * Cortisol Random (12/05/2024 8:59 AM EDT) Cortisol Random 7.0 ug/dL [facility] Comment:Reference Range*: Be fore 10 am 6.2-19.4 ug/dL After 5 pm 2.3-11.9 ug/dL*Please interpret above results accordingly.This test was performed using the Rodriguez chemiluminescentmethod. Values obtained from different assay methods cannotbe used interchangeably.Patients receiving fludrocortisone, prednisolone orprednisone may show artificially elevated cortisol valuesdue to cross-reactivity. 12/05/2024 8:59 AM EDT 12/05/2024 11:14 AM EDT us Deedee Arnold MD LAB BLOOD ORDERAB LES Final Result Performing Organization Address [facility]/ZIP Co de Phone Number [facility] [address] [place] [phone] * Syphilis Screen (12/05/2024 8:59 AM EDT) Syphilis Screen Nonreactive Nonreactive [facility] Blood 12/05/2024 8:59 AM EDT 12/05/2024 11:09 AM EDT us Deedee Arnold MD LAB BLOOD ORDERAB LES Final Result Performing Organization Address [facility]/ZIP Co de Phone Number [facility] [address] [place] [phone] * Aldosterone/Plasma Renin Activity Ratio, LC/MS/MS (12/05/2024 8:59 AM EDT) Aldosterone 2 see note ng/dL [facility] Comment:Unable to flag abnor mal result(s), please refer to reference range(s) below:Adult Reference Ranges for Aldosterone, LC/MS/MS: Upright 8:00 - 10:00 am < or = 28 ng/dL Upright 4:00 - 6:00 pm < or = 21 ng/dL Supine 8:00 - 10:00 am 3 - 16 ng/dLTHIS TEST WAS PERFORMED AT:[facility] [id number] [place] [address]JRMTQODYEMI BRENNAN MD,PHD Plasma Renin Activity 0.37 0.25 - 5.82 ng/mL/h [facility] Aldosterone/Renin Ratio 5.4 0.9 - 28.9 Ratio [facility] Comment:This test was develo ped and its analytical performancecharacteristics have been determined by [employer] [place], [place]. It hasnot been cleared or approved by the U.S. Food and DrugAdministration. This assay has been validated pursuantto the CLIA regulations and is used for clinicalpurposes.THIS TEST WAS PERFORMED AT:[facility] [id number] [place] [address]JVGMRWDYEMI BRENNAN MD,PHD Blood Venous blood specimen / Unknown 12/05/2024 8:59 AM EDT 12/05/2024 11:09 AM EDT us Deedee Arnold MD LAB BLOOD ORDERAB LES Final Result Performing Organization Address [facility] Co de Phone Number [facility] [address] [place] [phone] * Hepatitis C Antibody with Reflex to HCV, RNA, Quantitative, Real-Time PCR (12/05/2024 8:59 AM EDT) Hepatitis C Antibody Nonreactive Nonreactive [facility] Comment:Antibodies to HCV no t detected; does not exclude early acuteHCV infection. Blood Venous blood specimen / Unknown 12/05/2024 8:59 AM EDT 12/05/2024 11:09 AM EDT us Deedee Arnold MD LAB BLOOD ORDERAB LES Final Result Performing Organization Address City/[facility] Co de Phone Number [facility] [address] [place] [phone] * Hepatitis B surface antigen, EIA (12/05/2024 8:59 AM EDT) Pathologist [facility] Hepatitis B Surface Ag Negative Negative [facility] Blood Venous blood specimen / Unknown 12/05/2024 8:59 AM EDT 12/05/2024 11:09 AM EDT us Deedee Arnold MD LAB BLOOD ORDERAB LES Final Result Performing Organization Address [facility]/ZIP Co de Phone Number [facility] [address] [place] [phone] * HIV-1/2 Antigen and Antibodies, Fourth Generation, with Reflexes (12/05/2024 8:59 AM EDT) [facility] HIV AB/AG Nonreactive Nonreactive [facility] Comment:HIV-1 p24 Ag and/or HIV-1/HIV-2 Ab not detected.A test result that is nonreactive does not exclude thepossibility of exposure to or infection with HIV-1 and/orHIV-2. Nonreactive results in this assay for individualswith prior exposure to HIV-1 and/or HIV-2 may be due toantigen and antibody levels that are below the limit ofdetection of this assay.The [employer] HIV Ag/Ab Combo assay result andsupplemental assay results should be interpreted inconjunction with the patient's clinical presentation,history and other laboratory results. If the results areinconsistent with clinical evidence, additional testing issuggested to confirm the result. Blood Venous blood specimen / Unknown 12/05/2024 8:59 AM EDT 12/05/2024 11:09 AM EDT us Deedee Arnold MD LAB BLOOD ORDERAB LES Final Result [facility] [address] [place] [phone] * (ABNORMAL) CBC (12/05/2024 8:59 AM EDT) White Blood Count 8.7 4.8 - 10.8 X10*3/uL [facility] Red Blood Count 4.53 4.20 - 5.50 X10*6/uL [facility] Hemoglobin 13.3 12.0 - 16.0 g/dl [facility] Hematocrit 37.5 37.0 - 47.0 % [facility] Mean Corpuscular Volume 82.8 80.0 - 98.0 fL [facility] Mean Corpuscular Hemoglobin 29.4 27.0 - 33.0 pg [facility] Mean Corpuscular HGB Conc 35.5(H) 31.0 - 35.0 g/dl [facility] Red Cell Distribution Width 14.1 11.0 - 16.0 % [facility] Platelet Count 270 160 - 400 X10*3/uL [facility] Mean Platelet Volume 11.5 9.4 - 12.3 fL [facility] NRBC Pct Auto 0.0 0.0 - 0.2 /100WBC [facility] NRBC Abs Auto 0.000 0.0 - 0.012 X10*3/uL [facility] Blood Venous blood specimen / Unknown 12/05/2024 8:59 AM EDT 12/05/2024 11:09 AM EDT us Deedee Arnold MD LAB BLOOD ORDERAB LES Final Result [facility] [address] [place] [phone] * T4, Free (12/05/2024 8:59 AM EDT) Free T4 (Free Thyroxine) 1.04 0.71 - 1.85 ng/dL [facility] 12/05/2024 8:59 AM EDT 12/05/2024 11:09 AM EDT us Deedee Arnold MD LAB BLOOD ORDERAB LES Final Result Performing Organization Address [facility] Co de Phone Number [facility] [address] [place] [phone] * Magnesium (12/05/2024 8:59 AM EDT) Magnesium 2.0 1.6 - 2.6 mg/dL [facility] Blood Venous blood specimen / Unknown 12/05/2024 8:59 AM EDT 12/05/2024 11:09 AM EDT us Deedee Arnold MD LAB BLOOD ORDERAB LES Final Result Performing Organization Address [facility] Number [facility] [address] [place] [phone] * Hemoglobin A1c (12/05/2024 8:59 AM EDT) Hemoglobin A1c 5.0 <6.0 % [facility] Comment:Hemoglobin A1C Refer ence Range Adults: 4.8 - 6.0 % Non diabetic: < 6.0 % Goal: < 7.0 %Additional Action Suggested: > 8.0 %Note: Hemoglobin A1c results are invalid for patients with abnormal amounts of HbF. Blood transfusions may impact the HbA1c concentration in the patient sample. Estimated Average Glucose 97 mg/dL [facility] Comment:eAG = Estimated ave rage glucose which is %A1C expressed asaverage glucose, using the formula of the X4N-XowcdzfGoiufyv Glucose study (ADAG), Diabetes Care, Vol.31,#8,2007 Blood Venous blood specimen / Unknown 12/05/2024 8:59 AM EDT 12/05/2024 11:09 AM EDT us Deedee Arnold MD LAB BLOOD ORDERAB LES Final Result Performing Organization Address [facility] Co de Phone Number [facility] [address] [place] [phone] * (ABNORMAL) Comprehensive Metabolic Panel (12/05/2024 8:59 AM EDT) Only the most recent of2 resultswithin the time period is included. Sodium 141 135 - 145 mmol/L [facility] Potassium 3.6 3.3 - 5.1 mmol/L [facility] Chloride 112(H) 96 - 108 mmol/L [facility] Carbon Dioxide 24 22 - 29 mmol/L [facility] Anion Gap 9(L) 12 - 20 [facility] Urea Nitrogen (BUN) 5(L) 9 - 16 mg/dL [facility] Creatinine, Serum 0.68 0.5 - 1.4 mg/dL [facility] Estimated Glomerular Filt Rate >60 [facility] Comment:Chronic Kidney Disea se: Estimated GFR < 60 mL/min/1.24d2Renlqy Kidney Disease: Estimated GFR < 15 mL/min/1.73m2 Glucose 86 60 - 115 mg/dL [facility] Calcium 8.9 8.4 - 10.2 mg/dL [facility] Bilirubin, Total 0.3 0.0 - 1.0 mg/dL [facility] Aspartate Amino Transferase 24 5 - 31 U/L [facility] Alanine Aminotransferase 15 0 - 31 U/L [facility] Total Protein 6.2(L) 6.5 - 8.0 g/dL [facility] Albumin Level 4.0 3.5 - 5.0 g/dL [facility] Alkaline Phosphatase 65 39 - 117 U/L [facility] Blood Venous blood specimen / Unknown 12/05/2024 8:59 AM EDT 12/05/2024 11:09 AM EDT us Deedee Arnold MD LAB BLOOD ORDERAB LES Final Result [facility] [address] [place] [phone] * CT Abdomen Pelvis w/ Contrast (12/03/2024 4:02 PM EDT) Anatomical Region Laterality Modality Body, Pelvis, Abdomen Computed T omography 12/03/2024 4:02 PM EDT Narrative 12/03/2024 4:51 PM EDT [address] [address] [address] Scan Report Signed Patient: Evonne Ladd MR#: [id number] [birth year] : 2000 Acct:[id number] Age/Sex: 24 / F ADM Date: 12/03/24 Loc: HO.ED Attending Dr: Ordering Physician: Maria Eugenia Griffith NP Date of Service: 12/03/24 Procedure(s): CT abdomen pelvis w IV con Accession Number(s): [id number] cc: DAYTON HARRIS MATERIAL PLANNER; Maria Eugenia Griffith NP Report Number: [id number]: Total DLP = 551.00 mGy-cm EXAMINATION: CT [...] 12/03/24 1648 DD/ 1602 TD/TT: 12/03/24 1636 Professional Skater: Procedure Note Donotuseinterpreter, Image - 12/03/[address] [place] [address] [address] Scan Report Signed Patient: Young Ladd#: [id number] 29 : 2000Acct:[id number] Age/Sex: 24 / FADM Date: 12/03/24 Loc: HO.ED Attending Dr: Ordering Physician: Maria Eugenia Griffith NP Date of Service: 12/03/24 Procedure(s): CT abdomen pelvis w IV con Accession Number(s): [id number] cc: DAYTON HARRIS MATERIAL PLANNER; Maria Eugenia Griffith NP Report Number: [id number]: Total DLP = 551.00 mGy-cm EXAMINATION: CT [...] 12/03/24 1648 DD/ 1602 TD/TT: 12/03/24 1636 Professional Skater: [facility] External Provider IMG CT PROCEDURES Final Result * Urinalysis w/reflex microscopic (12/03/2024 2:27 PM EDT) Color Urine Yellow [facility] Appearance Urine Clear [facility] PH 6.5 5.0 - 9.0 [facility] Glucose Urine UA Negative Negative mg/dL [facility] Urine Blood Negative Negative [facility] Specific Realitos - Urine 1.015 1.005 - 1.025 [facility] Urine Protein Negative Neg-Trace mg/dL [facility] Urine Ketones Negative Negative mg/dL [facility] Nitrite Urine Negative Negative [facility] Leukocyte Esterase Urine Negative Negative [facility] 12/03/2024 2:27 PM EDT 12/03/2024 2:37 PM EDT Narrative [facility] - 12/03/2024 2:42 PM EDT [id number], Clean Catch Generic External Data Provider LAB URINE ORDERAB LES Final Result [facility] [address] [place] [phone] * (ABNORMAL) CBC auto differential (12/03/2024 2:13 PM EDT) White Blood Count 10.5 4.8 - 10.8 X10*3/uL [facility] Red Blood Count 4.95 4.20 - 5.50 X10*6/uL [facility] Hemoglobin 14.6 12.0 - 16.0 g/dl [facility] Hematocrit 40.1 37.0 - 47.0 % [facility] Mean Corpuscular Volume 81.0 80.0 - 98.0 fL [facility] Mean Corpuscular Hemoglobin 29.5 27.0 - 33.0 pg [facility] Mean Corpuscular HGB Conc 36.4(H) 31.0 - 35.0 g/dl [facility] Red Cell Distribution Width 13.5 11.0 - 16.0 % [facility] Platelet Count 282 160 - 400 X10*3/uL [facility] Mean Platelet Volume 11.0 9.4 - 12.3 fL [facility] Neutrophils Percent Auto 65.0 45 - 73 % [facility] Imm Gran Pct Auto 0.4 0.0 - 0.4 % [facility] Lymphocytes Percent Auto 25.9 20 - 40 % [facility] Monocytes Percent Auto 7.3 2 - 11 % [facility] Eosinophils Percent Auto 0.9 0 - 4 % [facility] Basophils Percent Auto 0.5 0 - 2 % [facility] NRBC Pct Auto 0.0 0.0 - 0.2 /100WBC [facility] Neutrophils Absolute Auto 6.8 2.0 - 8.3 x10*3/uL [facility] Imm Gran Abs Auto 0.04(H) 0.00 - 0.03 X10*3/uL [facility] Lymphocytes Absolute Auto 2.7 1.2 - 4.9 X10*3/uL [facility] Monocytes Absolute Auto 0.8 0.1 - 1.2 X10*3/uL [facility] Eosinophils Absolute Auto 0.1 0.0 - 0.4 X10*3/uL [facility] Basophils Absolute Auto 0.1 0.0 - 0.2 X10*3/uL [facility] NRBC Abs Auto 0.000 0.0 - 0.012 X10*3/uL [facility] 12/03/2024 2:13 PM EDT 12/03/2024 2:17 PM EDT us Generic External Data Provider LAB BLOOD ORDERAB LES Final Result [facility] [address] [place] [phone] * hCG, Total, Quantitative (12/03/2024 2:13 PM EDT) HCG Quantitative <2 mIU/mL [facility] Comment:Weeks post LMP Appro ximate hCG(Last Menstrual Period) Range (mIU/ml)3 - 4 weeks 9 - 1304 - 5 weeks 75 - 2,6005 - 6 weeks 850 - 20,8006 - 7 weeks 4000 - 100,2007 - 12 weeks 11,500 - 289,55708 - 16 weeks 18,300 - 137,43843 - 29 weeks (2nd trimester) 1,400 - 53,35373 - 41 weeks (3rd trimester) 940 - [...] ORDERAB LES Final Result Performing Organization Address [facility] Co de Phone Number [facility] [address] [place] [phone] * Lipase (12/03/2024 2:13 PM EDT) Lipase 20 8 - 78 U/L [facility] 12/03/2024 2:13 PM EDT 12/03/2024 2:17 PM EDT Generic External Data Provider LAB BLOOD ORDERAB LES Final Result Performing Organization Address [facility] Co de Phone Number [facility] [address] [place] [phone] * XR KUB and Upright 2 Views (12/03/2024 12:00 PM EDT) Anatomical Region Laterality Modality Radiographic Pauline ging 12/03/2024 12:0 0 PM EDT Narrative 12/03/2024 12:28 PM EDT [address] [address] XRay Report Signed Patient: Evonne Ladd MR#: [id number] 29 : 2000 Acct:[id number] Age/Sex: 24 / F ADM Date: 12/03/24 Loc: HO.ED Attending Dr: Ordering Physician: Generic ED Physician Date of Service: 12/03/24 Procedure(s): XR KUB Accession Number(s): [id number] cc: Generic ED Physician; DAYTON HARRIS NP [...] 12/03/24 1226 DD/ 1200 TD/TT: 12/03/24 1207 Professional Skater: Procedure Note Donotuseinterpreter, Image - 12/03/[address] [address] XRay Report Signed Patient: Shawn LaddR#: [id number] 29 : 2000Acct:[id number] Age/Sex: 24 / FADM Date: 12/03/24 Loc: HO.ED Attending Dr: Ordering Physician: Generic ED Physician Date of Service: 12/03/24 Procedure(s): XR KUB Accession Number(s): [id number] cc: Generic ED Physician; DAYTON HARRIS MATERIAL PLANNER EXAMINATION: XR ABDOMEN KUB CLINICAL INDICATION: ?constipation [...] 12/03/24 1226 DD/ 1200 TD/TT: 12/03/24 1207 Professional Skater: [facility] External Provider IMG XR PROCEDURES Final Result * Image-Guided Pap with Age-Based Screening??with CT/NG,??Trichomonas (01/31/2023 9:46 AM EDT) Trichomonas (NAAT) NOT DETECTED NOT DETECTED [facility] Comment:The analytical perfo rmance characteristics of thisassay have been determined by [employer]. Themodifications have not been cleared or approved bythe FDA. This assay has been validated pursuant to theCLIA regulations and is used for clinical purposes.For additional information, please refer [email or web address](This link is being provided for information/educational purposes only.)THIS TEST WAS PERFORMED AT:[employer] [place] [phone] SANDOVAL MD CTNG Ref Lab NOT DETECTED NOT DETECTED [facility] NG Ref Lab NOT DETECTED NOT DETECTED [facility] 01/31/2023 9:46 AM EDT 02/01/2023 8:40 AM EDT Vero Nieves CNM LAB CYTOLOGY ORDERABLES F inal Result [facility] [address] [place] [phone] from Last 3 Months or Most Recently Relevant to Health Maintenance [facility] Care Teams Bar Machine Operator Multiple Spindle Relationship Specialty Start Date End Date Dayton Harris ANP [address] [place] [phone] PCP - General Family Medicine 01/06/23 Regan Dallas, AIME [address] [place] [phone] Registered Nurse Family Medicine 12/03/24 Mable Kim 12/03/24
== END 2025-02-07 19:20 | disposition left against medical advice (07) ==
PROVIDERS: Emergency Provider Emergency Medicine; PCP Nurse Practitioner Primary Care
DX: Z53.21 Procedure and treatment not carried out due to patient leaving prior to being seen by health care provider (principal)

== ENCOUNTER 2025-02-20 07:53 | Outpatient (REF) | payer MEDICAID, SELFPAY ==
--- OUTSIDE RECORDS SUMMARY | 2025-02-20 07:57 | XMS_ITS ---
Author Organization [employer] Address [address] [facility] 7t [place] [address] Care Team Providers Care Iv Therapy Nurse Name Role Phone Marion Coates Primary Care Provider [phone] Regan Dallas RN Unavailable [phone] Mable Kim Unavailable CHW Complex Status:Outreach In Progress (Enrolling) Start date:12/03/2024 Enrollment reason:ADT Feed Overview [facility] ED 11/30/24 . Please outreach for enrollment. Case Team Name Relationship Phone Mable Kim(Responsible Staff) [phone] Continued Care and Services Coordination
--- OUTSIDE RECORDS SUMMARY | 2025-02-20 07:57 | XMS_ITS ---
Author Organization [employer] [facility] Address [address] [facility] 7t [place] [address] Care Team Providers Care Bridge/Structure Inspection Team Leader Name Role Phone Marion Coates Primary Care Provider Regan Dallas RN Unavailable [phone] Mable Kim Unavailable CM Complex Status:Outreach In Progress (Enrolling) Start date:12/03/2024 Enrollment reason:ADT Feed Overview [facility] ED 11/30/24 Case Team Name Relationship Phone Regan Dallas RN(Responsible Staff) Registered Nurse [phone] Continued Care and Services Coordination
--- OUTSIDE RECORDS SUMMARY | 2025-02-20 07:57 | XMS_ITS | Clinical Summary ---
Author Organization [employer] Address [address] [facility] 7t [place] [address] Care Team Providers Care Housetrailer Servicer Name Role Phone Dayton Harris KHADRA Primary Care Provider Regan Dallas RN Unavailable [phone] Mable Kim Unavailable Allergies No known [...] 5 Active omeprazole (PriLOSEC) [address] capsuleCristel ns:Chronic gastritis without bleeding, unspecified gastritis type Take 1 capsule (20 mg) by mouth before breakfast and before evening meal. Do not crush or chew. 60 capsule 2 5 025 Active OLANZapine (ZyPREXA) 10 MG tabletIndication s:Severe episode of recurrent major depressive disorder, with psychotic features (CMS/HCC) (HCC) Take 1 tablet (10 mg) by mouth [...] thoughts. Currently sees a therapist from [facility] and has no psychiatry services. She used [...] exam vitiligo and reported episode of hypotension Alexandria's disease is in the differential except that [...] abnormal hormonal results will need referral to Inventory Clerk -Change position slowly -Explained to use albuterol [...] recurrent major depressive disorder, with psychotic features ([facility]/HCC) 06/30/2022 Assessment & Plan (12/04/2024 10:32 PM [...] thoughts. Currently sees a therapist from [facility] and has no psychiatry services. She used [...] OP therapy referral. She was provided with [facility] information and was highly encouraged to [...] needs PLAN: 1. Follow up with [facility]: Not recommended for follow-up 2. Patient goal [...] organization. Date Type Department Care Team Description 02/11/2025 Patient Outreach [facility] [place] [address] Dayton Harris ANP 01/16/2025 Telephone [facility] [place] [address] Na Clifford, sanitation truck driver; Lab Orders 12/24/2024 Results Follow-Up [facility] [place] [address] Dayton Harris ANP Basic Metabolic Panel, TSH W/Reflex to FT4, Thyroid Peroxidase Antibodies 12/20/2024 11:30 AM EDT Office Visit [facility] [place] [address] Dayton Harris ANP Hypokalemia (Primary Dx); Abnormal TSH; Palpitations; Heat intolerance; Severe episode of recurrent major depressive disorder, with psychotic features (CMS/HCC); Irregular menses; Urinary symptom or sign; Nausea and vomiting, unspecified vomiting type; Vitiligo 12/20/2024 Telephone [facility] [place] [address] Dayton Harris ANP 12/20/[address] [address] Dayton Harris ANP 12/20/2024 Travel 12/19/[address] [address] Dayton Harris ANP chart prep 12/18/[address] [place] [address] Dayton Harris ANP Insurance 12/10/2024 Patient Outreach [address] [address] Dayton Harris ANP 12/07/2024 Patient Outreach [address] [address] Dayton Harris ANP Care Coordination (CM/CHW outreach) 12/05/2024 Results Follow-Up [facility] [place] [address] Deedee Batres MD Cortisol Random, Comprehensive Metabolic Panel, Magnesium, Additional followed-up results: 8 12/05/2024 Orders Only [facility] [place] [address] Deedee Batres MD 12/04/2024 10:00 AM EDT Office Visit [facility] [place] [address] Deedee Batres MD Hypokalemia (Primary Dx); Wheezing; Chronic gastritis without bleeding, unspecified gastritis type; BERNA (generalized anxiety disorder); Severe episode of recurrent major depressive disorder, with psychotic features (CMS/HCC); Nausea and vomiting, unspecified vomiting type; Weight loss; Vitiligo 12/04/2024 Patient Outreach [facility] [place] [address] Dayton Harris ANP 12/04/2024 Telephone [facility] [place] [address] Dayton Harris ANP ER Follow-up 12/04/2024 Patient Outreach [facility] [place] [address] Dayton Harris ANP Care Coordination (CM/CHW outreach) 12/04/2024 Travel 12/03/2024 Telephone [facility] [place] [address] Deedee Batres MD chart prep 12/03/2024 Orders Only [facility] External Provider, [facility] 12/03/2024 Patient Outreach [facility] [place] [address] Dayton Harris ANP Care Coordination (Chw chart review) 12/03/[address] [address] Dayton Harris ANP Nurse Triage 12/03/2024 Patient Outreach [address] [address] Dayton Harris ANP Care Management (C3- chart review) 12/03/2024 Patient Outreach [facility] [address] [place] [address] Dayton Harris ANP from Last 3 Months [...] Description 02/28/2025 1:30 PM EDT Office Visit [facility] [address] [place], [place] [phone] Dayton Harris, ANP [address] [place] [address] Health Maintenance Due Date Last Done Comments [...] 9:27 AM EDT 12/24/2024 11:22 AM EDT Dayton [facility] LAB URINE ORDERABLES Final Resul t [facility] [address] [place] [phone] * Urinalysis, Complete, with Reflex to Culture (12/24/2024 9:27 AM EDT) Color Urine Yellow [facility] Appearance Urine Clear [facility] PH 8.0 5.0 - 9.0 [facility] Glucose Urine UA Negative Negative mg/dL [facility] Urine Blood Negative Negative [facility] Specific [place] - Urine 1.020 1.005 - 1.025 [facility] Urine Protein Negative Neg-Trace mg/dL [facility] Urine Ketones Trace Negative mg/dL [facility] Nitrite Urine Negative Negative [facility] Leukocyte Esterase Urine Negative Negative [facility] RBC Urine 0-2 0 - 2 /HPF [facility] Urine WBC 0-5 0 - 5 /HPF [facility] Urine Squamous Epithelial Cell 3-5 0 - 2 /HPF [facility] Urine Bacteria None Seen None Seen [facility] Hyaline Casts, Urine 0-2 0 - 2 /LPF [facility] Urine 12/24/2024 9:27 AM EDT 12/24/2024 11:22 AM EDT Narrative [facility] - 12/24/2024 11:46 AM EDT Urine, Clean Catch Dayton Harris [facility] LAB URINE ORDERABLES Final Resul t Performing Organization Address [facility] Co de Phone Number [facility] [address] [place] [address] [phone] * TSH W/Reflex to FT4 (12/24/2024 9:27 AM EDT) Only the most recent of2 resultswithin the time period is included. TSH reflex Free T4 0.35 0.32 - 4.0 uIU/mL [facility] Blood Venous blood specimen / Unknown 12/24/2024 9:27 AM EDT 12/24/2024 11:16 AM EDT Dayton Harris ANP LAB BLOOD ORDERABLES Final Resul t Performing Organization Address City/[facility] Co de Phone Number [facility] [address] [place] [phone] * Thyroid Peroxidase Antibodies (12/24/2024 9:27 AM EDT) Pathologist [facility] Thyroid Peroxidase Antibodies <1 <9 IU/mL [facility] Comment:THIS TEST WAS PERFOR MED AT:[employer] [place] [phone] SANDOVAL MD Blood Venous blood specimen / Unknown 12/24/2024 9:27 AM EDT 12/24/2024 11:16 AM EDT Dayton Harris ANP LAB BLOOD ORDERABLES Final Resul t [facility] [address] [place] [phone] * (ABNORMAL) Basic Metabolic Panel (12/24/2024 9:27 AM EDT) Only the most recent of2 resultswithin the time period is included. Pathologist [facility] Sodium 144 135 - 145 mmol/L [facility] [...] Kidney Disea se: Estimated GFR < 60 mL/min/1.42n0Jqmbca Kidney Disease: Estimated GFR < 15 mL/min/1.73m2 Glucose 66 60 - 115 mg/dL [facility] Calcium 9.1 8.4 - 10.2 mg/dL [facility] Blood Venous blood specimen / Unknown 12/24/2024 9:27 AM EDT 12/24/2024 11:16 AM EDT Dayton GAVIRIA LAB BLOOD ORDERABLES Final Resul t Performing Organization Address [facility] Co de Phone Number [facility] [address] [place] [phone] * Cortisol Random (12/05/2024 8:59 AM EDT) Cortisol Random 7.0 ug/dL [facility] Comment:Reference Range*: Be fore 10 am 6.2-19.4 ug/dL After 5 pm 2.3-11.9 ug/dL*Please interpret above results accordingly.This test was performed using the Jimdo chemiluminescentmethod. Values obtained from different assay methods cannotbe used interchangeably.Patients receiving fludrocortisone, prednisolone orprednisone may show artificially elevated cortisol valuesdue to cross-reactivity. 12/05/2024 8:59 AM EDT 12/05/2024 11:14 AM EDT Deedee Arnold MD LAB BLOOD ORDERAB LES Final Result Performing Organization Address [facility]/ZIP Co de Phone Number [facility] [address] [place] [phone] * Syphilis Screen (12/05/2024 8:59 AM EDT) [facility] Syphilis Screen Nonreactive Nonreactive [facility] Blood 12/05/2024 8:59 AM EDT 12/05/2024 11:09 AM EDT Deedee Arnold MD LAB BLOOD ORDERAB LES Final Result Performing Organization Address [facility] Co de Phone Number [facility] [address] [place] [phone] * Aldosterone/Plasma Renin Activity Ratio, LC/MS/MS (12/05/2024 8:59 AM EDT) Pathologist [facility] Aldosterone 2 see note ng/dL [facility] Comment:Unable to flag abnor mal result(s), please refer to reference range(s) below:Adult Reference Ranges for Aldosterone, LC/MS/MS: Upright 8:00 - 10:00 am < or = 28 ng/dL Upright 4:00 - 6:00 pm < or = 21 ng/dL Supine 8:00 - 10:00 am 3 - 16 ng/dLTHIS TEST WAS PERFORMED AT:[facility] [id number] [place] [phone] BRENNAN MD,PHD Plasma Renin Activity 0.37 0.25 - 5.82 ng/mL/h [facility] Aldosterone/Renin Ratio 5.4 0.9 - 28.9 Ratio [facility] Comment:This test was develo ped and its analytical performancecharacteristics have been determined by [employer] [place], [place]. It hasnot been cleared or approved by the U.S. Food and DrugAdministration. This assay has been validated pursuantto the CLIA regulations and is used for clinicalpurposes.THIS TEST WAS PERFORMED AT:[facility] [id number] [place] [phone] BRENNAN MD,PHD Blood Venous blood specimen / Unknown 12/05/2024 8:59 AM EDT 12/05/2024 11:09 AM EDT us Deedee Arnold MD LAB BLOOD ORDERAB LES Final Result [facility] [address] [place] [phone] * Hepatitis C Antibody with Reflex [...] ORDERAB LES Final Result Performing Organization Address City/[facility]/ZIP Co de Phone Number [facility] [address] [place] [phone] * Hepatitis B surface antigen, EIA (12/05/2024 8:59 AM EDT) Hepatitis B Surface Ag Negative Negative [facility] Blood Venous blood specimen / Unknown 12/05/2024 8:59 AM EDT 12/05/2024 11:09 AM EDT Deedee Arnold MD LAB BLOOD ORDERAB LES Final Result Performing Organization Address [facility] Co de Phone Number [facility] [address] [place] [phone] * HIV-1/2 Antigen and Antibodies, Fourth Generation, with Reflexes (12/05/2024 8:59 AM EDT) Pathologist [facility] HIV AB/AG Nonreactive Nonreactive [facility] Comment:HIV-1 p24 Ag and/or HIV-1/HIV-2 Ab not detected.A test result that is nonreactive does not exclude thepossibility of exposure to or infection with HIV-1 and/orHIV-2. Nonreactive results in this assay for individualswith prior exposure to HIV-1 and/or HIV-2 may be due toantigen and antibody levels that are below the limit ofdetection of this assay.The [employer] HIV Ag/Ab Combo assay result andsupplemental assay results should be interpreted inconjunction with the patient's clinical presentation,history and other laboratory results. If the results areinconsistent with clinical evidence, additional testing issuggested to confirm the result. Blood Venous blood specimen / Unknown 12/05/2024 8:59 AM EDT 12/05/2024 11:09 AM EDT Deedee Arnold MD LAB BLOOD ORDERAB LES Final Result [facility] [address] [place] [phone] * (ABNORMAL) CBC (12/05/2024 8:59 AM EDT) Pathologist [facility] White Blood Count 8.7 4.8 - 10.8 [...] Final Result [facility] [address] [place] [phone] * T4, Free (12/05/2024 8:59 AM EDT) Free T4 (Free Thyroxine) 1.04 0.71 - 1.85 ng/dL [facility] 12/05/2024 8:59 AM EDT 12/05/2024 11:09 AM EDT Deedee Arnold MD LAB BLOOD ORDERAB LES Final Result Performing Organization Address [facility]/ZIP Co de Phone Number [facility] [address] [place] [phone] * Magnesium (12/05/2024 8:59 AM EDT) Magnesium 2.0 1.6 - 2.6 mg/dL [facility] Blood Venous blood specimen / Unknown 12/05/2024 8:59 AM EDT 12/05/2024 11:09 AM EDT Deedee Arnold MD LAB BLOOD ORDERAB LES Final Result Performing Organization Address [facility] de Phone Number [facility] [address] [place] [phone] * Hemoglobin A1c (12/05/2024 8:59 AM EDT) Hemoglobin A1c 5.0 <6.0 % [facility] Comment:Hemoglobin A1C Refer ence Range [...] asaverage glucose, using the formula of the M9H-UmqxwwtJbpixki Glucose study (ADAG), Diabetes Care, Vol.31,#8,Dec. 2007 Blood Venous blood specimen / Unknown 12/05/2024 8:59 AM EDT 12/05/2024 11:09 AM EDT Deedee Arnold MD LAB BLOOD ORDERAB LES Final Result [facility] [address] [place] [phone] * (ABNORMAL) Comprehensive Metabolic Panel (12/05/2024 [...] Kidney Disea se: Estimated GFR < 60 mL/min/1.60f0Mplxby Kidney Disease: Estimated GFR < 15 mL/min/1.73m2 [...] LES Final Result [facility] [address] [place] [phone] * CT Abdomen Pelvis w/ Contrast (12/03/2024 4:02 PM EDT) Anatomical Region Laterality Modality Body, Pelvis, Abdomen Computed T omography 12/03/2024 4:02 PM EDT Narrative 12/03/2024 4:51 PM EDT [address] [address] [address] Scan Report Signed Patient: Evonne Ladd MR#: [id number] [birth year] : 2000 Acct:[id number] Age/Sex: 24 / F ADM Date: 12/03/24 Loc: HO.ED Attending Dr: Ordering Physician: Maria Eugenia Griffith NP Date of Service: 12/03/24 Procedure(s): CT abdomen pelvis w IV con Accession Number(s): [id number] cc: DAYTON HARRIS PATIENT ADVOCATE; Maria Eugenia Griffith NP Report Number: [id number]: Total DLP = 551.00 mGy-cm EXAMINATION: CT [...] 12/03/24 1648 DD/ 1602 TD/TT: 12/03/24 1636 Apprentice Jockey: Procedure Note Donotuseinterpreter, Image - 12/03/[address] [address] [address] Scan Report Signed Patient: Shawn LaddR#: [id number] [birth year] : 2000Acct:[id number] Age/Sex: 24 / FADM Date: 12/03/24 Loc: .ED Attending Dr: Ordering Physician: Maria Eugenia Griffith NP Date of Service: 12/03/24 Procedure(s): CT abdomen pelvis w IV con Accession Number(s): [id number] cc: DAYTON HARRIS PATIENT ADVOCATE; Maria Eugenia Griffith NP Report Number: [id number]: Total DLP = 551.00 mGy-cm EXAMINATION: CT [...] 12/03/24 1648 DD/ 1602 TD/TT: 12/03/24 1636 Apprentice Jockey: [facility] External Provider IMG CT PROCEDURES Final Result * Urinalysis w/reflex microscopic (12/03/2024 2:27 PM EDT) Color Urine Yellow [facility] Appearance Urine Clear [facility] PH 6.5 5.0 - 9.0 [facility] Glucose Urine UA Negative Negative mg/dL [facility] Urine Blood Negative Negative [facility] Specific [place] - Urine 1.015 1.005 - 1.025 [facility] Urine Protein Negative Neg-Trace mg/dL [facility] Urine Ketones Negative Negative mg/dL [facility] Nitrite Urine Negative Negative [facility] Leukocyte Esterase Urine Negative Negative [facility] 12/03/2024 2:27 PM EDT 12/03/2024 2:37 PM EDT Narrative [facility] - 12/03/2024 2:42 PM EDT [id number], Clean Catch Generic External Data Provider LAB URINE ORDERAB LES Final Result [facility] [address] [place] [phone] * (ABNORMAL) CBC auto differential (12/03/2024 [...] ORDERAB LES Final Result Performing Organization Address City/[facility]/ZIP Co de Phone Number [facility] [address] [place] [phone] * hCG, Total, Quantitative (12/03/2024 2:13 PM EDT) HCG Quantitative <2 mIU/mL [facility] Comment:Weeks post LMP Appro ximate hCG(Last Menstrual Period) Range (mIU/ml)3 - 4 weeks 9 - 1304 - 5 weeks 75 - 2,6005 - 6 weeks 850 - 20,8006 - 7 weeks 4000 - 100,2007 - 12 weeks 11,500 - 289,12938 - 16 weeks 18,300 - 137,63931 - 29 weeks (2nd trimester) 1,400 - 53,00946 - 41 weeks (3rd trimester) 940 - [...] Final Result Performing Organization Address [facility]/ZIP Co de Phone Number [facility] [address] [place] [phone] * Lipase (12/03/2024 2:13 PM EDT) Lipase 20 8 - 78 U/L [facility] 12/03/2024 2:13 PM EDT 12/03/2024 2:17 PM EDT us Generic External Data Provider LAB BLOOD ORDERAB LES Final Result Performing Organization Address City/[facility]/ZIP Co de Phone Number [facility] [address] [place] [phone] * XR KUB and Upright 2 Views (12/03/2024 12:00 PM EDT) Anatomical Region Laterality Modality Radiographic Pauline ging 12/03/2024 12:0 0 PM EDT Narrative 12/03/2024 12:28 PM EDT [address] [address] XRay Report Signed Patient: Evonne Ladd MR#: [id number] [birth year] : 2000 Acct:[id number] Age/Sex: 24 / F ADM Date: 12/03/24 Loc: HO.ED Attending Dr: Ordering Physician: Generic ED Physician Date of Service: 12/03/24 Procedure(s): XR KUB Accession Number(s): [id number] cc: Generic ED Physician; DAYTON HARRIS NP [...] 12/03/24 1226 DD/ 1200 TD/TT: 12/03/24 1207 Apprentice Jockey: Procedure Note Donotuseinterpreter, Image - 12/03/[address] [address] XRay Report Signed Patient: Shawn LaddR#: [id number] [birth year] : 2000Acct:[id number] Age/Sex: 24 / FADM Date: 12/03/24 Loc: HO.ED Attending Dr: Ordering Physician: Generic ED Physician Date of Service: 12/03/24 Procedure(s): XR KUB Accession Number(s): [id number] cc: Generic ED Physician; DAYTON HARRIS NP [...] 12/03/24 1226 DD/ 1200 TD/TT: 12/03/24 1207 Apprentice Jockey: [facility] External Provider IMG XR PROCEDURES Final Result * Image-Guided Pap with Age-Based Screening??with CT/NG,??Trichomonas (01/31/2023 9:46 AM EDT) Trichomonas (NAAT) NOT DETECTED NOT DETECTED [facility] Comment:The analytical perfo rmance characteristics of thisassay have been determined by [employer]. Themodifications have not been cleared or approved bythe FDA. This assay has been validated pursuant to theCLIA regulations and is used for clinical purposes.For additional information, please refer tohttp://education.ELERTS/faq/Trichomonastma(This link is being provided for information/educational purposes only.)THIS TEST WAS PERFORMED AT:[employer] [place] [phone] SANDOVAL MD CTNG Ref Lab NOT DETECTED NOT DETECTED [facility] NG Ref Lab NOT DETECTED NOT DETECTED [facility] 01/31/2023 9:46 AM EDT 02/01/2023 8:40 AM EDT Vero Nieves CNM LAB CYTOLOGY ORDERABLES F inal Result [facility] [address] [place] [phone] from Last 3 Months or Most Recently Relevant to Health Maintenance Insurance [facility] C3 Care Teams Housetrailer Servicer Relationship Specialty Start Date End Date Dayton Harris ANP [address] [place] [address] PCP - General Family Medicine 01/06/23 Regan Dallas, AIME [address] [place] [phone] Registered Nurse Family Medicine 12/03/24 Mable Kim 12/03/24
--- OUTSIDE RECORDS SUMMARY | 2025-02-20 07:57 | XMS_ITS | Encounter Summary ---
Author Organization [employer] Address [address] [facility] [address] [place] [address] Care Team Providers Care Field Servicer Name Role Phone Marion Coates Primary Care Provider [phone] Regan Dallas RN Unavailable [phone] Mable Kim Unavailable Encounter Details Date Type Department Care Team (Late st Contact Info) Description 12/24/2024 Results Follow-Up [facility] [address] [place], [place] [phone] Marion Coates ANP [address] [place] [address] Basic Metabolic Panel, TSH W/Reflex to FT4, [...] Description 02/28/2025 1:30 PM EDT Office Visit [facility] [address] [place] [address] Marion Coates ANP [address] [place] [address] documented as of this encounter Visit Diagnoses Not on filedocumented in this encounter Additional Health Concerns Assessment Noted Time PHQ-9 Depression Total Score: 27 025 10:13 AM EDT documented as of this encounter Care Teams Field Servicer Relationship Specialty Start Date End Date Marion Coates ANP [address] [place] [address] PCP - General Family Medicine 01/06/23 Regan Dallas, AIME [address] [place] [address] Registered Nurse Family Medicine 12/03/24 Mable Kim 12/03/24 documented as of this encounter
--- OUTSIDE RECORDS SUMMARY | 2025-02-20 07:57 | XMS_ITS | Clinical Summary ---
Author Organization [facility] Address [address] [place] [address] Phone Care Team Providers Care Nuclear Weapons Specialist Name Role Phone Marion Coates NP Primary Care Provider [phone] Allergies No known active allergies Medications methocarbamoL (ROBAXIN) 500 mg tablet Take 1 tablet (500 mg total) by mouth 2 (two) times a day for 10 days. 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 Care Teams Nuclear Weapons Specialist Relationship Specialty Start Date End Date Marion Coates NP [address] [place] [phone] PCP - General 05/23/24
[2025-02-20 10:07] LABS: Free T4 (Free Thyroxine) 1.08 ng/dL (0.71-1.85); Thyroid Stimulating Hormone 0.38 uIU/mL (0.32-4.0)
[2025-02-21 04:39] LABS: Follicle Stimulating Hormone 7.1 mIU/mL
[2025-02-24 19:29] LABS: IGF-1 (Somatomedin C) 216 ng/mL (63-373); IGF-1 Z Score (Female) 0.5 SD (-2.0 - +2.0)
[2025-02-26 02:23] LABS: Estradiol Ultra Sensitive 81 pg/mL
== END 2025-02-20 07:54 | disposition home or self-care (01) ==
LOC: HO.LAB 07:53
PROVIDERS: Visit Provider Student in an Organized Health Care Education/Training Program
DX: R79.89 Other specified abnormal findings of blood chemistry (principal)
CPT/HCPCS: 36415; 82024; 82533; 82627; 82670; 83001; 83002; 83003; 84146; 84305; 84439; 84443

== ENCOUNTER 2025-03-06 07:09 | Outpatient (RCR) | payer MEDICAID, SELFPAY ==
[2025-03-06 07:16] VITALS: BP 100/57; PULSE 68; RESP 16; TEMP 36.8; O2SAT 97
[2025-03-07 05:48] LABS: Cortisol 30 Minute Time 0822; Cortisol 60 Minute 28.2 mcg/dL; Cortisol 60 Minute Time 3 0852; Cortisol Baseline Time 1 0752
[2025-03-07 10:38] LABS: Med (ACTH) Time 0753
== END 2025-03-06 10:35 | disposition home or self-care (01) ==
LOC: HO.INF 07:09
PROVIDERS: Visit Provider Student in an Organized Health Care Education/Training Program
DX: E27.8 Other specified disorders of adrenal gland (principal); R79.89 Other specified abnormal findings of blood chemistry
CPT/HCPCS: 36415; 82533; 96374; J0834

== ENCOUNTER 2025-04-11 09:22 | Outpatient (AMB) | payer MEDICAID, SELFPAY ==
--- NOTE | 2025-04-11 09:24 | MHC.OFFVIS ---
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 Last seen by Dr Sherie MD. Thyroid Function Tests Labs: Completed on 02/20/2025 Car Salesperson Required: No Accompanied by: Self / Same As Patient Allergies aspirin Adverse Reaction (Severe, Verified 04/11/25 09:31) Dizziness HPI Comments Details: 25-year-old female coming in today for initial evaluation of concerns of adrenal insufficiency, left adrenal gland nodule and abnormal TSH level. Concerns for adrenal insufficiency left adrenal gland nodule In November 2024 patient was noted to have hypokalemia, and she has been complaining of ongoing nausea, vomiting, abdominal pain. CT abdomen November 2024 showed 0.4 X 0.8 cm left adrenal gland nodule, no further characterization done. right adrenal gland per report was unremarkable. Labs 12/05/2024 showed 09:00 cortisol of 7 mcg/dL. Renin activity 0.37, aldosterone 2. Potassium was 3.6 on the sample. Nausea and vomiting since 1 year. last episode of vomiting today Reports stress. Intermittent abd pain epigastric, burning and sharp, self resolves . Waiting for GI referral Per patient lost 30 lbs over last year. Reports lightheadedness, everyday , after waking up, started december 2024 reports chronic migraines no history of high BP, DM no fractures denies hirsutism,severe acne, denies any hx of proximal muscle weakness, easy bruisability ,no abdominal striae -Denies skin infection or hyperpigmentation. no recent vertebra or fragility fracture -No truncal obesity,facial plethora or recent mood change. has hx of depressio and anxiety - no episodic palpitaions, pallor, abdominal pain, diaphoresis . no recent history of head trauma no steroid use smokes 2 cigarettes / day since 17 years of age smokes marijuana daily at night No other drug use Alcohol use: 4 months ago last drink, none recently Abnormal TSH Labs from 12/05/2024 showed a TSH of low 0.21, with normal free T4 of 1.04, labs repeated 12/24/2024 showed normal TSH of 0.35 with a undetectable TPO antibodies. reports constipation, low energy Patient currently denies heat or cold intolerance, hair loss, palpitation, anxiety, mood changes, changes in appearance of eyes or vision changes, tremors, increased diaphoresis or dry skin. ? Patient denies any difficulty swallowing, pain on swallowing or voice changes or difficulty breathing. Patient denies any history of childhood neck radiation. Denies having ever used lithium, amiodarone or biotin supplements. Reports family history of thyroid cancer in paternal grandmother. Works at [employer] Lives with boyfriend pharmacy : [facility] Interval history: She reports low energy, she sleeps 1-3 hours/day. She does not feel tired, also has other stressors at home Reports possible weight lost, but chart review shows she gained 6lbs since last visit. poor appetite She reports vomiting in the AM, but usually preceded by cough. She reports abdominal pain Reports irregular periods but she is using Nexplanon She has been using inhalers for asthma (can't recall the name) for the last 3 months Physical exam: General: Well appearing. NAD. Not Cushingoid or Acromegalic Neck/Thyroid: Thyroid not palpable, no nodules. Eyes: No conjunctival injection, not lid lag or proptosis CV: RRR, no murmur. No edema. Resp:Lungs clear to auscultation bilaterally Abdomen: Soft, nontender. nondistended Extremities/Neuro: No weakness or tremor of outstretched hands Laboratory Tests 02/20/25 03/06/25 08:28 07:52 TSH 0.38 Free T4 1.08 Estradiol Ultra LCMSMS 81 FSH 7.1 Luteinizing Hormone 6.3 Prolactin 13.2 DHEA Sulfate 344 Human Growth Hormone 0.2 Somatomedin-C 216 Random Cortisol 11.4 Cortisol Baseline 8.7 Cortisol 30 Minute 21.7 Cortisol 60 Minute 28.2 ACTH <5 L PFSH Medical History Low serum adrenocorticotrophic hormone (ACTH) Low TSH level Adrenal incidentaloma No pertinent past medical history Surgical History Hx of eye surgery Family History Father No problems noted. Paternal Grandmother Thyroid cancer Hx of thyroidectomy HTN (hypertension) Paternal Grandfather History of diabetes mellitus Cancer, colon Heart disease HTN (hypertension) Social History Alcohol intake: never Patient Tobacco Use Status: Tobacco use Unknown Substance Use Type: Marijuana Physical Exam Vital Signs: Last Vital Signs Pulse 69 04/11/25 09:31 BP 110/66 04/11/25 09:31 Pulse Ox 98 04/11/25 09:31 Oxygen Delivery Method Room Air 04/11/25 09:31 BMI result Body Mass Index 30.4 Assessment & Plan Assessment & Plan (1) Adrenal incidentaloma: Code(s): E27.8 - Other specified disorders of adrenal gland Category: Medical Plan: 25-year-old female who was referred to me for evaluation for concerns of adrenal insufficiency. This is because of her ongoing symptoms of nausea, vomiting, and that she was hypokalemic and November 2024. However at that time she was having vomiting episodes, likely the hypokalemia was related to that. She is pending a GI referral for further evaluation of her GI symptoms. She has lost 30 lb per patient in the past year since her symptoms have been happening. Her symptoms are nonspecific, even though she does have the weight loss, some intermittent lightheadedness, nausea and vomiting, she has never had any steroid use in the past, no opioid use, but we will check her a.m. cortisol, acth, DHEA-S levels. She does have history of vitiligo so we should keep autoimmune polyglandular syndrome in mind if she does get diagnosed with adrenal insufficiency. CT scan from November 2024 also reported a left adrenal gland nodule 0.4 X 0.8 cm, indeterminate,. She had blood work done in November 2024 which showed renin activity of 0.37, however aldosterone was also low at 2. No concern for primary hyperaldosteronism. The hypokalemia was likely in the setting of nausea and vomiting previously. She does not have any history of high blood pressure. We will check plasma metanephrine and normetanephrine levels, though the lesion is less than 1 cm, unlikely to be a pheochromocytoma. Her Cosyntropin stim test showed a robust adrenal response with cortisol levels 21.7 and 28.1 at 30min and 60 mins respectively, ruling out longstanding adrenal insufficiency. Although theoretically she could have newly diagnosed adrenal insufficiency, central etiology seems unlikely despite low ACTH, as other pituitary labs are normal and isolated central adrenal insufficiency is frankly rare. Conversely, I would not pursue testing for cortisol excess as her symptoms does not seem compatible with it, and there are not labs that rise suspiscion for it (low BP, normal BG, being low-normal K the only possible leading lab). For her adrenal gland nodule, she would need repeat CT scan in 1 year from the last 1 which would be November 2025. Plan: -plan to repeat CT adrenal November 2025 -No further workup for adrenal insuficciency recommended. Unlikely need for cortisol excess but could decide to test in the future of clinical signs rise suspicion (2) Low TSH level: Code(s): R79.89 - Other specified abnormal findings of blood chemistry Category: Medical Plan: 25-year-old female with a paternal grandmother with a history of thyroid cancer, with the 1 abnormal TSH level from November 2024 when TSH was 0.21 with normal free T4 1.04. Labs repeated December 2024 showed normal TSH of 0.35, normal free T4. At this point we will just repeat labs. TPO antibodies were undetectable. Likely when she has a labs done in November 2024 she was acutely sick which can result in low TSH levels. Repeated TFTs in 02/20/25 TSH 0.38, FT4 1.08. TSH is in the lower limit of normal but not clear symptoms of hypothyrodism. Plan Repeat TFTs in 6 months Plan I spent 30 minutes in reviewing the record, seeing the patient and documenting in the medical record. Orders: Orders TSH reflex Free T4 6 Months R79.89 - Other specified abnormal findings of blood chemistry Coding Level of Care Code Est Pt Level 4 (34497) Diagnoses Adrenal incidentaloma E27.8 Low TSH level R79.89
[2025-04-11 09:31] VITALS: BP 110/66; PULSE 69; O2SAT 98; BMI 30.4
--- OUTSIDE RECORDS SUMMARY | 2025-04-11 12:12 | XMS_ITS ---
Author Organization [employer] Address [address] [facility] 7t [place] [address] Care Team Providers Care Press Set Up Person Name Role Phone Marion Coates Primary Care Provider [phone] Regan Dallas RN Unavailable [phone] Mable Kim Unavailable CHW Complex Status:Outreach In Progress (Enrolling) Start date:12/03/2024 Enrollment reason:ADT Feed Overview ADT-[facility] ED 11/30/24 . Please outreach for enrollment. Case Team Name Relationship Phone Mable Kim(Responsible Staff) [phone] Continued Care and Services Coordination
--- OUTSIDE RECORDS SUMMARY | 2025-04-11 12:12 | XMS_ITS | Encounter Summary ---
Author Organization [employer] Address [address] [facility] [address] [place] [address] Care Team Providers Care Natural Resources Manager Name Role Phone Marion Coates Primary Care Provider [phone] Regan Dallas RN Unavailable [phone] Mable Kim Unavailable Reason for Visit * Reason Onset Date Comments Lab Orders 03/11/2025 Encounter Details Date Type Department Care Team ([facility] st Contact Info) Description 03/11/2025 Telephone [facility] [address] [place], [place] [phone] Marion Coates ANP [address] [place], [place] [phone] Lab Orders Social History Tobacco Use Types Packs/Day Years Used Date Smoking Tobacco: Former Cigarettes 0.5 1.9 S tarted: 2023 Smokeless Tobacco: Never Alcohol Use Standard Drinks/Week Comments Not Currently 0 (1 standard drink = 0.6 oz pur e alcohol) rarely Depression Answer Date Recorded Patient Health Questionnaire-9 Score 21 02/28/2025 Patient Health Questionnaire-9 Score 21 02/28/2025 Last PHQ-9: Questionnaire Data Not on file 1 Housing Stability Answer Date Recorded What is [...] Date Recorded Patient Health Questionnaire-2 Score 6 02/28/2025 Internet Access Answer Date Recorded Internet Access [...] encounter Miscellaneous Notes * Telephone Encounter - Na Clifford RN - 03/11/2025 2:57 PM EDT Telephone call returned to pt regarding below message. Inquired if there is a reason she feels she needs to be checked for vitamin deficiencies. Pt reports history of hypokalemia and that when her potassium is low she has dizziness and lightheadedness. She wants to check and make sure she doesn't have any other deficiencies. Pt denies current symptoms. Pt denies heavy menses, reports hasn't had aperiod x2 months. Informed vitamin C is not something we do labs for but that I will send request to PCP as she was just seen. Pt also requesting to r/s appointment as she has another appointment at the same time./ Informed I don't have access to their schedule but that I will send them a message to call her to r/s. Pt verbalized understanding and denied having any further questions or concerns at this time. * Telephone Encounter - Jose Angel Paul - 03/11/2025 1:13 PM EDT Tc from pt requesting lab orders to be tested for vitamin c, d, b12, and iron Any questions contact pt at [phone] documented in this encounter Plan of Treatment Upcoming Encounters Date Type Department Care Team (Late st Contact Info) Description 06/04/2025 10:15 AM EST Office Visit [facility] [address] [place] [phone] Marion Coates ANP [address] [place] [address] documented as of this encounter Visit Diagnoses Not on filedocumented in this encounter Additional Health Concerns Assessment Noted Time PHQ-9 Depression Total Score: 21 025 2:00 PM EDT documented as of this encounter Care Teams Natural Resources Manager Relationship Specialty Start Date End Date Marion Coates ANP [address] [place] [id number] PCP - General Family Medicine 01/06/23 Regan Dallas, AIME [address] [place] [id number] Registered Nurse Family Medicine 12/03/24 Mabel Kim 12/03/24 documented as of this encounter
--- OUTSIDE RECORDS SUMMARY | 2025-04-11 12:12 | XMS_ITS ---
Author Organization [employer] [facility] Address [address] [facility] [address] [place] [address] Care Team Providers Care Clinical Appeals Rn Name Role Phone Marion Coates Primary Care Provider [phone] Regan Dallas RN Unavailable [phone] Mable Kim Unavailable CM Complex Status:Outreach In Progress (Enrolling) Start date:12/03/2024 Enrollment reason:ADT Feed Overview ADT-[facility] ED 11/30/24 Case Team Name Relationship Phone Regan Dallas RN(Responsible Staff) Registered Nurse [phone] Continued Care and Services Coordination
--- OUTSIDE RECORDS SUMMARY | 2025-04-11 12:13 | XMS_ITS | Clinical Summary ---
Author Organization [employer] Address [address] [facility] [address] [place] [address] Care Team Providers Care [employer] Assistant Name Role Phone Marion Coates KHADRA Primary Care Provider [phone] Regan Dallas RN Unavailable [phone] Mable Kim Unavailable Allergies No known [...] FOR UP TO 12 HRS 4 Active albuterol 108 (90 Base) MCG/ACT inhalerIndicatio ns:Wheezing 2 puffs every 4-6 hours prn SOB or wheezing. If using regularly more than twice/wk, call clinic 18 g 1 5 Active omeprazole (PriLOSEC) [address] capsuleIndicatio ns:Chronic gastritis without bleeding, unspecified gastritis type Take 1 capsule (20 mg) by mouth before breakfast and before evening meal. Do not crush or chew. 60 capsule 2 5 Active budesonide-formo terol (Symbicort) 80-4.5 MCG/ACT inhalerIndicatio ns:Mild intermittent asthma without complication Inhale 2 puffs in the morning and at bedtime. Rinse mouth with water after use to reduce aftertaste and incidence of candidiasis. Do not swallow. 1 each 11 5 026 Active OLANZapine (ZyPREXA) 10 MG tabletIndication s:Severe episode of recurrent major depressive disorder, with psychotic features (CMS/HCC) (HCC) Take 1 tablet (10 mg) by mouth at bedtime. 30 tablet 2 5 Active SUMAtriptan (Imitrex) 25 MG tabletIndication s:Intractable migraine with aura without status migrainosus Take 1 tablet (25 mg) by mouth 1 (one) time if needed for migraine for up to 9 doses. May repeat dose once in 2 hours if no relief. Do not exceed 2 doses in 24 hours. 9 tablet 5 Active senna-docusate sodium (Senokot-S) 8.6-50 MG tabletIndication s:Constipation, unspecified constipation type 1-2 tabs once daily as needed for constipation 60 tablet 2 5 Active Active Problems Problem Noted Date [...] SI/HI thoughts. Currently sees a therapist from [facility] and has no psychiatry services. She used [...] exam vitiligo and reported episode of hypotension Warsaw's disease is in the differential except that [...] abnormal hormonal results will need referral to Sales And Distribution Clerk -Change position slowly -Explained to use [...] major depressive disorder, with psychotic features (CMS/HCC) 06/30/2022 Assessment & Plan (12/04/2024 10:32 PM EDT): Depression PHQ9 24, BERNA 24, Denies SI -pt already follows w therapist -has apt today - evaluated today and pt agreed for psychiatrist [...] SI/HI thoughts. Currently sees a therapist from [facility]) and has no psychiatry services. She used [...] OP therapy referral. She was provided with [facility] information and was highly encouraged to utilize service. At this time Evonne Ladd meets criteria for Visit Diagnoses: Problem List Items Addressed This Visit Other Severe episode of recurrent major depressive disorder, with psychotic features (CMS/HCC) Anxiety Suicidal ideation Cannabis use disorder Patient ready to address current needs Yes Strengths include motivation to seek help for BH needs PLAN: 1. Follow up with C: Not recommended for follow-up 2. Patient goal is to improve mental health and decrease SI 3. Behavioral Recommendations a. Patient will utilize [facility] or [facility]IC, if symptoms worsen b. Patient will engage in OP therapy once established c. Patient may reach out to [facility] during next PCP visit or as needed Insomnia 06/30/2022 Tobacco dependence 06/30/2022 Resolved Problems Problem Noted Date Diagnosed Date Resolved Date Anxiety 06/30/2022 03/01/2025 Encounters * This document contains information received from the source organization and may not represent a complete record from that organization. Date Type Department Care Team Description 03/18/[address] [address] Marion Coates ANP May03/13/2025 Travel 03/11/[address] [address] Marion Coates ANP Lab Orders 03/08/[address] [address] Marion Coates ANP telephone call 03/05/2025 Patient Outreach [address] [address] Marion Coates ANP Care Coordination (CM/CHW outreach) 02/28/2025 1:30 PM EDT Office Visit [address] [address] Marion Coates ANP Mild intermittent asthma without complication (Primary Dx); Severe episode of recurrent major depressive disorder, with psychotic features (CMS/HCC) (HCC); Intractable migraine with aura without status migrainosus; Constipation, unspecified constipation type; Abnormal TSH; Irregular menses; Healthcare maintenance 02/28/2025 Travel 02/26/[address] [address] Marion Coates ANP chart prep 02/21/2025 Patient Outreach [facility] [address] [place] [address] Marion Coates ANP Pre-visit Planning (SDOH was already completed ) 02/11/2025 Patient Outreach [facility] [address] [place], [place] [phone] Marion Coates ANP 01/16/2025 Telephone [facility] [address] [place], [place] [phone] Na Clifford, tool crib attendant; Lab Orders from Last 3 Months Immunizations Immunization Administration [...] 1.9 S tarted: 2023 Smokeless Tobacco: Never Tobacco Cessation:Counseling Given: Not Answered Alcohol Use Standard Drinks/Week [...] Sign Reading Time Taken Comments Blood Pressure 110/60 02/28/2025 1:10 PM EDT Pulse 91 02/28/2025 1:10 PM EDT Temperature 36.2 C (97.1 F) 02/28/2025 1:10 PM EDT Respiratory Rate 13 02/28/2025 1:10 PM EDT Oxygen Saturation 97% 02/28/2025 1:10 PM EDT Inhaled Oxygen Concentration - - Weight 72.3 kg (159 lb 6 oz) 02/28/2025 1:10 PM EDT Height 154.9 cm (5' 1 ) 02/28/2025 1:10 PM EDT Body Mass Index 30.11 02/28/2025 1:10 PM EDT Plan of Treatment Upcoming Encounters Date Type Department Care Team (Late st Contact Info) Description 06/04/2025 10:15 AM EST Office Visit [facility] [address] [place], [place] [phone] Marion Coates ANP [address] [place], [place] [phone] Health Maintenance Due Date Last Done Comments Family Planning (PISQ) 2014 SDOH Screening 08/17/2025 08/17/2024 Depression Monitoring 08/29/2025 02/28/2025, 025 Influenza Vaccine (#1) 2025 07/13/2016, 2010 Postponed from 01/21/2025 (Patient Refused) Alcohol/Substance Use Screening 12/04/2025 12/04/2024 Disability Screening 12/04/2025 12/04/2024 Pap Smear 01/31/2026 01/31/2023, 01/31/2023 COVID-19 Vaccine ( season) 2026 Postponed from 01/21/2025 (Patient Refused) Tobacco Screening 02/28/2026 02/28/2025 DTaP/Tdap/Td Vaccines (9 - Td or Tdap) [...] Procedure Name Priority Date/Time Associated Diagnosis Comments HEPATITIS C AB W/REFL TO HCV RNA, QN, PCR Routine 12/05/2024 8:59 AM EDT Hypokalemia HIV 1/2 ANTIGEN/ANTIBODY, FOURTH GENERATION W/RFL Routine 12/05/2024 8:59 AM EDT Hypokalemia IMAGE-GUIDED PAP W/AGE BASED SCR,W/CT/NG/TRICH Routine 01/31/2023 9:46 AM EDT Cervical cancer screening Encntr screen for infections w sexl mode of transmiss from Last 3 Months or Most Recently Relevant to Health Maintenance Results * Hepatitis C Antibody with Reflex to HCV, RNA, Quantitative, Real-Time PCR (12/05/2024 8:59 AM EDT) Hepatitis C Antibody Nonreactive Nonreactive [facility] Comment:Antibodies to HCV no t detected; does not exclude early acuteHCV infection. Blood Venous blood specimen / Unknown 12/05/2024 8:59 AM EDT 12/05/2024 11:09 AM EDT us Deedee Arnold MD LAB BLOOD ORDERAB LES Final Result [facility] [address] [place] [phone] * HIV-1/2 Antigen and Antibodies, Fourth Generation, with Reflexes (12/05/2024 8:59 AM EDT) HIV AB/AG Nonreactive Nonreactive [facility] Comment:HIV-1 p24 Ag and/or HIV-1/HIV-2 Ab not detected.A test result that is nonreactive does not exclude thepossibility of exposure to or infection with HIV-1 and/orHIV-2. Nonreactive results in this assay for individualswith prior exposure to HIV-1 and/or HIV-2 may be due toantigen and antibody levels that are below the limit ofdetection of this assay.The Nano[employer]um[employer] HIV Ag/Ab Combo assay result andsupplemental assay results should be interpreted inconjunction with the patient's clinical presentation,history and other laboratory results. If the results areinconsistent with clinical evidence, additional testing issuggested to confirm the result. Blood Venous blood specimen / Unknown 12/05/2024 8:59 AM EDT 12/05/2024 11:09 AM EDT Deedee Arnold MD LAB BLOOD ORDERAB LES Final Result [facility] [address] [place] [phone] * Image-Guided Pap with Age-Based Screening??with CT/NG,??Trichomonas (01/31/2023 9:46 AM EDT) Pathologist [facility] Trichomonas (NAAT) NOT DETECTED NOT DETECTED [facility] Comment:The analytical perfo rmance characteristics of thisassay have been determined by [employer]. Themodifications have not been cleared or approved bythe FDA. This assay has been validated pursuant to theCLIA regulations and is used for clinical purposes.For additional information, please refer [email or web address].[email or web address]/faq/Trichomonastma(This link is being provided for information/educational purposes only.)THIS TEST WAS PERFORMED AT:[email or web address] [place] [phone] SANDOVAL MD CTNG Ref Lab NOT DETECTED NOT DETECTED [facility] NG Ref Lab NOT DETECTED NOT DETECTED [facility] 01/31/2023 9:46 AM EDT 02/01/2023 8:40 AM EDT us Vero Nieves CN LAB CYTOLOGY ORDERABLES F inal Result [facility] [address] [place] [phone] from Last 3 Months or Most Recently Relevant to Health Maintenance [facility] [employer] C[employer] Care Teams [employer] Assistant Relationship Specialty Start Date End Date Marion Coates ANP [address] [place] [phone] PCP - General Family Medicine 01/06/23 Regan Dallas RN [address] [place] [address] [place] [id number] Registered Nurse Family Medicine 12/03/24 Mable Kim 12/03/24
== END 2025-04-11 10:06 | disposition home or self-care (01) ==
LOC: HO.ENCR 09:22
PROVIDERS: PCP Nurse Practitioner Primary Care; Visit Provider Student in an Organized Health Care Education/Training Program
DX: E27.8 Other specified disorders of adrenal gland (principal); R79.89 Other specified abnormal findings of blood chemistry
CPT/HCPCS: 99214

== ENCOUNTER → 2025-04-11 09:22 | Outpatient (BNVA) | payer MEDICAID, SELFPAY | PROVIDERS: Visit Provider Student in an Organized Health Care Education/Training Program | DX: Z71.2 Person consulting for explanation of examination or test findings (principal); E27.8 Other specified disorders of adrenal gland; R79.89 Other specified abnormal findings of blood chemistry | CPT/HCPCS: 99212 ==